=== PATIENT | male | born 1965 | race African-American/Black ===

== ENCOUNTER 2016-08-23 02:22 | Inpatient (IN) | payer OTHER ==
[~2016-08-23] VITALS: Ht 175.3 cm; Wt 89.0 kg
[~2016-08-23 02:22] MED LIST: ALBU18HF INHALATION; NAPR-688 PO; TRUV PO; tivicay
[2016-08-23] MEDS ORDERED: QUETIAPINE 100 MG TAB PO ONE (07:30)
--- NOTE | 2016-08-23 07:42 | ERD ---
ER Documentation Chief Complaint Date/Time DATE: 08/23/16 TIME: 07:38 Chief Complaint lower back pain/sob for a few months, also c/o left foot pain HPI HPI: Patient is a 51-year-old male with history of bipolar disorder, diabetes, HIV, hep C status post treatment who presents with complaint of shortness of breath for 2 days that he states he believes is due to smoking lots of cigarettes. Although this is the patient's initial complaints, on further history the patient states his real reason for coming to the emergency department is that he ran out of his psychiatric meds several days ago, has been feeling more agitated, paranoid that his neighbors are trying to hurt him, and is having some homicidal ideation towards his neighbors. He does not have specific plan or intent of homicide towards his neighbors, but does state that he has acted on violent impulses before. Patient acknowledges injecting methamphetamine prior to coming to the ER, smokes cocaine, "drinks like a fish. " Patient has history of bipolar disorder with psychotic features and usually takes Seroquel 200 mg, Latuda 20 mg, unknown dose of Lamictal. Denies chest pain, denies fever, denies productive cough, denies nausea or vomiting. Denies ingestion of medication. ROS All systems reviewed and are negative except as per history of present illness. Medications Home Meds Active Scripts Naproxen* (Naproxen*) 500 Mg Tablet, 500 MG PO BID, #20 TAB Prov:JACLYNKRISTI DO 03/24/16 Albuterol Sulfate* (Ventolin HFA*) 18 Gm Hfa.aer.ad, 2 PUFF INHALATION Q4H, #1 INHALER Prov:KRISTI ANAYA DO 03/24/16 Reported Medications [tivicay] No Conflict Check, DAILY 05/24/16 Emtricitabine-Tenofovir* (Truvada*) 200-300 Mg Tab, 1 TAB PO DAILY, TAB 05/24/16 Allergies Allergies: Coded Allergies: Penicillins (Verified Allergy, Unknown, 08/23/16) PMhx/Soc Past medical history: Diabetes, HIV, hep C status post treatment with Harvoni, bipolar disorder with psychotic features Surgical history: Laceration repair to scalp after trauma Social history: Smokes cigarettes, drinks daily, injects methamphetamine, smokes cocaine History of Surgery: Yes (gallbladder removal) Anesthesia Reaction: No Hx Neurological Disorder: Yes (nueropathy) Hx Respiratory Disorders: Yes (asthma) Hx Cardiac Disorders: Yes (HTN) Hx Psychiatric Problems: No Hx Miscellaneous Medical Probl: Yes (DM, HIV) Hx Alcohol Use: Yes Hx Substance Use: Yes (crystal meth) Hx Tobacco Use: Yes FmHx Family History: No coronary disease, No diabetes Physical Exam Vitals Vital Signs Date Time Temp Pulse Resp B/P Pulse Ox O2 Delivery O2 Flow Rate FiO2 08/23/16 13:38 98.3 104 16 130/77 99 Room Air 08/23/16 10:00 98.4 88 16 152/82 97 Room Air 08/23/16 02:33 97.2 105 20 154/86 98 Physical Exam Const: No acute distress, psychomotor agitation Head: Atraumatic Eyes: Normal Conjunctiva, no pallor or icterus ENT: Normal External Ears, Nose and Mouth. Mucous membranes moist Neck: Full range of motion. No meningismus. No JVD Resp: Clear to auscultation bilaterally, no wheezes, no rales, no rhonchi Cardio: Regular rate and rhythm, no murmurs Abd: Soft, non tender, non distended. Normal bowel sounds Skin: No petechiae or rashes Back: No midline or flank tenderness Ext: No cyanosis, or edema Neur: Awake and alert, cranial nerves II through XII intact bilaterally, moves and feels 4 extremities appropriately Psych: Normal Mood and Affect Result Diagram: 08/23/16 0825 08/23/16 0825 Results 24 hrs Laboratory Tests Test 08/23/16 08:25 08/23/16 11:30 08/23/16 13:34 White Blood Count 9.410^3/ul Red Blood Count 4.8810^6/ul Hemoglobin 14.5g/dl Hematocrit 44.4% Mean Corpuscular Volume 91.0fl Mean Corpuscular Hemoglobin 29.7pg Mean Corpuscular Hemoglobin Concent 32.7g/dl Red Cell Distribution Width 14.6% Platelet Count 08644^3/UL Mean Platelet Volume 10.8fl Neutrophils % 59.2% Lymphocytes % 32.2% Monocytes % 7.6% Eosinophils % 0.4% Basophils % 0.3% Nucleated Red Blood Cells % 0.0/100WBC Neutrophils # 5.610^3/ul Lymphocytes # 3.010^3/ul Monocytes # 0.710^3/ul Eosinophils # 0.010^3/ul Basophils # 0.010^3/ul Nucleated Red Blood Cells # 0.010^3/ul Sodium Level 130mmol/L Potassium Level 4.4mmol/L Chloride Level 94mmol/L Carbon Dioxide Level 29mmol/L Anion Gap 11 Blood Urea Nitrogen 14mg/dl Creatinine 0.72mg/dl Glucose Level 457mg/dl Calcium Level 8.5mg/dl Total Bilirubin 1.0mg/dl Direct Bilirubin 0.00mg/dl Indirect Bilirubin 1.0mg/dl Aspartate Amino Transf (AST/SGOT) 97IU/L Alanine Aminotransferase (ALT/SGPT) 108IU/L Alkaline Phosphatase 180IU/L Creatine Kinase 683IU/L Total Protein 6.2g/dl Albumin 2.9g/dl Globulin 3.30g/dl Albumin/Globulin Ratio 0.87 Salicylates Level < 1.0mg/dl Acetaminophen Level < 10.0ug/ml Ethyl Alcohol Level < 10.0mg/dl Urine Color LT. YELLOW Urine Clarity CLEAR Urine pH 6.0 Urine Specific [place] <=1.005 Urine Ketones NEGATIVE Urine Nitrite NEGATIVE Urine Bilirubin NEGATIVE Urine Urobilinogen 0.2 E.U./dL Urine Leukocyte Esterase NEGATIVE Urine Microscopic RBC NONE SEEN/HPF Urine Microscopic WBC NONE SEEN/HPF Urine Hemoglobin NEGATIVE Urine Glucose >=1000% Urine Total Protein TRACE Urine Opiates Screen Negative Urine Barbiturates Negative Urine Amphetamines Screen Positive Urine Benzodiazepines Screen Negative Urine Cocaine Screen Negative Urine Cannabinoids Negative Bedside Glucose 269mg/dL Current Medications Medications (Trade) Dose Ordered Sig/Luis Alberto Route PRN Reason Start Time Stop Time Status Last Admin Dose Admin Quetiapine Fumarate 200 mg 200 mg ONCE ONCE PO 08/23/16 07:30 08/23/16 07:36 DC 08/23/16 08:02 Sodium Chloride (NS) 1,000 ml @ 1,000 mls/hr Q1H ONCE IV 08/23/16 10:00 08/23/16 10:59 DC 08/23/16 10:22 Insulin Human Regular (Humulin R) 10 unit ONCE ONCE SC 08/23/16 10:00 08/23/16 10:05 DC 08/23/16 10:10 Lorazepam (Ativan) 2 mg STK-MED ONCE .ROUTE 08/23/16 09:55 08/23/16 09:56 DC Lorazepam (Ativan) 2 mg ONCE ONCE IM 08/23/16 10:30 08/23/16 10:31 DC 08/23/16 10:22 Procedures/MDM EKG read by me: Time 835, rate 102 Rhythm: Sinus tachycardia Winifred: Right superior axis Intervals: Borderline QTC ST-T waves: no ischemic changes Ectopy: No Q-waves: No Impression: Sinus tachycardia, poor R-wave progression, no ischemia Chest x-ray: Impression: 1. Market cardiomegaly/pericardial effusion 2. No pleural effusion or focal consolidation. MDM: Patient is a 51-year-old male who presents with homicidal ideations and decompensation of bipolar disorder with psychosis. Patient also acknowledges recent use of methamphetamine and has a positive tox screen. No signs of other ingestion. Patient complains of some shortness of breath but has no signs of respiratory distress, and has a benign EKG and chest x-ray. He also attributes his shortness of breath to smoking too much. He has a slightly elevated CK, for which she was given IV fluids. He has hyperglycemia due to diabetes mellitus, for which she was given subcutaneous insulin. He required sedation with Ativan and Seroquel due to agitation and psychosis. At this time he is medically cleared for psychiatric evaluation. Endorsed to Dr. Robledo at shift change. Disposition is pending psychiatric evaluation. Departure Diagnosis: Primary Impression: Homicidal ideation Additional Impressions: Bipolar disorder with psychotic features Methamphetamine abuse Hyperglycemia Dyspnea Dyspnea type: unspecified Qualified Code: R06.00 - Dyspnea, unspecified type Condition: MARK ANTHONY Connolly MD Aug 23, 2016 07:42
--- NOTE | 2016-08-23 08:29 | RADRPT ---
PROCEDURE: XR Chest. CLINICAL INDICATION: Shortness of breath. TECHNIQUE: Single AP portable chest. COMPARISON: 05/23/2016 Chest x-ray. FINDINGS: Marked cardiomegaly/ for pericardial effusion. The lungs are clear without pleural effusion or foca l consolidation. No pneumothorax. The osseous structures and soft tissues are unremarkable. IMPRESSION: 1. Marked cardiomegaly / pericardial effusion. 2. No pleural effusion or focal consolidation. RPTAT:AAJJ Physician Gayle Date Time Electronically viewed and signed by Physician Gayle on 08/23/2016 08:29 ARIK/
[2016-08-23 08:38] LABS: ADD SCAN DIFF NO
[2016-08-23 08:42] LABS: BASOPHILS % 0.3 % (0.0-2.0); EOSINOPHILS % 0.4 % (0.0-7.0); HEMATOCRIT 44.4 % (42.0-52.0); HEMOGLOBIN 14.5 g/dl (14.0-18.0); LYMPHOCYTES % 32.2 % (15.0-51.0); MEAN CORPUSCULAR HEMOGLOBIN 29.7 pg (29.0-33.0); MEAN CORPUSCULAR HGB CONC 32.7 g/dl (32.0-37.0); MEAN PLATELET VOLUME 10.8 fl (7.4-10.4); MONOCYTE # 0.7 10^3/ul (0.3-0.9); MONOCYTES % 7.6 % (0.0-11.0); NEUTROPHIL # 5.6 10^3/ul (1.6-7.5); NEUTROPHILS % 59.2 % (39.0-77.0); PLATELET COUNT 179 10^3/UL (140-415); RED BLOOD COUNT 4.88 10^6/ul (4.70-6.10); RED CELL DISTRIBUTION WIDTH 14.6 % (11.5-14.5); WHITE BLOOD COUNT 9.4 10^3/ul (4.8-10.8)
[2016-08-23 09:12] LABS: ALBUMIN 2.9 g/dl (3.3-4.9); CHLORIDE 94 mmol/L (97-110)
[2016-08-23 09:13] LABS: POTASSIUM 4.4 mmol/L (3.5-5.1); SODIUM 130 mmol/L (135-144)
[2016-08-23 09:15] LABS: ALBUMIN/GLOBULIN RATIO 0.87; ALKALINE PHOSPHATASE 180 IU/L (42-121); ANION GAP 11 (8-16); ASPARTATE AMINO TRANSFERASE 97 IU/L (15-46); BLOOD UREA NITROGEN 14 mg/dl (7-20); CARBON DIOXIDE 29 mmol/L (21-31); CREATININE 0.72 mg/dl (0.61-1.24); TOTAL PROTEIN 6.2 g/dl (6.1-8.1)
[2016-08-23 09:16] LABS: ALANINE AMINOTRANSFERASE 108 IU/L (13-69); CALCIUM 8.5 mg/dl (8.4-10.2); CREATINE KINASE 683 IU/L (23-200)
[2016-08-23 09:22] LABS: GLUCOSE 457 mg/dl (70-220)
[2016-08-23 09:46] LABS: ACETAMINOPHEN < 10.0 ug/ml (10.0-30.0); ETHANOL < 10.0 mg/dl; SALICYLATE < 1.0 mg/dl (5.0-30.0)
[2016-08-23] MEDS ORDERED: LORAZEPAM 2 MG INJ ONE (09:55)
[2016-08-23] MEDS ORDERED: INSULIN REGULAR, HUMAN 100 UNIT/1 ML 3ML VIAL SC ONE (10:00)
[2016-08-23] MEDS ORDERED: SOD CHLORIDE 0.9% 1,000 ML IV ONE (10:00)
[2016-08-23] MEDS ORDERED: LORAZEPAM 2 MG INJ IM ONE (10:30)
[2016-08-23 11:57] LABS: ADD UMIC YES; URINE BILIRUBIN (Dip) NEGATIVE (NEGATIVE); URINE BLOOD (Dip) NEGATIVE (NEGATIVE); URINE COLOR LT. YELLOW (YELLOW); URINE GLUCOSE (Dip) >=1000 % (NEGATIVE); URINE KETONES (Dip) NEGATIVE (NEGATIVE); URINE LEUKOCYTE ESTERASE (Dip) NEGATIVE (NEGATIVE); URINE NITRITE (Dip) NEGATIVE (NEGATIVE); URINE TOTAL PROTEIN (Dip) TRACE (NEGATIVE); URINE UROBILINOGEN (Dip) 0.2 E.U./dL (0.1-1.0)
[2016-08-23 12:09] LABS: URINE RBCS NONE SEEN /HPF (0)
[2016-08-23 12:14] LABS: BARBITURATES Negative (NEGATIVE); BENZODIAZEPINES Negative (NEGATIVE); CANNABINOIDS Negative (NEGATIVE)
[2016-08-23 12:15] LABS: COCAINE Negative (NEGATIVE); OPIATES Negative (NEGATIVE)
--- NOTE | 2016-08-23 18:07 | PSY ---
Date/Time of Note Date/Time of Note DATE: 08/23/16 TIME: 17:36 Psychiatric Subjective Eval Consent Pt consented to telemedicine: Yes Subjective Evaluation Patient location: emergency Chief Complaint: lower back pain/sob for a few months, also c/o left foot pain Reason for consult: homicidal ideation History of present illness Per ER note, "HPI: Patient is a 51-year-old male with history of bipolar disorder, diabetes, HIV, hep C status post treatment who presents with complaint of shortness of breath for 2 days that he states he believes is due to smoking lots of cigarettes. Although this is the patient's initial complaints, on further history the patient states his real reason for coming to the emergency department is that he ran out of his psychiatric meds several days ago, has been feeling more agitated, paranoid that his neighbors are trying to hurt him, and is having some homicidal ideation towards his neighbors. He does not have specific plan or intent of homicide towards his neighbors, but does state that he has acted on violent impulses before. Patient acknowledges injecting methamphetamine prior to coming to the ER, smokes cocaine, "drinks like a fish." Patient has history of bipolar disorder with psychotic features and usually takes Seroquel 200 mg, Latuda 20 mg, unknown dose of Lamictal. Denies chest pain, denies fever, denies productive cough, denies nausea or vomiting. Denies ingestion of medication." Per RN, initially came in around c/o lower back pain and left foot pain but then became agitated, restless and wanted to see Psych. Stated he had smoked crystal meth. BS 457 but patient refused to cooperate. He required Ativan 2mg and Seroquel. He also reported wanting to kick the asses of several of his neighbors. On telepsych assessment, patient is somewhat sedated and slurring his speech. He reports coming to the hospital because he felt like he would get to the point where he would hurt someone else. He does endorse vague h/o violence and does states his neighbors are asses. Patient unable to fully participate in rest of assessment most likely due to recent medications. Past psychiatric history OP - reportedly in [place]? Hospitalization: other (unable to assess) Family History mally Medical history Problems Medical Problems: (1) Asthma exacerbation Status: Acute (2) Bipolar disorder with psychotic features Status: Acute (3) Bronchitis Status: Acute (4) Dyspnea Status: Acute (5) Homicidal ideation Status: Acute (6) Hyperglycemia Status: Acute (7) Methamphetamine abuse Status: Acute (8) Septic joint of right knee joint Status: Acute Allergies: Coded Allergies: Penicillins (Verified Allergy, Unknown, 08/23/16) Substance Abuse Substance abuse history: Yes (meth) Social History Marital status: other (mally) Level of education: mally Occupation/Snf: reportedly stated he has no place to go Psychiatric Objective Eval Review of Systems: Review of Systems: Not Applicable Physical Examination: Sleep: Other (mally) Energy: Other (mally) Interest: Other (mally) Mental Status Examination: Appearance: Poor Hygiene Eye Contact: Poor Psychomotor Activity: Normal Behavior: Other Speech: Slurred AFFECT: Flat Mood: Irritable Though Process: Other (impoverished) Suicidal: No Homicidal: Yes On 72 hour hold: No Orientation: x2 Cognition: Drowsy Insight: Impared Judgement: Impared Laboratory Results Laboratory Tests Test 08/23/16 08:25 08/23/16 11:30 08/23/16 13:34 White Blood Count 9.410^3/ul Red Blood Count 4.8810^6/ul Hemoglobin 14.5g/dl Hematocrit 44.4% Mean Corpuscular Volume 91.0fl Mean Corpuscular Hemoglobin 29.7pg Mean Corpuscular Hemoglobin Concent 32.7g/dl Red Cell Distribution Width 14.6% Platelet Count 85697^3/UL Mean Platelet Volume 10.8fl Neutrophils % 59.2% Lymphocytes % 32.2% Monocytes % 7.6% Eosinophils % 0.4% Basophils % 0.3% Nucleated Red Blood Cells % 0.0/100WBC Neutrophils # 5.610^3/ul Lymphocytes # 3.010^3/ul Monocytes # 0.710^3/ul Eosinophils # 0.010^3/ul Basophils # 0.010^3/ul Nucleated Red Blood Cells # 0.010^3/ul Sodium Level 130mmol/L Potassium Level 4.4mmol/L Chloride Level 94mmol/L Carbon Dioxide Level 29mmol/L Anion Gap 11 Blood Urea Nitrogen 14mg/dl Creatinine 0.72mg/dl Glucose Level 457mg/dl Calcium Level 8.5mg/dl Total Bilirubin 1.0mg/dl Direct Bilirubin 0.00mg/dl Indirect Bilirubin 1.0mg/dl Aspartate Amino Transf (AST/SGOT) 97IU/L Alanine Aminotransferase (ALT/SGPT) 108IU/L Alkaline Phosphatase 180IU/L Creatine Kinase 683IU/L Total Protein 6.2g/dl Albumin 2.9g/dl Globulin 3.30g/dl Albumin/Globulin Ratio 0.87 Salicylates Level < 1.0mg/dl Acetaminophen Level < 10.0ug/ml Ethyl Alcohol Level < 10.0mg/dl Urine Color LT. YELLOW Urine Clarity CLEAR Urine pH 6.0 Urine Specific [place] <=1.005 Urine Ketones NEGATIVE Urine Nitrite NEGATIVE Urine Bilirubin NEGATIVE Urine Urobilinogen 0.2 E.U./dL Urine Leukocyte Esterase NEGATIVE Urine Microscopic RBC NONE SEEN/HPF Urine Microscopic WBC NONE SEEN/HPF Urine Hemoglobin NEGATIVE Urine Glucose >=1000% Urine Total Protein TRACE Urine Opiates Screen Negative Urine Barbiturates Negative Urine Amphetamines Screen Positive Urine Benzodiazepines Screen Negative Urine Cocaine Screen Negative Urine Cannabinoids Negative Bedside Glucose 269mg/dL Assessment and Plan Assessment/Diagnosis [place] I: unspecified mood disorder methamphetamine abuse [place] II: deferred [place] III: see medical chart [place] IV: lack of primary suppport [place] V: 30 Recommendation/Plan Medication Management none at this time as patient is unable to participate in meaningful discussion of r/b/se/a of medications Follow-up/Disposition At this time, recommend 5150 as patient continues to endorse HI toward his neighbors and is vague. He is also unable to come up with a viable plan of self care and seems highly impulsive at this time. 1) Recommend 5150 for DTO/GD and admission to inpatient psychiatry once medically cleared 2) Please reconsult with any further questions. 5150 Recommendation: RICHIE Sherwood MD Aug 23, 2016 18:00
[2016-08-24] MEDS ORDERED: IBUPROFEN 800 MG TAB PO ONE (03:00)
[2016-08-24] MEDS ORDERED: LORAZEPAM 2 MG INJ IV ONE ×2 (05:00→07:00)
[2016-08-24] MEDS ORDERED: EMTRICITABINE/TENOFOVIR TAB PO ONE (06:30)
[2016-08-24] MEDS ORDERED: ALBUTEROL 0.083% (NEB) 2.5 MG/3 ML AMP NEB STA (06:57)
[2016-08-24] MEDS ORDERED: IPRATROPIUM (NEB) 0.5 MG/2.5 ML AMP NEB STA (06:57)
[2016-08-24] MEDS ORDERED: HALOPERIDOL 5 MG INJ IM STA (07:24)
[2016-08-24] MEDS ORDERED: LORAZEPAM 2 MG INJ IV STA (07:24)
[2016-08-24] MEDS ORDERED: SOD CHLORIDE 0.9% 1,000 ML IV STA ×2 (07:54→14:06)
[2016-08-24] MEDS ORDERED: DIPHENHYDRAMINE 50 MG INJ IV ONE (08:00)
[2016-08-24] MEDS ORDERED: ONDANSETRON (ODT) 4 MG TAB ODT STA (08:13)
[2016-08-24 10:32] LABS: ADD SCAN DIFF NO; BASOPHILS % 0.2 % (0.0-2.0); EOSINOPHILS # 0.1 10^3/ul (0.0-0.5); EOSINOPHILS % 0.6 % (0.0-7.0); HEMATOCRIT 45.1 % (42.0-52.0); HEMOGLOBIN 14.5 g/dl (14.0-18.0); LYMPHOCYTES # 3.5 10^3/ul (0.8-2.9); LYMPHOCYTES % 33.6 % (15.0-51.0); MEAN CORPUSCULAR HGB CONC 32.2 g/dl (32.0-37.0); MEAN CORPUSCULAR VOLUME 93.4 fl (82.0-101.0); MONOCYTE # 0.6 10^3/ul (0.3-0.9); NEUTROPHIL # 6.2 10^3/ul (1.6-7.5); NEUTROPHILS % 59.3 % (39.0-77.0); PLATELET COUNT 179 10^3/UL (140-415); RED BLOOD COUNT 4.83 10^6/ul (4.70-6.10); RED CELL DISTRIBUTION WIDTH 14.9 % (11.5-14.5); WHITE BLOOD COUNT 10.5 10^3/ul (4.8-10.8)
[2016-08-24 10:47] LABS: ALBUMIN 2.7 g/dl (3.3-4.9); POTASSIUM 4.5 mmol/L (3.5-5.1)
[2016-08-24 10:49] LABS: CREATININE 0.76 mg/dl (0.61-1.24)
[2016-08-24 10:50] LABS: ALBUMIN/GLOBULIN RATIO 0.81; BILIRUBIN,INDIRECT 0.8 mg/dl (0-1.1); BILIRUBIN,TOTAL 0.8 mg/dl (0.2-1.3); CALCIUM 7.6 mg/dl (8.4-10.2)
[2016-08-24 11:43] LABS: AADO2 Arterial 43.8 mmHg (7.0-24.0); Allen Test ACCEPTAB; Arterial Base Excess -3.5 mmol/L (-3.0-3); Arterial COHb 0.9 % (0.0-3.0); Arterial Fraction of Oxyhgb 88.5 % (93.0-99.0); Arterial HCO3 20.8 mmol/L (22.0-26.0); Arterial MetHb 0.3 % (0.0-1.5); Arterial Total Hemglobin 15.8 g/dl (12.0-18.0); MODE ROOM AIR
[2016-08-24] MEDS ORDERED: ZIPRASIDONE 20 MG CAP PO ONE ×2 (12:30)
[2016-08-24] MEDS ORDERED: DOLU50TA PO (13:46)
[2016-08-24] MEDS ORDERED: QUET200T PO (13:47)
--- NOTE | 2016-08-24 14:16 | EN ---
Date/Time of Note Date/Time of Note DATE: 08/24/16 TIME: 14:10 ER Progress Note This patient is a 51-year-old male that had been waiting in the emergency department for over 30 hours to be placed in a psychiatric facility for acute psychosis. When I arrived for my shift I went to evaluate the patient as he was very agitated and verbal de-escalation was unable to calm the patient down. The patient had received intravenous Ativan and Benadryl and Geodon given by myself. The patient was tachypneic and had no wheezing on end auscultation and no rhonchi. I reviewed the chest radiograph that had been obtained 24 hours prior to arrival which indicated the patient had cardiomegaly and a possible pericardial effusion. I also reviewed the patient's labs which indicated the patient had an elevated BNP of over 2000. The patient's creatinine kinase was elevated, very mildly, however the patient was given gentle IV fluid hydration with no improvement of the patient's creatinine kinase. Given that there is concern for fluid overload the patient will require admission for further evaluation to prevent respiratory failure. The patient will require one-to-one observation as he is currently on hold. The patient will be admitted to the internal medicine physician Dr. Page in serious condition the telemetry service. The patient also has a history of insulin-dependent diabetes. He was hypoglycemic without ketosis. His blood glucose improved with IV fluids. The patient also has a history of HIV and is on Truvada which I ordered for the patient. CASSANDRA MCGUIRE Aug 24, 2016 14:16
[2016-08-24] MEDS ORDERED: ONDANSETRON 4 MG INJ IV PRN ×2 (14:30)
[2016-08-24] MEDS ORDERED: ACETAMINOPHEN 325 MG TAB PO PRN ×2 (14:30)
[2016-08-24] MEDS ORDERED: INSULIN LISPRO 100 UNIT/ML VIAL SC STA (14:51)
[2016-08-24] MEDS ORDERED: GLUCOSE GEL 15 GRAM TUBE BUCCAL PRN (15:00)
[2016-08-24] MEDS ORDERED: GLUCAGON 1 MG INJ IM PRN (15:00)
[2016-08-24] MEDS ORDERED: GLUCOSE GEL 15 GRAM TUBE PO PRN ×2 (15:00)
[2016-08-24] MEDS ORDERED: DEXTROSE 50% 50 ML SYRINGE IV PRN ×2 (15:00)
--- NOTE | 2016-08-24 15:09 | RADRPT ---
PROCEDURE: XR Chest. CLINICAL INDICATION: pain TECHNIQUE: Single portable view of the chest was obtained COMPARISON: Yesterday FINDINGS: There is moderate cardiomegaly with worsening pulmonary vascular congestion.. The heart, lungs and m ediastinum are otherwise unchanged. There is no pleural effusion or pneumothorax.. RPTAT: AA IMPRESSION: Moderate cardiomegaly with worsening pulmonary vascular congestion. No other significant change. .Satish Buchanan MD, MD Date Time Electronically viewed and signed by .Satish Buchanan MD, MD on 08/24/2016 15:09 .S/
[2016-08-24] MEDS ORDERED: LEVALBUTEROL (NEB) 0.63 MG/3 ML AMP HHN PRN (17:00)
[2016-08-24] MEDS ORDERED: DOCUSATE SODIUM 100 MG CAP PO PRN (17:00)
[2016-08-24] MEDS ORDERED: Discontinue Glyburide, Glipizide, and/or Glimepiride prior to starting Insulin XX ONE (17:00)
[2016-08-24] MEDS ORDERED: MAGNESIUM HYDROXIDE 30ML CUP PO PRN (17:00)
[2016-08-24] MEDS ORDERED: HYPOGLYCEMIA PROTOCOL when Glucose is <70 mg/dL or symptomatic <90 mg/dL. XX ONE (17:00)
[2016-08-24] MEDS ORDERED: NACL 0.9% 3 ML SYG IV SCH (17:00)
[2016-08-24] MEDS ORDERED: HYDROCODONE/APAP (5/325) TAB PO PRN ×2 (17:00)
[2016-08-24] MEDS ORDERED: BISACODYL 10 MG SUPP PR PRN (17:00)
[2016-08-24] MEDS ORDERED: hydrALAzine 20 MG INJ IV PRN (17:30)
[2016-08-24] MEDS ORDERED: INSULIN ASPART [NOVOLOG] 3 ML PEN SC SCH (18:00)
[2016-08-24] MEDS: FUROSEMIDE 40 MG INJ IV SCH (18:44)
[2016-08-24] MEDS ORDERED: INSULIN GLARGINE [LANtus] 3 ML PEN SC SCH ×2 (20:00)
--- NOTE | 2016-08-24 20:41 | HP ---
DATE OF ADMISSION: 08/23/2016 CHIEF COMPLAINT: Psychiatric disorder. HISTORY OF PRESENT ILLNESS: This is a 51-year-old male with past medical history of HIV, diabetes, hepatitis C status post treatment as well as bipolar disorder who came to [facility] initially due to reports of shortness of breath. It was also reported that the patient had come to the hospital due to running out of his psychiatric medications and initially did report that he f elt more agitated and paranoid that his neighbors were trying to hurt him and as such started to hav e homicidal ideation toward his neighbors. He did also admit to smoking cocaine and that he "drinks like a fish." He also admitted to injecting methamphetamines prior to coming to the ER. It was re ported that initially the patient had been in the ER for over 30 hours due to being placed on a 5150 hold after being evaluated by telepsychiatrist. The patient was noted to be agitated prior to my e valuation, and it was reported that he did receive medications of Ativan as well as Benadryl and Philip don. As such, it was difficult to get a full history from the patient himself. The patient was not ed with diminished lung sounds on evaluation. He did have chest x-ray that did show pulmonary conge stion. He also had a BNP of over 2000. He was noted with elevated blood glucose with sugar as high as 364. It is questionable whether the patient is compliant with his medications. He also had a c reatinine kinase of 282 and a BNP of 2280. He was also seen with some transaminitis, likely seconda ry to his previous hepatitis C infection. He did also test positive for amphetamines as well. Of n ote, his most recent A1c was 12.7 from it being checked in 04/2016. Currently the patient seen in [facility] ER. Seen on room air. No appreciated respiratory distress seen. As previously mentioned, he wa s recently given doses of Ativan as well as Benadryl and Geodon prior to my evaluation. We will mon itor him for the aforementioned issues. MEDICAL AND SURGICAL HISTORY: 1. History of HIV. 2. History of hepatitis C with reported receiving treatment. 3. Diabetes. 4. Previous history of sepsis secondary to septic knee joint. 5. Essential hypertension. 6. History of asthma. SOCIAL HISTORY: It is reported patient does smoke cigarettes regularly as well as drinks alcohol, d oes amphetamine as well as cocaine. FAMILY HISTORY: Noncontributory. ALLERGIES: PENICILLIN. HOME MEDICATIONS: 1. Tivicay, dose unknown. 2. Truvada 1 tablet p.o. daily. 3. Ventolin HFA 2 puffs q.4 hours as needed for shortness of breath. 4. Naprosyn 500 mg p.o. b.i.d. 5. Seroquel 200 mg p.o. at bedtime. REVIEW OF SYSTEMS: Unable to obtain. PHYSICAL EXAMINATION: VITAL SIGNS: Temperature is 98.3, pulse is 105, respiratory rate is 20, blood pressure 155/111, and pulse oximetry is 95% on room air. GENERAL: This is a 51-year-old male, lethargic during evaluation. No respiratory distress noted. EYES: Pupils equal, round, reactive to light. Anicteric sclerae. NECK: Supple, nontender. Slight JVD noticed. PULMONARY: Diminished at lung bases. CARDIAC: Tachycardic. S1, S2 auscultated. ABDOMEN: Soft, nontender, nondistended. EXTREMITIES: Minimal edema in bilateral lower extremities +1. SKIN: Noted with scabs on bilateral lower extremities. NEUROLOGIC: The patient is alert to verbal response but is lethargic secondary to his recent admini stration of benzodiazepine medication for agitation. LABORATORY DATA: WBC is 10.5, hemoglobin is 14.5, hematocrit is 45.1 and platelets are 179. Sodium 132, potassium 4.5, BUN is 15, creatinine 0.76. Blood glucose noted at 377, AST 99, ALT 87, alkali ne phosphatase 147. IMAGING: Chest x-ray done on 08/24/2016 did show moderate cardiomegaly with worsening pulmonary vas cular congestion. IMPRESSION AND PLAN: 1. Dyspnea. Likely multifactorial. The patient likely with underlying chronic obstructive pulmona ry disease secondary to his extensive history of cigarette smoking. Will place on bronchodilators. O2 as needed and titrate down as tolerated. Follow up on echocardiogram for suspicion of congestiv e heart failure. Also noted patient with elevated BNP. Will get collection advisor to follow. 2. Suspect congestive heart failure. Echocardiogram to follow. Will start on diuresis. Will get collection advisor to follow. 3. Acute exacerbation of psychiatric disorder. The patient noted with history of bipolar. He did run out of his psych medications per report and did report paranoia as well as homicidal ideation to wards his neighbors. The patient seen by telepsychiatrist and placed on 5150 hold. Plan to transfe r to psych facility once medically stable. 4. Suspect underlying chronic obstructive pulmonary disease. No active bronchospasms. Will start patient on DuoNeb as needed. 5. Uncontrolled blood glucose with underlying diabetes. The patient, of note, did have last A1c at 12.7. Will follow up on level. Start the patient on insulin regimen for now. environmental educator t o follow. 6. Suspect rhabdomyolysis. The patient with elevated CK level. Will start with gentle hydration. Will monitor for fluid overload. Will follow up on level. 7. Transaminitis. The patient with previous history of hepatitis C. Will monitor level. 8. History of human immunodeficiency virus. Will continue the patient on his antiretrovirals. ID consult to follow. 9. Type 2 diabetes. The patient with previous A1c of 12.7. Follow up on level. As previously men tioned, start on insulin regimen. Assembly Machine Offbearer to follow. ADMISSION PROCESS TIME: 40 minutes. Discussed plan of care with Dr. Stoner. Dictated By: AMARIS DURHAM SHOULDER SAWYER for JOSE ARMANDO DA SILVA/ABHISHEK Conf#: [id number] DID#: [id number]
[2016-08-24 20:49] LABS: HAAIG REFLEX REFLEX FILED
[2016-08-24] MEDS: QUETIAPINE 25 MG TAB PO SCH (20:56)
[2016-08-24] MEDS: QUETIAPINE 100 MG TAB PO SCH (20:56)
[2016-08-24] MEDS: INSULIN ASPART [NOVOLOG] 3 ML PEN SC SCH ×3 (20:57→21:32)
[2016-08-24] MEDS: metFORMIN 500 MG TAB PO SCH (21:00)
[2016-08-24] MEDS: ACCU-CHEK XX SCH (21:00)
[2016-08-24 21:06] LABS: HEPATITIS B CORE ANTIBODY NEGATIVE (NEGATIVE)
[2016-08-24] MEDS: HEPARIN 5,000 UNIT/0.5 ML SYG SC SCH (23:07)
[2016-08-25] VITALS (12 sets, daily range): BP systolic 141–190; BP diastolic 86–101; PULSE 82–123; RESP 18–21; TEMP 98.7; Ht 175.3 cm; Wt 89.0 kg
[2016-08-25] MEDS: morphine 2 MG INJ IV PRN ×2 (00:38→20:50)
[2016-08-25] MEDS: LORAZEPAM 2 MG INJ IV PRN ×2 (04:56→20:24)
[2016-08-25] MEDS: PANTOPRAZOLE 40 MG INJ IV SCH (05:55)
[2016-08-25 07:37] LABS: T3 UPTAKE 42.8 % (23.5-40.5)
[2016-08-25 07:43] LABS: ALBUMIN 2.6 g/dl (3.3-4.9)
[2016-08-25 07:44] LABS: POTASSIUM 3.8 mmol/L (3.5-5.1)
[2016-08-25 07:46] LABS: ALBUMIN/GLOBULIN RATIO 0.86; BILIRUBIN,INDIRECT 0.7 mg/dl (0-1.1); BILIRUBIN,TOTAL 0.7 mg/dl (0.2-1.3); CREATININE 0.75 mg/dl (0.61-1.24); PHOSPHORUS 3.8 mg/dl (2.5-4.9); TOTAL PROTEIN 5.6 g/dl (6.1-8.1)
[2016-08-25 07:47] LABS: CALCIUM 8.5 mg/dl (8.4-10.2); CHOL/HDL RATIO 3.4 RATIO; MAGNESIUM 1.7 mg/dl (1.7-2.5)
[2016-08-25 07:51] LABS: THYROID STIMULATING HORMONE 1.66 MIU/L (0.465-4.680)
[2016-08-25] MEDS: metFORMIN 500 MG TAB PO SCH ×2 (07:55→18:05)
[2016-08-25] MEDS: INSULIN ASPART [NOVOLOG] 3 ML PEN SC SCH ×9 (07:55→20:53)
[2016-08-25] MEDS ORDERED: INSULIN ASPART [NOVOLOG] 3 ML PEN SC SCH (07:55)
[2016-08-25 08:22] LABS: ADD SCAN DIFF NO
[2016-08-25 08:27] LABS: BASOPHILS % 0.2 % (0.0-2.0); EOSINOPHILS % 0.4 % (0.0-7.0); HEMOGLOBIN 14.6 g/dl (14.0-18.0); LYMPHOCYTES # 3.6 10^3/ul (0.8-2.9); MEAN CORPUSCULAR HEMOGLOBIN 29.8 pg (29.0-33.0); MEAN CORPUSCULAR HGB CONC 32.4 g/dl (32.0-37.0); MEAN CORPUSCULAR VOLUME 91.8 fl (82.0-101.0); MEAN PLATELET VOLUME 10.9 fl (7.4-10.4); MONOCYTE # 0.9 10^3/ul (0.3-0.9); MONOCYTES % 8.5 % (0.0-11.0); NEUTROPHIL # 5.5 10^3/ul (1.6-7.5); NEUTROPHILS % 54.6 % (39.0-77.0); PLATELET COUNT 165 10^3/UL (140-415); RED CELL DISTRIBUTION WIDTH 15.3 % (11.5-14.5)
[2016-08-25 08:42] LABS: TROPONIN-I 0.056 ng/ml (0.00-0.12)
[2016-08-25 08:43] LABS: CK-MB 5.2 ng/ml (0.0-2.4)
[2016-08-25 09:25] LABS: INR 0.97; PROTIME 12.9 Sec (12.2-14.2)
--- NOTE | 2016-08-25 10:12 | RADRPT ---
Echocardiogram Report Patient Name: BETHANY SANCHEZ Gender: Male Date: 1965 Study Date: 25-Aug-2016 Steel Sampler: Syed Sweeney RDCS Location: [facility] Ref. Physician: KARL MOON Quality: Good Procedures: Transthoracic echocardiogram with complete 2D, M-Mode, and doppler examination. Indications: Congestive Heart Failure. 2D/M Mode Doppler Measurement Value Normal Ranges Measurement Value Normal Ranges LVIDd 2D 5.5 3.5 - 5.6 cm AV Peak Quinten 1.1 m/sec LVIDs 2D 4.6 2.1 - 4.1 cm AV Peak PG 4.6 mmHg LVPWd 2D 1.6 0.6 - 1.1 cm LVOT Peak Quinten 0.7 m/sec IVSd 2D 1.4 0.6 - 1.1 cm LVOT Peak PG 1.8 mmHg AoR Diam 2D 3.1 2.0 - 3.7 cm TR Peak Quinten 3.1 m/sec EDV 2D 145.1 cm3 TR Peak PG 39.7 mmHg ESV 2D 96.2 cm3 RVSP 55.0 mmHg LA Dimen 2D 4.2 2.3 - 4.0 cm Findings Left Ventricle: Moderate concentric left ventricular hypertrophy. Mild enlargement of left ventricle cavity. Severe global left ventricular systolic dysfunction. Ejection fraction is visually estimated at 20 %. Right Ventricle: Normal right ventricular size. Left Atrium: There is mild enlargement of left atrium. Right Atrium: There is mild enlargement of right atrium. Mitral Valve: Mitral valve leaflets appear mildly thickened. Mild mitral annular calcification. Mild to moderate mitral valve regurgitation. The regurgitation jet is eccentrically directed which may underestimate the severity of mitral regurgitation. Aortic Valve: Normal appearance of the aortic valve. No significant aortic stenosis or insufficiency. Trace aortic valve regurgitation. Tricuspid Valve: Estimated peak PA systolic pressure 55 mmHg. There is mild to moderate tricuspid regurgitation. Pulmonic Valve: Normal pulmonic valve appearance. Pericardium: Normal pericardium with no significant pericardial effusion. Aorta: Normal aortic root. IVC: Dilated IVC without respiratory collapse consistent with elevated right atrial pressure. Conclusions 1.Moderate concentric left ventricular hypertrophy. Mild enlargement of left ventricle cavity. Severe global left ventricular systolic dysfunction. Ejection fraction is visually estimated at 20 %. 2.There is mild enlargement of left atrium. 3.There is mild enlargement of right atrium. 4.Mitral valve leaflets appear mildly thickened. Mild mitral annular calcification. Mild to moderate mitral valve regurgitation. The regurgitation jet is eccentrically directed which may underestimate the severity of mitral regurgitation. 5.Normal appearance of the aortic valve. No significant aortic stenosis or insufficiency. Trace aortic valve regurgitation. 6.Dilated IVC without respiratory collapse consistent with elevated right atrial pressure. Electronically Signed By: Karl Moon 25-Aug-2016 10:12:30 -0700 Patient Name: BETHANY SANCHEZ Study Date: 25-Aug-2016 [id number]
[2016-08-25] MEDS: ACCU-CHEK XX SCH ×3 (10:16→18:18)
[2016-08-25] MEDS ORDERED: LISINOPRIL 20 MG TAB PO SCH (11:00)
--- NOTE | 2016-08-25 11:19 | CONS ---
DATE OF ADMISSION: 08/24/2016 DATE OF CONSULTATION: 08/25/2016 TYPE OF CONSULTATION: Cardiology. REFERRING PHYSICIAN: Amaris Durham NP REASON FOR CONSULTATION: Cardiomyopathy, CHF. CHIEF COMPLAINT: Agitation, suicidal ideation. HISTORY OF PRESENT ILLNESS: Thank you for this referral. History obtained from , discussion w ith the staff and physicians and review of the chart. The patient unable to provide history: This is an unfortunate 51-year-old gentleman with history of HIV/AIDS, hepatitis, diabetes, apparently dr ug abuse as well, who came to emergency room initially for above complaint. The patient was initial ly waiting to go to psych and he was noted to be in congestive heart failure. The patient has repor zenaida to the ER that he is smoking cocaine and he drinks "like a fish". He has also has been injectin g methamphetamines prior to the evaluation. Has been evaluated at bedside and was waiting for psych but was noted to be CHF and has been admitted for further workup. The patient is stable at this po int, has been sedated, unable to provide any history to me. PAST MEDICAL HISTORY: HIV/AIDS, hepatitis, diabetes, history of previous sepsis and knee joint pain and hypertension. History of possibly asthma as well. SOCIAL HISTORY: The patient smokes and drinks alcohol heavily and does drugs including amphetamines and cocaine. FAMILY HISTORY: No reported early coronary artery disease. ALLERGIES: PENICILLIN. MEDICATIONS: As per medical reconciliation sheet. However, it is unclear whether he is compliant. REVIEW OF SYSTEMS: Unable to obtain. PHYSICAL EXAMINATION: VITAL SIGNS: Temperature 98.3, heart rate of 114, blood pressure 154/101, respiration rate of 19, s aturating 98%. HEENT: Normocephalic, atraumatic. Pupils are equal. CARDIOVASCULAR: Tachycardic. PULMONARY: No wheezes heard, mild rhonchi. GASTROINTESTINAL: Soft, nontender. EXTREMITIES: Trivial edema. NEUROLOGIC: Sedated. PSYCHIATRIC: Agitated. LABORATORY: WBC of 10, hemoglobin of 14.6, platelet 165. Sodium 137, potassium 3.8, BUN of 12, cre atinine 0.75, glucose 188. ProBNP of 3470. Total CK of 557, MB fraction of 5.2. Troponin 0.056. TSH 1.66. Free T4 of 1.97. IMAGING: Chest x-ray just showed cardiomegaly, pulmonary vascular congestion. DIAGNOSTIC DATA: Echocardiogram was personally reviewed, which showed dilated LV with severely decr eased LV systolic function, ejection fraction of 20%. ASSESSMENT AND PLAN: 1. Congestive heart failure, acute on chronic, secondary to severe LV dysfunction and probably nonc ompliant with any medication. 2. Severe cardiomyopathy, most likely drug induced versus others. 3. Hypertension. 4. Diabetes, poorly controlled. 5. Psychiatric disorder. 6. Transaminitis from HIV/AIDS. 7. Encephalopathy. RECOMMENDATIONS: I will place the patient on appropriate CHF medication including CHRISTINA inhibitor. B eta ema to be introduced tomorrow as well. We will also add digoxin to his regimen and Aldacton e to his regimen. Medical therapy only unless the patient has been compliant with the medications a nd avoid any drugs. Dictated By: KARL MAE MD AV/ABHISHEK Conf#: [id number] DID#: [id number] CC: AMARIS DURHAM VISUAL MANAGER;*EndCC*
--- NOTE | 2016-08-25 14:04 | PN ---
DATE: 08/25/2016 SUBJECTIVE: The patient is lethargic, lying down comfortably in bed. He was given a lot of medicat ions to keep him sedated secondary to psychologic episode. VITAL SIGNS: Temperature 98.4, pulse 112, respirations 21, blood pressure 190/98, saturation 95% on room air. LABORATORY DATA: WBC 10, H and H 14.6 and 45, platelets 165, no shift. BUN 12, creatinine 0.75. MICROBIOLOGY: No cultures done. DIAGNOSTICS: Chest x-ray revealed moderate cardiomegaly with worsening pulmonary vascular congestio n. A 2D echocardiogram revealed ejection fraction of 20%. PHYSICAL EXAMINATION: GENERAL: This is an obese, well-developed, middle-aged -Citizen Of [place] man who is in no distress. HEENT: Head atraumatic, normocephalic. Sclerae anicteric. Buccal mucosa dry. NECK: Supple. CHEST: Rise symmetrical. Breath sounds diminished to bases. HEART: S1, S2. ABDOMEN: Soft, bowel sounds present. EXTREMITIES: No cyanosis. ASSESSMENT: 1. Acute respiratory failure, likely secondary to decompensated heart failure. 2. Human immunodeficiency virus, details unknown. So far there is only Truvada that patient has be en taking. 3. Status post acute psychosis. 4. Transaminitis. 5. Poorly controlled diabetes. 6. Obesity. PLAN: We are going to order CD4 count and try to obtain records in regards to the patient's HIV his tory and his medications. Continue present care. Follow cardiology recommendations. Anti-aspirati on measures. Consider psych evaluation. Dictated By: MURIEL [place] BAILIFF for CY HUNT/ABHISHEK Conf#: [id number] DID#: [id number]
--- NOTE | 2016-08-25 14:27 | PN ---
Date/Time of Note Date/Time of Note DATE: 08/25/16 TIME: 14:22 Assessment/Plan VTE Prophylaxis VTE Prophylaxis Intervention: heparin Lines/Catheters IV Catheter Type (from [facility]): Peripheral IV Assessment/Plan Chief Complaint/Hosp Course Assessment and plan 1. Dyspnea. Likely multifactorial. The patient likely with underlying chronic obstructive pulmonary disease secondary to his extensive history of cigarette smoking. Continue on O2 as needed. Bronchodilators also as needed 2. congestive heart failure. Echocardiogram with EF of 20%. Patient with history of methamphetamine abuse.. Cardiologists following. Continue with recommendations. Continue diuresis 3. Acute exacerbation of psychiatric disorder. The patient noted with history of bipolar. He did run out of his psych medications per report and did report paranoia as well as homicidal ideation towards his neighbors. The patient seen by telepsychiatrist and placed on 5150 hold. Plan to transfer to psych facility once medically stable. Continue on Seroquel. Sitter at bedside 4. Suspect underlying chronic obstructive pulmonary disease. No active bronchospasms. Continue on DuoNeb as needed 5. Uncontrolled blood glucose with underlying diabetes. The patient, of note, did have last A1c at 12.7. A1c is now 13.9. Likely patient is noncompliant with his medications. Continue insulin regimen. Rn Admission following 6. rhabdomyolysis. The patient with elevated CK level. Continue IV hydration for now. Monitor for fluid overload 7. Transaminitis. Secondary to history of hepatitis C. Patient monitored as outpatient for this 8. History of human immunodeficiency virus. Will continue the patient on his antiretrovirals. Continue with ID recommendations. Follow up on CD4 DVT prophylaxis: Heparin Disposition and plan: Continue with diuretics. Await for medical improvement. Transfer to psych facility once medically stable Discussed plan of care with Dr. Stoner Problems: Subjective 24 Hr Interval Summary Free Text/Dictation Resting at this time. Still lethargic. Refusing to be compliant with staff. Sitter at bedside Exam/Review of Systems Vital Signs Vitals Vital Signs Date Time Temp Pulse Resp B/P Pulse Ox O2 Delivery O2 Flow Rate FiO2 08/25/16 12:12 112 08/25/16 11:31 98.4 21 190/98 95 08/25/16 04:00 Room Air Intake and Output 08/24/16 08/24/16 08/25/16 15:00 23:00 07:00 Output Total 4000 ml Balance -4000 ml Exam General: Slightly somnolent. No apparent distress. Sitter at bedside Eyes: Equal round Neck: No obvious JVD seen today Cardiac: S1-S2 auscultated. Regular rate Pulmonary: Diminished at lung bases GI: Protuberant. Nontender Extremities: Minimal edema bilateral lower extremities Skin: Some scab seen bilateral lower extremities Neurologic: awakens to verbal response. Slightly lethargic Results Result Diagram: 08/25/16 0800 08/25/16 0603 Results 24 hrs Laboratory Tests Test 08/24/16 16:25 08/24/16 20:30 08/24/16 21:00 08/24/16 22:39 Bedside Glucose 278 H 310 H 279 H Hepatitis B Surface Antigen NEGATIVE Hepatitis B Core Total Antibody NEGATIVE Hepatitis C Antibody REACTIVE H Test 08/25/16 06:03 08/25/16 08:00 08/25/16 08:48 Sodium Level 137 Potassium Level 3.8 Chloride Level 103 Carbon Dioxide Level 28 Anion Gap 10 Blood Urea Nitrogen 12 Creatinine 0.75 Glucose Level 188 # Calcium Level 8.5 Phosphorus Level 3.8 Magnesium Level 1.7 Total Bilirubin 0.7 Direct Bilirubin 0.00 Indirect Bilirubin 0.7 Aspartate Amino Transf (AST/SGOT) 63 H Alanine Aminotransferase (ALT/SGPT) 84 H Alkaline Phosphatase 128 H Creatine Kinase 557 H Creatine Kinase Index 0.9 Creatinine Kinase MB (Mass) 5.20 H Troponin I 0.056 B-Type Natriuretic Peptide 3470 H Total Protein 5.6 L Albumin 2.6 L Globulin 3.00 Albumin/Globulin Ratio 0.86 Triglycerides Level 76 Cholesterol Level 122 LDL Cholesterol, Calculated 72 HDL Cholesterol 35 Cholesterol/HDL Ratio 3.4 Thyroid Stimulating Hormone (TSH) 1.660 Free Thyroxine 1.97 H Free Thyroxine Index 5.05 H Thyroxine (T4) 11.8 H Triiodothyronine (T3) Uptake 42.8 H Digoxin Level < 0.4 L White Blood Count 10.0 Red Blood Count 4.90 Hemoglobin 14.6 Hematocrit 45.0 Mean Corpuscular Volume 91.8 Mean Corpuscular Hemoglobin 29.8 Mean Corpuscular Hemoglobin Concent 32.4 Red Cell Distribution Width 15.3 H Platelet Count 165 Mean Platelet Volume 10.9 H Neutrophils % 54.6 Lymphocytes % 36.0 Monocytes % 8.5 Eosinophils % 0.4 Basophils % 0.2 Nucleated Red Blood Cells % 0.0 Neutrophils # 5.5 Lymphocytes # 3.6 H Monocytes # 0.9 Eosinophils # 0.0 Basophils # 0.0 Nucleated Red Blood Cells # 0.0 Prothrombin Time 12.9 Prothrombin Time Ratio 1.0 INR International Normalized Ratio 0.97 Medications Medications Current Medications Miscellaneous Information 1 ea NOTE XX ; Start 08/24/16 at 15:00 Glucose (Glutose) 15 gm Q15M PRN PO DECREASED GLUCOSE; Start 08/24/16 at 15:00 Glucose (Glutose) 22.5 gm Q15M PRN PO DECREASED GLUCOSE; Start 08/24/16 at 15: 00 Dextrose (D50w Syringe) 25 ml Q15M PRN IV DECREASED GLUCOSE; Start 08/24/16 at 15:00 Dextrose (D50w Syringe) 50 ml Q15M PRN IV DECREASED GLUCOSE; Start 08/24/16 at 15:00 Glucagon (Glucagen) 1 mg Q15M PRN IM DECREASED GLUCOSE; Start 08/24/16 at 15:00 Glucose (Glutose) 15 gm Q15M PRN BUCCAL DECREASED GLUCOSE; Start 08/24/16 at 15 :00 Acetaminophen (Tylenol Tab) 650 mg Q6H PRN PO PAIN LEVEL 1-3 OR FEVER; Start at 17:00 Acetaminophen/ Hydrocodone Bitart ([place] (5/325)) 1 tab Q6H PRN PO MODERATE PAIN LEVEL 4-6; Start 08/24/16 at 17:00 Acetaminophen/ Hydrocodone Bitart ([place] (5/325)) 2 tab Q6H PRN PO SEVERE PAIN LEVEL 7-10; Start 08/24/16 at 17:00 Morphine Sulfate (morphine) 2 mg Q4H PRN IV SEVERE PAIN LEVEL 7-10 Last administered on 08/25/16 00:38; Admin Dose 2 MG; Start 08/24/16 at 17:00 Docusate Sodium (Colace) 100 mg Q12H PRN PO CONSTIPATION; Start 08/24/16 at 17: 00 Magnesium Hydroxide (Milk Of Mag) 30 ml DAILY PRN PO CONSTIPATION; Start at 17:00 Bisacodyl (Dulcolax Supp) 10 mg DAILY PRN [place] CONSTIPATION; Start 08/24/16 at 17 :00 Pantoprazole (Protonix Iv) 40 mg DAILY@06 IV Last administered on 08/25/16 05: 55; Admin Dose 40 MG; Start 08/25/16 at 06:00 Heparin Sodium (Porcine) (Heparin (5000 Units/0.5 ml)) 5,000 unit Q12 SC Last administered on 08/24/16 23:07; Admin Dose 5,000 UNIT; Start 08/24/16 at 21:00 Emtricitabine/ Tenofovir (Truvada) 1 tab DAILY PO ; Start 08/25/16 at 09:00 Quetiapine Fumarate (Seroquel) 200 mg HS PO Last administered on 08/24/16 20: 56; Admin Dose 200 MG; Start 08/24/16 at 21:00 Furosemide (Lasix) 40 mg DAILY IV Last administered on 08/24/16 18:44; Admin Dose 40 MG; Start 08/24/16 at 17:00 Quetiapine Fumarate (Seroquel) 50 mg PO ; Start 08/24/16 at 18:00 Lorazepam (Ativan) 0.5 mg Q6 PRN IV anxiety Last administered on 08/25/16 04: 56; Admin Dose 0.5 MG; Start 08/24/16 at 17:00 Hydralazine HCl (Apresoline) 10 mg Q4H PRN IV sbp>160 Last administered on 08/24 18:12; Admin Dose 10 MG; Start 08/24/16 at 17:30 Insulin Glargine (Lantus) 24 unit DAILY@20 SC Last administered on 08/24/16 21 :05; Admin Dose 24 UNIT; Start 08/24/16 at 20:00 Influenza Virus Vaccine (Fluzone) 0.5 ml ONCE ONCE IM* ; Start 08/26/16 at 09:00 ; Stop 08/26/16 at 09:01 Lisinopril (Zestril) 20 mg BID PO ; Start 08/25/16 at 11:00 Digoxin (Digoxin) 125 mcg DAILY@13 IV ; Start 08/25/16 at 13:00 Spironolactone (Aldactone) 25 mg DAILY PO ; Start 08/25/16 at 11:00 AMARIS DURHAM Aug 25, 2016 14:27
--- NOTE | 2016-08-25 15:18 | CONS ---
DATE OF ADMISSION: 08/24/2016 DATE OF CONSULTATION: 08/24/2016 TYPE OF CONSULTATION: Infectious Disease. REASON FOR CONSULTATION: Antibiotic management. HISTORY OF PRESENT ILLNESS: Ba Shay is a 51-year-old male with history of HIV who comes in now with psychiatric disorders and is being seen for antibiotic management. His past problems include: 1. HIV. 2. Hepatitis C with reported recent treatment. 3. Adult-onset diabetes mellitus. 4. History of sepsis secondary to septic knee joint. 5. Essential hypertension. 6. Asthma. ALLERGY TO PENICILLIN. Acutely, the patient comes in for psychiatric medications. He felt more agitated and paranoid that his neighbors were trying to hurt him and started to have homicidal ideation toward his neighbors. He also admitted to shooting cocaine and drinking like a fish. He injected amphetamines prior to c oming to the emergency room. He was on a 5150 hold. He had decreased lung sounds in the emergency room and chest x-ray showed pulmonary vascular congestion. Blood sugar was 364 and creatinine kinas e of 282. BNP of 2280. His A1c was 12.7 in 04/2016. PAST MEDICAL HISTORY: Operations as outlined. FAMILY HISTORY: Noncontributory. SOCIAL HISTORY: He smokes cigarettes. Drinks alcohol when she is off drugs. ALLERGIES: PENICILLIN. MEDICATIONS: Include [place] and Truvada. REVIEW OF SYSTEMS: As per HPI. PHYSICAL EXAMINATION: GENERAL: The patient is a well-developed, well-nourished male who is lethargic but arousable in no acute distress. VITAL SIGNS: Stable. He is afebrile. SKIN: Without generalized rash. HEENT: Within normal limits. NECK: Supple. LYMPH NODES: None palpable. CHEST: Decreased breath sounds at the bases. HEART: Without murmur or gallop. ABDOMEN: Soft, nontender without organosplenomegaly or masses. EXTREMITIES: Without cyanosis, clubbing or edema but he has scabs and track herrera in both of his lo wer extremities. RECTAL AND GENITAL: Deferred. NEUROLOGIC: No focal neurological abnormality. ANCILLARY LABORATORY DATA: White count on admission was 10.5, H and H of 14.5 and 45.1, platelet co unt 179,000. BUN and creatinine 15/0.76. His blood sugar was 377 in the emergency room. Alkaline phosphatase 147, AST 99, ALT 87. Chest x-ray showed moderate cardiomegaly with worsening pulmonary vascular congestion. IMPRESSION AND PLAN: 1. The patient is dyspneic. He has chronic obstructive pulmonary disease, probable congestive hear t failure. 2. History of bipolar disorder and currently is on adequate human immunodeficiency virus medicatio ns. We will continue him on these medications. I will check to see if he is actually on the [place] y. Dictated By: CY EVANS MD, JD/ABHISHEK Conf#: [id number] DID#: [id number]
[2016-08-25] MEDS: EMTRICITABINE/TENOFOVIR TAB PO SCH (18:05)
[2016-08-25] MEDS: FUROSEMIDE 40 MG INJ IV SCH (18:05)
[2016-08-25] MEDS: SALMETEROL/FLUTICASONE 250/50 INHA INH SCH ×2 (18:06→19:31)
[2016-08-25] MEDS: QUETIAPINE 25 MG TAB PO SCH ×2 (18:07→19:30)
[2016-08-25] MEDS: DIGOXIN 500 MCG INJ IV SCH (18:07)
[2016-08-25] MEDS: HEPARIN 5,000 UNIT/0.5 ML SYG SC SCH ×2 (18:15→20:37)
[2016-08-25] MEDS: SPIRONOLACTONE 25 MG TAB PO SCH (18:27)
--- NOTE | 2016-08-25 18:42 | CONS ---
Date/Time of Note Date/Time of Note DATE: 08/25/16 TIME: 18:37 Assessment/Plan Assessment/Plan Problems: (1) HIV disease Status: Chronic Comment: Infectious disease is assisting in the management of this the patient is on HAART therapy (2) Diabetes mellitus type 2 in obese Status: Chronic Comment: I am adjusting her diabetic medication to get his blood sugar under control removing in the correct direction. (3) Hepatitis C antibody positive in blood Status: Acute Comment: The patient reports that he is been treated for this in the past on his viral load is negative. I would still strongly advise for blood and body fluid precaution (4) Bipolar disorder with psychotic features Status: Acute Comment: He is on treatment. He should be reevaluated to see whether or not the hold can be taken off Consultation Date/Type/Reason Admit Date/Time Aug 24, 2016 at 14:08 Initial Consult Date 08/24/2016 Type of Consultation: Endocrinology Reason for Consultation Diabetes mellitus type 2; other medical issues 24 HR Interval Summary Constitutional: improved Detailed Summary Respiratory: no complaints (Reports his breathing is better) Cardiovascular: no complaints Gastrointestinal: no complaints Exam/Review of Systems Vital Signs Vitals Vital Signs Date Time Temp Pulse Resp B/P Pulse Ox O2 Delivery O2 Flow Rate FiO2 08/25/16 16:00 113 08/25/16 11:31 98.4 21 190/98 95 08/25/16 04:00 Room Air Intake and Output 08/24/16 08/24/16 08/25/16 15:00 23:00 07:00 Output Total 4000 ml Balance -4000 ml Exam Constitutional: alert, oriented Neck: non-tender, supple Respiratory: clear to auscultation, normal air movement Cardiovascular: nl pulses, regular rate and rhythm Results Result Diagram: 08/25/16 0800 08/25/16 0603 Results 24 hrs Laboratory Tests Test 08/24/16 20:30 08/24/16 21:00 08/24/16 22:39 08/25/16 06:03 Hepatitis B Surface Antigen NEGATIVE Hepatitis B Core Total Antibody NEGATIVE Hepatitis C Antibody REACTIVE H Bedside Glucose 310 H 279 H Sodium Level 137 Potassium Level 3.8 Chloride Level 103 Carbon Dioxide Level 28 Anion Gap 10 Blood Urea Nitrogen 12 Creatinine 0.75 Glucose Level 188 # Calcium Level 8.5 Phosphorus Level 3.8 Magnesium Level 1.7 Total Bilirubin 0.7 Direct Bilirubin 0.00 Indirect Bilirubin 0.7 Aspartate Amino Transf (AST/SGOT) 63 H Alanine Aminotransferase (ALT/SGPT) 84 H Alkaline Phosphatase 128 H Creatine Kinase 557 H Creatine Kinase Index 0.9 Creatinine Kinase MB (Mass) 5.20 H Troponin I 0.056 B-Type Natriuretic Peptide 3470 H Total Protein 5.6 L Albumin 2.6 L Globulin 3.00 Albumin/Globulin Ratio 0.86 Triglycerides Level 76 Cholesterol Level 122 LDL Cholesterol, Calculated 72 HDL Cholesterol 35 Cholesterol/HDL Ratio 3.4 Thyroid Stimulating Hormone (TSH) 1.660 Free Thyroxine 1.97 H Free Thyroxine Index 5.05 H Thyroxine (T4) 11.8 H Triiodothyronine (T3) Uptake 42.8 H Digoxin Level < 0.4 L Test 08/25/16 08:00 08/25/16 08:48 White Blood Count 10.0 Red Blood Count 4.90 Hemoglobin 14.6 Hematocrit 45.0 Mean Corpuscular Volume 91.8 Mean Corpuscular Hemoglobin 29.8 Mean Corpuscular Hemoglobin Concent 32.4 Red Cell Distribution Width 15.3 H Platelet Count 165 Mean Platelet Volume 10.9 H Neutrophils % 54.6 Lymphocytes % 36.0 Monocytes % 8.5 Eosinophils % 0.4 Basophils % 0.2 Nucleated Red Blood Cells % 0.0 Neutrophils # 5.5 Lymphocytes # 3.6 H Monocytes # 0.9 Eosinophils # 0.0 Basophils # 0.0 Nucleated Red Blood Cells # 0.0 Prothrombin Time 12.9 Prothrombin Time Ratio 1.0 INR International Normalized Ratio 0.97 Medications Medications Current Medications Miscellaneous Information 1 ea NOTE XX ; Start 08/24/16 at 15:00 Glucose (Glutose) 15 gm Q15M PRN PO DECREASED GLUCOSE; Start 08/24/16 at 15:00 Glucose (Glutose) 22.5 gm Q15M PRN PO DECREASED GLUCOSE; Start 08/24/16 at 15: 00 Dextrose (D50w Syringe) 25 ml Q15M PRN IV DECREASED GLUCOSE; Start 08/24/16 at 15:00 Dextrose (D50w Syringe) 50 ml Q15M PRN IV DECREASED GLUCOSE; Start 08/24/16 at 15:00 Glucagon (Glucagen) 1 mg Q15M PRN IM DECREASED GLUCOSE; Start 08/24/16 at 15:00 Glucose (Glutose) 15 gm Q15M PRN BUCCAL DECREASED GLUCOSE; Start 08/24/16 at 15 :00 Acetaminophen (Tylenol Tab) 650 mg Q6H PRN PO PAIN LEVEL 1-3 OR FEVER; Start at 17:00 Acetaminophen/ Hydrocodone Bitart ([place] (5/325)) 1 tab Q6H PRN PO MODERATE PAIN LEVEL 4-6; Start 08/24/16 at 17:00 Acetaminophen/ Hydrocodone Bitart ([place] (5/325)) 2 tab Q6H PRN PO SEVERE PAIN LEVEL 7-10; Start 08/24/16 at 17:00 Morphine Sulfate (morphine) 2 mg Q4H PRN IV SEVERE PAIN LEVEL 7-10 Last administered on 08/25/16 00:38; Admin Dose 2 MG; Start 08/24/16 at 17:00 Docusate Sodium (Colace) 100 mg Q12H PRN PO CONSTIPATION; Start 08/24/16 at 17: 00 Magnesium Hydroxide (Milk Of Mag) 30 ml DAILY PRN PO CONSTIPATION; Start at 17:00 Bisacodyl (Dulcolax Supp) 10 mg DAILY PRN [place] CONSTIPATION; Start 08/24/16 at 17 :00 Pantoprazole (Protonix Iv) 40 mg DAILY@06 IV Last administered on 08/25/16 05: 55; Admin Dose 40 MG; Start 08/25/16 at 06:00 Heparin Sodium (Porcine) (Heparin (5000 Units/0.5 ml)) 5,000 unit Q12 SC Last administered on 08/25/16 18:15; Admin Dose 5,000 UNIT; Start 08/24/16 at 21:00 Emtricitabine/ Tenofovir (Truvada) 1 tab DAILY PO Last administered on 18:05; Admin Dose 1 TAB; Start 08/25/16 at 09:00 Quetiapine Fumarate (Seroquel) 200 mg HS PO Last administered on 08/24/16 20: 56; Admin Dose 200 MG; Start 08/24/16 at 21:00 Furosemide (Lasix) 40 mg DAILY IV Last administered on 08/25/16 18:05; Admin Dose 40 MG; Start 08/24/16 at 17:00 Quetiapine Fumarate (Seroquel) 50 mg PO Last administered on 08/25/16 18 :07; Admin Dose 50 MG; Start 08/24/16 at 18:00 Lorazepam (Ativan) 0.5 mg Q6 PRN IV anxiety Last administered on 08/25/16 04: 56; Admin Dose 0.5 MG; Start 08/24/16 at 17:00 Hydralazine HCl (Apresoline) 10 mg Q4H PRN IV sbp>160 Last administered on 08/24 18:12; Admin Dose 10 MG; Start 08/24/16 at 17:30 Influenza Virus Vaccine (Fluzone) 0.5 ml ONCE ONCE IM* ; Start 08/26/16 at 09:00 ; Stop 08/26/16 at 09:01 Digoxin (Digoxin) 125 mcg DAILY@13 IV Last administered on 08/25/16 18:07; Admin Dose 125 MCG; Start 08/25/16 at 13:00 Spironolactone (Aldactone) 25 mg DAILY PO Last administered on 08/25/16 18:27 ; Admin Dose 25 MG; Start 08/25/16 at 11:00 Insulin Glargine (Lantus) 28 unit DAILY@20 SC ; Start 08/25/16 at 20:00 Lisinopril (Zestril) 40 mg BID PO ; Start 08/25/16 at 21:00 Metoprolol Succinate (Toprol Xl) 25 mg BID PO ; Start 08/25/16 at 21:00 Salmeterol Xinafoate/ Fluticasone (Advair 250/50 Diskus) 1 inh BID INH Last administered on 08/25/16 18:06; Admin Dose 1 INH; Start 08/25/16 at 15:30 KRISTI FLORES MD Aug 25, 2016 18:42
[2016-08-25] MEDS ORDERED: INSULIN GLARGINE [LANtus] 3 ML PEN SC SCH (20:00)
[2016-08-25] MEDS: QUETIAPINE 100 MG TAB PO SCH (20:23)
[2016-08-25] MEDS: LISINOPRIL 20 MG TAB PO SCH (20:23)
[2016-08-25] MEDS: METOPROLOL (XL) 25 MG TAB PO SCH (20:24)
[2016-08-26] VITALS (11 sets, daily range): BP systolic 123–144; BP diastolic 85–100; PULSE 108–121; RESP 18–22
[2016-08-26] MEDS: PANTOPRAZOLE 40 MG INJ IV SCH (05:04)
[2016-08-26] MEDS: INSULIN ASPART [NOVOLOG] 3 ML PEN SC SCH ×6 (07:55→20:17)
[2016-08-26] MEDS: metFORMIN 500 MG TAB PO SCH ×2 (08:44→17:10)
[2016-08-26] MEDS: LISINOPRIL 20 MG TAB PO SCH ×2 (08:44→20:09)
[2016-08-26] MEDS: SPIRONOLACTONE 25 MG TAB PO SCH (08:44)
[2016-08-26] MEDS: SALMETEROL/FLUTICASONE 250/50 INHA INH SCH ×2 (08:45→20:09)
[2016-08-26] MEDS: METOPROLOL (XL) 25 MG TAB PO SCH ×2 (08:45→20:09)
[2016-08-26] MEDS: FUROSEMIDE 40 MG INJ IV SCH (08:45)
[2016-08-26] MEDS: QUETIAPINE 25 MG TAB PO SCH ×2 (08:45→17:00)
[2016-08-26] MEDS: EMTRICITABINE/TENOFOVIR TAB PO SCH (08:46)
[2016-08-26] MEDS: HEPARIN 5,000 UNIT/0.5 ML SYG SC SCH ×2 (08:59→20:17)
[2016-08-26] MEDS ORDERED: INFLUENZA VIRUS VACCINE 0.5 ML (DISPENSING) IM* ONE (09:00)
[2016-08-26] MEDS ORDERED: FUROSEMIDE 20 MG INJ IV ONE (09:30)
[2016-08-26] MEDS: ACCU-CHEK XX SCH ×3 (10:10→20:17)
--- NOTE | 2016-08-26 10:26 | PN ---
Date/Time of Note Date/Time of Note DATE: 08/26/16 TIME: 10:22 Assessment/Plan VTE Prophylaxis VTE Prophylaxis Intervention: heparin Lines/Catheters IV [facility]from [facility] [place] Assessment/Plan Chief Complaint/Hosp Course Assessment and plan 1. Dyspnea. Likely multifactorial. The patient likely with underlying chronic obstructive pulmonary disease secondary to his extensive history of cigarette smoking. Off O2 at this time. Breathing better. Bronchodilators as needed 2. congestive heart failure. Echocardiogram with EF of 20%. Patient with history of methamphetamine abuse.. 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 Continue with recommendations. Continue diuresis and optimization with cardiovascular medications 3. Acute exacerbation of psychiatric disorder. The patient noted with history of bipolar. He did run out of his psych medications per report and did report paranoia as well as homicidal ideation towards his neighbors. The patient seen by telepsychiatrist and placed on [id number] hold. Plan to transfer to psych facility once medically stable. Continue on Seroquel. Sitter at bedside. Acute episode improved at this time. 4. Suspect underlying chronic obstructive pulmonary disease. No active bronchospasms. Continue on DuoNeb as needed 5. Uncontrolled blood glucose with underlying diabetes. The patient, of note, did have last A1c at 12.7. A1c is now 13.9. Likely patient is noncompliant with his medications. Still with elevated blood glucose. Follow-up with label drier recommendations. 6. rhabdomyolysis. The patient with elevated CK level. Continue IV hydration for now. Monitor for fluid overload 7. Transaminitis. Secondary to history of hepatitis C. Patient monitored as outpatient for this 8. History of human immunodeficiency virus. Will continue the patient on his antiretrovirals. ID following. DVT prophylaxis: Heparin Disposition and plan: Continue with current treatment. Tentative plan for transfer back to psych facility. Discharge when cleared by configuration consultant Discussed plan of care with Dr. Stoner Problems: Subjective 24 Hr Interval Summary Free Text/Dictation More awake and alert at this time. Denies any chest pain or shortness of breath. Sitter at bedside Exam/Review of Systems Vital Signs Vitals Vital Signs Date Time Temp Pulse Resp B/P Pulse Ox O2 Delivery O2 Flow Rate FiO2 08/26/16 10:02 97.7 110 18 123/85 98 08/25/16 04:00 Room Air Intake and Output 08/25/16 08/25/16 08/26/16 15:00 23:00 07:00 Intake Total 500 ml Balance 500 ml Exam General: More awake and alert at this time. No apparent distress Eyes: Equal round, anicteric sclera Neck: No JVD today Cardiac: Tachycardic Pulmonary: Minimally coarse bilaterally GI: Protuberant. Nontender Extremities: No edema bilateral lower extreme Skin: Some scab seen bilateral lower extremities Neurologic: More alert. Alert to person place and time Results Result Diagram: 08/25/16 0800 08/25/16 0603 Results 24 hrs Laboratory Tests Test 08/25/16 20:26 08/26/16 07:31 Bedside Glucose 115 257 H Medications Medications Current Medications Miscellaneous Information 1 ea NOTE XX ; Start 08/24/16 at 15:00 Glucose (Glutose) 15 gm Q15M PRN PO DECREASED GLUCOSE; Start 08/24/16 at 15:00 Glucose (Glutose) 22.5 gm Q15M PRN PO DECREASED GLUCOSE; Start 08/24/16 at 15: 00 Dextrose (D50w Syringe) 25 ml Q15M PRN IV DECREASED GLUCOSE; Start 08/24/16 at 15:00 Dextrose (D50w Syringe) 50 ml Q15M PRN IV DECREASED GLUCOSE; Start 08/24/16 at 15:00 Glucagon (Glucagen) 1 mg Q15M PRN IM DECREASED GLUCOSE; Start 08/24/16 at 15:00 Glucose (Glutose) 15 gm Q15M PRN BUCCAL DECREASED GLUCOSE; Start 08/24/16 at 15 :00 Acetaminophen (Tylenol Tab) 650 mg Q6H PRN PO PAIN LEVEL 1-3 OR FEVER; Start at 17:00 Acetaminophen/ Hydrocodone Bitart ([place] (5/325)) 1 tab Q6H PRN PO MODERATE PAIN LEVEL 4-6 Last administered on 08/25/16 20:51; Admin Dose 1 TAB; Start at 17:00 Acetaminophen/ Hydrocodone Bitart ([place] (5/325)) 2 tab Q6H PRN PO SEVERE PAIN LEVEL 7-10; Start 08/24/16 at 17:00 Morphine Sulfate (morphine) 2 mg Q4H PRN IV SEVERE PAIN LEVEL 7-10 Last administered on 08/25/16 20:50; Admin Dose 2 MG; Start 08/24/16 at 17:00 Docusate Sodium (Colace) 100 mg Q12H PRN PO CONSTIPATION; Start 08/24/16 at 17: 00 Magnesium Hydroxide (Milk Of Mag) 30 ml DAILY PRN PO CONSTIPATION; Start at 17:00 Bisacodyl (Dulcolax Supp) 10 mg DAILY PRN [place] CONSTIPATION; Start 08/24/16 at 17 :00 Pantoprazole (Protonix Iv) 40 mg DAILY@06 IV Last administered on 08/25/16 05: 55; Admin Dose 40 MG; Start 08/25/16 at 06:00 Heparin Sodium (Porcine) (Heparin (5000 Units/0.5 ml)) 5,000 unit Q12 SC Last administered on 08/25/16 18:15; Admin Dose 5,000 UNIT; Start 08/24/16 at 21:00 Emtricitabine/ Tenofovir (Truvada) 1 tab DAILY PO Last administered on 08:46; Admin Dose 1 TAB; Start 08/25/16 at 09:00 Quetiapine Fumarate (Seroquel) 200 mg HS PO Last administered on 08/25/16 20: 23; Admin Dose 200 MG; Start 08/24/16 at 21:00 Furosemide (Lasix) 40 mg DAILY IV Last administered on 08/26/16 08:45; Admin Dose 40 MG; Start 08/24/16 at 17:00 Quetiapine Fumarate (Seroquel) 50 mg PO Last administered on 08/26/16 08 :45; Admin Dose 50 MG; Start 08/24/16 at 18:00 Lorazepam (Ativan) 0.5 mg Q6 PRN IV anxiety Last administered on 08/25/16 20: 24; Admin Dose 0.5 MG; Start 08/24/16 at 17:00 Hydralazine HCl (Apresoline) 10 mg Q4H PRN IV sbp>160 Last administered on 08/24 18:12; Admin Dose 10 MG; Start 08/24/16 at 17:30 Digoxin (Digoxin) 125 mcg DAILY@13 IV Last administered on 08/25/16 18:07; Admin Dose 125 MCG; Start 08/25/16 at 13:00 Spironolactone (Aldactone) 25 mg DAILY PO Last administered on 08/26/16 08:44 ; Admin Dose 25 MG; Start 08/25/16 at 11:00 Insulin Glargine (Lantus) 28 unit DAILY@20 SC Last administered on 08/25/16 20 :36; Admin Dose 28 UNIT; Start 08/25/16 at 20:00 Lisinopril (Zestril) 40 mg BID PO Last administered on 08/26/16 08:44; Admin Dose 40 MG; Start 08/25/16 at 21:00 Metoprolol Succinate (Toprol Xl) 25 mg BID PO Last administered on 08/26/16 08 :45; Admin Dose 25 MG; Start 08/25/16 at 21:00 Salmeterol Xinafoate/ Fluticasone (Advair 250/50 Diskus) 1 inh BID INH Last administered on 08/26/16 08:45; Admin Dose 1 INH; Start 08/25/16 at 15:30 AMARIS DURHAM Aug 26, 2016 10:26
--- NOTE | 2016-08-26 10:39 | PN ---
DATE: 08/26/2016 CARDIOLOGY FOLLOWUP SUBJECTIVE: Discussed with the staff, discussed with Dr. Amaris Durham. The patient appeared to b e improving neurologically. Responds appropriately. Denies any chest pain or pressure, denies shor tness of breath to me. MEDICATIONS: Reviewed as per medication reconciliation, was personally reviewed. PHYSICAL EXAMINATION: VITAL SIGNS: Temperature 98, heart rate of 112, blood pressure 144/100, respiration rate of 18, sat urating 96%. HEENT: Normocephalic, atraumatic. Pupils are equal. CARDIOVASCULAR: Tachycardic. PULMONARY: No wheezes heard. Minimal rhonchi at the base. GASTROINTESTINAL: Soft, nontender. EXTREMITIES: Trivial edema. NEUROLOGIC: Awake and alert, responds appropriately. PSYCHIATRIC: Appears to be calm. LABORATORY: Glucose 257 this morning. ASSESSMENT AND PLAN: 1. Congestive heart failure with severe cardiomyopathy. 2. Diabetes. 3. History of drug abuse. RECOMMENDATIONS: The patient was started on beta ema and CHRISTINA inhibitor. Importance of complian ce with the medication and avoidance of drugs were discussed with the patient. Will give a dose of Lasix now. Electrolytes to be checked and electrolytes will be corrected as needed. Diabetic manag ement as per Dr. Mo. Dictated By: KARL MAE MD AV/ABHISHEK Conf#: [id number] DID#: [id number] CC: AMARIS DURHAM DIRECTOR IMMUNOLOGY;*EndCC*
[2016-08-26] MEDS: DIGOXIN 500 MCG INJ IV SCH (12:35)
[2016-08-26] MEDS: morphine 2 MG INJ IV PRN (12:42)
--- NOTE | 2016-08-26 12:49 | PN ---
DATE: 08/26/2016 SUBJECTIVE: The patient is alert, feels good, looks comfortable. Denies pain, no fevers. WBC 10, platelets 165, no shift, no bands. BUN 12, creatinine 0.75. PHYSICAL EXAMINATION: GENERAL: Well-developed, obese, middle-aged man who is alert, in no distress. HEENT: Head atraumatic, normocephalic. Sclerae anicteric. Buccal mucosa pink. NECK: Supple. CHEST: Rise symmetrical. Breath sounds clear, diminished to bases. HEART: S1, S2. ABDOMEN: Soft, bowel tones present. EXTREMITIES: Without cyanosis. ASSESSMENT: 1. Status post acute encephalopathy. 2. Status post acute hypoxemic respiratory failure. 3. Congestive heart failure exacerbation with severe cardiomyopathy and ejection fraction of 20%. 4. Human immunodeficiency virus, on and Truvada. Per patient, viral load was undetectable an d CD4 count well above 200. The patient is following with HIV clinic at [facility]. 5. Poorly controlled diabetes. PLAN: The patient remains stable. We will continue him on current regimen. Follow recommendations of consultants await for CD4 count. Dictated By: MURIEL TRINIDAD FASHION ILLUSTRATOR for CY HUNT/ABHISHEK Conf#: [id number] DID#: [id number]
[2016-08-26] MEDS ORDERED: METOPROLOL (XL) 25 MG TAB PO ONE (13:00)
--- NOTE | 2016-08-26 13:04 | CONS ---
Date/Time of Note Date/Time of Note DATE: 08/26/16 TIME: 13:01 Assessment/Plan Assessment/Plan Problems: (1) COPD (chronic obstructive pulmonary disease) Status: Chronic Comment: He has maintained on appropriate metered-dose inhaler therapy. At this time he is relatively stable. Please note the patient states that he is unaware of any issues with his heart but is aware issues with his lungs. Qualifiers: COPD type: emphysema Emphysema type: other Qualified Code: J43.8 - Other emphysema (2) Systolic CHF with reduced left ventricular function, NYHA class 3 Status: Chronic Comment: He is on cardioselective beta blockade in the setting of his lung disease as well as full dose CHRISTINA inhibitor therapy. He is being diuresed nicely and improving appropriately. Ultimate outpatient decisions about whether or not he would be a candidate for an AICD device will be deferred off to the edger automatic. Please note at this time he still has a significant sinus tach (3) Diabetes mellitus type 2 in obese Status: Chronic Comment: Sugar control is coming in line nicely (4) Bipolar disorder with psychotic features Status: Acute Comment: Appears to be more stable at this time. He may be at a point where he no longer needs to be on hold. I will defer this off to the primary care team (5) Hepatitis C antibody positive in blood Status: Acute Comment: Noted infectious disease following (6) HIV disease Status: Chronic Comment: Noted infectious disease following Consultation Date/Type/Reason Admit Date/Time Aug 24, 2016 at 14:08 Initial Consult Date 08/24/2016 Type of Consultation: Endocrinology Reason for Consultation Diabetes mellitus type 2 on a multiple daily injection regimen with outpatient in adequate control 24 HR Interval Summary Constitutional: no complaints Detailed Summary Respiratory: no complaints (Reports breathing is better) Cardiovascular: no complaints Gastrointestinal: no complaints Exam/Review of Systems Vital Signs Vitals Vital Signs Date Time Temp Pulse Resp B/P Pulse Ox O2 Delivery O2 Flow Rate FiO2 08/26/16 12:01 110 08/26/16 11:56 97.8 18 128/85 98 08/25/16 04:00 Room Air Intake and Output 08/25/16 08/25/16 08/26/16 15:00 23:00 07:00 Intake Total 500 ml Balance 500 ml Exam Constitutional: alert, oriented Neck: non-tender, supple Respiratory: crackles/rales (Basilar), normal air movement Cardiovascular: S4, nl pulses, regular rate and rhythm Gastrointestinal: nl liver, spleen, non-tender, soft Results Result Diagram: 08/25/16 0800 08/25/16 0603 Results 24 hrs Laboratory Tests Test 08/25/16 20:26 08/26/16 07:31 08/26/16 10:15 08/26/16 10:32 Bedside Glucose 115 257 H 241 H Creatine Kinase 261 #H Test 08/26/16 11:41 Bedside Glucose 168 Medications Medications Current Medications Miscellaneous Information 1 ea NOTE XX ; Start 08/24/16 at 15:00 Glucose (Glutose) 15 gm Q15M PRN PO DECREASED GLUCOSE; Start 08/24/16 at 15:00 Glucose (Glutose) 22.5 gm Q15M PRN PO DECREASED GLUCOSE; Start 08/24/16 at 15: 00 Dextrose (D50w Syringe) 25 ml Q15M PRN IV DECREASED GLUCOSE; Start 08/24/16 at 15:00 Dextrose (D50w Syringe) 50 ml Q15M PRN IV DECREASED GLUCOSE; Start 08/24/16 at 15:00 Glucagon (Glucagen) 1 mg Q15M PRN IM DECREASED GLUCOSE; Start 08/24/16 at 15:00 Glucose (Glutose) 15 gm Q15M PRN BUCCAL DECREASED GLUCOSE; Start 08/24/16 at 15 :00 Acetaminophen (Tylenol Tab) 650 mg Q6H PRN PO PAIN LEVEL 1-3 OR FEVER; Start at 17:00 Acetaminophen/ Hydrocodone Bitart ([place] (5/325)) 1 tab Q6H PRN PO MODERATE PAIN LEVEL 4-6 Last administered on 08/25/16 20:51; Admin Dose 1 TAB; Start at 17:00 Acetaminophen/ Hydrocodone Bitart ([place] (5/325)) 2 tab Q6H PRN PO SEVERE PAIN LEVEL 7-10; Start 08/24/16 at 17:00 Morphine Sulfate (morphine) 2 mg Q4H PRN IV SEVERE PAIN LEVEL 7-10 Last administered on 08/26/16 12:42; Admin Dose 2 MG; Start 08/24/16 at 17:00 Docusate Sodium (Colace) 100 mg Q12H PRN PO CONSTIPATION; Start 08/24/16 at 17: 00 Magnesium Hydroxide (Milk Of Mag) 30 ml DAILY PRN PO CONSTIPATION Last administered on 08/26/16 12:41; Admin Dose 30 ML; Start 08/24/16 at 17:00 Bisacodyl (Dulcolax Supp) 10 mg DAILY PRN [place] CONSTIPATION; Start 08/24/16 at 17 :00 Pantoprazole (Protonix Iv) 40 mg DAILY@06 IV Last administered on 08/25/16 05: 55; Admin Dose 40 MG; Start 08/25/16 at 06:00 Heparin Sodium (Porcine) (Heparin (5000 Units/0.5 ml)) 5,000 unit Q12 SC Last administered on 08/25/16 18:15; Admin Dose 5,000 UNIT; Start 08/24/16 at 21:00 Emtricitabine/ Tenofovir (Truvada) 1 tab DAILY PO Last administered on 08:46; Admin Dose 1 TAB; Start 08/25/16 at 09:00 Quetiapine Fumarate (Seroquel) 200 mg HS PO Last administered on 08/25/16 20: 23; Admin Dose 200 MG; Start 08/24/16 at 21:00 Furosemide (Lasix) 40 mg DAILY IV Last administered on 08/26/16 08:45; Admin Dose 40 MG; Start 08/24/16 at 17:00 Quetiapine Fumarate (Seroquel) 50 mg PO Last administered on 08/26/16 08 :45; Admin Dose 50 MG; Start 08/24/16 at 18:00 Lorazepam (Ativan) 0.5 mg Q6 PRN IV anxiety Last administered on 08/25/16 20: 24; Admin Dose 0.5 MG; Start 08/24/16 at 17:00 Hydralazine HCl (Apresoline) 10 mg Q4H PRN IV sbp>160 Last administered on 08/24 18:12; Admin Dose 10 MG; Start 08/24/16 at 17:30 Digoxin (Digoxin) 125 mcg DAILY@13 IV Last administered on 08/26/16 12:35; Admin Dose 125 MCG; Start 08/25/16 at 13:00 Spironolactone (Aldactone) 25 mg DAILY PO Last administered on 08/26/16 08:44 ; Admin Dose 25 MG; Start 08/25/16 at 11:00 Insulin Glargine (Lantus) 28 unit DAILY@20 SC Last administered on 08/25/16 20 :36; Admin Dose 28 UNIT; Start 08/25/16 at 20:00 Lisinopril (Zestril) 40 mg BID PO Last administered on 08/26/16 08:44; Admin Dose 40 MG; Start 08/25/16 at 21:00 Metoprolol Succinate (Toprol Xl) 25 mg BID PO Last administered on 08/26/16 08 :45; Admin Dose 25 MG; Start 08/25/16 at 21:00 Salmeterol Xinafoate/ Fluticasone (Advair 250/50 Diskus) 1 inh BID INH Last administered on 08/26/16 08:45; Admin Dose 1 INH; Start 08/25/16 at 15:30 KRISTI FLORES MD Aug 26, 2016 13:04
--- NOTE | 2016-08-26 15:48 | CONS ---
DATE OF ADMISSION: 08/24/2016 DATE OF CONSULTATION: 08/26/2016 REFERRING PHYSICIAN: AMARIS DURHAM NP. CONSULTATION: Pain palliative consultation. HISTORY OF PRESENT ILLNESS: This is a 51-year-old gentleman who was admitted to [facility] through the emergency room when he was found altered and has been put on a 5150. Leading up to that time, presumably the patient has been shooting up crystal methamphetamine which he states he has been doing this since 1995. He became combative, hallucinogenic. States that he was going to look in his notes. He was treated very aggressively in the emergency room and calmed down. He h as past history of HIV, diabetes and hepatitis C also. He has had two prior inpatient treatment pro grams, one alcohol and one drug related. There is no history of suicidal tries in the past. He req uired Ativan, Benadryl and Geodon in the emergency room. He does have a primary care physician in [facility] and last time he saw that physician was July of this year. He also gives a history of congestive heart failure and cardiomyopathy. He had a chest x-ray consistent with pulmonary vas cular congestion and a BNP of 2280 on presentation and a hemoglobin A1c level of 12.7. Patient stat es he smokes actively. He smokes marijuana, tobacco and states he does not use heroin. He has Norc o at home given to him by his primary care physician for chronic low back discomfort. He states he had been drug free for a period of time and has been actively using at this time since 1995. He fir st started using recreational drugs when he was 18 years old. States he is only one in the family w pj is the "black sheep outlier." The gentleman is HIV positive secondary to sexual transmission. Renetta anderson is a transgender also. The patient states that his last T cell count was in the 900s. MEDICATIONS: Please refer to reconciliation sheet. ALLERGIES: PENICILLIN. MAJOR MEDICAL PROBLEMS IN THE PAST: Entirely which is as per history of present illness and history of hypertension, asthma and type 2 diabetes. SOCIAL HISTORY: Actively smokes and drinks on occasion, unemployed. 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 FAMILY HISTORY: Father secondary to gunshot wound. Mother secondary to malignanc y, unknown malignancy. He has multiple brothers and sisters without history of drug use, abuse or a ny other serious major medical problems. SOCIAL HISTORY: A 12-point review of systems unremarkable except which is as per history of present illness. PHYSICAL EXAMINATION: GENERAL: Shows a well-nourished, well-developed gentleman in no major acute distress. VITAL SIGNS: Blood pressure 128/85, pulse 110 and regular, respirations of 18 with 98% saturation o n room air, temperature 97.8. HEENT: He is normocephalic and atraumatic. Anicteric, acyanotic. CHEST: Shows bilateral basilar and expiratory wet crackles. COR: S1, S2, without S3, S4, murmur, gallop, rub. Normal rate, normal rhythm. ABDOMEN: Grossly benign. NEUROLOGIC: He is oriented x3. Cranial nerves II through XII are grossly intact. Motor and sensor y findings grossly within normal limits. EXTREMITIES: Without clubbing, cyanosis or edema. LABORATORY TESTS: White blood cell count of 10.0, hemoglobin of 14.6, hematocrit of 45.0, MCV of 91 .8, platelet count 165,000. Chemistries: No new chemistry laboratories today. Serology: Hepatiti s B surface antigen negative, hepatitis B core antibody negative, hepatitis C antibody reactive. ASSESSMENT AND PLAN: This is a pleasant gentleman who has a significant current and past medical hi story of IV drug use and alcohol addiction. The patient and I had a long conversation concerning [facility] drug use. I have highly recommended for him to go into drug treatment program right after leaving this hospital and not stopping at home essentially. He does not have a sponsor. He is not activel y involved in a program at this time. He has not been so in a long period of time, although he has graduated from two. He states that he has headed up a treatment group at one time, but has not done so for a very long period of time. I think there is a very high chance that this gentleman will h ave recurrent bouts and complications related to IV drug use including overdose and/or . Other frank, in addition to any septic complications may be associated through IV drug use. My impressions are that he is not actively suicidal at this time, but that remains to be further evaluated by psyc hiatric consultation. His other issues including congestive heart failure, type 2 diabetes, poorly controlled diabetes, COPD, actively smokes, transaminitis, rhabdomyolysis and HIV. I have emphasiz ed to him that he needs to go back to his primary care physician and address his medical issues on a scheduled basis. I also believe that this gentleman would benefit from going into an AIDS support group. I strongly recommend not prescribing any medications when this patient is discharged includi ng benzodiazepines, opioids or sedatives. Dictated By: NIYAH SILVEIRA MD LP/ABHISHEK Conf#: [id number] DID#: [id number]
[2016-08-26] MEDS ORDERED: INSULIN ASPART [NOVOLOG] 3 ML PEN SC SCH (17:55)
[2016-08-26] MEDS ORDERED: INSULIN GLARGINE [LANtus] 3 ML PEN SC SCH (20:00)
[2016-08-26] MEDS: QUETIAPINE 100 MG TAB PO SCH (20:08)
[2016-08-26] MEDS: ACETAMINOPHEN 325 MG TAB PO PRN (20:42)
[2016-08-27] VITALS (12 sets, daily range): BP systolic 108–145; BP diastolic 75–92; PULSE 100–120; RESP 18–21
[2016-08-27] MEDS: PANTOPRAZOLE 40 MG INJ IV SCH (06:00)
[2016-08-27 06:52] LABS: ALBUMIN 3.1 g/dl (3.3-4.9); POTASSIUM 4.4 mmol/L (3.5-5.1)
[2016-08-27 06:54] LABS: BILIRUBIN,INDIRECT 0.2 mg/dl (0-1.1); BILIRUBIN,TOTAL 0.2 mg/dl (0.2-1.3); CREATININE 0.81 mg/dl (0.61-1.24)
[2016-08-27 06:55] LABS: ALBUMIN/GLOBULIN RATIO 0.86; CALCIUM 8.5 mg/dl (8.4-10.2); MAGNESIUM 1.7 mg/dl (1.7-2.5); TOTAL PROTEIN 6.7 g/dl (6.1-8.1)
[2016-08-27] MEDS: metFORMIN 500 MG TAB PO SCH ×2 (07:55→17:48)
[2016-08-27] MEDS: ACETAMINOPHEN 325 MG TAB PO PRN (08:04)
[2016-08-27] MEDS: INSULIN ASPART [NOVOLOG] 3 ML PEN SC SCH ×7 (08:30→20:26)
[2016-08-27] MEDS: METOPROLOL (XL) 25 MG TAB PO SCH (08:35)
[2016-08-27] MEDS: SPIRONOLACTONE 25 MG TAB PO SCH (08:35)
[2016-08-27] MEDS: LISINOPRIL 20 MG TAB PO SCH ×2 (08:35→20:26)
[2016-08-27] MEDS: SALMETEROL/FLUTICASONE 250/50 INHA INH SCH ×2 (08:36→20:27)
[2016-08-27] MEDS: FUROSEMIDE 40 MG INJ IV SCH (08:36)
[2016-08-27] MEDS: EMTRICITABINE/TENOFOVIR TAB PO SCH (08:36)
[2016-08-27] MEDS: HEPARIN 5,000 UNIT/0.5 ML SYG SC SCH ×2 (08:50→20:36)
--- NOTE | 2016-08-27 08:53 | PN ---
DATE: 08/27/2016 CARDIOLOGY FOLLOWUP SUBJECTIVE: The patient remains in sinus rhythm, sinus tachycardia. Says that his breathing is bet ter, but does complain of orthopnea at nighttime. has improved. No agitation anymore. Compl ains of fatigue. MEDICATIONS: Reviewed as per medication reconciliation, was personally reviewed. PHYSICAL EXAMINATION: VITAL SIGNS: Temperature 98.2, heart rate of 102, blood pressure 122/88, respiration rate of 20, sa turating 98%. HEENT: Normocephalic, atraumatic. No acute distress. Pupils are equal. CARDIOVASCULAR: Regular rate and rhythm with systolic murmur, grade I. PULMONARY: With no wheezes, no rhonchi. GASTROINTESTINAL: Soft, nontender. EXTREMITIES: Trivial edema. NEUROLOGIC: Awake and alert. LABORATORY: Sodium 134, potassium 4.4, BUN of 15, creatinine 0.81, glucose of 305. BNP of 2710. A lbumin is 3.1. ASSESSMENT AND PLAN: 1. Congestive heart failure. 2. Severe cardiomyopathy. 3. Diabetes. 4. History of drug use including amphetamines. 5. Hypertension. RECOMMENDATIONS: I will add Lasix to his regimen. We will continue with the rest of his cardiac ca re. The patient has been strongly, multiple times, advised to stay away from alcohol, drugs and smo darryn. Discharge planning when okay from internal medicine and endocrine standpoint. Dictated By: KARL LAST/ABHISHEK Conf#: [id number] DID#: [id number]
[2016-08-27] MEDS: ACCU-CHEK XX SCH ×3 (09:55→20:27)
[2016-08-27] MEDS: QUETIAPINE 25 MG TAB PO SCH ×2 (10:02→16:33)
--- NOTE | 2016-08-27 11:53 | PN ---
Date/Time of Note Date/Time of Note DATE: 08/27/16 TIME: 11:50 Assessment/Plan VTE Prophylaxis VTE Prophylaxis Intervention: heparin Lines/Catheters IV [facility]from [facility] Saline Lock Assessment/Plan Chief Complaint/Hosp Course Assessment and plan 1. Dyspnea. Likely multifactorial. The patient likely with underlying chronic obstructive pulmonary disease secondary to his extensive history of cigarette smoking. off o2 at this time. bronchodilators as needed. improved 2. congestive heart failure. Echocardiogram with EF of 20%. Patient with history of methamphetamine abuse.. 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 Continue with recommendations. Continue diuresis 3. Acute exacerbation of psychiatric disorder. The patient noted with history of bipolar. He did run out of his psych medications per report and did report paranoia as well as homicidal ideation towards his neighbors. The patient seen by telepsychiatrist and placed on 5150 hold. improved on seroquel. will try for repeat telepsych consultation 4. Suspect underlying chronic obstructive pulmonary disease. No active bronchospasms. Continue on DuoNeb as needed. stable 5. Uncontrolled blood glucose with underlying diabetes. The patient, of note, did have last A1c at 12.7. A1c is now 13.9. Likely patient is noncompliant with his medications. blood glucose stabilizing. cont with endocrine recs 6. rhabdomyolysis. improving 7. Transaminitis. Secondary to history of hepatitis C. Patient monitored as outpatient for this 8. History of human immunodeficiency virus. Will continue the patient on his antiretrovirals. Continue with ID recommendations. DVT prophylaxis: Heparin Disposition and plan: plan for repeat telepsych consultation. cont on diuresis. Will follow up Discussed plan of care with Dr. Stoner Problems: Subjective 24 Hr Interval Summary Free Text/Dictation comfortable at present. no s/s of distress Exam/Review of Systems Vital Signs Vitals Vital Signs Date Time Temp Pulse Resp B/P Pulse Ox O2 Delivery O2 Flow Rate FiO2 08/27/16 08:04 102 08/27/16 07:41 98.2 20 122/88 98 08/27/16 00:00 Room Air Intake and Output 08/26/16 08/26/16 08/27/16 14:59 22:59 06:59 Intake Total 700 ml Balance 700 ml Exam General: alert, somewhat confused. Eyes: Equal round, anicteric sclera Cardiac: regular rate to tachycardic Pulmonary: no wheezing/rhonchi GI: Protuberant. Nontender Extremities: no edema ble Skin: Some scab seen bilateral lower extremities Neurologic: More alert. Alert to person place and time Results Result Diagram: 08/25/16 0800 08/27/16 0600 Results 24 hrs Laboratory Tests Test 08/26/16 14:14 08/26/16 14:43 08/26/16 15:34 08/26/16 16:03 Bedside Glucose 54 L 105 65 L 81 Test 08/26/16 16:58 08/26/16 20:12 08/27/16 06:00 08/27/16 07:59 Bedside Glucose 102 138 299 H Sodium Level 134 L Potassium Level 4.4 Chloride Level 99 Carbon Dioxide Level 30 Anion Gap 9 Blood Urea Nitrogen 15 Creatinine 0.81 Glucose Level 305 H Calcium Level 8.5 Magnesium Level 1.7 Total Bilirubin 0.2 Direct Bilirubin 0.00 Indirect Bilirubin 0.2 Aspartate Amino Transf (AST/SGOT) 63 H Alanine Aminotransferase (ALT/SGPT) 58 Alkaline Phosphatase 186 H Creatine Kinase 188 B-Type Natriuretic Peptide 2710 H Total Protein 6.7 # Albumin 3.1 L Globulin 3.60 H Albumin/Globulin Ratio 0.86 Test 08/27/16 10:21 Bedside Glucose 123 Medications Medications Current Medications Miscellaneous Information 1 ea NOTE XX Last administered on 08/26/16 15:46; Admin Dose 1 EA; Start 08/24/16 at 15:00 Glucose (Glutose) 15 gm Q15M PRN PO DECREASED GLUCOSE; Start 08/24/16 at 15:00 Glucose (Glutose) 22.5 gm Q15M PRN PO DECREASED GLUCOSE; Start 08/24/16 at 15: 00 Dextrose (D50w Syringe) 25 ml Q15M PRN IV DECREASED GLUCOSE; Start 08/24/16 at 15:00 Dextrose (D50w Syringe) 50 ml Q15M PRN IV DECREASED GLUCOSE; Start 08/24/16 at 15:00 Glucagon (Glucagen) 1 mg Q15M PRN IM DECREASED GLUCOSE; Start 08/24/16 at 15:00 Glucose (Glutose) 15 gm Q15M PRN BUCCAL DECREASED GLUCOSE; Start 08/24/16 at 15 :00 Acetaminophen (Tylenol Tab) 650 mg Q6H PRN PO PAIN LEVEL 1-3 OR FEVER Last administered on 08/27/16 08:04; Admin Dose 650 MG; Start 08/24/16 at 17:00 Docusate Sodium (Colace) 100 mg Q12H PRN PO CONSTIPATION; Start 08/24/16 at 17: 00 Magnesium Hydroxide (Milk Of Mag) 30 ml DAILY PRN PO CONSTIPATION Last administered on 08/26/16 12:41; Admin Dose 30 ML; Start 08/24/16 at 17:00 Bisacodyl (Dulcolax Supp) 10 mg DAILY PRN [place] CONSTIPATION; Start 08/24/16 at 17 :00 Pantoprazole (Protonix Iv) 40 mg DAILY@06 IV Last administered on 08/25/16 05: 55; Admin Dose 40 MG; Start 08/25/16 at 06:00 Heparin Sodium (Porcine) (Heparin (5000 Units/0.5 ml)) 5,000 unit Q12 SC Last administered on 08/27/16 08:50; Admin Dose 5,000 UNIT; Start 08/24/16 at 21:00 Emtricitabine/ Tenofovir (Truvada) 1 tab DAILY PO Last administered on 08:46; Admin Dose 1 TAB; Start 08/25/16 at 09:00 Quetiapine Fumarate (Seroquel) 200 mg HS PO Last administered on 08/26/16 20: 08; Admin Dose 200 MG; Start 08/24/16 at 21:00 Quetiapine Fumarate (Seroquel) 50 mg PO Last administered on 08/27/16 10 :02; Admin Dose 50 MG; Start 08/24/16 at 18:00 Hydralazine HCl (Apresoline) 10 mg Q4H PRN IV sbp>160 Last administered on 08/24 18:12; Admin Dose 10 MG; Start 08/24/16 at 17:30 Digoxin (Digoxin) 125 mcg DAILY@13 IV Last administered on 08/26/16 12:35; Admin Dose 125 MCG; Start 08/25/16 at 13:00 Spironolactone (Aldactone) 25 mg DAILY PO Last administered on 08/27/16 08:35 ; Admin Dose 25 MG; Start 08/25/16 at 11:00 Lisinopril (Zestril) 40 mg BID PO Last administered on 08/27/16 08:35; Admin Dose 40 MG; Start 08/25/16 at 21:00 Salmeterol Xinafoate/ Fluticasone (Advair 250/50 Diskus) 1 inh BID INH Last administered on 08/27/16 08:36; Admin Dose 1 INH; Start 08/25/16 at 15:30 Insulin Glargine (Lantus) 30 unit DAILY@20 SC Last administered on 08/26/16 20 :15; Admin Dose 30 UNIT; Start 08/26/16 at 20:00 Metoprolol Succinate (Toprol Xl) 50 mg BID PO Last administered on 08/27/16 08 :35; Admin Dose 50 MG; Start 08/26/16 at 21:00 Furosemide (Lasix) 40 mg DAILY PO ; Start 08/28/16 at 09:00 AMARIS DURHAM Aug 27, 2016 11:53
--- NOTE | 2016-08-27 12:04 | PN ---
DATE: 08/27/2016 PAIN MANAGEMENT/PALLIATIVE CARE PROGRESS NOTE SUBJECTIVE: He is somewhat reticent to go home today, but we are waiting for a psych evaluation to decide whether or not he continues to need a 5150 at this time. He denies chest pain, shortness of breath. He seems to be a bit agitated today, stating he would like to go home with his mother, but his mother is hospitalized. Otherwise, no nausea, vomiting, fevers, chills, cough, rigors. Pain sy ndrome has passed and this gentleman is not actively withdrawing from methamphetamine abuse. PHYSICAL EXAMINATION: VITAL SIGNS: Blood pressure 122/88, pulse 108 and regular, respirations are 20, temperature of 98.2 degrees, 98% saturation on room air. HEENT: He is otherwise normocephalic and atraumatic. Anicteric, acyanotic on examination. CHEST: Shows left lung is clear, right lung basilar crackles. COR: S1, S2, without S3. Positive S4. ABDOMEN: Grossly benign. NEUROLOGICAL: He is oriented x3. Cranial nerves II through XII are grossly intact. Motor and sens ory findings grossly within normal limits. ASSESSMENT AND PLAN: Continue observation for potential withdrawal from methamphetamine, although I think he is pretty much past that. We have discussed with him a recommendation to pursue some kind of an outpatient drug abuse program and to discuss this with his primary care physicians upon disch arge. Once again, recommend giving this gentleman no medications including pain control medications or sedatives at discharge. Dictated By: NIYAH SILVEIRA MD, LP/ABHISHEK Conf#: [id number] DID#: [id number]
--- NOTE | 2016-08-27 12:49 | CONS ---
Date/Time of Note Date/Time of Note DATE: 08/27/16 TIME: 12:46 Assessment/Plan Assessment/Plan Problems: (1) Bipolar disorder with psychotic features Status: Acute Comment: He appears to be more stable now he is regularly getting his medications. Cuong psych consult is pending at this moment I will be deferring off to their decisions regarding continuation of hold versus whether he can be discharged with outpatient follow-up (2) Diabetes mellitus type 2 in obese Status: Chronic Comment: His control is actually little too tight him to loosen up his insulin dosing a bit. (3) COPD (chronic obstructive pulmonary disease) Status: Chronic Comment: Stable and well-controlled on current medications gives us room to work with the other heart medicine Qualifiers: COPD type: emphysema Emphysema type: other Qualified Code: J43.8 - Other emphysema (4) Systolic CHF with reduced left ventricular function, NYHA class 3 Status: Chronic Comment: He still has a sinus tachycardia despite using beta-ema and dig. We however have room to work with the beta-ema and going to increase the metoprolol from 50-100 twice a day which will be better for his heart failure as well as his tachycardia. Consultation Date/Type/Reason Admit Date/Time Aug 24, 2016 at 14:08 Initial Consult Date 08/24/2016 Type of Consultation: Endocrinology Reason for Consultation Diabetes mellitus type 2; dilated cardiomyopathy with systolic CHF [employer] Heart Association class III; COPD 24 HR Interval Summary Free Text/Dictation Patient states he wants to go home Constitutional: no complaints Detailed Summary Respiratory: no complaints Cardiovascular: no complaints Gastrointestinal: no complaints Psychological: no complaints (Denies suicidal or homicidal ideation to this question) Exam/Review of Systems Vital Signs Vitals Vital Signs Date Time Temp Pulse Resp B/P Pulse Ox O2 Delivery O2 Flow Rate FiO2 08/27/16 12:00 105 08/27/16 11:50 98.2 20 145/92 99 08/27/16 00:00 Room Air Intake and Output 08/26/16 08/26/16 08/27/16 15:00 23:00 07:00 Intake Total 700 ml Balance 700 ml Exam Constitutional: alert, oriented Neck: non-tender, supple Respiratory: clear to auscultation, normal air movement Cardiovascular: nl pulses, regular rate and rhythm Results Result Diagram: 08/25/16 0800 08/27/16 0600 Results 24 hrs Laboratory Tests Test 08/26/16 14:14 08/26/16 14:43 08/26/16 15:34 08/26/16 16:03 Bedside Glucose 54 L 105 65 L 81 Test 08/26/16 16:58 08/26/16 20:12 08/27/16 06:00 08/27/16 07:59 Bedside Glucose 102 138 299 H Sodium Level 134 L Potassium Level 4.4 Chloride Level 99 Carbon Dioxide Level 30 Anion Gap 9 Blood Urea Nitrogen 15 Creatinine 0.81 Glucose Level 305 H Calcium Level 8.5 Magnesium Level 1.7 Total Bilirubin 0.2 Direct Bilirubin 0.00 Indirect Bilirubin 0.2 Aspartate Amino Transf (AST/SGOT) 63 H Alanine Aminotransferase (ALT/SGPT) 58 Alkaline Phosphatase 186 H Creatine Kinase 188 B-Type Natriuretic Peptide 2710 H Total Protein 6.7 # Albumin 3.1 L Globulin 3.60 H Albumin/Globulin Ratio 0.86 Test 08/27/16 10:21 08/27/16 11:54 08/27/16 12:23 Bedside Glucose 123 55 L 102 Medications Medications Current Medications Miscellaneous Information 1 ea NOTE XX Last administered on 08/26/16 15:46; Admin Dose 1 EA; Start 08/24/16 at 15:00 Glucose (Glutose) 15 gm Q15M PRN PO DECREASED GLUCOSE; Start 08/24/16 at 15:00 Glucose (Glutose) 22.5 gm Q15M PRN PO DECREASED GLUCOSE; Start 08/24/16 at 15: 00 Dextrose (D50w Syringe) 25 ml Q15M PRN IV DECREASED GLUCOSE; Start 08/24/16 at 15:00 Dextrose (D50w Syringe) 50 ml Q15M PRN IV DECREASED GLUCOSE; Start 08/24/16 at 15:00 Glucagon (Glucagen) 1 mg Q15M PRN IM DECREASED GLUCOSE; Start 08/24/16 at 15:00 Glucose (Glutose) 15 gm Q15M PRN BUCCAL DECREASED GLUCOSE; Start 08/24/16 at 15 :00 Acetaminophen (Tylenol Tab) 650 mg Q6H PRN PO PAIN LEVEL 1-3 OR FEVER Last administered on 08/27/16 08:04; Admin Dose 650 MG; Start 08/24/16 at 17:00 Docusate Sodium (Colace) 100 mg Q12H PRN PO CONSTIPATION; Start 08/24/16 at 17: 00 Magnesium Hydroxide (Milk Of Mag) 30 ml DAILY PRN PO CONSTIPATION Last administered on 08/26/16 12:41; Admin Dose 30 ML; Start 08/24/16 at 17:00 Bisacodyl (Dulcolax Supp) 10 mg DAILY PRN [place] CONSTIPATION; Start 08/24/16 at 17 :00 Pantoprazole (Protonix Iv) 40 mg DAILY@06 IV Last administered on 08/25/16 05: 55; Admin Dose 40 MG; Start 08/25/16 at 06:00 Heparin Sodium (Porcine) (Heparin (5000 Units/0.5 ml)) 5,000 unit Q12 SC Last administered on 08/27/16 08:50; Admin Dose 5,000 UNIT; Start 08/24/16 at 21:00 Emtricitabine/ Tenofovir (Truvada) 1 tab DAILY PO Last administered on 08:46; Admin Dose 1 TAB; Start 08/25/16 at 09:00 Quetiapine Fumarate (Seroquel) 200 mg HS PO Last administered on 08/26/16 20: 08; Admin Dose 200 MG; Start 08/24/16 at 21:00 Quetiapine Fumarate (Seroquel) 50 mg PO Last administered on 08/27/16 10 :02; Admin Dose 50 MG; Start 08/24/16 at 18:00 Hydralazine HCl (Apresoline) 10 mg Q4H PRN IV sbp>160 Last administered on 08/24 18:12; Admin Dose 10 MG; Start 08/24/16 at 17:30 Digoxin (Digoxin) 125 mcg DAILY@13 IV Last administered on 08/26/16 12:35; Admin Dose 125 MCG; Start 08/25/16 at 13:00 Spironolactone (Aldactone) 25 mg DAILY PO Last administered on 08/27/16 08:35 ; Admin Dose 25 MG; Start 08/25/16 at 11:00 Lisinopril (Zestril) 40 mg BID PO Last administered on 08/27/16 08:35; Admin Dose 40 MG; Start 08/25/16 at 21:00 Salmeterol Xinafoate/ Fluticasone (Advair 250/50 Diskus) 1 inh BID INH Last administered on 08/27/16t 08:36; Admin Dose 1 INH; Start 08/25/16 at 15:30 Furosemide (Lasix) 40 mg DAILY PO ; Start 08/28/16 at 09:00 Insulin Glargine (Lantus) 26 unit DAILY@20 SC ; Start 08/27/16 at 20:00; Status UNV Metoprolol Succinate (Toprol Xl) 100 mg BID PO ; Start 08/27/16 at 21:00; Status UNV KRISTI FLORES MD Aug 27, 2016 12:48
[2016-08-27 13:22] LABS: LYMPHOCYTE - CD4/CD8 RATIO 0.8 (0.86-5.00)
--- NOTE | 2016-08-27 15:51 | CONS ---
Date/Time of Note Date/Time of Note DATE: 08/27/16 TIME: 15:48 Assessment/Plan Assessment/Plan Chief Complaint/Hosp Course SUBJECTIVE: The patient is alert, feels good, looks comfortable. Denies pain, no fevers. PHYSICAL EXAMINATION: GENERAL: Well-developed, obese, middle-aged man who is alert, in no distress. HEENT: Head atraumatic, normocephalic. Sclerae anicteric. Buccal mucosa pink. NECK: Supple. CHEST: Rise symmetrical. Breath sounds clear, diminished to bases. HEART: S1, S2. ABDOMEN: Soft, bowel tones present. EXTREMITIES: Without cyanosis. ASSESSMENT: 1. Status post acute encephalopathy. 2. Status post acute hypoxemic respiratory failure. 3. Congestive heart failure exacerbation with severe cardiomyopathy and ejection fraction of 20%. 4. Human immunodeficiency virus===> well controlled on VILLANUEVA. 5. Poorly controlled diabetes. PLAN: The patient remains stable. We will continue him on current regimen. DW staff Problems: Consultation Date/Type/Reason Admit Date/Time Aug 24, 2016 at 14:08 Initial Consult Date Type of Consultation: id Exam/Review of Systems Vital Signs Vitals Vital Signs Date Time Temp Pulse Resp B/P Pulse Ox O2 Delivery O2 Flow Rate FiO2 08/27/16 15:13 98.6 99 18 117/75 98 08/27/16 00:00 Room Air Intake and Output 08/26/16 08/26/16 08/27/16 15:00 23:00 07:00 Intake Total 700 ml Balance 700 ml Results Result Diagram: 08/25/16 0800 08/27/16 0600 Results 24 hrs Laboratory Tests Test 08/26/16 16:03 08/26/16 16:58 08/26/16 20:12 08/27/16 06:00 Bedside Glucose 81 102 138 Sodium Level 134 L Potassium Level 4.4 Chloride Level 99 Carbon Dioxide Level 30 Anion Gap 9 Blood Urea Nitrogen 15 Creatinine 0.81 Glucose Level 305 H Calcium Level 8.5 Magnesium Level 1.7 Total Bilirubin 0.2 Direct Bilirubin 0.00 Indirect Bilirubin 0.2 Aspartate Amino Transf (AST/SGOT) 63 H Alanine Aminotransferase (ALT/SGPT) 58 Alkaline Phosphatase 186 H Creatine Kinase 188 B-Type Natriuretic Peptide 2710 H Total Protein 6.7 # Albumin 3.1 L Globulin 3.60 H Albumin/Globulin Ratio 0.86 Test 08/27/16 07:59 08/27/16 10:21 08/27/16 11:54 08/27/16 12:23 Bedside Glucose 299 H 123 55 L 102 Medications Medications Current Medications Miscellaneous Information 1 ea NOTE XX Last administered on 08/26/16 15:46; Admin Dose 1 EA; Start 08/24/16 at 15:00 Glucose (Glutose) 15 gm Q15M PRN PO DECREASED GLUCOSE; Start 08/24/16 at 15:00 Glucose (Glutose) 22.5 gm Q15M PRN PO DECREASED GLUCOSE; Start 08/24/16 at 15: 00 Dextrose (D50w Syringe) 25 ml Q15M PRN IV DECREASED GLUCOSE; Start 08/24/16 at 15:00 Dextrose (D50w Syringe) 50 ml Q15M PRN IV DECREASED GLUCOSE; Start 08/24/16 at 15:00 Glucagon (Glucagen) 1 mg Q15M PRN IM DECREASED GLUCOSE; Start 08/24/16 at 15:00 Glucose (Glutose) 15 gm Q15M PRN BUCCAL DECREASED GLUCOSE; Start 08/24/16 at 15 :00 Acetaminophen (Tylenol Tab) 650 mg Q6H PRN PO PAIN LEVEL 1-3 OR FEVER Last administered on 08/27/16 08:04; Admin Dose 650 MG; Start 08/24/16 at 17:00 Docusate Sodium (Colace) 100 mg Q12H PRN PO CONSTIPATION; Start 08/24/16 at 17: 00 Magnesium Hydroxide (Milk Of Mag) 30 ml DAILY PRN PO CONSTIPATION Last administered on 08/26/16 12:41; Admin Dose 30 ML; Start 08/24/16 at 17:00 Bisacodyl (Dulcolax Supp) 10 mg DAILY PRN [place] CONSTIPATION; Start 08/24/16 at 17 :00 Heparin Sodium (Porcine) (Heparin (5000 Units/0.5 ml)) 5,000 unit Q12 SC Last administered on 08/27/16 08:50; Admin Dose 5,000 UNIT; Start 08/24/16 at 21:00 Emtricitabine/ Tenofovir (Truvada) 1 tab DAILY PO Last administered on 08:46; Admin Dose 1 TAB; Start 08/25/16 at 09:00 Quetiapine Fumarate (Seroquel) 200 mg HS PO Last administered on 08/26/16 20: 08; Admin Dose 200 MG; Start 08/24/16 at 21:00 Quetiapine Fumarate (Seroquel) 50 mg PO Last administered on 08/27/16 10 :02; Admin Dose 50 MG; Start 08/24/16 at 18:00 Hydralazine HCl (Apresoline) 10 mg Q4H PRN IV sbp>160 Last administered on 08/24 18:12; Admin Dose 10 MG; Start 08/24/16 at 17:30 Digoxin (Digoxin) 125 mcg DAILY@13 IV Last administered on 08/26/16 12:35; Admin Dose 125 MCG; Start 08/25/16 at 13:00 Spironolactone (Aldactone) 25 mg DAILY PO Last administered on 08/27/16 08:35 ; Admin Dose 25 MG; Start 08/25/16 at 11:00 Lisinopril (Zestril) 40 mg BID PO Last administered on 08/27/16 08:35; Admin Dose 40 MG; Start 08/25/16 at 21:00 Salmeterol Xinafoate/ Fluticasone (Advair 250/50 Diskus) 1 inh BID INH Last administered on 08/27/16 08:36; Admin Dose 1 INH; Start 08/25/16 at 15:30 Furosemide (Lasix) 40 mg DAILY PO ; Start 08/28/16 at 09:00 Insulin Glargine (Lantus) 26 unit DAILY@20 SC ; Start 08/27/16 at 20:00 Metoprolol Succinate (Toprol Xl) 100 mg BID PO ; Start 08/27/16 at 21:00 Pantoprazole (Protonix Tab) 40 mg DAILY@06 PO ; Start 08/28/16 at 06:00 MURIEL TRINIDAD NP Aug 27, 2016 15:50
--- NOTE | 2016-08-27 16:08 | PSY ---
Date/Time of Note Date/Time of Note DATE: 08/27/16 TIME: 15:51 Psychiatric Subjective Eval Subjective Evaluation Patient location: emergency Chief Complaint: lower back pain/sob for a few months, also c/o left foot pain Reason for consult: Pt psychotic. History of present illness HISTORY OF PRESENT ILLNESS: This is a 51-year-old male with past medical history of HIV, diabetes, hepatitis C status post treatment as well as bipolar disorder who came to [facility] initially due to reports of shortness of breath. It was also reported that the patient had come to the hospital due to running out of his psychiatric medications and initially did report that he felt more agitated and paranoid that his neighbors were trying to hurt him and as such started to have homicidal ideation toward his neighbors. He did also admit to smoking cocaine and that he "drinks like a fish." He also admitted to injecting methamphetamines prior to coming to the ER. It was reported that initially the patient had been in the ER for over 30 hours due to being placed on a 5150 hold after being evaluated by telepsychiatrist. The patient was noted to be agitated prior to my evaluation, and it was reported that he did receive medications of Ativan as well as Benadryl and Geodon. As such, it was difficult to get a full history from the patient himself. Another psychiatric consult was requested as the patient was "medically cleared ". During the interview, the patient was hostile, guarded, saying that he already had a psychiatrist and did not need to speak with one. When I asked him if he was at risk of harming himself or others, he said, "Let us say I have unfinished business." I asked if he could be more specific. He then shared that he felt that his neighbors were out to hurt him and continued to harbor homicidal thoughts expressed several days ago. When I shared that I felt reluctant to discharge him due to his homicidal ideation, he said, "To heall with you the interview is over." Legal History: He has been convicted for felony violations. He has a history of violent crimes. He denies being on probation or parole at this time. Psychosocial History: The electronic record suggests that he is homeless. He denies this. MEDICAL AND SURGICAL HISTORY: 1. History of HIV. 2. History of hepatitis C with reported receiving treatment. 3. Diabetes. 4. Previous history of sepsis secondary to septic knee joint. 5. Essential hypertension. 6. History of asthma. SOCIAL HISTORY: It is reported patient does smoke cigarettes regularly as well as drinks alcohol, does amphetamine as well as cocaine. FAMILY HISTORY: Noncontributory. ALLERGIES: PENICILLIN. HOME MEDICATIONS: 1. Tivicay, dose unknown. 2. Truvada 1 tablet p.o. daily. 3. Ventolin HFA 2 puffs q.4 hours as needed for shortness of breath. 4. Naprosyn 500 mg p.o. b.i.d. 5. Seroquel 200 mg p.o. at bedtime. Past psychiatric history Psychiatric History: He has been treated for bipolar disorder. He has had several psychiatric admissions. Hospitalization: no Medical history Problems Medical Problems: (1) Asthma exacerbation Status: Acute (2) Bipolar disorder with psychotic features Status: Acute (3) Bronchitis Status: Acute (4) COPD (chronic obstructive pulmonary disease) Status: Chronic (5) Diabetes mellitus type 2 in obese Status: Chronic (6) Dyspnea Status: Acute (7) Hepatitis C antibody positive in blood Status: Acute (8) HIV disease Status: Chronic (9) Homicidal ideation Status: Acute (10) Hyperglycemia Status: Acute (11) Methamphetamine abuse Status: Acute (12) Septic joint of right knee joint Status: Acute (13) Systolic CHF with reduced left ventricular function, NYHA class 3 Status: Chronic Allergies: Coded Allergies: Penicillins (Verified Allergy, Unknown, 08/23/16) Substance Abuse Substance abuse history: Yes (Cocaine, Methamphetamine and alcohol) Social History Marital status: single Level of education: high School DPA/Conservatorship: No Occupation/Assisted: reportedly stated he has no place to go Psychiatric Objective Eval Review of Systems: Review of Systems: Not Applicable Constitutional: Normal Eyes: Normal ENT: Normal Neck: Normal Respiratory: Normal Chest/Breast: Normal Cardiovascular: Normal GI: Normal Genitourinary: Normal Skin: Normal Lymphatic: Normal Musculoskeletal: Normal Neurological: Normal Mental Status Examination: Appearance: Groomed Eye Contact: Poor Psychomotor Activity: Agitated Behavior: Hostile, Guarded Speech: Pressured AFFECT: Libile Mood: Irritable, Elevated Though Process: Linear Thought Content: Delusions Suicidal: No Homicidal: Yes On 72 hour hold: Yes Orientation: x4 Cognition: Alert Insight: Impared Judgement: Impared Attention Span: Distractible Laboratory Results Laboratory Tests Test 08/25/16 20:26 08/26/16 07:31 08/26/16 10:15 08/26/16 10:32 Bedside Glucose 115mg/dL 257mg/dL 241mg/dL Creatine Kinase 261IU/L Test 08/26/16 11:41 08/26/16 14:14 08/26/16 14:43 08/26/16 15:34 Bedside Glucose 168mg/dL 54mg/dL 105mg/dL 65mg/dL Test 08/26/16 16:03 08/26/16 16:58 08/26/16 20:12 08/27/16 06:00 Bedside Glucose 81mg/dL 102mg/dL 138mg/dL Sodium Level 134mmol/L Potassium Level 4.4mmol/L Chloride Level 99mmol/L Carbon Dioxide Level 30mmol/L Anion Gap 9 Blood Urea Nitrogen 15mg/dl Creatinine 0.81mg/dl Glucose Level 305mg/dl Calcium Level 8.5mg/dl Magnesium Level 1.7mg/dl Total Bilirubin 0.2mg/dl Direct Bilirubin 0.00mg/dl Indirect Bilirubin 0.2mg/dl Aspartate Amino Transf (AST/SGOT) 63IU/L Alanine Aminotransferase (ALT/SGPT) 58IU/L Alkaline Phosphatase 186IU/L Creatine Kinase 188IU/L B-Type Natriuretic Peptide 2710PG/ML Total Protein 6.7g/dl Albumin 3.1g/dl Globulin 3.60g/dl Albumin/Globulin Ratio 0.86 Test 08/27/16 07:59 08/27/16 10:21 08/27/16 11:54 08/27/16 12:23 Bedside Glucose 299mg/dL 123mg/dL 55mg/dL 102mg/dL Assessment and Plan Assessment/Diagnosis [place] I: F31.64 Bipolar disorder, mixed severe with psychotic features. F15.20 Stumulant use disorder, severe [place] II: Antisocial personality disorder [place] III: HIV, Hepatitis C, Diabetes [place] IV: Problems with finances, employment and housing. [place] V: 30 Recommendation/Plan Medication Management Suggest increase Seroquel to 400mg po hs. 5150 Recommendation: Place Hold (Once medically cleared, he should be assessed for dangerousness to others. He remains homicidal) CASSIDY WILKINS MD Aug 27, 2016 16:03
[2016-08-27] MEDS: DIGOXIN 500 MCG INJ IV SCH (16:34)
[2016-08-27] MEDS ORDERED: INSULIN GLARGINE [LANtus] 3 ML PEN SC SCH (20:00)
[2016-08-27] MEDS: METOPROLOL (XL) 100 MG TAB PO SCH (20:25)
[2016-08-27] MEDS: QUETIAPINE 100 MG TAB PO SCH (20:25)
[2016-08-28] VITALS (7 sets, daily range): BP systolic 113–125; BP diastolic 72–93; PULSE 106–110; RESP 17–20
[2016-08-28] MEDS ORDERED: PANTOPRAZOLE (EC) 40 MG TAB PO SCH (06:00)
[2016-08-28] MEDS: EMTRICITABINE/TENOFOVIR TAB PO SCH (08:40)
[2016-08-28] MEDS: LISINOPRIL 20 MG TAB PO SCH (08:42)
[2016-08-28] MEDS: METOPROLOL (XL) 100 MG TAB PO SCH (08:42)
[2016-08-28] MEDS: SPIRONOLACTONE 25 MG TAB PO SCH (08:42)
[2016-08-28] MEDS: SALMETEROL/FLUTICASONE 250/50 INHA INH SCH (08:43)
[2016-08-28] MEDS: HEPARIN 5,000 UNIT/0.5 ML SYG SC SCH (08:51)
[2016-08-28] MEDS: INSULIN ASPART [NOVOLOG] 3 ML PEN SC SCH ×4 (08:51→12:42)
[2016-08-28] MEDS ORDERED: FUROSEMIDE 40 MG TAB PO SCH (09:00)
[2016-08-28] MEDS: QUETIAPINE 25 MG TAB PO SCH (09:00)
[2016-08-28] MEDS: metFORMIN 500 MG TAB PO SCH (09:12)
[2016-08-28] MEDS: ACCU-CHEK XX SCH ×2 (10:28→13:50)
--- NOTE | 2016-08-28 13:22 | PN ---
Date/Time of Note Date/Time of Note DATE: 08/28/16 TIME: 13:17 Assessment/Plan VTE Prophylaxis VTE Prophylaxis Intervention: heparin Lines/Catheters IV C[facility]ter Type [facility]from [facility] Saline Lock Urinary Cath still in place: No Assessment/Plan Chief Complaint/Hosp Course Assessment and plan 1. Dyspnea. Likely multifactorial. The patient likely with underlying chronic obstructive pulmonary disease secondary to his extensive history of cigarette smoking. off o2 at this time. bronchodilators as needed. improved. Continue management 2. congestive heart failure. Echocardiogram with EF of 20%. Patient with history of methamphetamine abuse.. 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 Continue with recommendations. Continue diuresis. 3. Acute exacerbation of psychiatric disorder. The patient noted with history of bipolar. He did run out of his psych medications per report and did report paranoia as well as homicidal ideation towards his neighbors. The patient seen by telepsychiatrist initially and placed on 5150 hold. Repeat evaluation by telepsychiatrist done and patient still at risk for harm to others. Continue hold for psychiatrist recommendations. Seroquel medication adjusted 4. Suspect underlying chronic obstructive pulmonary disease. No active bronchospasms. Continue on DuoNeb as needed. stable 5. Uncontrolled blood glucose with underlying diabetes. The patient, of note, did have last A1c at 12.7. A1c is now 13.9. Likely patient is noncompliant with his medications. blood glucose stabilizing. cont with endocrine recs 6. rhabdomyolysis. improving 7. Transaminitis. Secondary to history of hepatitis C. Patient monitored as outpatient for this 8. History of human immunodeficiency virus. Will continue the patient on his antiretrovirals. Continue with ID recommendations. DVT prophylaxis: Heparin Disposition and plan: Patient remains on psych hold. Seroquel medication adjusted. plan to discharge to psych facility Discussed plan of care with Dr. Stoner Problems: Subjective 24 Hr Interval Summary Free Text/Dictation Comment this time. No apparent distress seen Exam/Review of Systems Vital Signs Vitals Vital Signs Date Time Temp Pulse Resp B/P Pulse Ox O2 Delivery O2 Flow Rate FiO2 08/28/16 12:06 98.9 105 17 122/91 99 08/27/16 00:00 Room Air Intake and Output 08/27/16 08/27/16 08/28/16 14:59 22:59 06:59 Intake Total 1800 ml 1600 ml Balance 1800 ml 1600 ml Exam General: alert, no apparent distress Eyes: Equal round, anicteric sclera Cardiac: Tachycardic Pulmonary: no wheezing/rhonchi GI: Protuberant. Nontender Extremities: no edema ble today Skin: Some scab seen bilateral lower extremities Neurologic: Alert to person place and time Results Result Diagram: 08/25/16 0800 08/27/16 0600 Results 24 hrs Laboratory Tests Test 08/27/16 17:45 08/27/16 20:23 08/28/16 07:48 08/28/16 10:14 Bedside Glucose 205 84 256 H Creatine Kinase 126 Test 08/28/16 10:22 08/28/16 11:45 Bedside Glucose 240 H 130 Medications Medications Current Medications Miscellaneous Information 1 ea NOTE XX Last administered on 08/26/16 15:46; Admin Dose 1 EA; Start 08/24/16 at 15:00 Glucose (Glutose) 15 gm Q15M PRN PO DECREASED GLUCOSE; Start 08/24/16 at 15:00 Glucose (Glutose) 22.5 gm Q15M PRN PO DECREASED GLUCOSE; Start 08/24/16 at 15: 00 Dextrose (D50w Syringe) 25 ml Q15M PRN IV DECREASED GLUCOSE; Start 08/24/16 at 15:00 Dextrose (D50w Syringe) 50 ml Q15M PRN IV DECREASED GLUCOSE; Start 08/24/16 at 15:00 Glucagon (Glucagen) 1 mg Q15M PRN IM DECREASED GLUCOSE; Start 08/24/16 at 15:00 Glucose (Glutose) 15 gm Q15M PRN BUCCAL DECREASED GLUCOSE; Start 08/24/16 at 15 :00 Acetaminophen (Tylenol Tab) 650 mg Q6H PRN PO PAIN LEVEL 1-3 OR FEVER Last administered on 08/27/16 08:04; Admin Dose 650 MG; Start 08/24/16 at 17:00 Docusate Sodium (Colace) 100 mg Q12H PRN PO CONSTIPATION; Start 08/24/16 at 17: 00 Magnesium Hydroxide (Milk Of Mag) 30 ml DAILY PRN PO CONSTIPATION Last administered on 08/26/16 12:41; Admin Dose 30 ML; Start 08/24/16 at 17:00 Bisacodyl (Dulcolax Supp) 10 mg DAILY PRN [place] CONSTIPATION; Start 08/24/16 at 17 :00 Heparin Sodium (Porcine) (Heparin (5000 Units/0.5 ml)) 5,000 unit Q12 SC Last administered on 08/28/16 08:51; Admin Dose 5,000 UNIT; Start 08/24/16 at 21:00 Emtricitabine/ Tenofovir (Truvada) 1 tab DAILY PO Last administered on 08:40; Admin Dose 1 TAB; Start 08/25/16 at 09:00 Hydralazine HCl (Apresoline) 10 mg Q4H PRN IV sbp>160 Last administered on 08/24 18:12; Admin Dose 10 MG; Start 08/24/16 at 17:30 Digoxin (Digoxin) 125 mcg DAILY@13 IV Last administered on 08/27/16 16:34; Admin Dose 125 MCG; Start 08/25/16 at 13:00 Spironolactone (Aldactone) 25 mg DAILY PO Last administered on 08/28/16 08:42 ; Admin Dose 25 MG; Start 08/25/16 at 11:00 Lisinopril (Zestril) 40 mg BID PO Last administered on 08/28/16 08:42; Admin Dose 40 MG; Start 08/25/16 at 21:00 Salmeterol Xinafoate/ Fluticasone (Advair 250/50 Diskus) 1 inh BID INH Last administered on 08/28/16 08:43; Admin Dose 1 INH; Start 08/25/16 at 15:30 Furosemide (Lasix) 40 mg DAILY PO Last administered on 08/28/16 08:41; Admin Dose 40 MG; Start 08/28/16 at 09:00 Insulin Glargine (Lantus) 26 unit DAILY@20 SC Last administered on 08/27/16 20 :37; Admin Dose 26 UNIT; Start 08/27/16 at 20:00 Metoprolol Succinate (Toprol Xl) 100 mg BID PO Last administered on 08/28/16 08:42; Admin Dose 100 MG; Start 08/27/16 at 21:00 Pantoprazole (Protonix Tab) 40 mg DAILY@06 PO Last administered on 08/28/16 05 :44; Admin Dose 40 MG; Start 08/28/16 at 06:00 Quetiapine Fumarate (Seroquel) 400 mg QHS PO ; Start 08/28/16 at 21:00 AMARIS DURHAM Aug 28, 2016 13:21
--- NOTE | 2016-08-28 13:55 | CONS ---
Date/Time of Note Date/Time of Note DATE: 08/28/16 TIME: 13:53 Assessment/Plan Assessment/Plan Problems: (1) Systolic CHF with reduced left ventricular function, NYHA class 3 Status: Chronic Comment: He has improved nicely. He is still tachycardic but this could be controlled by adjustment of the dosage of the digoxin. As his digoxin presently is listed in the MAR as IV I will switch this over to oral as a courtesy (2) COPD (chronic obstructive pulmonary disease) Status: Chronic Comment: Well-controlled Qualifiers: COPD type: emphysema Emphysema type: other Qualified Code: J43.8 - Other emphysema (3) Diabetes mellitus type 2 in obese Status: Chronic Comment: He occasionally has excursions in her sugars but in general is doing much better. From my standpoint in this avenue he is stable for discharge (4) Bipolar disorder with psychotic features Status: Acute Comment: I will defer off to psychiatry and the primary care team Consultation Date/Type/Reason Admit Date/Time Aug 24, 2016 at 14:08 Initial Consult Date 08/24/2016 Type of Consultation: Endocrinology Reason for Consultation Diabetes mellitus type 2; COPD-mildmoderate; systolic heart failure [place] Heart Association class III 24 HR Interval Summary Constitutional: no complaints Detailed Summary Respiratory: no complaints Cardiovascular: no complaints Gastrointestinal: no complaints Exam/Review of Systems Vital Signs Vitals Vital Signs Date Time Temp Pulse Resp B/P Pulse Ox O2 Delivery O2 Flow Rate FiO2 08/28/16 12:06 98.9 105 17 122/91 99 08/27/16 00:00 Room Air Intake and Output 08/27/16 08/27/16 08/28/16 15:00 23:00 07:00 Intake Total 1800 ml 1600 ml Balance 1800 ml 1600 ml Exam Constitutional: alert, oriented Respiratory: clear to auscultation, normal air movement Cardiovascular: nl pulses Gastrointestinal: nl liver, spleen, non-tender, soft Results Result Diagram: 08/25/16 0800 08/27/16 0600 Results 24 hrs Laboratory Tests Test 08/27/16 17:45 08/27/16 20:23 08/28/16 07:48 08/28/16 10:14 Bedside Glucose 205 84 256 H Creatine Kinase 126 Test 08/28/16 10:22 08/28/16 11:45 Bedside Glucose 240 H 130 Medications Medications Current Medications Miscellaneous Information 1 ea NOTE XX Last administered on 08/26/16 15:46; Admin Dose 1 EA; Start 08/24/16 at 15:00 Glucose (Glutose) 15 gm Q15M PRN PO DECREASED GLUCOSE; Start 08/24/16 at 15:00 Glucose (Glutose) 22.5 gm Q15M PRN PO DECREASED GLUCOSE; Start 08/24/16 at 15: 00 Dextrose (D50w Syringe) 25 ml Q15M PRN IV DECREASED GLUCOSE; Start 08/24/16 at 15:00 Dextrose (D50w Syringe) 50 ml Q15M PRN IV DECREASED GLUCOSE; Start 08/24/16 at 15:00 Glucagon (Glucagen) 1 mg Q15M PRN IM DECREASED GLUCOSE; Start 08/24/16 at 15:00 Glucose (Glutose) 15 gm Q15M PRN BUCCAL DECREASED GLUCOSE; Start 08/24/16 at 15 :00 Acetaminophen (Tylenol Tab) 650 mg Q6H PRN PO PAIN LEVEL 1-3 OR FEVER Last administered on 08/27/16 08:04; Admin Dose 650 MG; Start 08/24/16 at 17:00 Docusate Sodium (Colace) 100 mg Q12H PRN PO CONSTIPATION; Start 08/24/16 at 17: 00 Magnesium Hydroxide (Milk Of Mag) 30 ml DAILY PRN PO CONSTIPATION Last administered on 08/26/16 12:41; Admin Dose 30 ML; Start 08/24/16 at 17:00 Bisacodyl (Dulcolax Supp) 10 mg DAILY PRN [place] CONSTIPATION; Start 08/24/16 at 17 :00 Heparin Sodium (Porcine) (Heparin (5000 Units/0.5 ml)) 5,000 unit Q12 SC Last administered on 08/28/16 08:51; Admin Dose 5,000 UNIT; Start 08/24/16 at 21:00 Emtricitabine/ Tenofovir (Truvada) 1 tab DAILY PO Last administered on 08:40; Admin Dose 1 TAB; Start 08/25/16 at 09:00 Hydralazine HCl (Apresoline) 10 mg Q4H PRN IV sbp>160 Last administered on 08/24 18:12; Admin Dose 10 MG; Start 08/24/16 at 17:30 Spironolactone (Aldactone) 25 mg DAILY PO Last administered on 08/28/16 08:42 ; Admin Dose 25 MG; Start 08/25/16 at 11:00 Lisinopril (Zestril) 40 mg BID PO Last administered on 08/28/16 08:42; Admin Dose 40 MG; Start 08/25/16 at 21:00 Salmeterol Xinafoate/ Fluticasone (Advair 250/50 Diskus) 1 inh BID INH Last administered on 08/28/16 08:43; Admin Dose 1 INH; Start 08/25/16 at 15:30 Furosemide (Lasix) 40 mg DAILY PO Last administered on 08/28/16 08:41; Admin Dose 40 MG; Start 08/28/16 at 09:00 Insulin Glargine (Lantus) 26 unit DAILY@20 SC Last administered on 08/27/16 20 :37; Admin Dose 26 UNIT; Start 08/27/16 at 20:00 Metoprolol Succinate (Toprol Xl) 100 mg BID PO Last administered on 08/28/16 08:42; Admin Dose 100 MG; Start 08/27/16 at 21:00 Pantoprazole (Protonix Tab) 40 mg DAILY@06 PO Last administered on 08/28/16 05 :44; Admin Dose 40 MG; Start 08/28/16 at 06:00 Quetiapine Fumarate (Seroquel) 400 mg QHS PO ; Start 08/28/16 at 21:00 Digoxin (Digoxin) 0.25 mg DAILY@13 PO ; Start 08/29/16 at 13:00 KRISTI FLORES MD Aug 28, 2016 13:55
--- NOTE | 2016-08-28 15:31 | CONS ---
Date/Time of Note Date/Time of Note DATE: 08/28/16 TIME: 15:30 Assessment/Plan Assessment/Plan Chief Complaint/Hosp Course SUBJECTIVE: The patient is alert, feels good, no fevers. PHYSICAL EXAMINATION: GENERAL: Well-developed, obese, middle-aged man who is alert, in no distress. HEENT: Head atraumatic, normocephalic. Sclerae anicteric. Buccal mucosa pink. NECK: Supple. CHEST: Rise symmetrical. Breath sounds clear, diminished to bases. HEART: S1, S2. ABDOMEN: Soft, bowel tones present. EXTREMITIES: Without cyanosis. ASSESSMENT: 1. Status post acute encephalopathy. 2. Status post acute hypoxemic respiratory failure. 3. Congestive heart failure exacerbation with severe cardiomyopathy and ejection fraction of 20%. 4. Human immunodeficiency virus===> well controlled on V[place]. 5. Poorly controlled diabetes. PLAN: The patient remains stable. pending dc to [facility] DW staff Problems: Consultation Date/Type/Reason Admit Date/Time Aug 24, 2016 at 14:08 Type of Consultation: id Exam/Review of Systems Vital Signs Vitals Vital Signs Date Time Temp Pulse Resp B/P Pulse Ox O2 Delivery O2 Flow Rate FiO2 08/28/16 12:06 98.9 105 17 122/91 99 08/27/16 00:00 Room Air Intake and Output 08/27/16 08/27/16 08/28/16 15:00 23:00 07:00 Intake Total 1800 ml 1600 ml Balance 1800 ml 1600 ml Results Result Diagram: 08/25/16 0800 08/27/16 0600 Results 24 hrs Laboratory Tests Test 08/27/16 17:45 08/27/16 20:23 08/28/16 07:48 08/28/16 10:14 Bedside Glucose 205 84 256 H Creatine Kinase 126 Test 08/28/16 10:22 08/28/16 11:45 Bedside Glucose 240 H 130 Medications Medications Current Medications Miscellaneous Information 1 ea NOTE XX Last administered on 08/26/16t 15:46; Admin Dose 1 EA; Start 08/24/16 at 15:00 Glucose (Glutose) 15 gm Q15M PRN PO DECREASED GLUCOSE; Start 08/24/16 at 15:00 Glucose (Glutose) 22.5 gm Q15M PRN PO DECREASED GLUCOSE; Start 08/24/16 at 15: 00 Dextrose (D50w Syringe) 25 ml Q15M PRN IV DECREASED GLUCOSE; Start 08/24/16 at 15:00 Dextrose (D50w Syringe) 50 ml Q15M PRN IV DECREASED GLUCOSE; Start 08/24/16 at 15:00 Glucagon (Glucagen) 1 mg Q15M PRN IM DECREASED GLUCOSE; Start 08/24/16 at 15:00 Glucose (Glutose) 15 gm Q15M PRN BUCCAL DECREASED GLUCOSE; Start 08/24/16 at 15 :00 Acetaminophen (Tylenol Tab) 650 mg Q6H PRN PO PAIN LEVEL 1-3 OR FEVER Last administered on 08/27/16 08:04; Admin Dose 650 MG; Start 08/24/16 at 17:00 Docusate Sodium (Colace) 100 mg Q12H PRN PO CONSTIPATION; Start 08/24/16 at 17: 00 Magnesium Hydroxide (Milk Of Mag) 30 ml DAILY PRN PO CONSTIPATION Last administered on 08/26/16 12:41; Admin Dose 30 ML; Start 08/24/16 at 17:00 Bisacodyl (Dulcolax Supp) 10 mg DAILY PRN MA CONSTIPATION; Start 08/24/16 at 17 :00 Heparin Sodium (Porcine) (Heparin (5000 Units/0.5 ml)) 5,000 unit Q12 SC Last administered on 08/28/16 08:51; Admin Dose 5,000 UNIT; Start 08/24/16 at 21:00 Emtricitabine/ Tenofovir (Truvada) 1 tab DAILY PO Last administered on 08:40; Admin Dose 1 TAB; Start 08/25/16 at 09:00 Hydralazine HCl (Apresoline) 10 mg Q4H PRN IV sbp>160 Last administered on 08/24 18:12; Admin Dose 10 MG; Start 08/24/16 at 17:30 Spironolactone (Aldactone) 25 mg DAILY PO Last administered on 08/28/16 08:42 ; Admin Dose 25 MG; Start 08/25/16 at 11:00 Lisinopril (Zestril) 40 mg BID PO Last administered on 08/28/16 08:42; Admin Dose 40 MG; Start 08/25/16 at 21:00 Salmeterol Xinafoate/ Fluticasone (Advair 250/50 Diskus) 1 inh BID INH Last administered on 08/28/16 08:43; Admin Dose 1 INH; Start 08/25/16 at 15:30 Furosemide (Lasix) 40 mg DAILY PO Last administered on 08/28/16 08:41; Admin Dose 40 MG; Start 08/28/16 at 09:00 Insulin Glargine (Lantus) 26 unit DAILY@20 SC Last administered on 08/27/16 20 :37; Admin Dose 26 UNIT; Start 08/27/16 at 20:00 Metoprolol Succinate (Toprol Xl) 100 mg BID PO Last administered on 08/28/16 08:42; Admin Dose 100 MG; Start 08/27/16 at 21:00 Pantoprazole (Protonix Tab) 40 mg DAILY@06 PO Last administered on 08/28/16 05 :44; Admin Dose 40 MG; Start 08/28/16 at 06:00 Quetiapine Fumarate (Seroquel) 400 mg QHS PO ; Start 08/28/16 at 21:00 Digoxin (Digoxin) 0.25 mg DAILY@13 PO ; Start 08/29/16 at 13:00 MURIEL TRINIDAD NP Aug 28, 2016 15:31
[2016-08-28] MEDS ORDERED: QUETIAPINE 100 MG TAB PO SCH (21:00)
[2016-08-29] MEDS ORDERED: DIGOXIN 0.25 MG TAB PO SCH (13:00)
== END 2016-08-28 14:54 | disposition left against medical advice (07) | DRG 974 ==
LOC: E/R 02:22 → TEL 08-24 14:08
PROVIDERS: ADMIT Family Medicine; ATTEND Family Medicine
DX: B20 Human immunodeficiency virus [HIV] disease (principal); G93.40 Encephalopathy, unspecified; J96.00 Acute respiratory failure, unspecified whether with hypoxia or hypercapnia; M62.82 Rhabdomyolysis; F15.20 Other stimulant dependence, uncomplicated; I11.0 Hypertensive heart disease with heart failure; I50.22 Chronic systolic (congestive) heart failure; F31.64 Bipolar disorder, current episode mixed, severe, with psychotic features; R45.851 Suicidal ideations; E11.65 Type 2 diabetes mellitus with hyperglycemia; Z59.9 Problem related to housing and economic circumstances, unspecified; Z59.6 Low income; B19.20 Unspecified viral hepatitis C without hepatic coma; F17.210 Nicotine dependence, cigarettes, uncomplicated; Z72.89 Other problems related to lifestyle; F15.90 Other stimulant use, unspecified, uncomplicated; F14.90 Cocaine use, unspecified, uncomplicated; J44.9 Chronic obstructive pulmonary disease, unspecified; Z91.14 Patient's other noncompliance with medication regimen; R45.850 Homicidal ideations; E66.9 Obesity, unspecified; Z68.29 Body mass index [BMI] 29.0-29.9, adult
CPT/HCPCS: 36415; 36600; 71010; 80053; 80061; 80162; 80306; 80307; 81001; 81003; 82550; 82553; 82803; 82962; 83036; 83735; 83880; 84100; 84436; 84439; 84443; 84479; 84484; 85025; 85610; 86360; 86704; 86709; 86803; 87340; 90686; 93005; 93306; 94664; 96361; 96372; 96374; 96375; 96376; C9113; J0360; J1200; J1630; J1644; J1815; J1940; J2060; J2270; J7030

== ENCOUNTER 2016-09-27 20:26 | Emergency (ER) | payer MEDICAID, OTHER ==
[~2016-09-27] VITALS: Ht 172.7 cm; Wt 85.0 kg
[~2016-09-27 20:26] MED LIST changes: +DOLU50TA PO; +QUET200T PO; -tivicay
[2016-09-27] MEDS ORDERED: LORAZEPAM 2 MG INJ IV STA (20:35)
[2016-09-27 20:47] VITALS: Ht 172.7 cm; Wt 85.0 kg
[2016-09-27 21:13] LABS: ADD SCAN DIFF NO
[2016-09-27 21:15] LABS: BASOPHILS % 0.2 % (0.0-2.0); EOSINOPHILS % 0.4 % (0.0-7.0); HEMATOCRIT 40.6 % (42.0-52.0); HEMOGLOBIN 13.2 g/dl (14.0-18.0); LYMPHOCYTES # 2.8 10^3/ul (0.8-2.9); LYMPHOCYTES % 27.2 % (15.0-51.0); MEAN CORPUSCULAR HEMOGLOBIN 29.9 pg (29.0-33.0); MEAN CORPUSCULAR HGB CONC 32.5 g/dl (32.0-37.0); MEAN CORPUSCULAR VOLUME 92.1 fl (82.0-101.0); MEAN PLATELET VOLUME 10.3 fl (7.4-10.4); MONOCYTE # 1.3 10^3/ul (0.3-0.9); MONOCYTES % 12.4 % (0.0-11.0); NEUTROPHILS % 59.3 % (39.0-77.0); NUCLEATED RED BLOOD CELLS% 0.4 /100WBC (0.0-0.0); PLATELET COUNT 203 10^3/UL (140-415); RED BLOOD COUNT 4.41 10^6/ul (4.70-6.10); RED CELL DISTRIBUTION WIDTH 15.9 % (11.5-14.5); WHITE BLOOD COUNT 10.2 10^3/ul (4.8-10.8)
--- NOTE | 2016-09-27 21:18 | RADRPT ---
PROCEDURE: XR Chest. CLINICAL INDICATION: Dyspnea TECHNIQUE: Anterior chest x-ray. COMPARISON: 08/24/2016 FINDINGS: There is pulmonary vascular congestion. The interstitial lung markings are prominent. There is no focal consolidation. No pleural effusion identified. There is no evidence of pneumothorax. Heart size is large. The cardiomediastinal silhouette is unremarkable. The soft tissues are normal. Osseous structures are unremarkable. IMPRESSION: 1. Findings consistent with mild congestive heart failure with cardiomegaly, pulmonary vascular con gestion and interstitial edema, improved compared to previous exam. 2. No definite evidence of pneumonia. RPTAT: HLDM .Kevon Kendall MD, MD Date Time Electronically viewed and signed by .Kevon Kendall MD, on 09/27/2016 21:17 ./
[2016-09-27 21:24] LABS: INR 1.37; PROTIME 16.9 Sec (12.2-14.2); PT RATIO 1.3
[2016-09-27 21:25] LABS: ALBUMIN 3.4 g/dl (3.3-4.9); PARTIAL THROMBOPLASTIN TIME 29.2 Sec (25.0-35.0)
[2016-09-27 21:26] LABS: CHLORIDE 96 mmol/L (97-110); POTASSIUM 5.1 mmol/L (3.5-5.1); SODIUM 132 mmol/L (135-144)
[2016-09-27 21:28] LABS: ALANINE AMINOTRANSFERASE 359 IU/L (13-69); ALBUMIN/GLOBULIN RATIO 0.94; ALKALINE PHOSPHATASE 182 IU/L (42-121); ANION GAP 17 (8-16); ASPARTATE AMINO TRANSFERASE 344 IU/L (15-46); BILIRUBIN,INDIRECT 0.7 mg/dl (0-1.1); BILIRUBIN,TOTAL 0.7 mg/dl (0.2-1.3); BLOOD UREA NITROGEN 27 mg/dl (7-20); CARBON DIOXIDE 24 mmol/L (21-31); CREATININE 1.13 mg/dl (0.61-1.24)
[2016-09-27 21:29] LABS: GLUCOSE 307 mg/dl (70-220)
[2016-09-27 21:30] LABS: ACETAMINOPHEN < 10.0 ug/ml (10.0-30.0); ETHANOL < 10.0 mg/dl; SALICYLATE < 1.0 mg/dl (5.0-30.0)
[2016-09-27 21:39] LABS: ADD UMIC YES; URINE BILIRUBIN (Dip) 1+ (NEGATIVE); URINE BLOOD (Dip) NEGATIVE (NEGATIVE); URINE COLOR YELLOW (YELLOW); URINE KETONES (Dip) NEGATIVE (NEGATIVE); URINE LEUKOCYTE ESTERASE (Dip) NEGATIVE (NEGATIVE); URINE NITRITE (Dip) NEGATIVE (NEGATIVE); URINE TOTAL PROTEIN (Dip) 2+ (NEGATIVE); URINE UROBILINOGEN (Dip) 4.0 E.U./dL (0.1-1.0)
[2016-09-27 21:41] LABS: TROPONIN-I 0.078 ng/ml (0.00-0.12)
--- NOTE | 2016-09-27 21:53 | ERD ---
ER Documentation Chief Complaint Date/Time DATE: 09/27/16 TIME: 21:47 Chief Complaint biba for abd pain, sob and meth use HPI This is a 51-year-old transgender male who presents to the emergency room for evaluation of multiple complaints including abdominal pain, shortness of breath , mucosal methamphetamine use. The patient states that she did use amphetamines today. Denying any homicidal ideation or suicidal ideation. Patient was complaining of mild shortness of breath. ROS All systems reviewed and are negative except as per history of present illness. Medications Home Meds Active Scripts Naproxen* (Naproxen*) 500 Mg Tablet, 500 MG PO BID, #20 TAB Prov:KRISTI ANAYA DO 03/24/16 Albuterol Sulfate* (Ventolin HFA*) 18 Gm Hfa.aer.ad, 2 PUFF INHALATION Q4H, #1 INHALER Prov:KRISTI ANAYA DO 03/24/16 Reported Medications Quetiapine Fumarate* (Seroquel*) 200 Mg Tablet, 200 MG PO HS, #30 TAB 08/24/16 Dolutegravir Sodium (Tivicay) Unknown Strength Tablet, PO DAILY, TAB 08/24/16 Emtricitabine-Tenofovir* (Truvada*) 200-300 Mg Tab, 1 TAB PO DAILY, TAB 05/24/16 Allergies Allergies: Coded Allergies: Penicillins (Verified Allergy, Unknown, 08/28/16) PMhx/Soc History of Surgery: No Anesthesia Reaction: No Hx Neurological Disorder: No Hx Respiratory Disorders: Yes (Asthma) Hx Cardiac Disorders: Yes (chf) Hx Psychiatric Problems: No Hx Miscellaneous Medical Probl: Yes (dm) Hx Alcohol Use: Yes Hx Substance Use: Yes (meth) Hx Tobacco Use: Yes Smoking Status: Current every day smoker Physical Exam Vitals Vital Signs Date Time Temp Pulse Resp B/P Pulse Ox O2 Delivery O2 Flow Rate FiO2 09/27/16 20:47 100.2 113 20 132/96 98 Physical Exam Const: Disheveled appearance Head: Atraumatic Eyes: Normal Conjunctiva ENT: Dry mucous membranes, normal External Ears, Nose and Mouth. Neck: Full range of motion..~ No meningismus. Resp: Clear to auscultation bilaterally Cardio: Tachycardic, no murmurs Abd: Soft, non tender, non distended. Normal bowel sounds Skin: No petechiae or rashes Back: No midline or flank tenderness Ext: No cyanosis, or edema Neur: Awake and alert Psych: Mild agitation Result Diagram: 09/27/16 2100 09/27/16 2100 Results 24 hrs Laboratory Tests Test 09/27/16 21:00 White Blood Count 10.210^3/ul Red Blood Count 4.4110^6/ul Hemoglobin 13.2g/dl Hematocrit 40.6% Mean Corpuscular Volume 92.1fl Mean Corpuscular Hemoglobin 29.9pg Mean Corpuscular Hemoglobin Concent 32.5g/dl Red Cell Distribution Width 15.9% Platelet Count 59693^3/UL Mean Platelet Volume 10.3fl Neutrophils % 59.3% Lymphocytes % 27.2% Monocytes % 12.4% Eosinophils % 0.4% Basophils % 0.2% Nucleated Red Blood Cells % 0.4/100WBC Neutrophils # 6.010^3/ul Lymphocytes # 2.810^3/ul Monocytes # 1.310^3/ul Eosinophils # 0.010^3/ul Basophils # 0.010^3/ul Nucleated Red Blood Cells # 0.010^3/ul Prothrombin Time 16.9Sec Prothrombin Time Ratio 1.3 INR International Normalized Ratio 1.37 Activated Partial Thromboplast Time 29.2Sec Urine Color YELLOW Urine Clarity CLEAR Urine pH 5.5 Urine Specific [place] 1.025 Urine Ketones NEGATIVE Urine Nitrite NEGATIVE Urine Bilirubin 1+ Urine Ictotest Pending Urine Urobilinogen 4.0 E.U./dL Urine Leukocyte Esterase NEGATIVE Urine Microscopic RBC Pending Urine Microscopic WBC Pending Urine Hemoglobin NEGATIVE Urine Glucose 0.25%% Urine Total Protein 2+ Sodium Level 132mmol/L Potassium Level 5.1mmol/L Chloride Level 96mmol/L Carbon Dioxide Level 24mmol/L Anion Gap 17 Blood Urea Nitrogen 27mg/dl Creatinine 1.13mg/dl Glucose Level 307mg/dl Calcium Level 9.0mg/dl Total Bilirubin 0.7mg/dl Direct Bilirubin 0.00mg/dl Indirect Bilirubin 0.7mg/dl Aspartate Amino Transf (AST/SGOT) 344IU/L Alanine Aminotransferase (ALT/SGPT) 359IU/L Alkaline Phosphatase 182IU/L Troponin I 0.078ng/ml B-Type Natriuretic Peptide 2460PG/ML Total Protein 7.0g/dl Albumin 3.4g/dl Globulin 3.60g/dl Albumin/Globulin Ratio 0.94 Salicylates Level < 1.0mg/dl Acetaminophen Level < 10.0ug/ml Ethyl Alcohol Level < 10.0mg/dl Current Medications Medications (Trade) Dose Ordered Sig/Luis Alberto Route PRN Reason Start Time Stop Time Status Last Admin Dose Admin Lorazepam (Ativan) 2 mg ONCE STAT IV 09/27/16 20:35 09/27/16 20:37 DC 09/27/16 20:56 Procedures/MDM EKG: Rate/Rhythm: Sinus tachycardia QRS, ST, T-waves: [No changes consistent w/ acute ischemia] Impression: [No evidence of ischemia or arrhythmia] Chest X-ray 1V Interpreted by me: Soft Tissue: No acute abnormalities Bones: No acute abnormalities Mediastinum/Cardiac Silhouette/Lungs: Mild congestive heart failure This 51-year-old male presents to the emergency room for evaluation of multiple complaints including abdominal pain, mild shortness of breath, and crystal methamphetamine use. When I evaluate this patient this patient was tachycardic , was agitated and appeared to be in the influence of methamphetamine. I did obtain an IV. The patient was given 2 mg of Ativan intravenously. This patient also had lab work drawn including a troponin which was negative. Chest x-ray reveals mild congestive heart failure, however significant pleural effusions. This patient was not hypoxic, and had no respiratory distress. The patient was agitated and that has resolved with administration of Ativan. Lab work also reveals transaminitis which is likely secondary to alcohol use. This patient appears to be doing better clinically at this time and will be discharged home. Departure Diagnosis: Primary Impression: Methamphetamine abuse Additional Impressions: Systolic CHF with reduced left ventricular function, NYHA class 3 Normocytic anemia Transaminitis Condition: Stable SHAYE MAXWELL DO Sep 27, 2016 21:53
[2016-09-27 22:01] LABS: BARBITURATES NEGATIVE (NEGATIVE); BENZODIAZEPINES NEGATIVE (NEGATIVE); CANNABINOIDS POSITIVE (NEGATIVE); COCAINE POSITIVE (NEGATIVE); OPIATES NEGATIVE (NEGATIVE)
[2016-09-27 22:11] LABS: ICTOTEST NEGATIVE (NEGATIVE); SQUAMOUS EPITHELIAL CELL,UR FEW; URINE RBCS 0-2 /HPF (0)
[2016-09-27 22:12] LABS: BACTERIA,URINE MODERATE
[2016-09-28 02:28] VITALS: TEMP 98.2
[2016-09-28 05:00] VITALS: BP 119/79; PULSE 90; RESP 17
== END 2016-09-28 05:15 | disposition home or self-care (01) ==
LOC: E/R 20:26
DX: F15.10 Other stimulant abuse, uncomplicated (principal); D64.9 Anemia, unspecified; R74.0 Nonspecific elevation of levels of transaminase and lactic acid dehydrogenase [LDH]; I50.9 Heart failure, unspecified; E11.9 Type 2 diabetes mellitus without complications; F17.210 Nicotine dependence, cigarettes, uncomplicated
CPT/HCPCS: 36415; 71010; 80053; 80306; 80307; 81001; 83880; 84484; 85025; 85610; 85730; 93005; 96374; J2060; Z7502; 81003

== ENCOUNTER 2016-10-09 23:57 | Inpatient (IN) | payer MEDICAID ==
[~2016-10-09] VITALS: Ht 175.3 cm; Wt 91.7 kg
[2016-10-10] VITALS (15 sets, daily range): BP systolic 145–161; BP diastolic 85–105; PULSE 96–110; RESP 16–22; TEMP 98.7; Ht 175.3 cm; Wt 91.7 kg
--- NOTE | 2016-10-10 00:34 | ERA ---
ER Documentation Chief Complaint Date/Time DATE: 10/10/16 TIME: 00:33 Chief Complaint shortbess of breath, hx- chf HPI The patient is a 51-year-old male, presenting to the ER because of worsening dyspnea for the last 4-5 days, associated with bilateral leg edema. He has similar symptoms previously. He denies fever, chills, neck pain, chest pain, abdominal pain, vomiting, dysuria, diarrhea, constipation. He smokes socially, denies drinking, does amphetamine Past medical history: History of CHF, diabetes mellitus, HIV ROS All systems reviewed and are negative except as per history of present illness. Medications Home Meds Active Scripts Albuterol Sulfate* (Ventolin HFA*) 18 Gm Hfa.aer.ad, 2 PUFF INHALATION Q4H, #1 INHALER Prov:KRISTI ANAYA 03/24/16 Reported Medications Raltegravir Potassium* (Isentress*) 400 Mg Tablet, 400 MG PO BID, TAB 10/10/16 Gabapentin* (Gabapentin*) 300 Mg Capsule, 300 MG PO TID, #90 CAP 10/10/16 Furosemide* (Furosemide*) 20 Mg Tablet, 20 MG PO DAILY, #60 TAB 10/10/16 Carvedilol* (Carvedilol*) 6.25 Mg Tablet, 6.25 MG PO BID, #60 TAB 10/10/16 Lisinopril* (Lisinopril*) 5 Mg Tablet, 5 MG PO DAILY, #30 TAB 10/10/16 Insulin Isophan/Regular (Humulin 70/30) 100 Units/Ml Susp, 25 UNIT SC TID, EA SLIDING SCALE 10/10/16 Insulin Glargine* (Lantus*) 100 Unit/Ml Soln, 42 UNIT SC DAILY, #1 VIAL 10/10/16 Glyburide* (Glyburide*) 5 Mg Tablet, 5 MG PO DAILY, #30 TAB 10/10/16 Tramadol Hcl* (Ultram*) 50 Mg Tablet, 50 MG PO Q6H Y for PAIN, TAB 10/10/16 Quetiapine Fumarate* (Seroquel*) 200 Mg Tablet, 200 MG PO HS, #30 TAB 08/24/16 Emtricitabine-Tenofovir* (Truvada*) 200-300 Mg Tab, 1 TAB PO DAILY, TAB 05/24/16 Discontinued Reported Medications Dolutegravir Sodium (Tivicay) Unknown Strength Tablet, PO DAILY, TAB 08/24/16 Discontinued Scripts Naproxen* (Naproxen*) 500 Mg Tablet, 500 MG PO BID, #20 TAB Prov:KRISTI ANAYA DO 03/24/16 Allergies Allergies: Coded Allergies: Penicillins (Verified Allergy, Unknown, 08/28/16) PMhx/Soc History of Surgery: No Anesthesia Reaction: No Hx Neurological Disorder: No Hx Respiratory Disorders: Yes (Asthma) Hx Cardiac Disorders: Yes (chf) Hx Psychiatric Problems: No Hx Miscellaneous Medical Probl: Yes (dm) Hx Alcohol Use: Yes Hx Substance Use: Yes (meth) Hx Tobacco Use: Yes Physical Exam Vitals Vital Signs Date Time Temp Pulse Resp B/P Pulse Ox O2 Delivery O2 Flow Rate FiO2 10/10/16 01:07 109 24 100 2.0 10/10/16 00:35 98.7 109 24 159/109 98 Room Air 10/10/16 00:00 98.8 122 20 207/122 93 Physical Exam Const: No acute distress. Head: Atraumatic. Eyes: Normal Conjunctiva. ENT: Normal External Ears, Nose and Mouth. Neck: Full range of motion. No meningismus. Resp: Bibasilar crackle, bilateral expiratory wheezes, tachypnea Cardio: Regular but tachycardic Abd: Soft, non distended, normal bowel sounds, non tender. Skin: No petechiae or rashes. Back: No midline or flank tenderness. Ext: Bilateral leg edema, no calf tenderness Neur: Awake and alert. No focal deficit Psych: Normal Mood and Affect. Result Diagram: 10/10/16 0045 10/10/16 0045 Results 24 hrs Laboratory Tests Test 10/10/16 00:45 10/10/16 01:20 White Blood Count 7.110^3/ul Red Blood Count 4.3910^6/ul Hemoglobin 12.9g/dl Hematocrit 41.0% Mean Corpuscular Volume 93.4fl Mean Corpuscular Hemoglobin 29.4pg Mean Corpuscular Hemoglobin Concent 31.5g/dl Red Cell Distribution Width 17.4% Platelet Count 12820^3/UL Mean Platelet Volume 10.2fl Neutrophils % 61.3% Lymphocytes % 29.2% Monocytes % 8.6% Eosinophils % 0.4% Basophils % 0.1% Nucleated Red Blood Cells % 0.0/100WBC Neutrophils # 4.310^3/ul Lymphocytes # 2.110^3/ul Monocytes # 0.610^3/ul Eosinophils # 0.010^3/ul Basophils # 0.010^3/ul Nucleated Red Blood Cells # 0.010^3/ul Prothrombin Time 14.2Sec Prothrombin Time Ratio 1.1 INR International Normalized Ratio 1.10 Activated Partial Thromboplast Time 27.4Sec Sodium Level 134mmol/L Potassium Level 3.9mmol/L Chloride Level 102mmol/L Carbon Dioxide Level 26mmol/L Anion Gap 10 Blood Urea Nitrogen 13mg/dl Creatinine 0.69mg/dl Glucose Level 386mg/dl Calcium Level 8.9mg/dl Total Bilirubin 0.3mg/dl Direct Bilirubin 0.00mg/dl Indirect Bilirubin 0.3mg/dl Aspartate Amino Transf (AST/SGOT) 57IU/L Alanine Aminotransferase (ALT/SGPT) 90IU/L Alkaline Phosphatase 233IU/L Troponin I 0.041ng/ml B-Type Natriuretic Peptide 5850PG/ML Total Protein 6.9g/dl Albumin 3.1g/dl Globulin 3.80g/dl Albumin/Globulin Ratio 0.81 Ethyl Alcohol Level < 10.0mg/dl Urine Opiates Screen NEGATIVE Urine Barbiturates NEGATIVE Urine Amphetamines Screen POSITIVE Urine Benzodiazepines Screen NEGATIVE Urine Cocaine Screen NEGATIVE Urine Cannabinoids POSITIVE Current Medications Medications (Trade) Dose Ordered Sig/Luis Alberto Route PRN Reason Start Time Stop Time Status Last Admin Dose Admin Furosemide (Lasix) 40 mg ONCE ONCE IV 10/10/16 01:00 10/10/16 01:01 DC 10/10/16 01:00 Levalbuterol (Xopenex Neb) 1.25 mg ONCE ONCE HHN 10/10/16 01:00 10/10/16 01:01 DC 10/10/16 01:06 Ipratropium [place] (Atrovent 0.02% (Neb)) 0.5 mg ONCE ONCE HHN 10/10/16 01:00 10/10/16 01:01 DC 10/10/16 01:06 Procedures/[place] [id number] Radiology Main Line: [phone] DIAGNOSTIC IMAGING REPORT Patient: BETHANY SANCHEZ DOB: 1965 Age: 51 Sex: M MR #: [id number] DOS: 10/10/16 0044 Ordering MD: JEREMY DAMON MD Location: E/R Room/Bed: PROCEDURE: XR Chest. CLINICAL INDICATION: Dyspnea. TECHNIQUE: Single frontal view of the chest. COMPARISON: 08/24/2016. FINDINGS: The cardiomediastinal silhouette is within normal limits. Mild pulmonary vascular congestion. Improved aeration bilateral lungs. The lungs are otherwise clear. No signs of pleural fluid or pneumothorax are seen. The osseous structures and soft tissues are unremarkable. IMPRESSION: Mild pulmonary vascular congestion, and otherwise, improved aeration in the bilateral lungs since 08/24/2016. RPTAT: [facility] Physician Matthew Date Time Electronically viewed and signed by Physician Matthew on 10/10/2016 02:18 RS/ CC: JEREMY DAMON MD EKG: Read by emergency physician Rate/Rhythm: Sinus tachycardia 112 beats/min QRS, ST, T-waves: No ST elevation, no T inversion, left atrial enlargement, LAD, LVH Impression: Abnormal EKG MEDICAL MAKING DECISION: The patient is a 51-year-old male, presenting with acute CHF exacerbation, acute accelerated hypertension, acute diabetic hyperglycemia and acute bronchospasm. He was treated with Lasix 40 mg IV for acute CHF exacerbation, Xopenex 1.25 mg and Atrovent 0.5 mg for acute bronchospasm with good response. The differential diagnoses considered include but are not limited to asthma, COPD, pneumonia, pulmonary embolus, pleural effusion, congestive heart failure. Critical Care: Time: 35 minutes excluding all billable procedures. Treatments/Evaluations: Close monitoring and treatment of unstable vital signs, cardiorespiratory, and neurologic status, while maintaining tight balance of fluid, respiratory, and cardiac interventions. Departure Diagnosis: Primary Impression: Congestive heart failure Additional Impressions: Accelerated hypertension Diabetes mellitus with hyperglycemia Anemia Substance abuse Condition: Stable Comments I discussed the findings with the patient. I discussed the patient with the on- call hospitalist Dr. Rondon who was made aware of the lab, the treatment, the patient condition. The patient is admitted to 2:09 AM JEREMY DAMON MD October 10, 2016 00:34
[2016-10-10 00:56] LABS: ADD SCAN DIFF NO
[2016-10-10 00:59] LABS: BASOPHILS % 0.1 % (0.0-2.0); EOSINOPHILS % 0.4 % (0.0-7.0); HEMOGLOBIN 12.9 g/dl (14.0-18.0); LYMPHOCYTES # 2.1 10^3/ul (0.8-2.9); LYMPHOCYTES % 29.2 % (15.0-51.0); MEAN CORPUSCULAR HEMOGLOBIN 29.4 pg (29.0-33.0); MEAN CORPUSCULAR HGB CONC 31.5 g/dl (32.0-37.0); MEAN CORPUSCULAR VOLUME 93.4 fl (82.0-101.0); MEAN PLATELET VOLUME 10.2 fl (7.4-10.4); MONOCYTE # 0.6 10^3/ul (0.3-0.9); MONOCYTES % 8.6 % (0.0-11.0); NEUTROPHIL # 4.3 10^3/ul (1.6-7.5); NEUTROPHILS % 61.3 % (39.0-77.0); PLATELET COUNT 156 10^3/UL (140-415); RED BLOOD COUNT 4.39 10^6/ul (4.70-6.10); RED CELL DISTRIBUTION WIDTH 17.4 % (11.5-14.5); WHITE BLOOD COUNT 7.1 10^3/ul (4.8-10.8)
[2016-10-10] MEDS ORDERED: IPRATROPIUM (NEB) 0.5 MG/2.5 ML AMP HHN ONE (01:00)
[2016-10-10] MEDS ORDERED: LEVALBUTEROL (NEB) 1.25 MG/0.5 ML AMP HHN ONE (01:00)
[2016-10-10] MEDS ORDERED: FUROSEMIDE 40 MG INJ IV ONE (01:00)
[2016-10-10 01:17] LABS: INR 1.1; PROTIME 14.2 Sec (12.2-14.2); PT RATIO 1.1
[2016-10-10 01:18] LABS: ALANINE AMINOTRANSFERASE 90 IU/L (13-69); ALBUMIN 3.1 g/dl (3.3-4.9); ALBUMIN/GLOBULIN RATIO 0.81; ALKALINE PHOSPHATASE 233 IU/L (42-121); ANION GAP 10 (8-16); ASPARTATE AMINO TRANSFERASE 57 IU/L (15-46); BILIRUBIN,INDIRECT 0.3 mg/dl (0-1.1); BILIRUBIN,TOTAL 0.3 mg/dl (0.2-1.3); BLOOD UREA NITROGEN 13 mg/dl (7-20); CALCIUM 8.9 mg/dl (8.4-10.2); CARBON DIOXIDE 26 mmol/L (21-31); CHLORIDE 102 mmol/L (97-110); CREATININE 0.69 mg/dl (0.61-1.24); GLUCOSE 386 mg/dl (70-220); PARTIAL THROMBOPLASTIN TIME 27.4 Sec (25.0-35.0); POTASSIUM 3.9 mmol/L (3.5-5.1); SODIUM 134 mmol/L (135-144); TOTAL PROTEIN 6.9 g/dl (6.1-8.1)
[2016-10-10 01:26] LABS: B-TYPE NATRIURETIC PEPTIDE 5850 PG/ML (0-125); TROPONIN-I 0.041 ng/ml (0.00-0.12)
[2016-10-10 01:42] LABS: ETHANOL < 10.0 mg/dl
--- NOTE | 2016-10-10 02:18 | RADRPT ---
PROCEDURE: XR Chest. CLINICAL INDICATION: Dyspnea. TECHNIQUE: Single frontal view of the chest. COMPARISON: 08/24/2016. FINDINGS: The cardiomediastinal silhouette is within normal limits. Mild pulmonary vascular congestion. Impro beatriz aeration bilateral lungs. The lungs are otherwise clear. No signs of pleural fluid or pneumotho rax are seen. The osseous structures and soft tissues are unremarkable. IMPRESSION: Mild pulmonary vascular congestion, and otherwise, improved aeration in the bilateral lungs since . RPTAT: [facility] Physician Matthew Date Time Electronically viewed and signed by Physician Matthew on 10/10/2016 02:18 RS/
[2016-10-10 02:22] LABS: BARBITURATES NEGATIVE (NEGATIVE); BENZODIAZEPINES NEGATIVE (NEGATIVE); CANNABINOIDS POSITIVE (NEGATIVE); COCAINE NEGATIVE (NEGATIVE); OPIATES NEGATIVE (NEGATIVE)
[2016-10-10] MEDS ORDERED: LANT3I SC (02:47)
[2016-10-10] MEDS ORDERED: TRAM-40 PO (02:47)
[2016-10-10] MEDS ORDERED: NOVO7030 SC (02:47)
[2016-10-10] MEDS ORDERED: GLYB5TAB3 PO (02:47)
[2016-10-10] MEDS ORDERED: LISI-313 PO (02:50)
[2016-10-10] MEDS ORDERED: FURO20TA3 PO (02:59)
[2016-10-10] MEDS ORDERED: CARV6.2579 PO (02:59)
[2016-10-10] MEDS ORDERED: GABA300C16 PO (02:59)
[2016-10-10] MEDS ORDERED: RALT400T4 PO (03:01)
[2016-10-10] MEDS ORDERED: traMADol 50 MG TAB PO PRN (04:00)
[2016-10-10] MEDS ORDERED: ONDANSETRON 4 MG INJ IV PRN (04:00)
[2016-10-10] MEDS ORDERED: HYDROCODONE/APAP (5/325) TAB PO PRN (04:00)
[2016-10-10] MEDS ORDERED: ACETAMINOPHEN 325 MG TAB PO PRN (04:00)
[2016-10-10] MEDS ORDERED: GLUCAGON 1 MG INJ IM PRN (04:15)
[2016-10-10] MEDS ORDERED: DEXTROSE 50% 50 ML SYRINGE IV PRN ×2 (04:15)
[2016-10-10] MEDS ORDERED: GLUCOSE GEL 15 GRAM TUBE PO PRN ×2 (04:15)
[2016-10-10] MEDS ORDERED: INSULIN ASPART [NOVOLOG] 3 ML PEN SC ONE (04:15)
[2016-10-10] MEDS ORDERED: GLUCOSE GEL 15 GRAM TUBE BUCCAL PRN (04:15)
[2016-10-10] MEDS: morphine 2 MG INJ IV PRN (04:35)
[2016-10-10] MEDS ORDERED: MAGNESIUM HYDROXIDE 30ML CUP PO ONE (04:45)
[2016-10-10] MEDS ORDERED: LORAZEPAM 2 MG INJ IV ONE (04:45)
[2016-10-10] MEDS: INSULIN GLARGINE [LANtus] 3 ML PEN SC SCH (05:03)
[2016-10-10] MEDS: FUROSEMIDE 20 MG INJ IV SCH ×2 (05:04→17:16)
--- NOTE | 2016-10-10 05:28 | HP ---
Date/Time of Note Date/Time of Note DATE: 10/10/16 TIME: 05:11 Assessment/Plan VTE Prophylaxis VTE Prophylaxis Intervention: heparin Lines/Catheters IV [facility] Saline Lock Urinary Cath still in place: No Assessment/Plan Assessment/Plan 1. CHF Exacerbation: recent echo with EF of 20% - cont cardiac meds - IV lasix - strict I/O and monitor UOP. - pt has been advised about importance of stopping meth/cocaine use and medication compliance, but he seemed uninterested. 2. Diabetes with hyperglycemia: recent A1c 14 - insulin while in-house 3. HIV - cont med 4. Psychiatric disorder, including bipolar disorder - cont med 5. Abnormal LFTs: improved since last admission - pt has hx of Hep C - Recent and u/s showed that liver had normal echogenicity w/o sign of cirrhosis - Monitor for now 6. Likely COPD exacerbation - steroid and PRN breathing txt - cont oxygen HPI/ROS Admit Date/Time Admit Date/Time October 10, 2016 at 02:05 Hx of Present Illness This is a 51-year-old male with hx of HIV, diabetes, hepatitis C, bipolar disorder, CHF with systolic dysfunction with EF of 20% who presented to ED c/o shortness of breath. He was admitted here last month after presented to hospital due to running out of his psychiatric medications and initially did report that he felt more agitated and paranoid that his neighbors were trying to hurt him and as such started to have homicidal ideation toward his neighbors. He was placed on 5150 hold after evaluated by telepsych. after hold was lifted, pt left AMA. 2D-echo at that time, showed EF of 20%. patient continued with illicit drug use, last meth use was 2 days ago. In ED today, CXR showed mild pulmonary vascular congestion, and otherwise, improved aeration in the bilateral lungs since 08/24/2016. He was given 40mg IV lasix and breathing treatment. . PMH/Family/Social Past Medical History HIV, diabetes, hepatitis C, bipolar disorder, CHF with systolic dysfunction with EF of 20% Social History Alcohol Use: heavy Smoking Status: Current every day smoker Drug Use: cocaine, other (meth) Exam/Review of Systems Vital Signs Vitals Vital Signs Date Time Temp Pulse Resp B/P Pulse Ox O2 Delivery O2 Flow Rate FiO2 10/10/16 04:20 Nasal Cannula 2.0 5/13/17 03:40 98.3 112 18 159/101 96 Intake and Output 10/09/16 10/09/16 10/10/16 15:00 23:00 07:00 Intake Total 240 ml Balance 240 ml Exam Constitutional: other Head: atraumatic, normocephalic Eyes: PERRL Respiratory: wheezing Cardiovascular: other (tachyacrdic with regular rhythm) Gastrointestinal: other (obese. +BS), soft Extremities: edema Labs Result Diagram: 10/10/164410/10/1644 Medications Medications Current Medications Carvedilol (Coreg) 6.25 mg BID PO ; Start 10/10/16 at 09:00 Emtricitabine/ Tenofovir (Truvada) 1 tab DAILY PO ; Start 10/10/16 at 09:00 Gabapentin (Neurontin) 300 mg TID PO ; Start 10/10/16 at 09:00 Insulin Glargine (Lantus) 42 unit DAILY SC Last administered on 10/10/16 05:03 ; Admin Dose 42 UNIT; Start 10/10/16 at 04:15 Lisinopril (Zestril) 5 mg DAILY PO ; Start 10/10/16 at 09:00 Quetiapine Fumarate (Seroquel) 200 mg HS PO ; Start 10/10/16 at 21:00 Miscellaneous Medication (Isentress) 400 mg BID PO ; Start 10/10/16 at 09:00 Tramadol HCl (Ultram) 50 mg Q6H PRN PO PAIN; Start 10/10/16 at 04:00 Ondansetron HCl (Zofran Inj) 4 mg Q6H PRN IV NAUSEA AND/OR VOMITING; Start at 04:00 Acetaminophen (Tylenol Tab) 650 mg Q6H PRN PO PAIN AND OR ELEVATED TEMP; Start 10/10/16 at 04:00 Morphine Sulfate (morphine) 2 mg Q4H PRN IV PAIN Last administered on 04:35; Admin Dose 2 MG; Start 10/10/16 at 04:00 Heparin Sodium (Porcine) (Heparin (5000 Units/0.5 ml)) 5,000 unit BID SC ; Start 10/10/16 at 09:00 Acetaminophen/ Hydrocodone Bitart ([place] (5/325)) 1 tab Q6H PRN PO PAIN Last administered on 10/10/16t 04:35; Admin Dose 1 TAB; Start 10/10/16 at 04:00 Diagnostic Test (Pha) (Accu-Chek) 1 ea 02 XX ; Start 10/11/16 at 02:00 Miscellaneous Information 1 ea NOTE XX ; Start 10/10/16 at 04:15 Glucose (Glutose) 15 gm Q15M PRN PO DECREASED GLUCOSE; Start 10/10/16 at 04:15 Glucose (Glutose) 22.5 gm Q15M PRN PO DECREASED GLUCOSE; Start 10/10/16 at 04: 15 Dextrose (D50w Syringe) 25 ml Q15M PRN IV DECREASED GLUCOSE; Start 10/10/16 at 04:15 Dextrose (D50w Syringe) 50 ml Q15M PRN IV DECREASED GLUCOSE; Start 10/10/16 at 04:15 Glucagon (Glucagen) 1 mg Q15M PRN IM DECREASED GLUCOSE; Start 10/10/16 at 04:15 Glucose (Glutose) 15 gm Q15M PRN BUCCAL DECREASED GLUCOSE; Start 10/10/16 at 04 :15 Lorazepam (Ativan) 1 mg Q4H PRN IV anxiety; Start 10/10/16 at 05:00 Senna (Senokot) 2 tab BID PO ; Start 10/10/16 at 09:00 LEODAN SHERWOOD MD October 10, 2016 05:21
[2016-10-10] MEDS ORDERED: METHYLPREDNISOLONE 125 MG INJ IV ONE (06:00)
[2016-10-10] MEDS: INSULIN ASPART [NOVOLOG] 3 ML PEN SC SCH ×4 (08:04→21:11)
[2016-10-10 08:27] LABS: ADD SCAN DIFF NO
[2016-10-10 08:37] LABS: BASOPHILS % 0.2 % (0.0-2.0); EOSINOPHILS # 0.1 10^3/ul (0.0-0.5); EOSINOPHILS % 1.2 % (0.0-7.0); HEMATOCRIT 40.9 % (42.0-52.0); HEMOGLOBIN 13.3 g/dl (14.0-18.0); LYMPHOCYTES # 1.7 10^3/ul (0.8-2.9); LYMPHOCYTES % 25.6 % (15.0-51.0); MEAN CORPUSCULAR HEMOGLOBIN 30.2 pg (29.0-33.0); MEAN CORPUSCULAR HGB CONC 32.5 g/dl (32.0-37.0); MEAN CORPUSCULAR VOLUME 92.7 fl (82.0-101.0); MEAN PLATELET VOLUME 10.6 fl (7.4-10.4); MONOCYTE # 0.4 10^3/ul (0.3-0.9); MONOCYTES % 5.6 % (0.0-11.0); NEUTROPHIL # 4.4 10^3/ul (1.6-7.5); NEUTROPHILS % 66.8 % (39.0-77.0); PLATELET COUNT 146 10^3/UL (140-415); RED BLOOD COUNT 4.41 10^6/ul (4.70-6.10); RED CELL DISTRIBUTION WIDTH 17.4 % (11.5-14.5); WHITE BLOOD COUNT 6.6 10^3/ul (4.8-10.8)
[2016-10-10] MEDS: HEPARIN 5,000 UNIT/0.5 ML VIAL SC SCH ×2 (08:56→20:55)
[2016-10-10 09:06] LABS: ALBUMIN 3.2 g/dl (3.3-4.9); ALBUMIN/GLOBULIN RATIO 0.84; BILIRUBIN,INDIRECT 0.7 mg/dl (0-1.1); BILIRUBIN,TOTAL 0.7 mg/dl (0.2-1.3); CALCIUM 9.2 mg/dl (8.4-10.2); CHOL/HDL RATIO 4.2 RATIO; CREATININE 0.78 mg/dl (0.61-1.24); MAGNESIUM 1.4 mg/dl (1.7-2.5); PHOSPHORUS 3.9 mg/dl (2.5-4.9); POTASSIUM 4.2 mmol/L (3.5-5.1)
[2016-10-10] MEDS: SENNA TAB PO SCH ×2 (11:39→20:54)
[2016-10-10] MEDS: EMTRICITABINE/TENOFOVIR TAB PO SCH (11:39)
[2016-10-10] MEDS: LISINOPRIL 5 MG TAB PO SCH (11:40)
[2016-10-10] MEDS: GABAPENTIN 300 MG CAP PO SCH ×3 (11:40→20:54)
[2016-10-10] MEDS: RALTEGRAVIR 400 MG TAB PO SCH ×2 (11:40→20:53)
[2016-10-10] MEDS: METHYLPREDNISOLONE 125 MG INJ IV SCH ×2 (13:32→21:52)
[2016-10-10] MEDS ORDERED: hydrALAzine 20 MG INJ IV PRN (14:30)
[2016-10-10] MEDS: LORAZEPAM 2 MG INJ IV PRN (15:14)
[2016-10-10] MEDS: QUETIAPINE 100 MG TAB PO SCH (20:54)
[2016-10-10] MEDS ORDERED: MAGNESIUM SULFATE 3 GM in SOD CHLORIDE 0.9% 100 ML IVPB ONE (23:30)
[2016-10-11] VITALS (12 sets, daily range): BP systolic 129–151; BP diastolic 72–101; PULSE 102–112; RESP 19–22
[2016-10-11] MEDS ORDERED: ACCU-CHEK XX SCH (02:00)
[2016-10-11] MEDS: ACCU-CHEK XX SCH (02:38)
[2016-10-11] MEDS: LORAZEPAM 2 MG INJ IV PRN ×4 (04:34→23:46)
[2016-10-11 06:04] LABS: ADD SCAN DIFF NO
[2016-10-11 06:06] LABS: BASOPHILS % 0.1 % (0.0-2.0); HEMATOCRIT 43.9 % (42.0-52.0); HEMOGLOBIN 14.3 g/dl (14.0-18.0); LYMPHOCYTES % 19.4 % (15.0-51.0); MEAN CORPUSCULAR HEMOGLOBIN 29.7 pg (29.0-33.0); MEAN CORPUSCULAR HGB CONC 32.6 g/dl (32.0-37.0); MEAN CORPUSCULAR VOLUME 91.3 fl (82.0-101.0); MONOCYTE # 0.7 10^3/ul (0.3-0.9); MONOCYTES % 6.5 % (0.0-11.0); NEUTROPHIL # 7.7 10^3/ul (1.6-7.5); NEUTROPHILS % 73.3 % (39.0-77.0); PLATELET COUNT 195 10^3/UL (140-415); RED BLOOD COUNT 4.81 10^6/ul (4.70-6.10); RED CELL DISTRIBUTION WIDTH 16.9 % (11.5-14.5); WHITE BLOOD COUNT 10.4 10^3/ul (4.8-10.8)
[2016-10-11] MEDS: METHYLPREDNISOLONE 125 MG INJ IV SCH ×3 (06:30→22:37)
[2016-10-11] MEDS: FUROSEMIDE 20 MG INJ IV SCH ×2 (06:30→18:10)
[2016-10-11] MEDS: morphine 2 MG INJ IV PRN ×2 (06:38→18:13)
[2016-10-11 06:43] LABS: CALCIUM 9.3 mg/dl (8.4-10.2); CREATININE 0.74 mg/dl (0.61-1.24); MAGNESIUM 1.9 mg/dl (1.7-2.5); POTASSIUM 4.2 mmol/L (3.5-5.1)
[2016-10-11] MEDS: GABAPENTIN 300 MG CAP PO SCH ×3 (08:58→20:01)
[2016-10-11] MEDS: SENNA TAB PO SCH ×2 (08:58→20:00)
[2016-10-11] MEDS: EMTRICITABINE/TENOFOVIR TAB PO SCH (08:58)
[2016-10-11] MEDS: RALTEGRAVIR 400 MG TAB PO SCH ×2 (08:58→19:59)
[2016-10-11] MEDS: LISINOPRIL 5 MG TAB PO SCH (08:58)
[2016-10-11] MEDS: INSULIN ASPART [NOVOLOG] 3 ML PEN SC SCH ×3 (09:04→18:12)
[2016-10-11] MEDS: HEPARIN 5,000 UNIT/0.5 ML VIAL SC SCH ×2 (09:05→20:06)
[2016-10-11] MEDS: INSULIN GLARGINE [LANtus] 3 ML PEN SC SCH (09:27)
[2016-10-11] MEDS: FAMOTIDINE 20 MG TAB PO SCH (12:30)
[2016-10-11] MEDS ORDERED: NICOTINE (21 MG/24 HR) PATCH TRANSDERM SCH (13:30)
[2016-10-11] MEDS ORDERED: NICOTINE (7 MG/24 HR) PATCH TRANSDERM SCH (15:00)
[2016-10-11] MEDS ORDERED: NICOTINE (14 MG/24 HR) PATCH TRANSDERM SCH (15:00)
[2016-10-11] MEDS: LEVOFLOXACIN 750MG/D5W (PMX) 150 ML IVPB SCH (16:26)
--- NOTE | 2016-10-11 16:48 | PN ---
DATE: 10/11/2016 SUBJECTIVE: The patient asking if he can smoke. Told he could not. Otherwise no acute events over night. Less agitation this morning. OBJECTIVE: VITAL SIGNS: Afebrile, pulse is 101 to 112, respirations 19 to 22, blood pressure 129/75, saturatin g at 97% on 2 liters nasal cannula. GENERAL: The patient lying in bed sleeping. No acute distress. HEENT: Pupils equal, round, react to light. Extraocular muscles intact. NECK: Supple, no thyromegaly. LUNGS: Less wheezing heard. CARDIOVASCULAR: S1, S2 heard, tachycardic heart rate. ABDOMEN: Soft, nontender, nondistended. Normal bowel sounds. No rebound or guarding. MUSCULOSKELETAL: No lower extremity bilaterally. NEUROLOGIC: No focal deficits. LABORATORY DATA: CBC is normal. The basic metabolic panel is normal except his sugar is 232. U-to x is positive for amphetamines and cannabis. ASSESSMENT AND PLAN: A 51-year-old male with past medical history of HIV, type 2 diabetes, hepatiti s C, bipolar disorder, CHF with systolic dysfunction with EF known of 20%, who presented with shortn ess of breath with signs of congestive heart failure and chronic obstructive pulmonary disease exace rbation combinations. 1. Shortness of breath. Again, continue to treat both the chronic heart failure and chronic obstru ctive pulmonary disease exacerbation. Continue low-dose Coreg and patient also on CHRISTINA inhibitor. E chocardiogram results are pending. For chronic obstructive pulmonary disease, continue DuoNeb treat ments and steroids, monitor breathing status, monitor heart rate. Continue Lasix for chronic heart failure. 2. History of human immunodeficiency virus. Continue current antiretroviral medication. 3. Psychiatric disorder, bipolar disorder. Continue current medications. Continue to monitor for now. 4. Abnormal LFTs, again the patient has a history of hep C. Recent ultrasound showed the liver had normal echogenicity without signs of cirrhosis. Continue to monitor for now. 5. Type 2 diabetes, recent A1c of 14. Continue current insulin doses, monitor sugars very carefull y. Continue Lasix as well come back. 6. For gastrointestinal prophylaxis, add PPI. 7. Deep venous thrombosis prophylaxis, heparin subQ. Dictated By: JOSE ARMANDO MURCIA Conf#: [id number] DID#: [id number]
--- NOTE | 2016-10-11 17:36 | RADRPT ---
Echocardiogram Report Patient Name: BETHANY SANCHEZ Gender: Male Date: 1965 Study Date: 11-Oct-2016 Certified Indoor Environmentalist: HELEN Location: [facility] Height(Cm): 175 Weight(Kg): 92 BSA: 2.11 Ref. Physician: JOSE ARMANDO VALDEZ Quality: Adequate Procedures: Transthoracic echocardiogram examination. Indications: History of Congestive Heart Failure. 2D/M Mode Doppler Measurement Value Normal Range Measurement Value Normal Range AoR Diam MM 3.3 cm AV Peak Quinten 1.0 m/sec LVIDd 2D 6.2 3.5 - 5.6 cm AV Peak PG 4.1 mmHg LVIDs 2D 5.1 2.1 - 4.1 cm LVOT Peak Quinten 0.7 m/sec LVPWd 2D 1.2 0.6 - 1.1 cm LVOT Peak PG 1.8 mmHg IVSd 2D 1.2 0.6 - 1.1 cm MV E Peak Quinten 1.4 m/sec EDV 2D 190.5 cm3 MV A Peak Quinten 0.8 m/sec ESV 2D 134.3 cm3 MV E/A 1.8 LA Dimen 2D 3.6 2.3 - 4.0 cm MV Decel Time 83 msec MV Decel Churchill 17 MV E/A 1.8 TR Peak Quinten 3.7 m/sec TR Peak PG 53.4 mmHg RVSP 61.4 mmHg Findings Left Ventricle: Mild enlargement of left ventricle cavity. Severe left ventricular systolic dysfunction. Tissue Doppler/Mitral Doppler indices are consistent with pseudonormalization with mildly elevated left atrial pressure (Stage II diastolic dysfunction). Normal left ventricular wall thickness. The left ventricular ejection fraction is visually estimated at 20 %. Right Ventricle: Normal right ventricular size. Normal right ventricular systolic function. Left Atrium: There is severe enlargement of left atrium, appreciated best by LA volumes, 46 indexed. Right Atrium: Moderate RA enlargement with measurements between [id number]. Atrial Septum: Aneurysmal atrial septum without shunt. Mitral Valve: Moderate eccentric, posteriorly directed mitral regurgitation. Aortic Valve: Mild aortic regurgitation. Normal trileaflet aortic valve structure. Tricuspid Valve: Normal appearance of the tricuspid valve. The estimated Peak RVSP is 58 mmHg. There is severe tricuspid regurgitation. Pulmonic Valve: The pulmonic valve is not well visualized. Pericardium: Small pericardial effusion. Aorta: Normal aortic root. IVC: The inferior vena cava is not well visualized. Pulmonary Artery: Pulmonary artery is not well visualized. Resting Segmental Wall Motion Analysis: Overall severe global hypokinesis, worse in the inferior wall. Conclusions 1.Mild enlargement of left ventricle cavity. Severe left ventricular systolic dysfunction. Tissue Doppler/Mitral Doppler indices are consistent with pseudonormalization with mildly elevated left atrial pressure (Stage II diastolic dysfunction). Normal left ventricular wall thickness. The left ventricular ejection fraction is visually estimated at 20 %. 2.Moderate eccentric, posteriorly directed mitral regurgitation. 3.Mild aortic regurgitation. 4.Severe tricuspid regurgitation. 5.The estimated Peak RVSP is 58 mmHg plus RA pressure. Electronically Signed By: Jose G Morel 11-Oct-2016 17:35:11 -0700 Patient Name: BETHANY SANCHEZ Study Date: 11-Oct-2016 [id number]
[2016-10-11] MEDS: QUETIAPINE 100 MG TAB PO SCH (19:59)
[2016-10-12] MEDS: INSULIN ASPART [NOVOLOG] 3 ML PEN SC SCH ×3 (00:47→11:50)
[2016-10-12 00:51] VITALS: PULSE 109
[2016-10-12] MEDS: morphine 2 MG INJ IV PRN (01:22)
[2016-10-12] MEDS: ACCU-CHEK XX SCH (02:20)
[2016-10-12 04:08] VITALS: PULSE 104
[2016-10-12] MEDS: METHYLPREDNISOLONE 125 MG INJ IV SCH (05:53)
[2016-10-12] MEDS: FUROSEMIDE 20 MG INJ IV SCH (05:55)
[2016-10-12] MEDS: LORAZEPAM 2 MG INJ IV PRN (05:56)
[2016-10-12 05:59] VITALS: BP 147/111; RESP 20
[2016-10-12 07:14] LABS: ADD SCAN DIFF NO
[2016-10-12 07:19] LABS: BASOPHILS % 0.3 % (0.0-2.0); EOSINOPHILS % 0.2 % (0.0-7.0); HEMATOCRIT 43.5 % (42.0-52.0); LYMPHOCYTES # 4.6 10^3/ul (0.8-2.9); LYMPHOCYTES % 43.5 % (15.0-51.0); MEAN CORPUSCULAR HEMOGLOBIN 29.7 pg (29.0-33.0); MEAN CORPUSCULAR HGB CONC 32.2 g/dl (32.0-37.0); MEAN CORPUSCULAR VOLUME 92.4 fl (82.0-101.0); MEAN PLATELET VOLUME 10.2 fl (7.4-10.4); MONOCYTE # 0.7 10^3/ul (0.3-0.9); MONOCYTES % 6.4 % (0.0-11.0); NEUTROPHIL # 5.2 10^3/ul (1.6-7.5); NEUTROPHILS % 49.2 % (39.0-77.0); PLATELET COUNT 167 10^3/UL (140-415); RED BLOOD COUNT 4.71 10^6/ul (4.70-6.10); RED CELL DISTRIBUTION WIDTH 17.2 % (11.5-14.5); WHITE BLOOD COUNT 10.6 10^3/ul (4.8-10.8)
[2016-10-12 07:38] LABS: POTASSIUM 3.9 mmol/L (3.5-5.1)
[2016-10-12 07:40] LABS: CREATININE 0.88 mg/dl (0.61-1.24)
[2016-10-12 07:41] LABS: CALCIUM 9.2 mg/dl (8.4-10.2)
[2016-10-12 07:43] VITALS: BP 149/109; RESP 20
[2016-10-12] MEDS: FAMOTIDINE 20 MG TAB PO SCH (08:22)
[2016-10-12] MEDS: EMTRICITABINE/TENOFOVIR TAB PO SCH (08:22)
[2016-10-12] MEDS: INSULIN GLARGINE [LANtus] 3 ML PEN SC SCH (08:22)
[2016-10-12] MEDS: HEPARIN 5,000 UNIT/0.5 ML VIAL SC SCH (08:22)
[2016-10-12] MEDS: SENNA TAB PO SCH (08:22)
[2016-10-12] MEDS: LISINOPRIL 5 MG TAB PO SCH (08:22)
[2016-10-12] MEDS: RALTEGRAVIR 400 MG TAB PO SCH (08:22)
[2016-10-12] MEDS: GABAPENTIN 300 MG CAP PO SCH (08:22)
[2016-10-12] MEDS ORDERED: NICOTINE (21 MG/24 HR) PATCH TRANSDERM SCH (09:00)
[2016-10-12] MEDS: LEVOFLOXACIN 750MG/D5W (PMX) 150 ML IVPB SCH (11:55)
[2016-10-12] MEDS ORDERED: OLANZAPINE (ODT) 5 MG TAB ODT SCH (14:00)
--- NOTE | 2016-10-12 16:22 | DS ---
Date/Time of Note Date/Time of Note DATE: 10/12/16 TIME: 16:10 Discharge Summary Admission/Discharge Info Admit Date/Time October 10, 2016 at 02:05 Discharge Date/Time October 12, 2016 at 12:24 Final Diagnosis 1. Shortness of breath. 2/2 #2 : improved ?? 2. Heart failure exacerbation 3. Chronic obstructive pulmonary disease exacerbation. 4. History of human immunodeficiency virus 5. Psychiatric disorder, bipolar disorder. 6. Chronic Hep C with Abnormal LFTs 7. Type 2 diabetes, recent A1c of 14. 8. Non compliance with multiple acute events due to agitation and combativeness requiring security at bedside (Code Greys) during hospitalization 9. Debility. 10. Substance abuse to include methamphetamine, cocaine, tobacco. 11. 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 . Patient Condition: Stable Hx of Present Illness This is a 51-year-old male with hx of HIV, diabetes, hepatitis C, bipolar disorder, CHF with systolic dysfunction with EF of 20% who presented to ED c/o shortness of breath. He was admitted here last month after presented to hospital due to running out of his psychiatric medications and initially did report that he felt more agitated and paranoid that his neighbors were trying to hurt him and as such started to have homicidal ideation toward his neighbors. He was placed on 5150 hold after evaluated by telepsych. after hold was lifted, pt left AMA. 2D-echo at that time, showed EF of 20%. patient continued with illicit drug use, last meth use was 2 days ago. In ED today, CXR showed mild pulmonary vascular congestion, and otherwise, improved aeration in the bilateral lungs since 08/24/2016. He was given 40mg IV lasix and breathing treatment. . Hospital Course This 51-year-old transgender male had presented to the emergency room with shortness of breath. He has been here before and at that time had come in because of running out of his psychiatric medications, I was unable to 5150 hold however he left the hospital as well as the hold was lifted AGAINST MEDICAL ADVICE. He has a history of methamphetamine abuse and a known ejection fraction of 20% only. He also admitted to cocaine use to the admitting physician, as well as daily tobacco use. He was admitted and started on gentle diuresis as well as bronchodilator therapy. However throughout his hospitalization patient was combative, and at some point confused per report. As at the time I went to evaluate the patient today, nursing staff had reported that he was refusing all medications, blood draws, imaging studies and demanding to be discharged. When I spoke to the patient, he did say he wanted to be discharged. However the patient on ambulation was very unsteady and is a very high fall risk. I try to explain to him as gently as I could, that discharging him to his own care could to be highly detrimental to his health. On physical assessment, the patient was oriented to self place and person, and seemed to understand the consequences of leaving the hospital AGAINST MEDICAL ADVICE; however he stubbornly refused to verbalize these consequences and when asked repeatedly to do this he became highly combative and agitated. I then told him unfortunately I could not let him sign the AMA papers, because he did not seem to fully understand the risk of the decision he was making. However, due to his being highly combative, agitated, and use of foul language, we were unable to forcibly keep patient in the hospital. The patient eventually absconded, and the [employer] was notified by nursing staff. . Home Meds Active Scripts Albuterol Sulfate* (Ventolin HFA*) 18 Gm Hfa.aer.ad, 2 PUFF INHALATION Q4H, #1 INHALER Prov:KRISTI ANAYA DO 03/24/16 Reported Medications Raltegravir Potassium* (Isentress*) 400 Mg Tablet, 400 MG PO BID, TAB 10/10/16 Gabapentin* (Gabapentin*) 300 Mg Capsule, 300 MG PO TID, #90 CAP 10/10/16 Furosemide* (Furosemide*) 20 Mg Tablet, 20 MG PO DAILY, #60 TAB 10/10/16 Carvedilol* (Carvedilol*) 6.25 Mg Tablet, 6.25 MG PO BID, #60 TAB 10/10/16 Lisinopril* (Lisinopril*) 5 Mg Tablet, 5 MG PO DAILY, #30 TAB 10/10/16 Insulin Isophan/Regular (Humulin 70/30) 100 Units/Ml Susp, 25 UNIT SC TID, EA SLIDING SCALE 10/10/16 Insulin Glargine* (Lantus*) 100 Unit/Ml Soln, 42 UNIT SC DAILY, #1 VIAL 10/10/16 Glyburide* (Glyburide*) 5 Mg Tablet, 5 MG PO DAILY, #30 TAB 10/10/16 Tramadol Hcl* (Ultram*) 50 Mg Tablet, 50 MG PO Q6H Y for PAIN, TAB 10/10/16 Quetiapine Fumarate* (Seroquel*) 200 Mg Tablet, 200 MG PO HS, #30 TAB 08/24/16 Emtricitabine-Tenofovir* (Truvada*) 200-300 Mg Tab, 1 TAB PO DAILY, TAB 05/24/16 Discontinued Reported Medications Dolutegravir Sodium (Tivicay) Unknown Strength Tablet, PO DAILY, TAB 08/24/16 Discontinued Scripts Naproxen* (Naproxen*) 500 Mg Tablet, 500 MG PO BID, #20 TAB Prov:KRISTI ANAYA 03/24/16 Follow-up Plan No follow-up plan, instructions, prescriptions were given as patient absconded from hospital. Primary Care Provider Care Physician No Primary Time spent on discharge: > 30 minutes Pending Labs Laboratory Tests Test 10/11/16 18:07 10/12/16 00:45 10/12/16 06:45 Bedside Glucose 207mg/dL (70-220) 206mg/dL (70-220) White Blood Count 10.610^3/ul (4.8-10.8) Red Blood Count 4.7110^6/ul (4.70-6.10) Hemoglobin 14.0g/dl (14.0-18.0) Hematocrit 43.5% (42.0-52.0) Mean Corpuscular Volume 92.4fl (82.0-101.0) Mean Corpuscular Hemoglobin 29.7pg (29.0-33.0) Mean Corpuscular Hemoglobin Concent 32.2g/dl (32.0-37.0) Red Cell Distribution Width 17.2% (11.5-14.5) Platelet Count 66925^3/UL (140-415) Mean Platelet Volume 10.2fl (7.4-10.4) Neutrophils % 49.2% (39.0-77.0) Lymphocytes % 43.5% (15.0-51.0) Monocytes % 6.4% (0.0-11.0) Eosinophils % 0.2% (0.0-7.0) Basophils % 0.3% (0.0-2.0) Nucleated Red Blood Cells % 0.0/100WBC (0.0-0.0) Neutrophils # 5.210^3/ul (1.6-7.5) Lymphocytes # 4.610^3/ul (0.8-2.9) Monocytes # 0.710^3/ul (0.3-0.9) Eosinophils # 0.010^3/ul (0.0-0.5) Basophils # 0.010^3/ul (0.0-0.1) Nucleated Red Blood Cells # 0.010^3/ul (0.0-0.0) Sodium Level 141mmol/L (135-144) Potassium Level 3.9mmol/L (3.5-5.1) Chloride Level 100mmol/L (97-110) Carbon Dioxide Level 32mmol/L (21-31) Anion Gap 13 (8-16) Blood Urea Nitrogen 27mg/dl (7-20) Creatinine 0.88mg/dl (0.61-1.24) Glucose Level 138mg/dl (70-220) Calcium Level 9.2mg/dl (8.4-10.2) HIMANSHU SCHAEFER October 12, 2016 16:20
== END 2016-10-12 12:24 | disposition left against medical advice (07) | DRG 190 ==
LOC: E/R 23:57 → TEL 10-10 02:05
PROVIDERS: ADMIT Internal Medicine; ATTEND Internal Medicine
DX: J44.1 Chronic obstructive pulmonary disease with (acute) exacerbation (principal); I50.23 Acute on chronic systolic (congestive) heart failure; E11.65 Type 2 diabetes mellitus with hyperglycemia; I42.7 Cardiomyopathy due to drug and external agent; F31.9 Bipolar disorder, unspecified; F15.10 Other stimulant abuse, uncomplicated; F14.10 Cocaine abuse, uncomplicated; F17.210 Nicotine dependence, cigarettes, uncomplicated; B19.20 Unspecified viral hepatitis C without hepatic coma; R53.81 Other malaise; Z91.19 Patient's noncompliance with other medical treatment and regimen
CPT/HCPCS: 36415; 71010; 80048; 80053; 80061; 80306; 80307; 82962; 83036; 83735; 83880; 84100; 84484; 85025; 85610; 85730; 87081; 93005; 93306; 94664; 96374; J1940; J1644; J1815; J1956; J2060; J2270; J2930; J3475

== ENCOUNTER 2016-10-16 09:40 | Inpatient (IN) | payer MEDICAID ==
[~2016-10-16] VITALS: Ht 175.3 cm; Wt 89.9 kg
[~2016-10-16 09:40] MED LIST changes: +CARV6.2579 PO; -DOLU50TA PO; +FURO20TA3 PO; +GABA300C16 PO; +GLYB5TAB3 PO; +LANT3I SC; +LISI-313 PO; -NAPR-688 PO; +NOVO7030 SC; +RALT400T4 PO; +TRAM-40 PO
[2016-10-16] MEDS ORDERED: SOD CHLORIDE 0.9% 500 ML IV STA (10:09)
[2016-10-16] MEDS ORDERED: ALBUTEROL 0.083% (NEB) 2.5 MG/3 ML AMP NEB STA (10:12)
[2016-10-16] MEDS ORDERED: IPRATROPIUM (NEB) 0.5 MG/2.5 ML AMP NEB STA (10:12)
[2016-10-16] MEDS ORDERED: FAMOTIDINE 20 MG INJ IV ONE (10:30)
--- NOTE | 2016-10-16 10:31 | RADRPT ---
PROCEDURE: Chest 1 views. CLINICAL INDICATION: Chest pain TECHNIQUE: AP views of the chest was obtained. COMPARISON: August 24, 2016 FINDINGS: The heart is large. Central pulmonary vascular congestion and interstitial prominence is seen in bot h lungs. Subsegmental emphasis is seen in the right lower lobe and left mid lung. No consolidations are identified. No pneumothorax is seen. The lungs are hyperexpanded Osseous structures are intac t. IMPRESSION: Cardiomegaly . Mild central pulmonary vascular congestion and interstitial prominence in both lungs. Hyperexpanded lungs. Subsegmental atelectasis in the right lower lobe and left mid lung. RPTAT: AA .Ronal Urias MD, Date Time Electronically viewed and signed by .Ronal Urias MD, MD on 10/16/2016 10:31 .P/
[2016-10-16] MEDS ORDERED: morphine 4 MG/ML VIAL IV STA (11:01)
[2016-10-16 11:53] LABS: ADD SCAN DIFF NO
[2016-10-16 12:03] LABS: INR 0.97; PROTIME 12.9 Sec (12.2-14.2)
[2016-10-16 12:04] LABS: PARTIAL THROMBOPLASTIN TIME 28.5 Sec (25.0-35.0)
[2016-10-16 12:11] LABS: BASOPHILS % 0.1 % (0.0-2.0); EOSINOPHILS # 0.1 10^3/ul (0.0-0.5); EOSINOPHILS % 1.3 % (0.0-7.0); HEMATOCRIT 42.4 % (42.0-52.0); HEMOGLOBIN 13.4 g/dl (14.0-18.0); LYMPHOCYTES # 2.3 10^3/ul (0.8-2.9); MEAN CORPUSCULAR HEMOGLOBIN 29.5 pg (29.0-33.0); MEAN CORPUSCULAR HGB CONC 31.6 g/dl (32.0-37.0); MEAN CORPUSCULAR VOLUME 93.2 fl (82.0-101.0); MEAN PLATELET VOLUME 11.2 fl (7.4-10.4); MONOCYTE # 0.9 10^3/ul (0.3-0.9); NEUTROPHIL # 4.4 10^3/ul (1.6-7.5); PLATELET COUNT 155 10^3/UL (140-415); RED BLOOD COUNT 4.55 10^6/ul (4.70-6.10); RED CELL DISTRIBUTION WIDTH 17.3 % (11.5-14.5); WHITE BLOOD COUNT 7.7 10^3/ul (4.8-10.8)
[2016-10-16 12:23] LABS: POTASSIUM 3.8 mmol/L (3.5-5.1)
[2016-10-16 12:25] LABS: ALBUMIN/GLOBULIN RATIO 0.85; BILIRUBIN,INDIRECT 0.1 mg/dl (0-1.1); BILIRUBIN,TOTAL 0.1 mg/dl (0.2-1.3); CREATININE 0.7 mg/dl (0.61-1.24); TOTAL PROTEIN 6.5 g/dl (6.1-8.1)
[2016-10-16 12:26] LABS: CALCIUM 8.1 mg/dl (8.4-10.2)
[2016-10-16 12:35] LABS: TROPONIN-I 0.026 ng/ml (0.00-0.12)
[2016-10-16] MEDS ORDERED: FUROSEMIDE 40 MG INJ IV ONE (13:30)
--- NOTE | 2016-10-16 14:57 | HP ---
Date/Time of Note Date/Time of Note DATE: 10/16/16 TIME: 14:46 Assessment/Plan VTE Prophylaxis VTE Prophylaxis Intervention: SCD's Lines/Catheters [facility] Saline Lock Assessment/Plan Assessment/Plan 1. Shortness of breath. 2/2 #2 2. Heart failure exacerbation 3. Chronic obstructive pulmonary disease without exacerbation 4. History of human immunodeficiency virus 5. Psychiatric disorder, bipolar disorder. 6. Chronic Hep C with Abnormal LFTs 7. Type 2 diabetes, recent A1c of 14. 8. Non compliance with episodes of aggression and combativeness 9. Debility. 10. Substance abuse to include methamphetamine, cocaine, tobacco. 11. 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 Plan: #1 admit to telemetry floor/diuretic therapy/ACS rule out #2 resume all previous home meds/ infectious disease consultation for HIV management./#3 patient is highly noncompliant to therapy, and starting patient on HAART medications, may predispose drugs to tolerance, as patient is not likely to be compliant. #3 obtain viral load #4 carb controlled diet/sliding scale insulin/home meds/titrate as indicated #5 Substance abuse and smoking Cessation Therapy: Pt. was lectured for greater than 3 minutes on the health risks of continued substance abuse and smoking and the benefits of cessation. and this will continue to be reinforced throughout hospitalization. Further interventions per clinical course Prophylaxis with SCDs and H2 ema HPI/ROS Admit Date/Time Admit Date/Time October 16, 2016 Hx of Present Illness 51-year-old male who is known to me from his last visit where he was extremely noncompliant, agitative and combative,. And left the hospital by absconding even while he was told he was not safe to leave. He is back today with shortness of breath has been going on for the last 2 days, associated with substernal chest pain. No diaphoresis. He has shows me is willing to comply with medical treatment at this time, tells me he does not remember being in the hospital from his last visit. Denies abdominal pain, nausea vomiting, black stools or blood in his stools. He does endorse some cough, but denies wheezing. ROS ROS: CONSTITUTIONAL: denies fever, chills, weight loss, weight gain HEENT: denies headaches, any vertigo, any sore throat or rhinorrhea. Eyes: No double or blurred vision or eye pain. GASTROINTESTINAL: The patient denies any nausea, vomiting, diarrhea or abdominal pain. GENITOURINARY: denies dysuria, frequency, urgency or hematuria. MUSCULOSKELETAL: also denies myalgias, arthralgias or edema. SKIN: denies rash or jaundice NEUROLOGIC: denies weakness, dizziness, focal neurological change or headache. PSYCHIATRIC: denies history of depression in the past, any suicidal ideation. substance abuse. ENDOCRINE: denies polyuria, polydipsia or hot or cold intolerance. HEMATOLOGIC: denies history of easy bruising, anemia or eczema. PMH/Family/Social Past Medical History * Congestive heart failure * COPD * HIV * noncompliance * bipolar disorder * Chronic hep C with abnormal LFTs * Diabetes type 2 last A1c 14 * Multi-substance abuse including meth, cocaine, tobacco * Severe cardiomyopathy last EF of 20%, likely drug-induced Past Surgical History Social History Patient is transgender status post hormonal therapy with female like breasts Alcohol Use: occasionally Smoking Status: Current every day smoker Drug Use: cocaine, marijuana, other (Methamphetamine) Exam/Review of Systems Vital Signs Vitals VS - Last 72 Hours, by Label Date Time Temp Pulse Resp B/P Pulse Ox O2 Delivery O2 Flow Rate FiO2 10/16/16 12:49 105 19 146/96 99 Room Air 10/16/16 10:22 103 22 97 21 10/16/16 09:59 98.3 103 24 125/88 95 Room Air 10/16/16 09:43 98.1 110 24 140/98 97 Vital Signs Date Time Temp Pulse Resp B/P Pulse Ox O2 Delivery O2 Flow Rate FiO2 10/16/16 12:49 105 19 146/96 99 Room Air 10/16/16 10:22 21 10/16/16 09:59 98.3 Exam Constitutional: alert, oriented, No distress Psych: anxiety Head: normocephalic Eyes: PERRL ENMT: No mucosa pink and moist Respiratory: crackles/rales, diminished breath sounds Cardiovascular: No murmurs/extra sounds, No regular rate and rhythm Gastrointestinal: bowel sounds, non-tender, soft (Tachycardic) Genitourinary - Female: other (Female-like breasts) Extremities: pitting pedal edema (Mild) Neurological: nl mental status, No confused Skin: No rash or lesions Labs Result Diagram: 5/19/17 0950 10/16/16 0950 Procedures Procedures Laboratory Tests Test 10/16/16 09:50 White Blood Count 7.710^3/ul Red Blood Count 4.5510^6/ul Hemoglobin 13.4g/dl Hematocrit 42.4% Mean Corpuscular Volume 93.2fl Mean Corpuscular Hemoglobin 29.5pg Mean Corpuscular Hemoglobin Concent 31.6g/dl Red Cell Distribution Width 17.3% Platelet Count 18395^3/UL Mean Platelet Volume 11.2fl Neutrophils % 57.0% Lymphocytes % 30.0% Monocytes % 11.0% Eosinophils % 1.3% Basophils % 0.1% Nucleated Red Blood Cells % 0.0/100WBC Neutrophils # 4.410^3/ul Lymphocytes # 2.310^3/ul Monocytes # 0.910^3/ul Eosinophils # 0.110^3/ul Basophils # 0.010^3/ul Nucleated Red Blood Cells # 0.010^3/ul Prothrombin Time 12.9Sec Prothrombin Time Ratio 1.0 INR International Normalized Ratio 0.97 Activated Partial Thromboplast Time 28.5Sec Sodium Level 138mmol/L Potassium Level 3.8mmol/L Chloride Level 97mmol/L Carbon Dioxide Level 30mmol/L Anion Gap 15 Blood Urea Nitrogen 11mg/dl Creatinine 0.70mg/dl Glucose Level 462mg/dl Calcium Level 8.1mg/dl Total Bilirubin 0.1mg/dl Direct Bilirubin 0.00mg/dl Indirect Bilirubin 0.1mg/dl Aspartate Amino Transf (AST/SGOT) 63IU/L Alanine Aminotransferase (ALT/SGPT) 66IU/L Alkaline Phosphatase 230IU/L Troponin I 0.026ng/ml B-Type Natriuretic Peptide 3980PG/ML Total Protein 6.5g/dl Albumin 3.0g/dl Globulin 3.50g/dl Albumin/Globulin Ratio 0.85 Current Medications Medications (Trade) Dose Ordered Sig/Luis Alberto Route PRN Reason Start Time Stop Time Status Last Admin Dose Admin Sodium Chloride (NS) 500 ml @ 500 mls/hr Q1H STAT IV 10/16/16 10:09 10/16/16 11:08 DC 10/16/16 10:18 500 MLS/HR Famotidine (Pepcid Iv) 20 mg ONCE ONCE IV 10/16/16 10:30 10/16/16 10:31 DC 10/16/16 10:18 20 MG Albuterol (Proventil 0.083% (Neb)) 5 mg ONCE STAT NEB 10/16/16 10:12 10/16/16 10:13 DC 10/16/16 10:20 5 MG Ipratropium [place] (Atrovent 0.02% (Neb)) 0.5 mg ONCE STAT NEB 10/16/16 10:12 10/16/16 10:13 DC 10/16/16 10:20 0.5 MG Morphine Sulfate (morphine) 4 mg ONCE STAT IV 10/16/16 11:01 10/16/16 11:02 DC 10/16/16 11:09 4 MG Furosemide (Lasix) 40 mg ONCE ONCE IV 10/16/16 13:30 10/16/16 13:31 DC 10/16/16 13:42 40 MG PROCEDURE: Chest 1 views. CLINICAL INDICATION: Chest pain TECHNIQUE: AP views of the chest was obtained. COMPARISON: August 24, 2016 FINDINGS: The heart is large. Central pulmonary vascular congestion and interstitial prominence is seen in both lungs. Subsegmental emphasis is seen in the right lower lobe and left mid lung. No consolidations are identified. No pneumothorax is seen. The lungs are hyperexpanded Osseous structures are intact. IMPRESSION: Cardiomegaly . Mild central pulmonary vascular congestion and interstitial prominence in both lungs. Hyperexpanded lungs. Subsegmental atelectasis in the right lower lobe and left mid lung. RPTAT: AA .Ronal Urias MD, MD Date Time Electronically viewed and signed by .Ronal Urias MD, MD on 10/16/2016 10:31 .P/ CC: LEODAN GARCIA I reviewed EKG Rate: Tachycardia/sinus Note: No ST elevation or depressions noted concerning for acute ischemic event. HIMANSHU SCHAEFER October 16, 2016 14:57
[2016-10-16 14:58] VITALS: TEMP 97.6
[2016-10-16] MEDS ORDERED: INSULIN GLARGINE [LANtus] 3 ML PEN SC SCH (15:00)
[2016-10-16] MEDS ORDERED: traMADol 50 MG TAB PO PRN (15:00)
[2016-10-16] MEDS ORDERED: DEXTROSE 50% 50 ML SYRINGE IV PRN ×2 (16:00)
[2016-10-16] MEDS ORDERED: GLUCOSE GEL 15 GRAM TUBE PO PRN ×2 (16:00)
[2016-10-16] MEDS ORDERED: GLUCAGON 1 MG INJ IM PRN (16:00)
[2016-10-16] MEDS ORDERED: GLUCOSE GEL 15 GRAM TUBE BUCCAL PRN (16:00)
[2016-10-16] MEDS: traMADol 50 MG TAB PO PRN (16:13)
[2016-10-16 16:26] VITALS: Ht 175.3 cm; Wt 89.9 kg
[2016-10-16 16:44] VITALS: PULSE 99
[2016-10-16] MEDS: EMTRICITABINE/TENOFOVIR TAB PO SCH (17:00)
[2016-10-16] MEDS: LISINOPRIL 5 MG TAB PO SCH (17:27)
[2016-10-16] MEDS: RALTEGRAVIR 400 MG TAB PO SCH (17:28)
[2016-10-16] MEDS: INSULIN ASPART [NOVOLOG] 3 ML PEN SC SCH ×3 (17:30→20:14)
[2016-10-16] MEDS: INSULIN GLARGINE [LANtus] 3 ML PEN SC SCH (17:32)
[2016-10-16] MEDS ORDERED: INSULIN ASPART [NOVOLOG] 3 ML PEN SC SCH ×2 (18:00)
[2016-10-16] MEDS ORDERED: FUROSEMIDE 40 MG INJ IV SCH (18:00)
[2016-10-16] MEDS: GABAPENTIN 300 MG CAP PO SCH (20:05)
[2016-10-16] MEDS: QUETIAPINE 100 MG TAB PO SCH (20:06)
[2016-10-16 20:24] VITALS: PULSE 96
[2016-10-16 20:46] VITALS: BP 116/88; RESP 16
[2016-10-16] MEDS ORDERED: GABAPENTIN 300 MG CAP PO SCH (21:00)
[2016-10-16] MEDS ORDERED: QUETIAPINE 100 MG TAB PO SCH (21:00)
[2016-10-16] MEDS ORDERED: RALTEGRAVIR 400 MG TAB PO SCH (21:00)
[2016-10-16 23:41] VITALS: BP 112/82; RESP 20
[2016-10-17] VITALS (12 sets, daily range): BP systolic 102–119; BP diastolic 71–78; PULSE 86–99; RESP 18–19
[2016-10-17] MEDS: RALTEGRAVIR 400 MG TAB PO SCH ×3 (01:16→23:00)
[2016-10-17] MEDS: FUROSEMIDE 40 MG INJ IV SCH ×2 (06:39→17:33)
[2016-10-17] MEDS: INSULIN ASPART [NOVOLOG] 3 ML PEN SC SCH ×7 (08:00→21:00)
[2016-10-17] MEDS: LISINOPRIL 5 MG TAB PO SCH (08:10)
[2016-10-17] MEDS: EMTRICITABINE/TENOFOVIR TAB PO SCH (08:11)
[2016-10-17] MEDS: traMADol 50 MG TAB PO PRN ×3 (08:11→22:53)
[2016-10-17] MEDS: GABAPENTIN 300 MG CAP PO SCH ×3 (08:11→22:51)
[2016-10-17] MEDS: INSULIN GLARGINE [LANtus] 3 ML PEN SC SCH (08:21)
[2016-10-17] MEDS ORDERED: EMTRICITABINE/TENOFOVIR TAB PO SCH (09:00)
[2016-10-17] MEDS ORDERED: LISINOPRIL 5 MG TAB PO SCH (09:00)
--- NOTE | 2016-10-17 12:45 | CONS ---
Date/Time of Note Date/Time of Note DATE: 10/17/16 TIME: 12:44 Assessment/Plan Assessment/Plan Additional Assessment/Plan Assessment and plan : 1. Patient admitted with CHF exacerbation with clinical improvement. 2. History of hypertension diabetes and depression. Continue current treatment. Patient responding well to current treatment. Consultation Date/Type/Reason Admit Date/Time October 16, 2016 at 12:47 Initial Consult Date Type of Consultation: General medicine 24 HR Interval Summary Free Text/Dictation Patient is feeling better with decreased shortness of breath. Denies any chest pain, angina, coughing or wheezing. General exam; middle-aged male, awake alert currently in no distress. Laying almost flat in bed. Exam/Review of Systems Vital Signs Vitals Vital Signs Date Time Temp Pulse Resp B/P Pulse Ox O2 Delivery O2 Flow Rate FiO2 10/17/16 12:24 89 10/17/16 11:20 97.9 19 106/78 97 10/16/16 14:58 Room Air 10/16/16 10:22 21 Intake and Output 10/16/16 10/16/16 10/17/16 15:00 23:00 07:00 Intake Total 500 ml 200 ml 850 ml Balance 500 ml 200 ml 850 ml Exam HEENT exam is; supple neck, positive JVD. No lymphadenopathy. Midline trachea. No thyromegaly. Pharynx is clear. Pupils are midsize and reactive to light. Chest examination; clear to auscultation. S1-S2 audible, no murmurs. Regular rhythm. Abdomen examination; soft, protuberant. No organomegaly. Bowel is audible. Extremity examination; no peripheral edema. Pulses 1+ bilaterally. 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 Results Result Diagram: 10/16/16 0950 10/16/16 0950 Results 24 hrs Laboratory Tests Test 10/16/16 17:24 10/16/16 19:55 10/17/16 01:21 10/17/16 08:14 Bedside Glucose 282 H 195 77 103 Medications Medications Current Medications Insulin Glargine (Lantus) 42 unit DAILY SC Last administered on 10/17/16 08:21 ; Admin Dose 42 UNIT; Start 10/16/16 at 16:00 Carvedilol (Coreg) 6.25 mg BID PO Last administered on 10/17/16 08:12; Admin Dose 6.25 MG; Start 10/16/16 at 16:00 Gabapentin (Neurontin) 300 mg TID PO Last administered on 10/17/16 08:11; Admin Dose 300 MG; Start 10/16/16 at 21:00 Lisinopril (Zestril) 5 mg DAILY PO Last administered on 10/17/16 08:10; Admin Dose 5 MG; Start 10/16/16 at 16:00 Quetiapine Fumarate (Seroquel) 200 mg HS PO Last administered on 10/16/16 20: 06; Admin Dose 200 MG; Start 10/16/16 at 21:00 Tramadol HCl (Ultram) 50 mg Q6H PRN PO PAIN Last administered on 10/17/16 08: 11; Admin Dose 50 MG; Start 10/16/16 at 15:15 Emtricitabine/ Tenofovir (Truvada) 1 tab DAILY PO Last administered on 08:11; Admin Dose 1 TAB; Start 10/16/16 at 17:00 Miscellaneous Medication (Isentress) 400 mg BID PO Last administered on 08:12; Admin Dose 400 MG; Start 10/16/16 at 17:00 Miscellaneous Information 1 ea NOTE XX ; Start 10/16/16 at 16:00 Glucose (Glutose) 15 gm Q15M PRN PO DECREASED GLUCOSE; Start 10/16/16 at 16:00 Glucose (Glutose) 22.5 gm Q15M PRN PO DECREASED GLUCOSE; Start 10/16/16 at 16: 00 Dextrose (D50w Syringe) 25 ml Q15M PRN IV DECREASED GLUCOSE; Start 10/16/16 at 16:00 Dextrose (D50w Syringe) 50 ml Q15M PRN IV DECREASED GLUCOSE; Start 10/16/16 at 16:00 Glucagon (Glucagen) 1 mg Q15M PRN IM DECREASED GLUCOSE; Start 10/16/16 at 16:00 Glucose (Glutose) 15 gm Q15M PRN BUCCAL DECREASED GLUCOSE; Start 10/16/16 at 16 :00 JUANCHO GROSS October 17, 2016 12:45
[2016-10-17] MEDS ORDERED: ONDANSETRON 4 MG INJ IV PRN (13:30)
[2016-10-17] MEDS: QUETIAPINE 100 MG TAB PO SCH (22:52)
[2016-10-18] VITALS (14 sets, daily range): BP systolic 105–134; BP diastolic 64–90; PULSE 88–101; RESP 16–21
[2016-10-18] MEDS: FUROSEMIDE 40 MG INJ IV SCH (05:44)
[2016-10-18] MEDS: INSULIN ASPART [NOVOLOG] 3 ML PEN SC SCH ×7 (08:00→21:00)
[2016-10-18] MEDS: INSULIN GLARGINE [LANtus] 3 ML PEN SC SCH (08:38)
[2016-10-18] MEDS: GABAPENTIN 300 MG CAP PO SCH ×3 (08:39→21:19)
[2016-10-18] MEDS: LISINOPRIL 5 MG TAB PO SCH (08:39)
[2016-10-18] MEDS: EMTRICITABINE/TENOFOVIR TAB PO SCH (08:39)
[2016-10-18] MEDS: RALTEGRAVIR 400 MG TAB PO SCH ×2 (08:39→21:19)
[2016-10-18] MEDS: traMADol 50 MG TAB PO PRN ×2 (09:42→21:32)
--- NOTE | 2016-10-18 10:34 | CONS ---
Date/Time of Note Date/Time of Note DATE: 10/18/16 TIME: 10:32 Assessment/Plan Assessment/Plan Additional Assessment/Plan Assessment recommendations; 1. Patient admitted for CHF exacerbation with significant clinical improvement. 2. Underlying obesity. 3. History of depression, hypertension and diabetes. Discontinue IV Lasix. Switch the patient to oral Lasix 40 mg daily. Continue other medications. Anticipate discharge in 24 hours. Consultation Date/Type/Reason Admit Date/Time October 16, 2016 at 12:47 Type of Consultation: General medicine 24 HR Interval Summary Free Text/Dictation Patient condition is stable. Shortness of breath is markedly improved. Denies any chest pain, wheezing cough or sputum production. General exam; middle-aged male, awake alert currently in no distress. Exam/Review of Systems Vital Signs Vitals Vital Signs Date Time Temp Pulse Resp B/P Pulse Ox O2 Delivery O2 Flow Rate FiO2 10/18/16 08:08 100 10/18/16 07:52 97.6 16 107/73 98 10/16/16 14:58 Room Air 10/16/16 10:22 21 Intake and Output 10/17/16 10/17/16 10/18/16 15:00 23:00 07:00 Intake Total 900 ml 600 ml Balance 900 ml 600 ml Exam HEENT exam is; supple neck, no JVD. No lymphadenopathy. Midline trachea. No thyromegaly. Chest examination; clear to auscultation. S1-S2 audible, no murmurs. Regular rhythm. Abdomen examination; soft, protuberant. No organomegaly. Bowel sounds audible. Extremity examination; no peripheral edema. Pulses 2+ bilaterally. GEOCHEMICAL LABORATORY TECHNICIAN examination; no focal deficit. Results Result Diagram: 10/16/16 0950 10/16/16 0950 Results 24 hrs Laboratory Tests Test 10/17/16 12:47 10/17/16 17:29 10/17/16 21:09 10/18/16 08:33 Bedside Glucose 99 76 143 116 Medications Medications Current Medications Insulin Glargine (Lantus) 42 unit DAILY SC Last administered on 10/18/16 08:38 ; Admin Dose 42 UNIT; Start 10/16/16 at 16:00 Carvedilol (Coreg) 6.25 mg BID PO Last administered on 10/18/16 08:39; Admin Dose 6.25 MG; Start 10/16/16 at 16:00 Gabapentin (Neurontin) 300 mg TID PO Last administered on 10/18/16 08:39; Admin Dose 300 MG; Start 10/16/16 at 21:00 Lisinopril (Zestril) 5 mg DAILY PO Last administered on 10/18/16 08:39; Admin Dose 5 MG; Start 10/16/16 at 16:00 Quetiapine Fumarate (Seroquel) 200 mg HS PO Last administered on 10/17/16 22: 52; Admin Dose 200 MG; Start 10/16/16 at 21:00 Tramadol HCl (Ultram) 50 mg Q6H PRN PO PAIN Last administered on 10/18/16 09: 42; Admin Dose 50 MG; Start 10/16/16 at 15:15 Emtricitabine/ Tenofovir (Truvada) 1 tab DAILY PO Last administered on 08:39; Admin Dose 1 TAB; Start 10/16/16 at 17:00 Miscellaneous Medication (Isentress) 400 mg BID PO Last administered on 08:39; Admin Dose 400 MG; Start 10/16/16 at 17:00 Miscellaneous Information 1 ea NOTE XX ; Start 10/16/16 at 16:00 Glucose (Glutose) 15 gm Q15M PRN PO DECREASED GLUCOSE; Start 10/16/16 at 16:00 Glucose (Glutose) 22.5 gm Q15M PRN PO DECREASED GLUCOSE; Start 10/16/16 at 16: 00 Dextrose (D50w Syringe) 25 ml Q15M PRN IV DECREASED GLUCOSE; Start 10/16/16 at 16:00 Dextrose (D50w Syringe) 50 ml Q15M PRN IV DECREASED GLUCOSE; Start 10/16/16 at 16:00 Glucagon (Glucagen) 1 mg Q15M PRN IM DECREASED GLUCOSE; Start 10/16/16 at 16:00 Glucose (Glutose) 15 gm Q15M PRN BUCCAL DECREASED GLUCOSE; Start 10/16/16 at 16 :00 Ondansetron HCl (Zofran Inj) 4 mg Q6H PRN IV NAUSEA AND/OR VOMITING Last administered on 10/17/16 13:46; Admin Dose 4 MG; Start 10/17/16 at 13:30 JUANCHO GROSS October 18, 2016 10:34
[2016-10-18 13:04] LABS: LYMPHOCYTE - CD4/CD8 RATIO 0.78 (0.86-5.00)
--- NOTE | 2016-10-18 17:16 | RADRPT ---
PROCEDURE: CT brain without IV contrast. CLINICAL INDICATION: Headache. TECHNIQUE: CT examination of the brain was performed on a 64-slice multidetector scanner. The pat ient was examined without IV contrast. Sagittal and coronal reformatted images were made. The imag es were reviewed on a PACS workstation. Total radiation dose: Total CTDIvol: 44 mGy. Total DLP: 900 mGy-cm. One or more of the following dose reduction techniques were used: automated exposure control, adjustment of the mA and/or kV acco rding to patient size, or use of iterative reconstruction technique COMPARISON: None available. FINDINGS: The ventricles and cerebral sulci are normal in size and morphology. The bhakta/white matter differen tiation is well preserved. There is no other abnormal intra-axial high, low density lesion, suggest ing tumor, infarct , bleeding, av malformation or inflammatory mass. No subdural or epidural hematoma. The visualized paranasal sinuses and mastoid air cells are clear. The orbits are unremarkable. The calvarium is intact. No scalp abnormalities are seen. IMPRESSION: 1. Unremarkable CT brain without IV contrast. RPTAT: GG .Tremaine Juan MD, MD Date Time Electronically viewed and signed by .Tremaine Juan MD, on 10/18/2016 17:16 .Y/
[2016-10-18] MEDS: QUETIAPINE 100 MG TAB PO SCH (21:20)
[2016-10-19] VITALS (11 sets, daily range): BP systolic 102–126; BP diastolic 71–98; PULSE 87–101; RESP 16–18
[2016-10-19] MEDS: INSULIN ASPART [NOVOLOG] 3 ML PEN SC SCH ×7 (08:00→20:00)
[2016-10-19] MEDS: INSULIN GLARGINE [LANtus] 3 ML PEN SC SCH (09:54)
[2016-10-19] MEDS: GABAPENTIN 300 MG CAP PO SCH ×3 (09:56→20:38)
[2016-10-19] MEDS: FUROSEMIDE 40 MG TAB PO SCH (09:57)
[2016-10-19] MEDS: LISINOPRIL 5 MG TAB PO SCH (09:57)
[2016-10-19] MEDS: EMTRICITABINE/TENOFOVIR TAB PO SCH (09:57)
[2016-10-19] MEDS: RALTEGRAVIR 400 MG TAB PO SCH ×2 (10:01→20:38)
--- NOTE | 2016-10-19 13:53 | PN ---
Date/Time of Note Date/Time of Note DATE: 10/19/16 TIME: 13:39 Assessment/Plan VTE Prophylaxis VTE Prophylaxis Intervention: heparin Lines/Catheters IV [facility]from [facility] Urinary Cath still in place: No Assessment/Plan Assessment/Plan 1. Congestive heart failure, systolic, acute on chronic, improving, on lasix/ coreg/lisinopril 2. Dilated cardiomyopathy likely secondary to drug use with last known EF of 20%. on treatment 3. Chronic obstructive pulmonary disease, stable 4. 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 Psychiatric disorder, bipolar disorder. on seroqual 6. Chronic Hep C with Abnormal LFTs 7. DM, controlled with insulins 8. Non compliance with episodes of aggression and combativeness 9. Debility, PT eval 10. Substance abuse to include methamphetamine, cocaine, tobacco. 11. DVT prophylaxis: heparin Subjective 24 Hr Interval Summary Free Text/Dictation no SOB Exam/Review of Systems Vital Signs Vitals Vital Signs Date Time Temp Pulse Resp B/P Pulse Ox O2 Delivery O2 Flow Rate FiO2 10/19/16 11:14 98.6 90 18 126/80 97 10/16/16 14:58 Room Air 10/16/16 10:22 21 Intake and Output 10/18/16 10/18/16 10/19/16 15:00 23:00 07:00 Intake Total 3100 ml 1000 ml Balance 3100 ml 1000 ml Exam Constitutional: alert, oriented, well developed Psych: nl mood/affect, no complaints Head: atraumatic, normocephalic Eyes: EOMI, PERRL, nl conjunctiva, nl lids ENMT: nl external ears & nose, nl lips & teeth, nl nasal mucosa & septum Neck: non-tender, supple Respiratory: clear to auscultation, normal air movement, No congested cough, No crackles/rales, No diminished breath sounds, No intercostal retraction, No labored breathing, No other, No respirations, No tactile fremitus, No wheezing Cardiovascular: nl pulses, regular rate and rhythm, No S3, No S4, No bruits, No diastolic murmur, No edema, No gallop, No irregular rhythm, No jugular venous distention (JVD), No murmurs/extra sounds, No other, No rub, No systolic murmur Gastrointestinal: nl liver, spleen, non-tender, soft, No ascites, No bowel sounds, No distended, No firm, No hepatomegaly, No mass , No other, No rebound or guarding, No splenomegaly, No surgical scars, No tender Musculoskeletal: nl extremities to inspection Extremities: normal pulses, No calf tenderness, No clubbing, No cyanosis, No edema, No other, No palpable cord, No pitting pedal edema, No tenderness Neurological: AD WRITER II-XII intact, nl mental status, nl speech, nl strength Skin: nl turgor Lymph: nl lymph nodes Results Result Diagram: 10/16/1650 10/16/1650 Results 24 hrs Laboratory Tests Test 10/18/16 17:42 10/18/16 20:44 10/19/16 02:30 10/19/16 08:21 Bedside Glucose 88 100 133 88 Test 10/19/16 12:22 Bedside Glucose 71 Medications Medications Current Medications Insulin Glargine (Lantus) 42 unit DAILY SC Last administered on 10/19/16 09:54 ; Admin Dose 42 UNIT; Start 10/16/16 at 16:00 Carvedilol (Coreg) 6.25 mg BID PO Last administered on 10/19/16 09:58; Admin Dose 6.25 MG; Start 10/16/16 at 16:00 Gabapentin (Neurontin) 300 mg TID PO Last administered on 10/19/16 12:51; Admin Dose 300 MG; Start 10/16/16 at 21:00 Lisinopril (Zestril) 5 mg DAILY PO Last administered on 10/19/16 09:57; Admin Dose 5 MG; Start 10/16/16 at 16:00 Tramadol HCl (Ultram) 50 mg Q6H PRN PO PAIN Last administered on 10/18/16 21: 32; Admin Dose 50 MG; Start 10/16/16 at 15:15 Emtricitabine/ Tenofovir (Truvada) 1 tab DAILY PO Last administered on 09:57; Admin Dose 1 TAB; Start 10/16/16 at 17:00 Miscellaneous Medication (Isentress) 400 mg BID PO Last administered on 10:01; Admin Dose 400 MG; Start 10/16/16 at 17:00 Miscellaneous Information 1 ea NOTE XX ; Start 10/16/16 at 16:00 Glucose (Glutose) 15 gm Q15M PRN PO DECREASED GLUCOSE; Start 10/16/16 at 16:00 Glucose (Glutose) 22.5 gm Q15M PRN PO DECREASED GLUCOSE; Start 10/16/16 at 16: 00 Dextrose (D50w Syringe) 25 ml Q15M PRN IV DECREASED GLUCOSE; Start 10/16/16 at 16:00 Dextrose (D50w Syringe) 50 ml Q15M PRN IV DECREASED GLUCOSE; Start 10/16/16 at 16:00 Glucagon (Glucagen) 1 mg Q15M PRN IM DECREASED GLUCOSE; Start 10/16/16 at 16:00 Glucose (Glutose) 15 gm Q15M PRN BUCCAL DECREASED GLUCOSE; Start 10/16/16 at 16 :00 Ondansetron HCl (Zofran Inj) 4 mg Q6H PRN IV NAUSEA AND/OR VOMITING Last administered on 10/17/16 13:46; Admin Dose 4 MG; Start 10/17/16 at 13:30 Furosemide (Lasix) 40 mg DAILY PO Last administered on 10/19/16 09:57; Admin Dose 40 MG; Start 10/19/16 at 09:00 Quetiapine Fumarate (Seroquel) 100 mg HS PO Last administered on 10/18/16 21: 20; Admin Dose 100 MG; Start 10/18/16 at 21:00 BEVERLY LIGHT MD October 19, 2016 13:50
[2016-10-19] MEDS: HEPARIN 5,000 UNIT/0.5 ML VIAL SC SCH ×2 (15:11→20:00)
[2016-10-19] MEDS: QUETIAPINE 100 MG TAB PO SCH (20:38)
[2016-10-20 05:49] LABS: ADD SCAN DIFF NO
[2016-10-20 05:52] LABS: BASOPHILS % 0.3 % (0.0-2.0); EOSINOPHILS % 0.3 % (0.0-7.0); HEMATOCRIT 41.5 % (42.0-52.0); HEMOGLOBIN 13.9 g/dl (14.0-18.0); LYMPHOCYTES # 3.8 10^3/ul (0.8-2.9); LYMPHOCYTES % 34.7 % (15.0-51.0); MEAN CORPUSCULAR HEMOGLOBIN 29.8 pg (29.0-33.0); MEAN CORPUSCULAR HGB CONC 33.5 g/dl (32.0-37.0); MEAN CORPUSCULAR VOLUME 88.9 fl (82.0-101.0); MEAN PLATELET VOLUME 10.1 fl (7.4-10.4); MONOCYTE # 1.2 10^3/ul (0.3-0.9); MONOCYTES % 10.4 % (0.0-11.0); NEUTROPHILS % 53.9 % (39.0-77.0); PLATELET COUNT 207 10^3/UL (140-415); RED BLOOD COUNT 4.67 10^6/ul (4.70-6.10); RED CELL DISTRIBUTION WIDTH 16.9 % (11.5-14.5)
[2016-10-20 06:00] LABS: CREATININE 0.79 mg/dl (0.61-1.24)
[2016-10-20 06:01] LABS: CALCIUM 8.1 mg/dl (8.4-10.2)
[2016-10-20 08:46] VITALS: BP 110/79; RESP 20
[2016-10-20] MEDS: LISINOPRIL 5 MG TAB PO SCH (08:58)
[2016-10-20] MEDS: FUROSEMIDE 40 MG TAB PO SCH (08:59)
[2016-10-20] MEDS: GABAPENTIN 300 MG CAP PO SCH ×2 (09:00→13:14)
[2016-10-20] MEDS: RALTEGRAVIR 400 MG TAB PO SCH (09:00)
[2016-10-20] MEDS: EMTRICITABINE/TENOFOVIR TAB PO SCH (09:00)
[2016-10-20] MEDS: HEPARIN 5,000 UNIT/0.5 ML VIAL SC SCH (09:02)
[2016-10-20] MEDS: INSULIN GLARGINE [LANtus] 3 ML PEN SC SCH (09:03)
[2016-10-20] MEDS: INSULIN ASPART [NOVOLOG] 3 ML PEN SC SCH ×4 (09:04→12:05)
--- NOTE | 2016-10-20 13:15 | DS ---
Date/Time of Note Date/Time of Note DATE: 10/20/16 TIME: 13:08 Discharge Summary Admission/Discharge Info Admit Date/Time October 16, 2016 at 12:47 Discharge Date/Time Final Diagnosis 1. Congestive heart failure, systolic, acute on chronic, improved, follow up with cardiology 2. Dilated cardiomyopathy likely secondary to drug use with last known EF of 20%. stable, 3. Chronic obstructive pulmonary disease, stable 4. 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 Psychiatric disorder, bipolar disorder. on seroqual 6. Chronic Hep C with Abnormal LFTs 7. DM, controlled with insulins 8. Non compliance with episodes of aggression and combativeness Patient Condition: Stable Hx of Present Illness 51-year-old male who is known to me from his last visit where he was extremely noncompliant, agitative and combative,. And left the hospital by absconding even while he was told he was not safe to leave. He is back today with shortness of breath has been going on for the last 2 days, associated with substernal chest pain. No diaphoresis. He has shows me is willing to comply with medical treatment at this time, tells me he does not remember being in the hospital from his last visit. Denies abdominal pain, nausea vomiting, black stools or blood in his stools. He does endorse some cough, but denies wheezing. Hospital Course Patient is treated with diuretics, symptoms improved. Patient is instructed to be compliant with medications. Follow up with cardiology and PCP> Home Meds Active Scripts Albuterol Sulfate* (Ventolin HFA*) 18 Gm Hfa.aer.ad, 2 PUFF INHALATION Q4H, #1 INHALER Prov:KRISTI ANAYA DO 03/24/16 Reported Medications Raltegravir Potassium* (Isentress*) 400 Mg Tablet, 400 MG PO BID, TAB 10/10/16 Gabapentin* (Gabapentin*) 300 Mg Capsule, 300 MG PO TID, #90 CAP 10/10/16 Furosemide* (Furosemide*) 20 Mg Tablet, 20 MG PO DAILY, #60 TAB 10/10/16 Carvedilol* (Carvedilol*) 6.25 Mg Tablet, 6.25 MG PO BID, #60 TAB 10/10/16 Lisinopril* (Lisinopril*) 5 Mg Tablet, 5 MG PO DAILY, #30 TAB 10/10/16 Insulin Isophan/Regular (Humulin 70/30) 100 Units/Ml Susp, 25 UNIT SC TID, EA SLIDING SCALE 10/10/16 Insulin Glargine* (Lantus*) 100 Unit/Ml Soln, 42 UNIT SC DAILY, #1 VIAL 10/10/16 Glyburide* (Glyburide*) 5 Mg Tablet, 5 MG PO DAILY, #30 TAB 10/10/16 Tramadol Hcl* (Ultram*) 50 Mg Tablet, 50 MG PO Q6H Y for PAIN, TAB 10/10/16 Quetiapine Fumarate* (Seroquel*) 200 Mg Tablet, 200 MG PO HS, #30 TAB 08/24/16 Emtricitabine-Tenofovir* (Truvada*) 200-300 Mg Tab, 1 TAB PO DAILY, TAB 05/24/16 Follow-up Plan follow up with PCP and cardiology Primary Care Provider Care Physician No Primary Pending Labs Laboratory Tests Test 10/19/16 17:28 10/19/16 19:40 10/20/16 04:51 10/20/16 04:54 Bedside Glucose 70mg/dL (70-220) 77mg/dL (70-220) Sodium Level 133mmol/L (135-144) Potassium Level 4.0mmol/L (3.5-5.1) Chloride Level 95mmol/L (97-110) Carbon Dioxide Level 29mmol/L (21-31) Anion Gap 13 (8-16) Blood Urea Nitrogen 21mg/dl (7-20) Creatinine 0.79mg/dl (0.61-1.24) Glucose Level 154mg/dl (70-220) Calcium Level 8.1mg/dl (8.4-10.2) White Blood Count 11.010^3/ul (4.8-10.8) Red Blood Count 4.6710^6/ul (4.70-6.10) Hemoglobin 13.9g/dl (14.0-18.0) Hematocrit 41.5% (42.0-52.0) Mean Corpuscular Volume 88.9fl (82.0-101.0) Mean Corpuscular Hemoglobin 29.8pg (29.0-33.0) Mean Corpuscular Hemoglobin Concent 33.5g/dl (32.0-37.0) Red Cell Distribution Width 16.9% (11.5-14.5) Platelet Count 70454^3/UL (140-415) Mean Platelet Volume 10.1fl (7.4-10.4) Neutrophils % 53.9% (39.0-77.0) Lymphocytes % 34.7% (15.0-51.0) Monocytes % 10.4% (0.0-11.0) Eosinophils % 0.3% (0.0-7.0) Basophils % 0.3% (0.0-2.0) Nucleated Red Blood Cells % 0.0/100WBC (0.0-0.0) Neutrophils # 6.010^3/ul (1.6-7.5) Lymphocytes # 3.810^3/ul (0.8-2.9) Monocytes # 1.210^3/ul (0.3-0.9) Eosinophils # 0.010^3/ul (0.0-0.5) Basophils # 0.010^3/ul (0.0-0.1) Nucleated Red Blood Cells # 0.010^3/ul (0.0-0.0) Test 10/20/16 07:53 10/20/16 08:54 10/20/16 11:57 Bedside Glucose 262mg/dL (70-220) 259mg/dL (70-220) 204mg/dL (70-220) BEVERLY LIGHT MD October 20, 2016 13:15
== END 2016-10-20 14:37 | disposition home or self-care (01) | DRG 977 ==
LOC: E/R 09:40 → MS4 12:47 → E/R 15:10 → PP2 10-19 18:30
PROVIDERS: ADMIT Family Medicine; ATTEND Family Medicine
DX: B20 Human immunodeficiency virus [HIV] disease (principal); I50.23 Acute on chronic systolic (congestive) heart failure; I42.0 Dilated cardiomyopathy; I11.0 Hypertensive heart disease with heart failure; F31.9 Bipolar disorder, unspecified; B19.20 Unspecified viral hepatitis C without hepatic coma; E11.9 Type 2 diabetes mellitus without complications; Z79.4 Long term (current) use of insulin; F15.10 Other stimulant abuse, uncomplicated; F14.90 Cocaine use, unspecified, uncomplicated; Z72.0 Tobacco use; R53.81 Other malaise; F64.0 Transsexualism
CPT/HCPCS: 70450; 71010; 80048; 80053; 82962; 83880; 84484; 85025; 85610; 85730; 86360; 87081; 93005; 94664; J1644; J1815; J1940; J2270; J2405; J7040

== ENCOUNTER 2016-10-22 21:59 | Inpatient (IN) | payer MEDICAID ==
[~2016-10-22] VITALS: Ht 165.1 cm; Wt 30.5 kg
[2016-10-22 22:15] VITALS: TEMP 97.8
[2016-10-22] MEDS ORDERED: IPRATROPIUM (NEB) 0.5 MG/2.5 ML AMP INH STA (22:17)
[2016-10-22] MEDS ORDERED: ALBUTEROL 0.5% (NEB) 2.5 MG/0.5 ML AMP INH STA (22:17)
[2016-10-22] MEDS ORDERED: METHYLPREDNISOLONE 125 MG INJ IV STA (22:17)
--- NOTE | 2016-10-22 23:23 | ERA ---
ER Documentation Chief Complaint Date/Time DATE: 10/22/16 TIME: 23:19 Chief Complaint BIBA c/o SOB & pelvic pain HPI 51-year-old transvestite woman presents with shortness of breath and wheezing similar to previous episodes of asthma. She ran out of her albuterol pump, also complains of dysuria. Denies penile discharge, no hematuria, no fevers or chills, no calf or leg swelling, no vomiting or diarrhea. Patient was transported here on high flow oxygen and albuterol therapy. ROS All systems reviewed and are negative except as per history of present illness. Medications Home Meds Active Scripts Albuterol Sulfate* (Ventolin HFA*) 18 Gm Hfa.aer.ad, 2 PUFF INHALATION Q4H, #1 INHALER Prov:KRISTI ANAYA 03/24/16 Reported Medications Raltegravir Potassium* (Isentress*) 400 Mg Tablet, 400 MG PO BID, TAB 10/10/16 Gabapentin* (Gabapentin*) 300 Mg Capsule, 300 MG PO TID, #90 CAP 10/10/16 Furosemide* (Furosemide*) 20 Mg Tablet, 20 MG PO DAILY, #60 TAB 10/10/16 Carvedilol* (Carvedilol*) 6.25 Mg Tablet, 6.25 MG PO BID, #60 TAB 10/10/16 Lisinopril* (Lisinopril*) 5 Mg Tablet, 5 MG PO DAILY, #30 TAB 10/10/16 Insulin Isophan/Regular (Humulin 70/30) 100 Units/Ml Susp, 25 UNIT SC TID, EA SLIDING SCALE 10/10/16 Insulin Glargine* (Lantus*) 100 Unit/Ml Soln, 42 UNIT SC DAILY, #1 VIAL 10/10/16 Glyburide* (Glyburide*) 5 Mg Tablet, 5 MG PO DAILY, #30 TAB 10/10/16 Tramadol Hcl* (Ultram*) 50 Mg Tablet, 50 MG PO Q6H Y for PAIN, TAB 10/10/16 Quetiapine Fumarate* (Seroquel*) 200 Mg Tablet, 200 MG PO HS, #30 TAB 08/24/16 Emtricitabine-Tenofovir* (Truvada*) 200-300 Mg Tab, 1 TAB PO DAILY, TAB 05/24/16 Allergies Allergies: Coded Allergies: Penicillins (Unverified Allergy, Unknown, 10/22/16) PMhx/Soc COPD/asthma, congestive heart failure, dilated cardiomyopathy with left ventricular ejection fraction of 20%, psychiatric illness, hepatitis C, diabetes mellitus, methamphetamine and cocaine abuse, estrogen/progesterone use History of Surgery: Yes (eye surgery with stitches) Anesthesia Reaction: No Hx Neurological Disorder: Yes (neuropathy) Hx Respiratory Disorders: Yes (asthma) Hx Cardiac Disorders: Yes (CHF, HTN) Hx Psychiatric Problems: Yes (depression, anxety, bipolar I with delusional psychosis) Hx Miscellaneous Medical Probl: No Hx Alcohol Use: Yes (occasionally) Hx Substance Use: Yes Hx Tobacco Use: No Smoking Status: Never smoker FmHx Family History: diabetes Physical Exam Vitals Vital Signs Date Time Temp Pulse Resp B/P Pulse Ox O2 Delivery O2 Flow Rate FiO2 10/22/16 23:02 113 21 139/111 99 Room Air 10/22/16 22:26 120 28 99 21 10/22/16 22:15 97.8 128 20 148/85 100 Room Air 10/22/16 22:05 100.0 70 18 135/83 95 Physical Exam GENERAL: Well-developed, well-nourished, well-hydrated, dyspneic, anxious afebrile HEENT: Moist mucous membranes, pink conjunctiva, no cervical spine tenderness or step-off deformities, no goiter, no jaundice or icterus, extraocular movements intact without pain. No submandibular induration, and no pharyngeal erythema NEURO: Alert and oriented 3, cranial nerves II through XII intact bilaterally, pupils equal round reactive to light, no focal deficits or facial asymmetry, sensation intact distally Strength 5/5 in upper and lower extremities bilaterally CARDIAC: Tachycardic and regular, no murmurs rubs or gallops LUNGS: Bibasilar crackles and wheezing, no stridor ABDOMEN: Soft nontender, no guarding, no rigidity, no rebound, no psoas sign no obturator sign. Normoactive bowel sounds SKIN: Warm and dry to touch, no abrasions, contusions, or hematomas, no lacerations, no ecchymosis, no target lesions, and without ulcers EXTREMITIES: No clubbing cyanosis or edema, calves are bilaterally symmetrical, no Homans sign, no popliteal cord sign. Distal pulses equal and bilateral PSYCH: Anxious Result Diagram: 10/22/16222910/22/162229 Results 24 hrs Laboratory Tests Test 10/22/16 22:30 White Blood Count 8.610^3/ul Red Blood Count 4.4610^6/ul Hemoglobin 13.6g/dl Hematocrit 41.6% Mean Corpuscular Volume 93.3fl Mean Corpuscular Hemoglobin 30.5pg Mean Corpuscular Hemoglobin Concent 32.7g/dl Red Cell Distribution Width 17.6% Platelet Count 31277^3/UL Mean Platelet Volume 10.4fl Neutrophils % 60.9% Lymphocytes % 27.9% Monocytes % 9.8% Eosinophils % 0.7% Basophils % 0.2% Nucleated Red Blood Cells % 0.0/100WBC Neutrophils # 5.210^3/ul Lymphocytes # 2.410^3/ul Monocytes # 0.810^3/ul Eosinophils # 0.110^3/ul Basophils # 0.010^3/ul Nucleated Red Blood Cells # 0.010^3/ul Urine Color LT. YELLOW Urine Clarity CLEAR Urine pH 7.0 Urine Specific [place] 1.010 Urine Ketones NEGATIVE Urine Nitrite NEGATIVE Urine Bilirubin NEGATIVE Urine Urobilinogen 1.0 E.U./dL Urine Leukocyte Esterase NEGATIVE Urine Microscopic RBC 10-25/HPF Urine Microscopic WBC 0-2/HPF Urine Squamous Epithelial Cells FEW Urine Bacteria FEW Urine Hemoglobin 1+ Urine Glucose >=1000% Urine Total Protein 2+ Sodium Level 135mmol/L Potassium Level 4.6mmol/L Chloride Level 101mmol/L Carbon Dioxide Level 29mmol/L Anion Gap 10 Blood Urea Nitrogen 7mg/dl Creatinine 0.80mg/dl Glucose Level 385mg/dl Calcium Level 8.4mg/dl Total Bilirubin 0.1mg/dl Direct Bilirubin 0.00mg/dl Indirect Bilirubin 0.1mg/dl Aspartate Amino Transf (AST/SGOT) 54IU/L Alanine Aminotransferase (ALT/SGPT) 57IU/L Alkaline Phosphatase 311IU/L Troponin I 0.033ng/ml B-Type Natriuretic Peptide 2490PG/ML Total Protein 7.5g/dl Albumin 3.4g/dl Globulin 4.10g/dl Albumin/Globulin Ratio 0.82 Lipase 96U/L Current Medications Medications (Trade) Dose Ordered Sig/Luis Alberto Route PRN Reason Start Time Stop Time Status Last Admin Dose Admin Albuterol (Proventil 0.5% (Neb)) 10 mg ONCE STAT INH 10/22/16 22:17 10/22/16 22:19 DC 10/22/16 22:26 Ipratropium Santa (Atrovent 0.02% (Neb)) 1 mg ONCE STAT INH 10/22/16 22:17 10/22/16 22:19 DC 10/22/16 22:26 Methylprednisolone Sodium Succinate (Solu-Medrol) 125 mg ONCE STAT IV 10/22/16 22:17 10/22/16 22:19 DC 10/22/16 23:13 Procedures/MDM IV line was established patient was placed on director of cardiac rehabilitation rhythm strip revealed a sinus tachycardia at 120 bpm with upright P and T waves. Patient was afebrile. I administered albuterol 10 mg via nebulizer, ipratropium 1 mg via nebulizer, methylprednisolone 125 mg IV. One view chest x-ray performed, read by me revealed severe cardiomegaly, no acute infiltrates, no pneumothorax. EKG performed, read by me reveals a sinus tachycardia at 123 bpm, left axis deviation, narrow QRS complex, no concerning ST elevations or depressions noted. For continued anxiety I did administer lorazepam 1 mg p.o. CBC was unremarkable, electrolytes revealed hyperglycemia 385, liver function tests were normal, troponin was negative, BNP elevated at over 2000. Patient is afebrile with an elevated BNP and a history of severely depressed left ventricular ejection fraction. I will admit for continued medical management cardiology consultation, may also required diuresis. Antibiotics if later indicated deferred to tax audit manager. Departure Diagnosis: Primary Impression: COPD (chronic obstructive pulmonary disease) Qualified Code: J44.1 - Chronic obstructive pulmonary disease with acute exacerbation Additional Impression: Systolic CHF with reduced left ventricular function, NYHA class 3 Condition: ALF Cade MD October 22, 2016 23:23
[2016-10-22 23:24] LABS: ADD SCAN DIFF NO
[2016-10-22 23:32] LABS: BASOPHILS % 0.2 % (0.0-2.0); EOSINOPHILS # 0.1 10^3/ul (0.0-0.5); EOSINOPHILS % 0.7 % (0.0-7.0); HEMATOCRIT 41.6 % (42.0-52.0); HEMOGLOBIN 13.6 g/dl (14.0-18.0); LYMPHOCYTES # 2.4 10^3/ul (0.8-2.9); LYMPHOCYTES % 27.9 % (15.0-51.0); MEAN CORPUSCULAR HEMOGLOBIN 30.5 pg (29.0-33.0); MEAN CORPUSCULAR HGB CONC 32.7 g/dl (32.0-37.0); MEAN CORPUSCULAR VOLUME 93.3 fl (82.0-101.0); MEAN PLATELET VOLUME 10.4 fl (7.4-10.4); MONOCYTE # 0.8 10^3/ul (0.3-0.9); MONOCYTES % 9.8 % (0.0-11.0); NEUTROPHIL # 5.2 10^3/ul (1.6-7.5); NEUTROPHILS % 60.9 % (39.0-77.0); PLATELET COUNT 208 10^3/UL (140-415); RED BLOOD COUNT 4.46 10^6/ul (4.70-6.10); RED CELL DISTRIBUTION WIDTH 17.6 % (11.5-14.5); WHITE BLOOD COUNT 8.6 10^3/ul (4.8-10.8)
[2016-10-22 23:33] LABS: ADD UMIC YES; URINE BILIRUBIN (Dip) NEGATIVE (NEGATIVE); URINE BLOOD (Dip) 1+ (NEGATIVE); URINE COLOR LT. YELLOW (YELLOW); URINE GLUCOSE (Dip) >=1000 % (NEGATIVE); URINE KETONES (Dip) NEGATIVE (NEGATIVE); URINE LEUKOCYTE ESTERASE (Dip) NEGATIVE (NEGATIVE); URINE NITRITE (Dip) NEGATIVE (NEGATIVE); URINE TOTAL PROTEIN (Dip) 2+ (NEGATIVE); URINE UROBILINOGEN (Dip) 1.0 E.U./dL (0.1-1.0)
--- NOTE | 2016-10-22 23:33 | RADRPT ---
PROCEDURE: XR Chest. CLINICAL INDICATION: Abdominal pain. Chest pain. TECHNIQUE: Single frontal view of the chest. COMPARISON: 08/24/2016. FINDINGS: Cardiomegaly. Right lung base patchy air space disease. No signs of pleural fluid or pneumothorax a re seen. The osseous structures and soft tissues are unremarkable. IMPRESSION: Right lung base patchy air space disease is new, and may represent a degree of pneumonia. RPTAT: [facility] Physician Matthew Date Time Electronically viewed and signed by Jane Mei Physician on 10/22/2016 23:33 RS/
[2016-10-22 23:49] LABS: SQUAMOUS EPITHELIAL CELL,UR FEW
[2016-10-22 23:50] LABS: BACTERIA,URINE FEW
[2016-10-23] VITALS (7 sets, daily range): BP systolic 128–133; BP diastolic 83–90; PULSE 98–130; RESP 18–20; Ht 165.1 cm; Wt 30.5 kg
[2016-10-23] LABS: ALBUMIN 3.4 g/dl (3.3-4.9); ALBUMIN/GLOBULIN RATIO 0.82; BILIRUBIN,INDIRECT 0.1 mg/dl (0-1.1); BILIRUBIN,TOTAL 0.1 mg/dl (0.2-1.3); CALCIUM 8.4 mg/dl (8.4-10.2); CREATININE 0.8 mg/dl (0.61-1.24); POTASSIUM 4.6 mmol/L (3.5-5.1); TOTAL PROTEIN 7.5 g/dl (6.1-8.1)
[2016-10-23] MEDS ORDERED: LORAZEPAM 2 MG INJ IM ONE
[2016-10-23] MEDS ORDERED: LORAZEPAM 1 MG TAB PO ONE (00:30)
[2016-10-23 00:48] LABS: TROPONIN-I 0.033 ng/ml (0.00-0.12)
[2016-10-23] MEDS ORDERED: ALBUTEROL/IPRATROPIUM (NEB) 3 ML AMP HHN PRN (01:30)
[2016-10-23] MEDS ORDERED: traMADol 50 MG TAB PO PRN (01:30)
[2016-10-23] MEDS ORDERED: ONDANSETRON 4 MG INJ IV PRN (01:30)
[2016-10-23] MEDS ORDERED: ACETAMINOPHEN 325 MG TAB PO PRN (01:30)
[2016-10-23] MEDS ORDERED: INSULIN ASPART [NOVOLOG] 3 ML PEN SC ONE (03:00)
[2016-10-23] MEDS ORDERED: FUROSEMIDE 20 MG TAB PO SCH (06:00)
[2016-10-23 06:36] LABS: ADD SCAN DIFF NO
[2016-10-23 06:41] LABS: HEMATOCRIT 40.6 % (42.0-52.0); LYMPHOCYTES # 1.1 10^3/ul (0.8-2.9); LYMPHOCYTES % 13.6 % (15.0-51.0); MEAN CORPUSCULAR HEMOGLOBIN 29.4 pg (29.0-33.0); MEAN CORPUSCULAR VOLUME 91.9 fl (82.0-101.0); MEAN PLATELET VOLUME 10.3 fl (7.4-10.4); MONOCYTE # 0.1 10^3/ul (0.3-0.9); MONOCYTES % 1.8 % (0.0-11.0); NEUTROPHIL # 6.5 10^3/ul (1.6-7.5); NEUTROPHILS % 84.2 % (39.0-77.0); PLATELET COUNT 196 10^3/UL (140-415); RED BLOOD COUNT 4.42 10^6/ul (4.70-6.10); RED CELL DISTRIBUTION WIDTH 17.2 % (11.5-14.5); WHITE BLOOD COUNT 7.7 10^3/ul (4.8-10.8)
[2016-10-23 07:10] LABS: ALBUMIN 3.1 g/dl (3.3-4.9); ALBUMIN/GLOBULIN RATIO 0.79; BILIRUBIN,INDIRECT 0.2 mg/dl (0-1.1); BILIRUBIN,TOTAL 0.2 mg/dl (0.2-1.3); CALCIUM 8.4 mg/dl (8.4-10.2); CREATININE 0.71 mg/dl (0.61-1.24); MAGNESIUM 1.8 mg/dl (1.7-2.5); PHOSPHORUS 2.1 mg/dl (2.5-4.9); POTASSIUM 4.6 mmol/L (3.5-5.1)
[2016-10-23] MEDS: INSULIN ASPART [NOVOLOG] 3 ML PEN SC SCH ×4 (08:42→12:28)
[2016-10-23] MEDS ORDERED: LISINOPRIL 5 MG TAB PO SCH (09:00)
[2016-10-23] MEDS ORDERED: RALTEGRAVIR 400 MG TAB PO SCH (09:00)
[2016-10-23] MEDS ORDERED: INSULIN GLARGINE [LANtus] 3 ML PEN SC SCH (09:00)
[2016-10-23] MEDS ORDERED: EMTRICITABINE/TENOFOVIR TAB PO SCH (09:00)
[2016-10-23] MEDS ORDERED: GABAPENTIN 300 MG CAP PO SCH (09:00)
[2016-10-23] MEDS ORDERED: METHYLPREDNISOLONE 125 MG INJ IV SCH (09:00)
[2016-10-23] MEDS ORDERED: LEVOFLOXACIN 500MG/D5W (PMX) 100 ML IVPB SCH (10:00)
--- NOTE | 2016-10-23 10:59 | HP ---
DATE OF ADMISSION: 10/22/2016 The patient was admitted on 10/22/2016 around 2330 hours, but patient was seen on 10/23/2016 at 9 a. m. CHIEF COMPLAINT: Shortness of breath and painful urination. HISTORY OF PRESENT ILLNESS: The patient is a 51-year-old male with a history of dilated cardiomyopat hy with an EF of 20%, COPD, HIV, hepatitis C, diabetes, psychiatric disorder, bipolar, medication n oncompliance, as well as aggressive/combative behavior. The patient presented with the chief compla int of shortness of breath with dysuria. The patient was just discharged 3 days ago from here after 4 days of hospitalization. At that time, he presented with shortness of breath and chest pain. Th e patient is now returning back complaining of shortness of breath and dysuria. The patient reports that he ran out of albuterol. He denied any chest pain, fever, chills, nausea, or vomiting. When he presented to the ER, glucose was 385, AST 54, alkaline phosphatase 311, otherwise CBC and CM P were within acceptable range. BNP is almost 2500. Chest x-ray shows right lung base patchy airsp ranjith disease, which is minimal and may represent a degree of pneumonia compared to a chest x-ray that was done 2 months ago on 08/24/2016. The patient was treated with albuterol and Atrovent, and was given Solu-Medrol 125 mg IV x1, and treated with Ativan. REVIEW OF SYSTEMS: A 12-point review of systems was performed and negative except as mentioned in t he HPI. PAST MEDICAL HISTORY: As per HPI. SOCIAL HISTORY: History of substance abuse. ALLERGIES: PENICILLIN. HOME MEDICATIONS: Include: 1. Truvada. 2. Isentress. 3. Albuterol. 4. Coreg. 5. Lisinopril. 6. Quetiapine. 7. Gabapentin. 8. Tramadol. 9. Lasix. 10. Glyburide. 11. Insulin. PHYSICAL EXAMINATION: VITAL SIGNS: Blood pressure 133/90, heart rate 95, respirations 18, temperature 98.6, oxygen satura tion 98% on room air. GENERAL: The patient looks with slight distress, but able to speak in full sentences. HEENT: No obvious head deformity. Pupils are reactive to light. Extraocular muscles intact. CARDIOVASCULAR: Tachycardic, regular rhythm. LUNGS: Decreased breath sounds at the bases with minimal scattered wheezing. ABDOMEN: Soft, nontender, nondistended. Positive bowel sounds. EXTREMITIES: No edema. LABORATORY DATA: Pertinent positive as mentioned in the HPI. IMPRESSION: 1. Chronic obstructive pulmonary disease/asthma exacerbation. 2. Pneumonia. 3. History of cardiomyopathy with ejection fraction of 20%, most likely from illicit drug use. 4. History of human immunodeficiency virus, on HAART. 5. History of bipolar, on Seroquel. 6. Diabetes with A1c of almost 11. 7. Medication noncompliance. PLAN: The patient will be treated for COPD/asthma exacerbation with underlying pneumonia. We will continue DuoNeb, steroids and Levaquin. We will continue his home medications including Coreg medic ation and HIV medications with adjustments as needed. Further workup and management per clinical course. Dictated By: LEODAN COVARRUBIAS/ABHISHEK Conf#: [id number] DID#: [id number]
[2016-10-23] MEDS ORDERED: LEVO750T8 PO (12:20)
--- NOTE | 2016-10-23 12:21 | PDOCDIS ---
Discharge Instructions CONDITION Patient Condition: Good HOME CARE INSTRUCTIONS: Diet Instructions: Reduced Sodium ACTIVITY: Activity Restrictions: No Restrictions FOLLOW UP/APPOINTMENTS Appointments F/U WITH YOUR PCP IN 1-2 WEEKS MCKENZIE HERNANDEZ October 23, 2016 12:21
--- NOTE | 2016-10-23 17:45 | DS ---
DATE OF ADMISSION: 10/22/2016 DATE OF DISCHARGE: 10/23/2016 DISCHARGE DIAGNOSES: 1. Acute respiratory distress secondary to chronic obstructive pulmonary disease/asthma exacerbatio ns/pneumonia. Discharged with p.o. Levaquin. 2. History of cardiomyopathy with ejection fraction of 20%, likely from illicit drug use, stable. Continue diuretics. 3. History of human immunodeficiency virus. Continue home HAART medications. 4. History of bipolar disorder. Continue Seroquel. 5. Diabetes. Continue home medications. HOSPITAL COURSE: The patient is a 51-year-old male with a history of dilated cardiomyopathy with EF 20%, COPD, HIV, hepatitis C, diabetes, psychiatric disorder, bipolar, medication noncompliance, sex change operation in the past. The patient has also history of aggressive and combative behavior. The patient has had multiple hospitalizations as of late. The patient presents with a complaint of shortness of breath. The patient was just discharged 3 days prior to this admission. The patient h ad no signs of severe sepsis. He had no elevated white count, but he did have a low-grade fever 100 .0. Chest x-ray showed right lung base patchy airspace disease that was new and may represent degre e of pneumonia. The patient was not requiring any supplemental oxygen. He was refusing to get an I V. The patient appeared to be stable for discharge with p.o. antibiotics. On the day of discharge, the patient's vitals, labs, and physical exam were stable. He had no acute complaints. Questions answered. CONDITION ON DISCHARGE: Stable. DISPOSITION: To home. MEDICATIONS: The patient is to continue his usual home medications. He was also given a prescripti on for Levaquin 750 mg daily for 5 days. Once again, the patient is to continue his other home medi cations. FOLLOWUP: The patient is to follow up with his PCP in 1 to 2 weeks. Greater than 30 minutes was spent coordinating the discharge of patient. Dictated By: MCKENZIE HA/NTS Conf#: [id number] DID#: [id number]
[2016-10-23] MEDS ORDERED: QUETIAPINE 100 MG TAB PO SCH (21:00)
[2016-10-24] MEDS ORDERED: ACCU-CHEK XX SCH (02:00)
== END 2016-10-23 14:37 | disposition home or self-care (01) | DRG 190 ==
LOC: E/R 21:59 → TEL 23:33
PROVIDERS: ADMIT Internal Medicine; ATTEND Internal Medicine
DX: J44.1 Chronic obstructive pulmonary disease with (acute) exacerbation (principal); J18.9 Pneumonia, unspecified organism; I50.22 Chronic systolic (congestive) heart failure; R06.00 Dyspnea, unspecified; E11.9 Type 2 diabetes mellitus without complications; F31.9 Bipolar disorder, unspecified; Z91.19 Patient's noncompliance with other medical treatment and regimen
CPT/HCPCS: 36415; 71010; 80053; 81001; 82962; 83036; 83690; 83735; 83880; 84100; 84484; 85025; 93005; 94644; 96374; J1815; J2060; J2930

== ENCOUNTER 2017-01-04 22:02 | Emergency (ER) | payer MEDICAID ==
[~2017-01-04] VITALS: Ht 175.3 cm; Wt 91.0 kg
[~2017-01-04 22:02] MED LIST changes: +LEVO750T8 PO
[2017-01-04 22:12] VITALS: Ht 175.3 cm; Wt 91.0 kg
[2017-01-04] MEDS ORDERED: SODIUM CHLORIDE 0.9% 1L BAG IV* STA (22:33)
--- NOTE | 2017-01-04 23:22 | RADRPT ---
PROCEDURE: XR Chest. CLINICAL INDICATION: Chest pain. TECHNIQUE: Single frontal view. COMPARISON: 10/22/2016. FINDINGS: The lungs are clear. The heart is enlarged. There is no pleural effusion. There is no pneumothorax. IMPRESSION: 1. Cardiomegaly. 2. Clear lungs. RPTAT: QQ .Srini Shay MD, MD Date Time Electronically viewed and signed by .Srini Shay MD, MD on 01/04/2017 23:22 .R/
[2017-01-05 01:40] LABS: BASOPHILS % 0.3 % (0.0-2.0); EOSINOPHILS % 0.2 % (0.0-7.0); HEMOGLOBIN 13.9 g/dl (14.0-18.0); LYMPHOCYTES # 2.8 10^3/ul (0.8-2.9); LYMPHOCYTES % 28.5 % (15.0-51.0); MEAN CORPUSCULAR HGB CONC 33.1 g/dl (32.0-37.0); MEAN CORPUSCULAR VOLUME 90.5 fl (82.0-101.0); MEAN PLATELET VOLUME 10.6 fl (7.4-10.4); MONOCYTE # 1.1 10^3/ul (0.3-0.9); MONOCYTES % 10.8 % (0.0-11.0); NEUTROPHIL # 5.8 10^3/ul (1.6-7.5); NEUTROPHILS % 59.8 % (39.0-77.0); NUCLEATED RED BLOOD CELLS% 0.3 /100WBC (0.0-0.0); PLATELET COUNT 134 10^3/UL (140-415); RED BLOOD COUNT 4.64 10^6/ul (4.70-6.10); RED CELL DISTRIBUTION WIDTH 15.9 % (11.5-14.5); WHITE BLOOD COUNT 9.7 10^3/ul (4.8-10.8)
[2017-01-05 01:59] LABS: ALBUMIN/GLOBULIN RATIO 0.78; BILIRUBIN,INDIRECT 0.9 mg/dl (0-1.1); BILIRUBIN,TOTAL 0.9 mg/dl (0.2-1.3); CALCIUM 8.4 mg/dl (8.4-10.2); CREATININE 0.97 mg/dl (0.61-1.24); POTASSIUM 3.8 mmol/L (3.5-5.1); TOTAL PROTEIN 6.8 g/dl (6.1-8.1)
[2017-01-05 02:01] LABS: INR 1.42; PROTIME 17.4 Sec (12.2-14.2); PT RATIO 1.4
[2017-01-05 02:02] LABS: PARTIAL THROMBOPLASTIN TIME 31.3 Sec (25.0-35.0)
[2017-01-05 02:10] LABS: TROPONIN-I 0.08 ng/ml (0.00-0.12)
--- NOTE | 2017-01-05 02:49 | PSY ---
Date/Time of Note Date/Time of Note DATE: 01/05/17 TIME: 02:48 Psychiatric Subjective Eval Consent Pt consented to telemedicine: Yes Subjective Evaluation Patient location: emergency Chief Complaint: excessive fqt movements, admits to ETOH, tramadol, vicodin, denies drugs Medical history Problems Medical Problems: (1) Accelerated hypertension Status: Acute (2) Anemia Status: Acute (3) Asthma exacerbation Status: Acute (4) Bipolar disorder with psychotic features Status: Acute (5) Bronchitis Status: Acute (6) Congestive heart failure Status: Acute (7) COPD (chronic obstructive pulmonary disease) Status: Chronic (8) Diabetes mellitus type 2 in obese Status: Chronic (9) Diabetes mellitus with hyperglycemia Status: Acute (10) Dyspnea Status: Acute (11) Hepatitis C antibody positive in blood Status: Acute (12) HIV disease Status: Chronic (13) Homicidal ideation Status: Acute (14) Hyperglycemia Status: Acute (15) Methamphetamine abuse Status: Acute (16) Methamphetamine abuse Status: Acute (17) Normocytic anemia Status: Acute (18) Septic joint of right knee joint Status: Acute (19) Substance abuse Status: Acute (20) Systolic CHF with reduced left ventricular function, NYHA class 3 Status: Chronic (21) Transaminitis Status: Acute Allergies: Coded Allergies: Penicillins (Unverified Allergy, Unknown, 10/22/16) Psychiatric Objective Eval Mental Status Examination: Laboratory Results Laboratory Tests Test 01/05/17 01:25 White Blood Count 9.710^3/ul Red Blood Count 4.6410^6/ul Hemoglobin 13.9g/dl Hematocrit 42.0% Mean Corpuscular Volume 90.5fl Mean Corpuscular Hemoglobin 30.0pg Mean Corpuscular Hemoglobin Concent 33.1g/dl Red Cell Distribution Width 15.9% Platelet Count 61042^3/UL Mean Platelet Volume 10.6fl Neutrophils % 59.8% Lymphocytes % 28.5% Monocytes % 10.8% Eosinophils % 0.2% Basophils % 0.3% Nucleated Red Blood Cells % 0.3/100WBC Neutrophils # 5.810^3/ul Lymphocytes # 2.810^3/ul Monocytes # 1.110^3/ul Eosinophils # 0.010^3/ul Basophils # 0.010^3/ul Nucleated Red Blood Cells # 0.010^3/ul Prothrombin Time 17.4Sec Prothrombin Time Ratio 1.4 INR International Normalized Ratio 1.42 Activated Partial Thromboplast Time 31.3Sec Sodium Level 138mmol/L Potassium Level 3.8mmol/L Chloride Level 100mmol/L Carbon Dioxide Level 26mmol/L Anion Gap 16 Blood Urea Nitrogen 26mg/dl Creatinine 0.97mg/dl Glucose Level 174mg/dl Lactic Acid Level 1.6mmol/L Calcium Level 8.4mg/dl Total Bilirubin 0.9mg/dl Direct Bilirubin 0.00mg/dl Indirect Bilirubin 0.9mg/dl Aspartate Amino Transf (AST/SGOT) 61IU/L Alanine Aminotransferase (ALT/SGPT) 48IU/L Alkaline Phosphatase 139IU/L Troponin I 0.080ng/ml Total Protein 6.8g/dl Albumin 3.0g/dl Globulin 3.80g/dl Albumin/Globulin Ratio 0.78 Assessment Additional comments: IDENTIFYING INFORMATION: 51 year old -[place]ian Male patient who is currently located at the hospital and for whom psychiatric consultation was requested. SOURCES OF INFORMATION: The patient who appears to be unreliable and the medical records; the nursing staff. CHIEF COMPLAINT: the patient was not able to cooperate with interview because of psychosis/agitation. HISTORY OF PRESENT ILLNESS: The patient was interviewed via telemedicine in the presence of and under the supervision of nursing staff of the hospital. The consent to conducting this interview via telemedicine was obtained by the nursing staff at the hospital. LETY Valencia reports that the patient was brought by ambulance after he was found laying on the street, was uncooperative with staff, was moaning in the position, but was responsive to pain. A&O x2 at times. Pt had presented with HI in July 2016, meth use in August 2016. According to the triage note, the patient was more willing to provide information, and exhibited frequent erratic movements, and he was unable to remain still for long. He admitted to taking alcohol, tramadol, Vicodin as well as other prescription pain medications but denied any drug use today. The patient was not able to cooperate with interview because of psychosis/ agitation. The patient was evaluated by Dr. Orantes on August 27, 2016. The patient presented with shortness of breath, but also admitted to having paranoid delusions of his neighbors trying to hurt him and as well as having homicidal ideation in the context of using methamphetamine. Inpatient involuntary admission was recommended. The patient was diagnosed with bipolar disorder, mixed severe with psychotic features, stimulant use disorder, antisocial personality disorder. It was recommended that he be placed on Seroquel 400 mg by mouth at bedtime. PAST MEDICAL HISTORY: CHF, COPD, h/o right knee septic arthritis, asthma, bipolar disorder with psychotic features, bronchitis, diabetes mellitus type 2, hepatitis C, HIV, CURRENT MEDICATIONS: Unable to assess, because the patient was not able to participate in the interview. ALLERGIES TO MEDICATIONS: penicillin. SOCIAL HISTORY: Unable to assess, because the patient was not able to participate in the interview. According to the chart the patient has a history of several felonies, as well as violent crimes. LABORATORY TESTS: alcohol level, UDS pending. CMP with blood urea nitrogen of 26, AST 61, alkaline phosphatase 139, albumin 3.0, CBC with hemoglobin of 13.9, platelets 134. REVIEW OF SYSTEMS: Unable to assess, because the patient was not able to participate in the interview. MENTAL STATUS EXAMINATION: General Appearance and Behavior: Agitated, appears to be responding to internal stimuli, uncooperative with most of the interview, distant with the current interviewer, makes poor eye contact, poorly groomed, increased psychomotor activity, no abnormal movements noted. Speech: the patient was only moaning, no speech was produced. Flow of thought: tangential, illogical, not goal-directed. Content of thought: the patient is likely responding to internal stimuli, unable to assess further at this time. Mood: Unable to assess, because the patient was not able to participate in the interview.. Affect: agitated, angry, flat, decreased range of reactivity. Attention: decreased. Insight: poor. Judgment: poor. Memory: normal based on the interview. Sensorium:alert, Unable to assess further, because the patient was not able to participate in the interview. ASSESSMENT: The patient's presentation and history are consistent with the diagnosis of unspecified psychotic disorder, stimulant use disorder, alcohol use disorder, rule out opioid use disorder. The patient presents with psychotic symptoms in the context of reported use of substances. The patient is very agitated and psychotic at this time and is unable to provide history. [place] I: unspecified psychotic disorder, stimulant use disorder, alcohol abuse disorder, rule out opioid use disorder. [place] II: Deferred. [place] III: see PMH. [place] IV: social stressors. [place] V: GAF: 10. PLAN: - Medication management: Would start haloperidol 5 mg IM PRN severe agitation q4 hours. Would start diphenhydramine 50 mg IM PRN severe agitation q4 hours. Would start lorazepam 2 mg IM PRN severe agitation q4 hours Will defer to the inpatient psychiatry team for other medication changes. - Labs: please check alcohol level, UDS. - Psychotherapy: Provided supportive psychotherapy and psychoeducation. - Disposition: Would recommend involuntary admission to the inpatient psychiatric unit given the severity of the patient's psychiatric condition and the fact that the patient is an imminent danger to self and/or others so long as the patient has been cleared medically for admission to psychiatry. Inpatient psychiatric admission is at this time the least restrictive environment where the patient can receive the psychiatric care that is needed. Would place on suicide precautions. The patient fulfills criteria for being placed on involuntary hold due to being gravely disabled. Would be happy to reevaluate the patient later on too as needed. Discussed about the above plan with Dr. Grant. ADELINE LOPEZ MD Jan 05, 2017 02:49
--- NOTE | 2017-01-05 03:21 | ERA ---
ER Documentation Chief Complaint Date/Time DATE: 01/05/17 TIME: 03:20 Chief Complaint excessive fqt movements, admits to ETOH, tramadol, vicodin, denies drugs HPI Is a 51-year-old male junk today took tramadol and Vicodin comes in he was agitated. Patient has history of previous psychiatric admissions. No other current complaints. ROS All systems reviewed and are negative except as per history of present illness. Medications Home Meds Active Scripts Albuterol Sulfate* (Ventolin HFA*) 18 Gm Hfa.aer.ad, 2 PUFF INHALATION Q4H, #1 INHALER Prov:KRISTI ANAYA DO 03/24/16 Reported Medications Raltegravir Potassium* (Isentress*) 400 Mg Tablet, 400 MG PO BID, TAB 10/10/16 Gabapentin* (Gabapentin*) 300 Mg Capsule, 300 MG PO TID, #90 CAP 10/10/16 Furosemide* (Furosemide*) 20 Mg Tablet, 20 MG PO DAILY, #60 TAB 10/10/16 Carvedilol* (Carvedilol*) 6.25 Mg Tablet, 6.25 MG PO BID, #60 TAB 10/10/16 Lisinopril* (Lisinopril*) 5 Mg Tablet, 5 MG PO DAILY, #30 TAB 10/10/16 Insulin Isophan/Regular (Humulin 70/30) 100 Units/Ml Susp, 24 UNIT SC TID, EA SLIDING SCALE 10/10/16 Insulin Glargine* (Lantus*) 100 Unit/Ml Soln, 42 UNIT SC DAILY, #1 VIAL 10/10/16 Glyburide* (Glyburide*) 5 Mg Tablet, 5 MG PO DAILY, #30 TAB 10/10/16 Tramadol Hcl* (Ultram*) 50 Mg Tablet, 50 MG PO Q6H Y for PAIN, TAB 10/10/16 Quetiapine Fumarate* (Seroquel*) 200 Mg Tablet, 200 MG PO HS, #30 TAB 08/24/16 Discontinued Reported Medications Emtricitabine-Tenofovir* (Truvada*) 200-300 Mg Tab, 1 TAB PO DAILY, TAB 05/24/16 Discontinued Scripts Levofloxacin* (Levofloxacin*) 750 Mg Tablet, 750 MG PO DAILY for 5 Days, TAB Prov:MCKENZIE HERNANDEZ 10/23/16 Allergies Allergies: Coded Allergies: Penicillins (Unverified Allergy, Unknown, 10/22/16) PMhx/Soc Hx Respiratory Disorders: Yes (COPD, Asthma) Hx Cardiac Disorders: Yes (CHF) Hx Psychiatric Problems: Yes Physical Exam Vitals Vital Signs Date Time Temp Pulse Resp B/P Pulse Ox O2 Delivery O2 Flow Rate FiO2 01/05/17 02:12 62 16 114/77 98 Room Air 01/04/17 22:12 100.0 119 22 131/89 98 Physical Exam Const: [] Head: Atraumatic Eyes: Normal Conjunctiva ENT: Normal External Ears, Nose and Mouth. Neck: Full range of motion..~ No meningismus. Resp: Clear to auscultation bilaterally Cardio: Regular rate and rhythm, no murmurs Abd: Soft, non tender, non distended. Normal bowel sounds Skin: No petechiae or rashes Back: No midline or flank tenderness Ext: No cyanosis, or edema Neur: Awake and alert Psych: Normal Mood and Affect Result Diagram: 01/05/175 01/05/17 0125 Results 24 hrs Laboratory Tests Test 01/05/17 01:25 White Blood Count 9.710^3/ul Red Blood Count 4.6410^6/ul Hemoglobin 13.9g/dl Hematocrit 42.0% Mean Corpuscular Volume 90.5fl Mean Corpuscular Hemoglobin 30.0pg Mean Corpuscular Hemoglobin Concent 33.1g/dl Red Cell Distribution Width 15.9% Platelet Count 65019^3/UL Mean Platelet Volume 10.6fl Neutrophils % 59.8% Lymphocytes % 28.5% Monocytes % 10.8% Eosinophils % 0.2% Basophils % 0.3% Nucleated Red Blood Cells % 0.3/100WBC Neutrophils # 5.810^3/ul Lymphocytes # 2.810^3/ul Monocytes # 1.110^3/ul Eosinophils # 0.010^3/ul Basophils # 0.010^3/ul Nucleated Red Blood Cells # 0.010^3/ul Prothrombin Time 17.4Sec Prothrombin Time Ratio 1.4 INR International Normalized Ratio 1.42 Activated Partial Thromboplast Time 31.3Sec Sodium Level 138mmol/L Potassium Level 3.8mmol/L Chloride Level 100mmol/L Carbon Dioxide Level 26mmol/L Anion Gap 16 Blood Urea Nitrogen 26mg/dl Creatinine 0.97mg/dl Glucose Level 174mg/dl Lactic Acid Level 1.6mmol/L Calcium Level 8.4mg/dl Total Bilirubin 0.9mg/dl Direct Bilirubin 0.00mg/dl Indirect Bilirubin 0.9mg/dl Aspartate Amino Transf (AST/SGOT) 61IU/L Alanine Aminotransferase (ALT/SGPT) 48IU/L Alkaline Phosphatase 139IU/L Troponin I 0.080ng/ml Total Protein 6.8g/dl Albumin 3.0g/dl Globulin 3.80g/dl Albumin/Globulin Ratio 0.78 Current Medications Medications (Trade) Dose Ordered Sig/Luis Alberto Route PRN Reason Start Time Stop Time Status Last Admin Dose Admin Sodium Chloride (NS) 2,820 ml BOLUS OVER 2 HOURS STAT IV* 01/04/17 22:33 01/04/17 22:35 DC 01/04/17 23:04 Procedures/MDM EKG: Rate/Rhythm: Normal Sinus Rhythm QRS, ST, T-waves: No changes consistent w/ acute ischemia Impression: No evidence of ischemia or arrhythmia Chest X-ray 1V Interpreted by me: Soft Tissue: No acute abnormalities Bones: No acute abnormalities Mediastinum/Cardiac Silhouette/Lungs: No acute abnormalities Patient's behavioral symptoms have stabilized while in the department. Patient is medically cleared and appropriate for psychiatric evaluation and work up. No e/o neurologic, toxic, infectious, or metabolic cause. Placed on 5150 hold. Pending RUST placed Departure Diagnosis: Primary Impression: Psychosis Qualified Code: F29 - Psychosis, unspecified psychosis type Condition: Stable LEODAN GARCIA Jan 05, 2017 03:21
[2017-01-05 04:14] LABS: ADD UMIC YES; UR ASCORBIC ACID 20 mg/dL (NEGATIVE); UR BILIRUBIN (Dip) NEGATIVE (NEGATIVE); UR BLOOD (Dip) NEGATIVE (NEGATIVE); UR CLARITY CLEAR (CLEAR); UR COLOR YELLOW (YELLOW); UR GLUCOSE (Dip) NEGATIVE (NEGATIVE); UR KETONES (Dip) NEGATIVE (NEGATIVE); UR LEUKOCYTE ESTERASE (Dip) NEGATIVE Leu/ul (NEGATIVE); UR NITRITE (Dip) NEGATIVE (NEGATIVE); UR RBC 1 /HPF (0-5); UR SPECIFIC GRAVITY (Dip) 1.017 (1.003-1.030); UR TOTAL PROTEIN (Dip) 2+ mg/dl (NEGATIVE); UR UROBILINOGEN (Dip) 2+ mg/dL (NEGATIVE)
[2017-01-05 05:05] LABS: BARBITURATES Negative (NEGATIVE); BENZODIAZEPINES Negative (NEGATIVE); CANNABINOIDS Positive (NEGATIVE); COCAINE Negative (NEGATIVE); OPIATES Negative (NEGATIVE)
--- NOTE | 2017-01-05 11:05 | QN ---
Documentation Comment Observation Note: Time: 4 hours Family Hx: Negative for diabetes Evaluation: Multiple exams showed improving symptoms and no evidence of clinical decompensation. The patient is awaiting transfer to a psychiatric bed. ASHLEY STONE MD Jan 05, 2017 11:05
[2017-01-06] MEDS ORDERED: QUETIAPINE 100 MG TAB PO ONE (02:00)
[2017-01-06] MEDS ORDERED: FUROSEMIDE 20 MG TAB PO ONE (02:00)
[2017-01-06] MEDS ORDERED: INSULIN GLARGINE [LANtus] 3 ML PEN SC ONE (02:26)
[2017-01-06] MEDS ORDERED: GABAPENTIN 300 MG CAP PO ONE (02:26)
[2017-01-06] MEDS ORDERED: LISINOPRIL 5 MG TAB PO ONE (09:00)
[2017-01-06] MEDS ORDERED: INSULIN LISPRO 100 UNIT/ML VIAL SC STA (14:48)
[2017-01-06] MEDS ORDERED: LORAZEPAM 2 MG INJ IV ONE (19:30)
[2017-01-07] MEDS ORDERED: QUETIAPINE 100 MG TAB PO ONE (08:30)
[2017-01-07] MEDS ORDERED: INSULIN LISPRO 100 UNIT/ML VIAL SC STA (09:23)
[2017-01-07] MEDS ORDERED: DEXTROSE 50% 50 ML SYRINGE IV PRN ×2 (09:30)
[2017-01-07] MEDS ORDERED: GLUCAGON 1 MG INJ IM PRN (09:30)
[2017-01-07] MEDS ORDERED: GLUCOSE GEL 15 GRAM TUBE BUCCAL PRN (09:30)
[2017-01-07] MEDS ORDERED: GLUCOSE GEL 15 GRAM TUBE PO PRN ×2 (09:30)
--- NOTE | 2017-01-07 14:26 | PSY ---
Date/Time of Note Date/Time of Note DATE: 01/07/17 TIME: 14:21 Psychiatric Subjective Eval Consent Pt consented to telemedicine: Yes Subjective Evaluation Patient location: emergency Chief Complaint: excessive fqt movements, admits to ETOH, tramadol, vicodin, denies drugs History of present illness 51 yo male BIB ambulance and placed on hold for GD at the time. UDS + amphetamine and THC. Pt is alert and oriented x3 now. He is irritable and marginally cooperative with the eval. He says he has a home, he is not suicidal and homicidal, he is tangential tough and irritable, but he denies any si or hi. Past psychiatric history multiple inpt Hospitalization: yes Family History denies Medical history Problems Medical Problems: (1) Accelerated hypertension Status: Acute (2) Anemia Status: Acute (3) Asthma exacerbation Status: Acute (4) Bipolar disorder with psychotic features Status: Acute (5) Bronchitis Status: Acute (6) Congestive heart failure Status: Acute (7) COPD (chronic obstructive pulmonary disease) Status: Chronic (8) Diabetes mellitus type 2 in obese Status: Chronic (9) Diabetes mellitus with hyperglycemia Status: Acute (10) Dyspnea Status: Acute (11) Hepatitis C antibody positive in blood Status: Acute (12) HIV disease Status: Chronic (13) Homicidal ideation Status: Acute (14) Hyperglycemia Status: Acute (15) Methamphetamine abuse Status: Acute (16) Methamphetamine abuse Status: Acute (17) Normocytic anemia Status: Acute (18) Psychosis Status: Acute (19) Septic joint of right knee joint Status: Acute (20) Substance abuse Status: Acute (21) Systolic CHF with reduced left ventricular function, NYHA class 3 Status: Chronic (22) Transaminitis Status: Acute Allergies: Coded Allergies: Penicillins (Unverified Allergy, Unknown, 10/22/16) Substance Abuse Substance abuse history: Yes Prior substance abuse treatmen: Yes Social History Marital status: single DPA/Conservatorship: No Psychiatric Objective Eval Mental Status Examination: Appearance: Disheveled Eye Contact: Poor Psychomotor Activity: Agitated Behavior: Hostile Mood: Irritable Though Process: Circumstantial Thought Content: Delusions Suicidal: No Homicidal: No On 72 hour hold: No Orientation: x3 Cognition: Alert Insight: Impared Judgement: Impared Laboratory Results Laboratory Tests Test 01/06/17 01:36 01/06/17 13:59 01/07/17 08:57 01/07/17 11:49 Bedside Glucose 183mg/dL 402mg/dL 362mg/dL 202mg/dL Assessment and Plan Assessment/Diagnosis [place] I: chronic parnaoid schizophrenia. polysubstance dependence [place] II: defered [place] III: as per record [place] IV: moderate [place] V: gaf 35 Recommendation/Plan Medication Management seroquel 600 mg poqhs Psychotherapy defer to outpt Follow-up/Disposition no dts, dto, gd; consider referring to a CD rehab. Pt can be released home with outpt referral. LUIS A LAMBERT MD Jan 07, 2017 14:26
[2017-01-07] MEDS ORDERED: QUET400T PO (18:23)
[2017-01-07 18:28] VITALS: BP 141/108; PULSE 100; RESP 18; TEMP 98.1
--- NOTE | 2017-01-07 18:48 | EN ---
Date/Time of Note Date/Time of Note DATE: 01/07/17 TIME: 18:46 ER Progress Note HPI: 51-year-old transgender woman was initially placed on a 5150 psychiatric hold for suicidality and psychosis. She has been here for nearly 70 hours and symptoms have stabilized, patient states she has no intention of hurting herself , killing herself, or hurting others. Patient denies having a plan to overdose and denies any other plan of hurting or killing himself. The last tele- psychiatry consultation no recommended outpatient management and there was no indication for continued 5150 psychiatric hold Past medical history: Psychosis, depression Physical exam: GENERAL: Well-developed, well-nourished, well-hydrated, in no apparent distress , looks nontoxic in appearance HEENT: Moist mucous membranes, pink conjunctiva, no cervical spine tenderness or step-off deformities, no goiter, no jaundice or icterus, extraocular movements intact without pain. No submandibular induration, and no pharyngeal erythema NEURO: Alert and oriented 3, cranial nerves II through XII intact bilaterally, pupils equal round reactive to light, no focal deficits or facial asymmetry, sensation intact distally Strength 5/5 in upper and lower extremities bilaterally CARDIAC: Regular rate and rhythm, no murmurs rubs or gallops LUNGS: Clear bilaterally no wheezing crackles or stridor ABDOMEN: Soft nontender, no guarding, no rigidity, no rebound, no psoas sign no obturator sign. Normoactive bowel sounds SKIN: Warm and dry to touch, no abrasions, contusions, or hematomas, no lacerations, no ecchymosis, no target lesions, and without ulcers EXTREMITIES: No clubbing cyanosis or edema, calves are bilaterally symmetrical, no Homans sign, no popliteal cord sign. Distal pulses equal and bilateral PSYCH: Normal affect without agitation or irritability Medical decision making: Patient's blood sugar has fallen to within normal limits, mental status and psychiatric symptoms have stabilized and patient is without complaints. I agreed to refill his prescription for quetiapine Diagnostic impression: Depression ALF BROWNE MD Jan 07, 2017 18:48
== END 2017-01-07 19:13 | disposition home or self-care (01) ==
LOC: E/R 22:02
DX: F29 Unspecified psychosis not due to a substance or known physiological condition (principal); E11.9 Type 2 diabetes mellitus without complications; I10 Essential (primary) hypertension; I50.9 Heart failure, unspecified; Z79.4 Long term (current) use of insulin; Z79.84 Long term (current) use of oral hypoglycemic drugs
CPT/HCPCS: 71010; 80053; 80306; 80307; 81001; 82962; 83605; 84484; 85025; 85610; 85730; 87040; 87086; 93005; J1815; J7030; Z7610; 36415; 96372; 96374

== ENCOUNTER 2017-03-23 20:46 | Inpatient (IN) | payer MEDICAID, OTHER ==
[~2017-03-23] VITALS: Ht 154.9 cm; Wt 95.0 kg
[~2017-03-23 20:46] MED LIST changes: -LEVO750T8 PO; +QUET400T PO; -TRUV PO
[2017-03-23] MEDS ORDERED: FUROSEMIDE 40 MG INJ IV STA (20:49)
[2017-03-23] MEDS ORDERED: NITROGLYCERIN 2% 1 GM OINT PKT TD STA (20:49)
[2017-03-23] MEDS ORDERED: ASPIRIN 81 MG TAB PO STA (20:49)
[2017-03-23 20:52] VITALS: Ht 154.9 cm; Wt 95.0 kg
[2017-03-23] MEDS ORDERED: NITROGLYCERIN (SL) 0.4 MG TAB SL PRN (21:00)
--- NOTE | 2017-03-23 22:16 | RADRPT ---
PROCEDURE: CHEST - 1 VIEW CLINICAL INDICATION: 51-year-old male with chest pain. TECHNIQUE: A single frontal AP semi-erect portable view of the chest was performed. The images we re reviewed on a PACS workstation. COMPARISON: Chest x-ray January 04, 2017. FINDINGS: The cardiomediastinal silhouette is moderately enlarged but without significant interval change. The re is [id number] pulmonary vascular congestion. There is elevation right hemidiaphragm. There is no evidence for focal consolidation. There is no evidence for pneumothorax. The osseous structur es are intact. IMPRESSION: 1. Cardiomegaly. 2. Pulmonary vascular congestion. .Adam Weller MD, Date Time Electronically viewed and signed by .Adam Weller MD, on 03/23/2017 22:16 .Juventino/
--- NOTE | 2017-03-23 22:16 | RADRPT ---
PROCEDURE: CHEST - 1 VIEW CLINICAL INDICATION: 51-year-old male with chest pain. TECHNIQUE: A single frontal AP semi-erect portable view of the chest was performed. The images we re reviewed on a PACS workstation. COMPARISON: Chest x-ray January 04, 2017. FINDINGS: The cardiomediastinal silhouette is moderately enlarged but without significant interval change. The re is [id number] pulmonary vascular congestion. There is elevation right hemidiaphragm. There is no evidence for focal consolidation. There is no evidence for pneumothorax. The osseous structur es are intact. IMPRESSION: 1. Cardiomegaly. 2. Pulmonary vascular congestion. .Adam Weller MD, Date Time Electronically viewed and signed by .Adam Weller MD, on 03/23/2017 22:16 .Juventino/
--- NOTE | 2017-03-23 22:16 | RADRPT ---
PROCEDURE: CHEST - 1 VIEW CLINICAL INDICATION: 51-year-old male with chest pain. TECHNIQUE: A single frontal AP semi-erect portable view of the chest was performed. The images we re reviewed on a PACS workstation. COMPARISON: Chest x-ray January 04, 2017. FINDINGS: The cardiomediastinal silhouette is moderately enlarged but without significant interval change. The re is [id number] pulmonary vascular congestion. There is elevation right hemidiaphragm. There is no evidence for focal consolidation. There is no evidence for pneumothorax. The osseous structur es are intact. IMPRESSION: 1. Cardiomegaly. 2. Pulmonary vascular congestion. .Adam Weller MD, Date Time Electronically viewed and signed by .Adam Weller MD, on 03/23/2017 22:16 .Juventino/
[2017-03-23] MEDS ORDERED: INSULIN LISPRO 100 UNIT/ML VIAL SC STA (22:48)
--- NOTE | 2017-03-23 23:25 | ERD ---
ER Documentation Chief Complaint Chief Complaint BIBA RA90, C/O SOB,BS 431 HPI Patient is a 51-year-old male with CHF, hypertension, and diabetes who presents with shortness of breath. He says "I cannot breathe". He said it started today. He has chest pain as well. He was brought in by ambulance. He had high blood pressure and high sugar. He said that his doctor is at [facility]. ROS All systems reviewed and are negative except as per history of present illness. Medications Home Meds Active Scripts Quetiapine Fumarate* (Seroquel*) 400 Mg Tablet, 400 MG PO HS, #30 TAB Prov:ALF BROWNE MD 01/07/17 Albuterol Sulfate* (Ventolin HFA*) 18 Gm Hfa.aer.ad, 2 PUFF INHALATION Q4H, #1 INHALER Prov:KRISTI ANAYA DO 03/24/16 Reported Medications Raltegravir Potassium* (Isentress*) 400 Mg Tablet, 400 MG PO BID, TAB 10/10/16 Gabapentin* (Gabapentin*) 300 Mg Capsule, 300 MG PO TID, #90 CAP 10/10/16 Furosemide* (Furosemide*) 20 Mg Tablet, 20 MG PO DAILY, #60 TAB 10/10/16 Carvedilol* (Carvedilol*) 6.25 Mg Tablet, 6.25 MG PO BID, #60 TAB 10/10/16 Lisinopril* (Lisinopril*) 5 Mg Tablet, 5 MG PO DAILY, #30 TAB 10/10/16 Insulin Isophan/Regular (Humulin 70/30) 100 Units/Ml Susp, 24 UNIT SC TID, EA SLIDING SCALE 10/10/16 Insulin Glargine* (Lantus*) 100 Unit/Ml Soln, 42 UNIT SC DAILY, #1 VIAL 10/10/16 Glyburide* (Glyburide*) 5 Mg Tablet, 5 MG PO DAILY, #30 TAB 10/10/16 Tramadol Hcl* (Ultram*) 50 Mg Tablet, 50 MG PO Q6H Y for PAIN, TAB 10/10/16 Quetiapine Fumarate* (Seroquel*) 200 Mg Tablet, 200 MG PO HS, #30 TAB 08/24/16 Allergies Allergies: Coded Allergies: Penicillins (Unverified Allergy, Unknown, 10/22/16) PMhx/Soc History of Surgery: No Anesthesia Reaction: No Hx Neurological Disorder: No Hx Respiratory Disorders: Yes (COPD) Hx Cardiac Disorders: Yes (CHF) Hx Psychiatric Problems: Yes (Transgender) Hx Miscellaneous Medical Probl: Yes (Drug Use) Hx Alcohol Use: Yes Hx Substance Use: Yes (meth) Hx Tobacco Use: Yes Smoking Status: Current every day smoker FmHx Family History: No coronary disease Physical Exam Vitals Vital Signs Date Time Temp Pulse Resp B/P Pulse Ox O2 Delivery O2 Flow Rate FiO2 03/23/17 21:15 119 31 153/114 100 Room Air 03/23/17 20:52 99.7 121 18 171/109 96 Physical Exam Const: Moderate distress secondary to shortness of breath Head: Atraumatic Eyes: Normal Conjunctiva ENT: Normal External Ears, Nose and Mouth. Neck: Full range of motion..~ No meningismus. Resp: Decreased breath sounds bilaterally Cardio: Regular rate and rhythm, no murmurs Abd: Soft, non tender, non distended. Normal bowel sounds Skin: No petechiae or rashes Back: No midline or flank tenderness Ext: 1+ pitting edema bilaterally Neur: Awake and alert Psych: Normal Mood and Affect Result Diagram: 03/23/17212803/23/172128 Results 24 hrs Laboratory Tests Test 03/23/17 21:29 White Blood Count 10.010^3/ul Red Blood Count 4.5410^6/ul Hemoglobin 13.6g/dl Hematocrit 40.4% Mean Corpuscular Volume 89.0fl Mean Corpuscular Hemoglobin 30.0pg Mean Corpuscular Hemoglobin Concent 33.7g/dl Red Cell Distribution Width 18.6% Platelet Count 40881^3/UL Mean Platelet Volume 10.9fl Neutrophils % 76.8% Lymphocytes % 15.6% Monocytes % 6.7% Eosinophils % 0.2% Basophils % 0.2% Nucleated Red Blood Cells % 0.3/100WBC Neutrophils # 7.710^3/ul Lymphocytes # 1.610^3/ul Monocytes # 0.710^3/ul Eosinophils # 0.010^3/ul Basophils # 0.010^3/ul Nucleated Red Blood Cells # 0.010^3/ul Urine Color YELLOW Urine Clarity CLEAR Urine pH 6.0 Urine Specific [place] 1.015 Urine Ketones NEGATIVEmg/dL Urine Nitrite NEGATIVEmg/dL Urine Bilirubin NEGATIVEmg/dL Urine Urobilinogen 2+mg/dL Urine Leukocyte Esterase NEGATIVELeu/ul Urine Microscopic RBC 2/HPF Urine Microscopic WBC 1/HPF Urine Hemoglobin 1+mg/dL Urine Glucose 3+mg/dL Urine Total Protein 2+mg/dl Sodium Level 133mmol/L Potassium Level 4.3mmol/L Chloride Level 98mmol/L Carbon Dioxide Level 27mmol/L Anion Gap 12 Blood Urea Nitrogen 19mg/dl Creatinine 0.64mg/dl Glucose Level 486mg/dl Calcium Level 7.5mg/dl Troponin I 0.047ng/ml Urine Opiates Screen Negative Urine Barbiturates Negative Urine Amphetamines Screen Negative Urine Benzodiazepines Screen Negative Urine Cocaine Screen Negative Urine Cannabinoids Positive Current Medications Medications (Trade) Dose Ordered Sig/Luis Alberto Route PRN Reason Start Time Stop Time Status Last Admin Dose Admin Aspirin (Aspirin) 162 mg ONCE STAT PO 03/23/17 20:49 03/23/17 20:50 DC Nitroglycerin (Nitroglycerin 2% Oint) 1 inch ONCE STAT TD 03/23/17 20:49 03/23/17 20:50 DC Nitroglycerin (Nitroglycerin (Sl Tab) 0.4 Mg) 1 tab Q5M UP TO 3 DOSES PRN SL CHEST PAIN 03/23/17 21:00 Furosemide (Lasix) 40 mg ONCE STAT IV 03/23/17 20:49 03/23/17 20:50 DC Insulin Human Lispro (Humalog) 10 unit ONCE STAT SC 03/23/17 22:48 03/23/17 22:50 DC Ondansetron HCl (Zofran Inj) 4 mg ER BRIDGE PRN IV NAUSEA AND/OR VOMITING 03/23/17 23:30 03/24/17 23:29 Acetaminophen (Tylenol Tab) 650 mg ER BRIDGE PRN PO MILD PAIN/FEVER 03/23/17 23:30 03/24/17 23:29 Procedures/MDM EKG read by me: Rate/Rhythm: Sinus tachycardia at a rate of 130 Intervals: Normal Impression: Tachycardia without ischemia Chest x-ray shows pulmonary vascular congestion per radiology and cardiomegaly. Smoking Cessation Therapy: Pt. was lectured for greater than 3 minutes on the health risks of continued smoking and the benefits of cessation. Patient is a 51-year-old male with CHF, hypertension, and diabetes who presents with shortness of breath. I believe the patient has acute congestive heart failure exacerbation. The patient was given aspirin, nitroglycerin, and Lasix. The patient will be admitted to the care of Dr. Rondon from the panel team as he has [facility] insurance and was admitted to Dr. Rondon in the past. The patient will be admitted to a telemetry bed. I doubt pneumonia, pneumothorax, pulmonary embolism, or aortic dissection. Departure Diagnosis: Primary Impression: Chest pain Chest pain type: unspecified Qualified Code: R07.9 - Chest pain, unspecified type Additional Impressions: Shortness of breath CHF (congestive heart failure) Congestive heart failure type: unspecified congestive heart failure type Congestive heart failure chronicity: acute Qualified Code: I50.9 - Acute congestive heart failure, unspecified congestive heart failure type Condition: ASHLEY Claros MD Mar 23, 2017 23:25
[2017-03-23] MEDS ORDERED: ACETAMINOPHEN 325 MG TAB PO PRN (23:30)
[2017-03-23] MEDS ORDERED: ONDANSETRON 4 MG INJ IV PRN (23:30)
[2017-03-24] VITALS (12 sets, daily range): BP systolic 122–168; BP diastolic 78–116; PULSE 92–130; RESP 17–20
[2017-03-24] MEDS ORDERED: LEVALBUTEROL (NEB) 0.63 MG/3 ML AMP HHN PRN (01:30)
[2017-03-24] MEDS ORDERED: IPRATROPIUM (NEB) 0.5 MG/2.5 ML AMP HHN PRN (01:30)
[2017-03-24] MEDS ORDERED: FUROSEMIDE 20 MG INJ IV SCH (06:00)
[2017-03-24] MEDS ORDERED: GLUCAGON 1 MG INJ IM PRN (06:30)
[2017-03-24] MEDS ORDERED: GLUCOSE GEL 15 GRAM TUBE PO PRN ×2 (06:30)
[2017-03-24] MEDS ORDERED: DEXTROSE 50% 50 ML SYRINGE IV PRN ×2 (06:30)
[2017-03-24] MEDS ORDERED: METHYLPREDNISOLONE 125 MG INJ IV SCH (06:30)
[2017-03-24] MEDS ORDERED: GLUCOSE GEL 15 GRAM TUBE BUCCAL PRN (06:30)
--- NOTE | 2017-03-24 07:33 | HP ---
Date/Time of Note Date/Time of Note DATE: 03/24/17 TIME: 07:27 Assessment/Plan VTE Prophylaxis VTE Prophylaxis Intervention: heparin Lines/Catheters IV [facility] Saline Lock Urinary Cath still in place: No Assessment/Plan Assessment/Plan ASSESSMENT 1. CHF exacerbation 2. History of COPD 3. History of cardiomyopathy with ejection fraction of 20%, most likely from illicit drug use. 4. History of human immunodeficiency virus, on HAART. 5. History of bipolar, on Seroquel. 6. Poorly controlled diabetes, with hyperglycemia 7. Medication noncompliance. PLAN: He will be diuresed with IV Lasix Strict ins and outs, monitor urine output Continue his home cardiac medications Supplemental oxygen and bronchodilators as well as steroid Continue HIV medications Cardiology consult HPI/ROS Admit Date/Time Admit Date/Time Mar 23, 2017 at 23:20 Hx of Present Illness The patient is a 51-year-old male with a history of dilated cardiomyopathy with an EF of 20%, COPD, HIV, hepatitis C, diabetes, psychiatric disorder, bipolar, medication noncompliance, as well as aggressive/combative behavior presented to the ER complaining of chest pain shortness of breath. Chest pain is slightly left-sided, nonradiating. He also reported generalized weakness. When he presented to the ER, he was found to have a blood glucose greater than 400. Initial troponin is negative. EKG was no ST elevation or depression. Chest x-ray shows pulmonary vascular congestion. PMH/Family/Social Social History Smoking Status: Current every day smoker Exam/Review of Systems Vital Signs Vitals Vital Signs Date Time Temp Pulse Resp B/P Pulse Ox O2 Delivery O2 Flow Rate FiO2 03/24/17 04:45 103 03/24/17 04:14 98.5 19 122/80 98 03/24/17 01:52 2.0 03/24/17 01:52 Nasal Cannula Intake and Output 03/23/17 03/23/17 03/24/17 15:00 23:00 07:00 Intake Total 200 ml Balance 200 ml Exam Constitutional: other (Patient noted to be in mild distress due to shortness of breath) Head: atraumatic, normocephalic Eyes: EOMI, PERRL Respiratory: diminished breath sounds Cardiovascular: regular rate and rhythm Gastrointestinal: non-tender, soft Extremities: normal pulses Labs Result Diagram: 03/23/17212803/23/172128 Medications Medications Current Medications Carvedilol (Coreg) 6.25 mg BID PO ; Start 03/24/17 at 09:00 Gabapentin (Neurontin) 300 mg TID PO ; Start 03/24/17 at 09:00 Insulin Glargine (Lantus) 42 unit DAILY SC ; Start 03/24/17 at 09:00 Lisinopril (Zestril) 5 mg DAILY PO ; Start 03/24/17 at 09:00 Quetiapine Fumarate (Seroquel) 400 mg HS PO ; Start 03/24/17 at 21:00 Miscellaneous Medication (Isentress) 400 mg BID PO ; Start 03/24/17 at 09:00 Tramadol HCl (Ultram) 50 mg Q6H PRN PO PAIN; Start 03/24/17 at 06:00 Insulin Human NPH (Humulin N) 24 unit TID SC ; Start 03/24/17 at 09:00 Diagnostic Test (Pha) (Accu-Chek) 1 ea 02 XX ; Start 03/25/17 at 02:00 Miscellaneous Information 1 ea NOTE XX ; Start 03/24/17 at 06:30 Glucose (Glutose) 15 gm Q15M PRN PO DECREASED GLUCOSE; Start 03/24/17 at 06:30 Glucose (Glutose) 22.5 gm Q15M PRN PO DECREASED GLUCOSE; Start 03/24/17 at 06: 30 Dextrose (D50w Syringe) 25 ml Q15M PRN IV DECREASED GLUCOSE; Start 03/24/17 at 06:30 Dextrose (D50w Syringe) 50 ml Q15M PRN IV DECREASED GLUCOSE; Start 03/24/17 at 06:30 Glucagon (Glucagen) 1 mg Q15M PRN IM DECREASED GLUCOSE; Start 03/24/17 at 06: 30 Glucose (Glutose) 15 gm Q15M PRN BUCCAL DECREASED GLUCOSE; Start 03/24/17 at 06:30 Methylprednisolone Sodium Succinate (Solu-Medrol) 80 mg DAILY IV Last administered on 03/24/17 06:49; Admin Dose 80 MG; Start 03/24/17 at 06:30 LEODAN SHERWOOD MD Mar 24, 2017 07:33
[2017-03-24] MEDS: LISINOPRIL 5 MG TAB PO SCH (08:12)
[2017-03-24] MEDS: GABAPENTIN 300 MG CAP PO SCH ×3 (08:12→20:19)
[2017-03-24] MEDS: RALTEGRAVIR 400 MG TAB PO SCH ×2 (08:12→20:19)
[2017-03-24] MEDS: ALBUTEROL 18 GM INHALER INH SCH ×4 (08:13→20:18)
[2017-03-24] MEDS: INSULIN ASPART [NOVOLOG] 3 ML PEN SC SCH ×5 (08:16→20:26)
[2017-03-24] MEDS: NPH, HUMAN INSULIN ISOPHANE 3ML VIAL SC SCH ×2 (08:17→12:22)
[2017-03-24] MEDS ORDERED: INSULIN GLARGINE [LANtus] 3 ML PEN SC SCH (09:00)
[2017-03-24] MEDS: HEPARIN 5,000 UNIT/0.5 ML VIAL SC SCH ×2 (12:22→20:19)
[2017-03-24] MEDS ORDERED: FUROSEMIDE 20 MG TAB PO SCH (12:30)
--- NOTE | 2017-03-24 12:35 | PN ---
Date/Time of Note Date/Time of Note DATE: 03/24/17 TIME: 12:18 Assessment/Plan VTE Prophylaxis VTE Prophylaxis Intervention: heparin Lines/Catheters IV Catheter Type (from Nrs): Saline Lock Urinary Cath still in place: No Assessment/Plan Assessment/Plan 1. Right upper chest pain with tenderness, atypical, musculoskeletal 2. Congestive heart failure, systolic, acute on chronic, lasix 2. Dilated cardiomyopathy likely secondary to drug use with last known EF of 20 %. stable, 3. Chronic obstructive pulmonary disease, on neb, stop steroid 4. 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 Psychiatric disorder, bipolar disorder. on seroqual 6. Chronic Hep C with Abnormal LFTs 7. DM, uncontrolled due to steroid, stop soluMedrol 8. DVT prophylaxis: heparin Subjective 24 Hr Interval Summary Free Text/Dictation no respiratory distress. Left upper chest constant pain, with local tenderness Exam/Review of Systems Vital Signs Vitals Vital Signs Date Time Temp Pulse Resp B/P Pulse Ox O2 Delivery O2 Flow Rate FiO2 03/24/17 11:28 98.3 101 18 137/108 100 03/24/17 08:15 Nasal Cannula 2.0 Intake and Output 03/23/17 03/23/17 03/24/17 15:00 23:00 07:00 Intake Total 200 ml Balance 200 ml Exam Constitutional: alert, oriented, well developed Head: atraumatic, normocephalic Eyes: EOMI, PERRL, nl conjunctiva, nl lids, nl sclera ENMT: nl external ears & nose, nl lips & teeth, nl nasal mucosa & septum Neck: non-tender, supple Respiratory: clear to auscultation, normal air movement, No congested cough, No crackles/rales, No diminished breath sounds, No intercostal retraction, No labored breathing, No other, No respirations, No tactile fremitus, No wheezing Cardiovascular: nl pulses, regular rate and rhythm, No S3, No S4, No bruits, No diastolic murmur, No edema, No gallop, No irregular rhythm, No jugular venous distention (JVD), No murmurs/extra sounds, No other, No rub, No systolic murmur Gastrointestinal: nl liver, spleen, non-tender, soft Musculoskeletal: nl extremities to inspection Extremities: edema, normal pulses Neurological: [employer]ICAL EX[employer]INER II-XII intact, nl mental status, nl speech, nl strength Results Result Diagram: 03/23/17212803/23/172128 Results 24 hrs Laboratory Tests Test 03/23/17 21:29 03/23/17 23:41 03/24/17 08:01 03/24/17 12:09 White Blood Count 10.0 Red Blood Count 4.54 L Hemoglobin 13.6 L Hematocrit 40.4 L Mean Corpuscular Volume 89.0 Mean Corpuscular Hemoglobin 30.0 Mean Corpuscular Hemoglobin Concent 33.7 Red Cell Distribution Width 18.6 H Platelet Count 152 Mean Platelet Volume 10.9 H Neutrophils % 76.8 Lymphocytes % 15.6 Monocytes % 6.7 Eosinophils % 0.2 Basophils % 0.2 Nucleated Red Blood Cells % 0.3 H Neutrophils # 7.7 H Lymphocytes # 1.6 Monocytes # 0.7 Eosinophils # 0.0 Basophils # 0.0 Nucleated Red Blood Cells # 0.0 Urine Color YELLOW Urine Clarity CLEAR Urine pH 6.0 Urine Specific [place] 1.015 Urine Ketones NEGATIVE Urine Nitrite NEGATIVE Urine Bilirubin NEGATIVE Urine Urobilinogen 2+ H Urine Leukocyte Esterase NEGATIVE Urine Microscopic RBC 2 Urine Microscopic WBC 1 Urine Hemoglobin 1+ H Urine Glucose 3+ H Urine Total Protein 2+ H Sodium Level 133 L Potassium Level 4.3 Chloride Level 98 Carbon Dioxide Level 27 Anion Gap 12 Blood Urea Nitrogen 19 Creatinine 0.64 Glucose Level 486 *H Calcium Level 7.5 L Troponin I 0.047 Urine Opiates Screen Negative Urine Barbiturates Negative Urine Amphetamines Screen Negative Urine Benzodiazepines Screen Negative Urine Cocaine Screen Negative Urine Cannabinoids Positive Bedside Glucose 402 *H 288 H 327 H Medications Medications Current Medications Carvedilol (Coreg) 6.25 mg BID PO Last administered on 03/24/17 08:12; Admin Dose 6.25 MG; Start 03/24/17 at 09:00 Gabapentin (Neurontin) 300 mg TID PO Last administered on 03/24/17 08:12; Admin Dose 300 MG; Start 03/24/17 at 09:00 Insulin Glargine (Lantus) 42 unit DAILY SC Last administered on 03/24/17 08: 16; Admin Dose 42 UNIT; Start 03/24/17 at 09:00 Lisinopril (Zestril) 5 mg DAILY PO Last administered on 10/25/17at 08:12; Admin Dose 5 MG; Start 03/24/17 at 09:00 Quetiapine Fumarate (Seroquel) 400 mg HS PO ; Start 03/24/17 at 21:00 Miscellaneous Medication (Isentress) 400 mg BID PO Last administered on 08:12; Admin Dose 400 MG; Start 03/24/17 at 09:00 Tramadol HCl (Ultram) 50 mg Q6H PRN PO PAIN; Start 03/24/17 at 06:00 Insulin Human NPH (Humulin N) 24 unit TID SC Last administered on 03/24/17 08 :17; Admin Dose 24 UNIT; Start 03/24/17 at 09:00 Diagnostic Test (Pha) (Accu-Chek) 1 ea 02 XX ; Start 03/25/17 at 02:00 Miscellaneous Information 1 ea NOTE XX ; Start 03/24/17 at 06:30 Glucose (Glutose) 15 gm Q15M PRN PO DECREASED GLUCOSE; Start 03/24/17 at 06:30 Glucose (Glutose) 22.5 gm Q15M PRN PO DECREASED GLUCOSE; Start 03/24/17 at 06: 30 Dextrose (D50w Syringe) 25 ml Q15M PRN IV DECREASED GLUCOSE; Start 03/24/17 at 06:30 Dextrose (D50w Syringe) 50 ml Q15M PRN IV DECREASED GLUCOSE; Start 03/24/17 at 06:30 Glucagon (Glucagen) 1 mg Q15M PRN IM DECREASED GLUCOSE; Start 03/24/17 at 06: 30 Glucose (Glutose) 15 gm Q15M PRN BUCCAL DECREASED GLUCOSE; Start 03/24/17 at 06:30 Methylprednisolone Sodium Succinate (Solu-Medrol) 80 mg DAILY IV Last administered on 03/24/17 06:49; Admin Dose 80 MG; Start 03/24/17 at 06:30 Influenza Virus Vaccine (Fluzone) 0.5 ml ONCE ONCE IM* ; Start 03/25/17 at 12: 00; Stop 03/25/17 at 12:01 Heparin Sodium (Porcine) (Heparin (5000 Units/0.5 ml)) 5,000 unit BID SC ; Start 03/24/17 at 12:00 BEVERLY LIGHT MD Mar 24, 2017 12:30
[2017-03-24] MEDS: POTASSIUM CHLORIDE (SR) 10 MEQ TAB PO SCH (13:06)
[2017-03-24] MEDS: traMADol 50 MG TAB PO PRN (17:45)
[2017-03-24] MEDS ORDERED: NPH, HUMAN INSULIN ISOPHANE 3ML VIAL SC SCH (18:05)
--- NOTE | 2017-03-24 19:39 | CONS ---
Date/Time of Note Date/Time of Note DATE: 03/24/17 TIME: 19:35 Assessment/Plan Assessment/Plan Chief Complaint/Hosp Course Assessment: Acute on chronic systolic heart failure Dilated cardiomyopathy - LVEF 20% on echocardiogram 10/10/2016 HIV/AIDS Diabetes mellitus Chronic obstructive pulmonary disease Bipolar disorder Medication noncompliance Recommendations: -Lasix 40mg IV daily -continue carvedilol 6.25mg BID and lisinopril 5mg daily, up titrate as tolerated when euvolemic Problems: Consultation Date/Type/Reason Admit Date/Time Mar 23, 2017 at 23:20 Hx of Present Illness The patient is a 51 year-old male with dilated cardiomyopathy who presented with shortness of breath and chest pain for the past 1-2 weeks. Chest x-ray showed pulmonary vascular congestion consistent with decompensated heart failure. Troponins have been negative x 2. 14 point review of systems negative other than per HPI. Past Medical History Chronic systolic heart failure Dilated cardiomyopathy HIV/AIDS Diabetes mellitus Chronic obstructive pulmonary disease Bipolar disorder Medication noncompliance Family History Significant Family History: no pertinent family hx Social History Alcohol Use: sober Smoking Status: Current every day smoker Drug Use: none Exam/Review of Systems Vital Signs Vitals Vital Signs Date Time Temp Pulse Resp B/P Pulse Ox O2 Delivery O2 Flow Rate FiO2 03/24/17 18:06 2.0 03/24/17 16:12 92 03/24/17 16:03 98.0 18 132/99 96 03/24/17 08:15 Nasal Cannula Intake and Output 03/23/17 03/23/17 03/24/17 15:00 23:00 07:00 Intake Total 200 ml Balance 200 ml Exam Constitutional: alert, well developed Psych: nl mood/affect, no complaints Head: atraumatic, normocephalic Eyes: nl conjunctiva, nl lids ENMT: nl external ears & nose, nl nasal mucosa & septum Neck: jvd, non-tender, supple Respiratory: crackles/rales, diminished breath sounds Cardiovascular: regular rate and rhythm Gastrointestinal: non-tender, soft Musculoskeletal: nl extremities to inspection Extremities: No clubbing, No cyanosis, No edema Neurological: nl mental status, nl speech Skin: nl turgor Results Result Diagram: 03/24/17 1341 03/24/17 1341 Results 24 hrs Laboratory Tests Test 03/23/17 21:29 03/23/17 23:41 03/24/17 08:01 03/24/17 12:09 White Blood Count 10.0 Red Blood Count 4.54 L Hemoglobin 13.6 L Hematocrit 40.4 L Mean Corpuscular Volume 89.0 Mean Corpuscular Hemoglobin 30.0 Mean Corpuscular Hemoglobin Concent 33.7 Red Cell Distribution Width 18.6 H Platelet Count 152 Mean Platelet Volume 10.9 H Neutrophils % 76.8 Lymphocytes % 15.6 Monocytes % 6.7 Eosinophils % 0.2 Basophils % 0.2 Nucleated Red Blood Cells % 0.3 H Neutrophils # 7.7 H Lymphocytes # 1.6 Monocytes # 0.7 Eosinophils # 0.0 Basophils # 0.0 Nucleated Red Blood Cells # 0.0 Urine Color YELLOW Urine Clarity CLEAR Urine pH 6.0 Urine Specific [place] 1.015 Urine Ketones NEGATIVE Urine Nitrite NEGATIVE Urine Bilirubin NEGATIVE Urine Urobilinogen 2+ H Urine Leukocyte Esterase NEGATIVE Urine Microscopic RBC 2 Urine Microscopic WBC 1 Urine Hemoglobin 1+ H Urine Glucose 3+ H Urine Total Protein 2+ H Sodium Level 133 L Potassium Level 4.3 Chloride Level 98 Carbon Dioxide Level 27 Anion Gap 12 Blood Urea Nitrogen 19 Creatinine 0.64 Glucose Level 486 *H Calcium Level 7.5 L Troponin I 0.047 Urine Opiates Screen Negative Urine Barbiturates Negative Urine Amphetamines Screen Negative Urine Benzodiazepines Screen Negative Urine Cocaine Screen Negative Urine Cannabinoids Positive Bedside Glucose 402 *H 288 H 327 H Test 03/24/17 13:41 03/24/17 17:12 White Blood Count 11.3 H Red Blood Count 4.72 Hemoglobin 14.1 Hematocrit 42.4 Mean Corpuscular Volume 89.8 Mean Corpuscular Hemoglobin 29.9 Mean Corpuscular Hemoglobin Concent 33.3 Red Cell Distribution Width 18.7 H Platelet Count 130 L Mean Platelet Volume 11.2 H Neutrophils % 92.8 H Lymphocytes % 5.7 L Monocytes % 1.0 Eosinophils % 0.0 Basophils % 0.1 Nucleated Red Blood Cells % 0.0 Neutrophils # 10.5 H Lymphocytes # 0.6 L Monocytes # 0.1 L Eosinophils # 0.0 Basophils # 0.0 Nucleated Red Blood Cells # 0.0 Sodium Level 134 L Potassium Level 4.5 Chloride Level 97 Carbon Dioxide Level 34 H Anion Gap 8 Blood Urea Nitrogen 16 Creatinine 0.64 Glucose Level 410 *H Hemoglobin A1c 12.8 H Calcium Level 7.9 L Phosphorus Level 3.3 Magnesium Level 1.3 L Total Bilirubin 0.5 Direct Bilirubin 0.00 Indirect Bilirubin 0.5 Aspartate Amino Transf (AST/SGOT) 50 H Alanine Aminotransferase (ALT/SGPT) 45 Alkaline Phosphatase 288 H Creatine Kinase 172 Creatine Kinase Index 1.8 Creatinine Kinase MB (Mass) 3.05 H Troponin I 0.033 Total Protein 7.4 Albumin 2.6 L Globulin 4.80 H Albumin/Globulin Ratio 0.54 Bedside Glucose 316 H Medications Medications Current Medications Carvedilol (Coreg) 6.25 mg BID PO Last administered on 03/24/17 08:12; Admin Dose 6.25 MG; Start 03/24/17 at 09:00 Gabapentin (Neurontin) 300 mg TID PO Last administered on 03/24/17 12:18; Admin Dose 300 MG; Start 03/24/17 at 09:00 Lisinopril (Zestril) 5 mg DAILY PO Last administered on 03/24/17 08:12; Admin Dose 5 MG; Start 03/24/17 at 09:00 Quetiapine Fumarate (Seroquel) 400 mg HS PO ; Start 03/24/17 at 21:00 Miscellaneous Medication (Isentress) 400 mg BID PO Last administered on 08:12; Admin Dose 400 MG; Start 03/24/17 at 09:00 Tramadol HCl (Ultram) 50 mg Q6H PRN PO PAIN Last administered on 03/24/17 17: 45; Admin Dose 50 MG; Start 03/24/17 at 06:00 Diagnostic Test (Pha) (Accu-Chek) 1 ea 02 XX ; Start 03/25/17 at 02:00 Miscellaneous Information 1 ea NOTE XX ; Start 03/24/17 at 06:30 Glucose (Glutose) 15 gm Q15M PRN PO DECREASED GLUCOSE; Start 03/24/17 at 06:30 Glucose (Glutose) 22.5 gm Q15M PRN PO DECREASED GLUCOSE; Start 03/24/17 at 06: 30 Dextrose (D50w Syringe) 25 ml Q15M PRN IV DECREASED GLUCOSE; Start 03/24/17 at 06:30 Dextrose (D50w Syringe) 50 ml Q15M PRN IV DECREASED GLUCOSE; Start 10/25/17 at 06:30 Glucagon (Glucagen) 1 mg Q15M PRN IM DECREASED GLUCOSE; Start 03/24/17 at 06: 30 Glucose (Glutose) 15 gm Q15M PRN BUCCAL DECREASED GLUCOSE; Start 03/24/17 at 06:30 Influenza Virus Vaccine (Fluzone) 0.5 ml ONCE ONCE IM* ; Start 03/25/17 at 12: 00; Stop 03/25/17 at 12:01 Heparin Sodium (Porcine) (Heparin (5000 Units/0.5 ml)) 5,000 unit BID SC Last administered on 03/24/17 12:22; Admin Dose 5,000 UNIT; Start 03/24/17 at 12: 00 Potassium Chloride (Klor-Con 10) 10 meq DAILY PO Last administered on 13:06; Admin Dose 10 MEQ; Start 03/24/17 at 13:00 Furosemide (Lasix) 40 mg DAILY PO ; Start 03/25/17 at 09:00 Insulin Glargine (Lantus) 50 unit DAILY@08 SC ; Start 03/25/17 at 08:00 JORGE ALBERTO GRANGER MD Mar 24, 2017 19:39
[2017-03-24] MEDS: QUETIAPINE 100 MG TAB PO SCH (20:19)
[2017-03-24] MEDS ORDERED: INSULIN ASPART [NOVOLOG] 3 ML PEN SC ONE (20:30)
[2017-03-25] VITALS (15 sets, daily range): BP systolic 90–120; BP diastolic 52–76; PULSE 98–115; RESP 18–19
[2017-03-25] MEDS: ALBUTEROL 18 GM INHALER INH SCH ×6 (01:41→21:00)
[2017-03-25] MEDS ORDERED: ACCU-CHEK XX SCH (02:00)
[2017-03-25] MEDS: ACCU-CHEK XX SCH (02:00)
[2017-03-25] MEDS ORDERED: INSULIN GLARGINE [LANtus] 3 ML PEN SC SCH ×2 (08:00)
[2017-03-25] MEDS: GABAPENTIN 300 MG CAP PO SCH ×3 (08:18→21:06)
[2017-03-25] MEDS: RALTEGRAVIR 400 MG TAB PO SCH ×2 (08:18→21:11)
[2017-03-25] MEDS: INSULIN ASPART [NOVOLOG] 3 ML PEN SC SCH ×7 (08:20→21:00)
[2017-03-25] MEDS: HEPARIN 5,000 UNIT/0.5 ML VIAL SC SCH ×2 (08:22→21:10)
[2017-03-25] MEDS ORDERED: FUROSEMIDE 40 MG TAB PO SCH (09:00)
[2017-03-25] MEDS ORDERED: FUROSEMIDE 20 MG TAB PO SCH (09:00)
[2017-03-25] MEDS: FUROSEMIDE 40 MG INJ IV SCH (09:17)
[2017-03-25] MEDS: LISINOPRIL 5 MG TAB PO SCH (09:17)
[2017-03-25] MEDS: POTASSIUM CHLORIDE (SR) 10 MEQ TAB PO SCH (09:17)
[2017-03-25] MEDS ORDERED: INFLUENZA VIRUS VACCINE 0.5 ML SYG IM* ONE (12:00)
[2017-03-25] MEDS ORDERED: LIDOCAINE 1% (MPF) 5 ML VIAL ONE (13:45)
--- NOTE | 2017-03-25 14:44 | PN ---
Date/Time of Note Date/Time of Note DATE: 03/25/17 TIME: 14:39 Assessment/Plan VTE Prophylaxis VTE Prophylaxis Intervention: heparin Lines/Catheters IV Catheter Type (from Nrs): Saline Lock Urinary Cath still in place: No Assessment/Plan Assessment/Plan 1. Congestive heart failure, systolic, acute on chronic, improving, lasix 2. Right upper chest pain with tenderness, atypical, musculoskeletal 3. Dilated cardiomyopathy likely secondary to drug use with last known EF of 20 %. stable, 4. Chronic obstructive pulmonary disease, on neb, stop steroid 5. Human immunodeficiency virus, CD4 35, on treatment 6. Psychiatric disorder, bipolar disorder. on seroqual 7. Chronic Hep C with Abnormal LFTs 8. DM, uncontrolled due to steroid, stop soluMedrol, adjusted insulin 9. DVT prophylaxis: heparin Subjective 24 Hr Interval Summary Free Text/Dictation less chest pain and shortness of breath Exam/Review of Systems Vital Signs Vitals Vital Signs Date Time Temp Pulse Resp B/P Pulse Ox O2 Delivery O2 Flow Rate FiO2 03/25/17 12:12 100 03/25/17 12:00 98.0 18 108/52 94 03/25/17 08:30 Nasal Cannula 2.0 Intake and Output 03/24/17 03/24/17 03/25/17 15:00 23:00 07:00 Intake Total 1000 ml 300 ml Balance 1000 ml 300 ml Exam Constitutional: alert, oriented, well developed Psych: nl mood/affect, no complaints Head: atraumatic, normocephalic Eyes: EOMI, PERRL, nl conjunctiva, nl lids, nl sclera ENMT: nl external ears & nose, nl lips & teeth, nl nasal mucosa & septum Neck: non-tender, supple Respiratory: clear to auscultation, normal air movement, No congested cough, No crackles/rales, No diminished breath sounds, No intercostal retraction, No labored breathing, No other, No respirations, No tactile fremitus, No wheezing Cardiovascular: nl pulses, regular rate and rhythm, No S3, No S4, No bruits, No diastolic murmur, No edema, No gallop, No irregular rhythm, No jugular venous distention (JVD), No murmurs/extra sounds, No other, No rub, No systolic murmur Gastrointestinal: nl liver, spleen, non-tender, soft, No ascites, No bowel sounds, No distended, No firm, No hepatomegaly, No mass , No other, No rebound or guarding, No splenomegaly, No surgical scars, No tender Musculoskeletal: nl extremities to inspection Extremities: edema 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, nl mental status, nl speech, nl strength Results Result Diagram: 03/25/17 0935 03/25/17 0935 Results 24 hrs Laboratory Tests Test 03/24/17 17:12 03/24/17 19:58 03/24/17 20:01 03/25/17 08:15 Bedside Glucose 316 H 304 H 178 Troponin I 0.033 Test 03/25/17 09:35 03/25/17 11:51 White Blood Count 14.2 #H Red Blood Count 4.48 L Hemoglobin 13.5 L Hematocrit 39.9 L Mean Corpuscular Volume 89.1 Mean Corpuscular Hemoglobin 30.1 Mean Corpuscular Hemoglobin Concent 33.8 Red Cell Distribution Width 18.6 H Platelet Count 128 L Mean Platelet Volume 10.9 H Neutrophils % 83.8 H Lymphocytes % 10.6 L Monocytes % 5.1 Eosinophils % 0.0 Basophils % 0.1 Nucleated Red Blood Cells % 0.0 Neutrophils # 11.9 H Lymphocytes # 1.5 Monocytes # 0.7 Eosinophils # 0.0 Basophils # 0.0 Nucleated Red Blood Cells # 0.0 Sodium Level 139 Potassium Level 4.2 Chloride Level 99 Carbon Dioxide Level 32 H Anion Gap 12 Blood Urea Nitrogen 17 Creatinine 0.68 Glucose Level 209 # Calcium Level 7.9 L Troponin I 0.040 Bedside Glucose 198 Medications Medications Current Medications Carvedilol (Coreg) 6.25 mg BID PO Last administered on 03/25/17 09:17; Admin Dose 6.25 MG; Start 03/24/17 at 09:00 Gabapentin (Neurontin) 300 mg TID PO Last administered on 03/25/17 12:14; Admin Dose 300 MG; Start 03/24/17 at 09:00 Lisinopril (Zestril) 5 mg DAILY PO Last administered on 03/25/17 09:17; Admin Dose 5 MG; Start 03/24/17 at 09:00 Quetiapine Fumarate (Seroquel) 400 mg HS PO Last administered on 03/24/17 20: 19; Admin Dose 400 MG; Start 03/24/17 at 21:00 Miscellaneous Medication (Isentress) 400 mg BID PO Last administered on 08:18; Admin Dose 400 MG; Start 03/24/17 at 09:00 Tramadol HCl (Ultram) 50 mg Q6H PRN PO PAIN Last administered on 03/24/17 17: 45; Admin Dose 50 MG; Start 03/24/17 at 06:00 Diagnostic Test (Pha) (Accu-Chek) 1 ea 02 XX ; Start 03/25/17 at 02:00 Miscellaneous Information 1 ea NOTE XX ; Start 03/24/17 at 06:30 Glucose (Glutose) 15 gm Q15M PRN PO DECREASED GLUCOSE; Start 03/24/17 at 06:30 Glucose (Glutose) 22.5 gm Q15M PRN PO DECREASED GLUCOSE; Start 03/24/17 at 06: 30 Dextrose (D50w Syringe) 25 ml Q15M PRN IV DECREASED GLUCOSE; Start 03/24/17 at 06:30 Dextrose (D50w Syringe) 50 ml Q15M PRN IV DECREASED GLUCOSE; Start 03/24/17 at 06:30 Glucagon (Glucagen) 1 mg Q15M PRN IM DECREASED GLUCOSE; Start 03/24/17 at 06: 30 Glucose (Glutose) 15 gm Q15M PRN BUCCAL DECREASED GLUCOSE; Start 03/24/17 at 06:30 Heparin Sodium (Porcine) (Heparin (5000 Units/0.5 ml)) 5,000 unit BID SC Last administered on 03/25/17 08:22; Admin Dose 5,000 UNIT; Start 03/24/17 at 12: 00 Potassium Chloride (Klor-Con 10) 10 meq DAILY PO Last administered on 09:17; Admin Dose 10 MEQ; Start 03/24/17 at 13:00 Insulin Glargine (Lantus) 50 unit DAILY@08 SC Last administered on 03/25/17 08:21; Admin Dose 50 UNIT; Start 03/25/17 at 08:00 Furosemide (Lasix) 40 mg DAILY IV Last administered on 03/25/17 09:17; Admin Dose 40 MG; Start 03/25/17 at 09:00 BEVERLY LIGHT MD Mar 25, 2017 14:44
[2017-03-25] MEDS ORDERED: FUROSEMIDE 40 MG INJ IV ONE (16:00)
--- NOTE | 2017-03-25 16:01 | CONS ---
Date/Time of Note Date/Time of Note DATE: 03/25/17 TIME: 15:57 Assessment/Plan Assessment/Plan Chief Complaint/Hosp Course Assessment: Acute on chronic systolic heart failure - improving with diuresis Dilated cardiomyopathy - LVEF 20% on echocardiogram 10/10/2016 HIV/AIDS Diabetes mellitus Chronic obstructive pulmonary disease Bipolar disorder Medication noncompliance Recommendations: -additional Lasix 40mg IV x 1, then continue Lasix 40mg IV daily -continue carvedilol 6.25mg BID and lisinopril 5mg daily, up titrate as tolerated Problems: Consultation Date/Type/Reason Admit Date/Time Mar 23, 2017 at 23:20 Initial Consult Date Type of Consultation: Cardiology 24 HR Interval Summary Free Text/Dictation Shortness of breath improving. Detailed Summary Additional Comments 14 point review of systems without changes. Exam/Review of Systems Vital Signs Vitals Vital Signs Date Time Temp Pulse Resp B/P Pulse Ox O2 Delivery O2 Flow Rate FiO2 03/25/17 15:42 98.0 70 18 110/68 94 03/25/17 08:30 Nasal Cannula 2.0 Intake and Output 03/24/17 03/24/17 03/25/17 15:00 23:00 07:00 Intake Total 1000 ml 300 ml Balance 1000 ml 300 ml Exam Constitutional: alert, well developed Psych: nl mood/affect, no complaints Head: atraumatic, normocephalic Eyes: nl conjunctiva, nl lids ENMT: nl external ears & nose, nl nasal mucosa & septum Neck: jvd, non-tender, supple Respiratory: crackles/rales, diminished breath sounds Cardiovascular: regular rate and rhythm Gastrointestinal: non-tender, soft Musculoskeletal: nl extremities to inspection Extremities: No clubbing, No cyanosis, No edema Neurological: nl mental status, nl speech Skin: nl turgor Results Result Diagram: 03/25/17 0935 03/25/17 0935 Results 24 hrs Laboratory Tests Test 03/24/17 17:12 03/24/17 19:58 03/24/17 20:01 03/25/17 08:15 Bedside Glucose 316 H 304 H 178 Troponin I 0.033 Test 03/25/17 09:35 03/25/17 11:51 White Blood Count 14.2 #H Red Blood Count 4.48 L Hemoglobin 13.5 L Hematocrit 39.9 L Mean Corpuscular Volume 89.1 Mean Corpuscular Hemoglobin 30.1 Mean Corpuscular Hemoglobin Concent 33.8 Red Cell Distribution Width 18.6 H Platelet Count 128 L Mean Platelet Volume 10.9 H Neutrophils % 83.8 H Lymphocytes % 10.6 L Monocytes % 5.1 Eosinophils % 0.0 Basophils % 0.1 Nucleated Red Blood Cells % 0.0 Neutrophils # 11.9 H Lymphocytes # 1.5 Monocytes # 0.7 Eosinophils # 0.0 Basophils # 0.0 Nucleated Red Blood Cells # 0.0 Sodium Level 139 Potassium Level 4.2 Chloride Level 99 Carbon Dioxide Level 32 H Anion Gap 12 Blood Urea Nitrogen 17 Creatinine 0.68 Glucose Level 209 # Calcium Level 7.9 L Troponin I 0.040 Bedside Glucose 198 Medications Medications Current Medications Carvedilol (Coreg) 6.25 mg BID PO Last administered on 03/25/17 09:17; Admin Dose 6.25 MG; Start 03/24/17 at 09:00 Gabapentin (Neurontin) 300 mg TID PO Last administered on 03/25/17 12:14; Admin Dose 300 MG; Start 03/24/17 at 09:00 Lisinopril (Zestril) 5 mg DAILY PO Last administered on 03/25/17 09:17; Admin Dose 5 MG; Start 03/24/17 at 09:00 Quetiapine Fumarate (Seroquel) 400 mg HS PO Last administered on 03/24/17 20: 19; Admin Dose 400 MG; Start 03/24/17 at 21:00 Miscellaneous Medication (Isentress) 400 mg BID PO Last administered on 08:18; Admin Dose 400 MG; Start 03/24/17 at 09:00 Tramadol HCl (Ultram) 50 mg Q6H PRN PO PAIN Last administered on 03/24/17 17: 45; Admin Dose 50 MG; Start 03/24/17 at 06:00 Diagnostic Test (Pha) (Accu-Chek) 1 ea 02 XX ; Start 03/25/17 at 02:00 Miscellaneous Information 1 ea NOTE XX ; Start 03/24/17 at 06:30 Glucose (Glutose) 15 gm Q15M PRN PO DECREASED GLUCOSE; Start 03/24/17 at 06:30 Glucose (Glutose) 22.5 gm Q15M PRN PO DECREASED GLUCOSE; Start 03/24/17 at 06: 30 Dextrose (D50w Syringe) 25 ml Q15M PRN IV DECREASED GLUCOSE; Start 03/24/17 at 06:30 Dextrose (D50w Syringe) 50 ml Q15M PRN IV DECREASED GLUCOSE; Start 03/24/17 at 06:30 Glucagon (Glucagen) 1 mg Q15M PRN IM DECREASED GLUCOSE; Start 03/24/17 at 06: 30 Glucose (Glutose) 15 gm Q15M PRN BUCCAL DECREASED GLUCOSE; Start 03/24/17 at 06:30 Heparin Sodium (Porcine) (Heparin (5000 Units/0.5 ml)) 5,000 unit BID SC Last administered on 03/25/17 08:22; Admin Dose 5,000 UNIT; Start 03/24/17 at 12: 00 Potassium Chloride (Klor-Con 10) 10 meq DAILY PO Last administered on 09:17; Admin Dose 10 MEQ; Start 03/24/17 at 13:00 Insulin Glargine (Lantus) 50 unit DAILY@08 SC Last administered on 03/25/17 08:21; Admin Dose 50 UNIT; Start 03/25/17 at 08:00 Furosemide (Lasix) 40 mg DAILY IV Last administered on 03/25/17 09:17; Admin Dose 40 MG; Start 03/25/17 at 09:00 JORGE ALBERTO GRANGER MD Mar 25, 2017 16:01
[2017-03-25] MEDS: traMADol 50 MG TAB PO PRN (17:16)
[2017-03-25] MEDS: QUETIAPINE 100 MG TAB PO SCH (21:07)
[2017-03-26] VITALS (12 sets, daily range): BP systolic 102–127; BP diastolic 70–88; PULSE 89–114; RESP 16–19
[2017-03-26] MEDS: ALBUTEROL 18 GM INHALER INH SCH ×6 (01:00→21:00)
[2017-03-26] MEDS: ACCU-CHEK XX SCH (02:00)
[2017-03-26] MEDS: INSULIN ASPART [NOVOLOG] 3 ML PEN SC SCH ×7 (08:00→20:19)
[2017-03-26] MEDS ORDERED: INSULIN GLARGINE [LANtus] 3 ML PEN SC SCH (08:00)
[2017-03-26] MEDS: POTASSIUM CHLORIDE (SR) 10 MEQ TAB PO SCH (08:53)
[2017-03-26] MEDS: GABAPENTIN 300 MG CAP PO SCH ×3 (08:53→20:44)
[2017-03-26] MEDS: LISINOPRIL 5 MG TAB PO SCH (08:54)
[2017-03-26] MEDS: FUROSEMIDE 40 MG INJ IV SCH (08:54)
[2017-03-26] MEDS: HEPARIN 5,000 UNIT/0.5 ML VIAL SC SCH ×2 (08:57→20:20)
[2017-03-26] MEDS: RALTEGRAVIR 400 MG TAB PO SCH ×2 (09:03→20:44)
--- NOTE | 2017-03-26 12:13 | PN ---
Date/Time of Note Date/Time of Note DATE: 03/26/17 TIME: 12:02 Assessment/Plan VTE Prophylaxis VTE Prophylaxis Intervention: heparin Lines/Catheters IV Catheter Type (from Nrs): Saline Lock Urinary Cath still in place: No Assessment/Plan Assessment/Plan 1. Congestive heart failure, systolic, acute on chronic, improving, lasix 2. Right upper chest pain with tenderness, atypical, musculoskeletal 3. Dilated cardiomyopathy likely secondary to drug use with last known EF of 20 %. stable, 4. Chronic obstructive pulmonary disease, on neb, stop steroid 5. Human immunodeficiency virus, CD4 35, on treatment 6. Psychiatric disorder, bipolar disorder. on seroqual, decrease seroqual due to sleepiness 7. Chronic Hep C with Abnormal LFTs 8. DM, hypoglycemia events, decrease insulins 9. DVT prophylaxis: heparin \10. Leukocytosis, no obvious source of infection, follow up with CBC Subjective 24 Hr Interval Summary Free Text/Dictation sleeps most of the time. easily wake up and oriented, asks for regular diet instead of diabetic diet Exam/Review of Systems Vital Signs Vitals Vital Signs Date Time Temp Pulse Resp B/P Pulse Ox O2 Delivery O2 Flow Rate FiO2 03/26/17 08:25 89 03/26/17 07:48 98.0 18 124/88 92 03/25/17 20:03 Nasal Cannula 2.0 Intake and Output 03/25/17 03/25/17 03/26/17 15:00 23:00 07:00 Intake Total 600 ml 1200 ml Output Total 2200 ml 800 ml Balance -1600 ml 400 ml Exam Constitutional: alert, oriented, well developed Head: atraumatic, normocephalic Eyes: EOMI, PERRL, nl conjunctiva, nl lids, nl sclera ENMT: nl external ears & nose, nl lips & teeth, nl nasal mucosa & septum Neck: non-tender, supple Respiratory: clear to auscultation, normal air movement, No congested cough, No crackles/rales, No diminished breath sounds, No intercostal retraction, No labored breathing, No other, No respirations, No tactile fremitus, No wheezing Cardiovascular: nl pulses, regular rate and rhythm, No S3, No S4, No bruits, No diastolic murmur, No edema, No gallop, No irregular rhythm, No jugular venous distention (JVD), No murmurs/extra sounds, No other, No rub, No systolic murmur Gastrointestinal: nl liver, spleen, non-tender, soft, No ascites, No bowel sounds, No distended, No firm, No hepatomegaly, No mass , No other, No rebound or guarding, No splenomegaly, No surgical scars, No tender Musculoskeletal: nl extremities to inspection Extremities: normal pulses, No calf tenderness, No clubbing, No cyanosis, No edema, No other, No palpable cord, No pitting pedal edema, No tenderness 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, nl mental status, nl speech, nl strength Results Result Diagram: 03/25/1735 03/25/1735 Results 24 hrs Laboratory Tests Test 03/25/17 17:11 03/25/17 17:27 03/25/17 17:37 03/25/17 17:52 Bedside Glucose 64 L 78 76 113 Test 03/25/17 18:20 03/25/17 20:49 03/26/17 01:05 03/26/17 08:45 Bedside Glucose 122 149 43 *L Troponin I 0.045 Test 03/26/17 08:47 03/26/17 09:09 03/26/17 11:27 Bedside Glucose 43 *L 151 129 Medications Medications Current Medications Carvedilol (Coreg) 6.25 mg BID PO Last administered on 03/26/17 08:54; Admin Dose 6.25 MG; Start 03/24/17 at 09:00 Gabapentin (Neurontin) 300 mg TID PO Last administered on 03/26/17 08:53; Admin Dose 300 MG; Start 03/24/17 at 09:00 Lisinopril (Zestril) 5 mg DAILY PO Last administered on 03/26/17 08:54; Admin Dose 5 MG; Start 03/24/17 at 09:00 Quetiapine Fumarate (Seroquel) 400 mg HS PO Last administered on 03/25/17 21: 07; Admin Dose 400 MG; Start 03/24/17 at 21:00 Miscellaneous Medication (Isentress) 400 mg BID PO Last administered on 09:03; Admin Dose 400 MG; Start 03/24/17 at 09:00 Tramadol HCl (Ultram) 50 mg Q6H PRN PO PAIN Last administered on 03/25/17 17: 16; Admin Dose 50 MG; Start 03/24/17 at 06:00 Diagnostic Test (Pha) (Accu-Chek) 1 ea 02 XX ; Start 03/25/17 at 02:00 Miscellaneous Information 1 ea NOTE XX ; Start 03/24/17 at 06:30 Glucose (Glutose) 15 gm Q15M PRN PO DECREASED GLUCOSE; Start 03/24/17 at 06:30 Glucose (Glutose) 22.5 gm Q15M PRN PO DECREASED GLUCOSE; Start 03/24/17 at 06: 30 Dextrose (D50w Syringe) 25 ml Q15M PRN IV DECREASED GLUCOSE; Start 03/24/17 at 06:30 Dextrose (D50w Syringe) 50 ml Q15M PRN IV DECREASED GLUCOSE Last administered on 03/26/17 08:49; Admin Dose 50 ML; Start 03/24/17 at 06:30 Glucagon (Glucagen) 1 mg Q15M PRN IM DECREASED GLUCOSE; Start 03/24/17 at 06: 30 Glucose (Glutose) 15 gm Q15M PRN BUCCAL DECREASED GLUCOSE; Start 03/24/17 at 06:30 Heparin Sodium (Porcine) (Heparin (5000 Units/0.5 ml)) 5,000 unit BID SC Last administered on 03/26/17 08:57; Admin Dose 5,000 UNIT; Start 03/24/17 at 12: 00 Potassium Chloride (Klor-Con 10) 10 meq DAILY PO Last administered on 08:53; Admin Dose 10 MEQ; Start 03/24/17 at 13:00 Insulin Glargine (Lantus) 42 unit DAILY@08 SC ; Start 03/26/17 at 08:00 Furosemide (Lasix) 40 mg DAILY PO ; Start 03/27/17 at 09:00 BEVERLY LIGHT MD Mar 26, 2017 12:12
--- NOTE | 2017-03-26 13:46 | RADRPT ---
Vent Rate: 111 bpm RR Interval: 0 msec [place] Interval: 134 msec QRS Duration: 102 msec QT Interval: 360 msec QTC Interval: 489 msec P-R-T [place]: 80 - 80 - 52 degrees Sinus tachycardia Cannot rule out Anterior infarct , age undetermined Abnormal ECG Electronically Signed By: Pradeep Lloyd [id number]
--- NOTE | 2017-03-26 13:46 | RADRPT ---
Vent Rate: 111 bpm RR Interval: 0 msec [place] Interval: 134 msec QRS Duration: 102 msec QT Interval: 360 msec QTC Interval: 489 msec P-R-T [place]: 80 - 80 - 52 degrees Sinus tachycardia Cannot rule out Anterior infarct , age undetermined Abnormal ECG Electronically Signed By: Pradeep Lloyd [id number]
--- NOTE | 2017-03-26 13:46 | RADRPT ---
Vent Rate: 111 bpm RR Interval: 0 msec [place] Interval: 134 msec QRS Duration: 102 msec QT Interval: 360 msec QTC Interval: 489 msec P-R-T [place]: 80 - 80 - 52 degrees Sinus tachycardia Cannot rule out Anterior infarct , age undetermined Abnormal ECG Electronically Signed By: Pradeep Lloyd [id number]
--- NOTE | 2017-03-26 14:31 | CONS ---
Date/Time of Note Date/Time of Note DATE: 03/26/17 TIME: 14:29 Assessment/Plan Assessment/Plan Chief Complaint/Hosp Course Assessment: Acute on chronic systolic heart failure - improved with diuresis Dilated cardiomyopathy - LVEF 20% on echocardiogram 10/10/2016 HIV/AIDS Diabetes mellitus Chronic obstructive pulmonary disease Bipolar disorder Medication noncompliance Recommendations: -Lasix has been changed to 40mg PO daily -continue carvedilol 6.25mg BID and lisinopril 5mg daily, up titrate as tolerated Problems: Consultation Date/Type/Reason Admit Date/Time Mar 23, 2017 at 23:20 Type of Consultation: Cardiology 24 HR Interval Summary Free Text/Dictation No acute events. Shortness of breath improved. Detailed Summary Additional Comments 14 point review of systems without changes. Exam/Review of Systems Vital Signs Vitals Vital Signs Date Time Temp Pulse Resp B/P Pulse Ox O2 Delivery O2 Flow Rate FiO2 03/26/17 12:22 102 03/26/17 11:58 98.1 17 114/85 99 03/25/17 20:03 Nasal Cannula 2.0 Intake and Output 03/25/17 03/25/17 03/26/17 15:00 23:00 07:00 Intake Total 600 ml 1200 ml Output Total 2200 ml 800 ml Balance -1600 ml 400 ml Exam Constitutional: alert, well developed Psych: nl mood/affect, no complaints Head: atraumatic, normocephalic Eyes: nl conjunctiva, nl lids ENMT: nl external ears & nose, nl nasal mucosa & septum Neck: jvd, non-tender, supple Respiratory: crackles/rales, diminished breath sounds Cardiovascular: regular rate and rhythm Gastrointestinal: non-tender, soft Musculoskeletal: nl extremities to inspection Extremities: No clubbing, No cyanosis, No edema Neurological: nl mental status, nl speech Skin: nl turgor Results Result Diagram: 03/25/17 0935 03/25/17 0935 Results 24 hrs Laboratory Tests Test 03/25/17 17:11 03/25/17 17:27 03/25/17 17:37 03/25/17 17:52 Bedside Glucose 64 L 78 76 113 Test 03/25/17 18:20 03/25/17 20:49 03/26/17 01:05 03/26/17 08:45 Bedside Glucose 122 149 43 *L Troponin I 0.045 Test 03/26/17 08:47 03/26/17 09:09 03/26/17 11:27 03/26/17 12:51 Bedside Glucose 43 *L 151 129 123 Medications Medications Current Medications Carvedilol (Coreg) 6.25 mg BID PO Last administered on 03/26/17 08:54; Admin Dose 6.25 MG; Start 03/24/17 at 09:00 Gabapentin (Neurontin) 300 mg TID PO Last administered on 03/26/17 12:50; Admin Dose 300 MG; Start 03/24/17 at 09:00 Lisinopril (Zestril) 5 mg DAILY PO Last administered on 03/26/17 08:54; Admin Dose 5 MG; Start 03/24/17 at 09:00 Miscellaneous Medication (Isentress) 400 mg BID PO Last administered on 09:03; Admin Dose 400 MG; Start 03/24/17 at 09:00 Tramadol HCl (Ultram) 50 mg Q6H PRN PO PAIN Last administered on 03/25/17 17: 16; Admin Dose 50 MG; Start 03/24/17 at 06:00 Diagnostic Test (Pha) (Accu-Chek) 1 ea 02 XX ; Start 03/25/17 at 02:00 Miscellaneous Information 1 ea NOTE XX ; Start 03/24/17 at 06:30 Glucose (Glutose) 15 gm Q15M PRN PO DECREASED GLUCOSE; Start 03/24/17 at 06:30 Glucose (Glutose) 22.5 gm Q15M PRN PO DECREASED GLUCOSE; Start 03/24/17 at 06: 30 Dextrose (D50w Syringe) 25 ml Q15M PRN IV DECREASED GLUCOSE; Start 03/24/17 at 06:30 Dextrose (D50w Syringe) 50 ml Q15M PRN IV DECREASED GLUCOSE Last administered on 03/26/17 08:49; Admin Dose 50 ML; Start 03/24/17 at 06:30 Glucagon (Glucagen) 1 mg Q15M PRN IM DECREASED GLUCOSE; Start 03/24/17 at 06: 30 Glucose (Glutose) 15 gm Q15M PRN BUCCAL DECREASED GLUCOSE; Start 03/24/17 at 06:30 Heparin Sodium (Porcine) (Heparin (5000 Units/0.5 ml)) 5,000 unit BID SC Last administered on 03/26/17 08:57; Admin Dose 5,000 UNIT; Start 03/24/17 at 12: 00 Potassium Chloride (Klor-Con 10) 10 meq DAILY PO Last administered on 08:53; Admin Dose 10 MEQ; Start 03/24/17 at 13:00 Furosemide (Lasix) 40 mg DAILY PO ; Start 03/27/17 at 09:00 Insulin Glargine (Lantus) 36 unit DAILY@08 SC ; Start 03/27/17 at 08:00 Quetiapine Fumarate (Seroquel) 350 mg HS PO ; Start 03/26/17 at 21:00 JORGE ALBERTO GRANGER MD Mar 26, 2017 14:30
[2017-03-26] MEDS: QUETIAPINE 100 MG TAB PO SCH (20:43)
[2017-03-27] VITALS (11 sets, daily range): BP systolic 100–119; BP diastolic 70–89; PULSE 97–122; RESP 18–20
[2017-03-27] MEDS: ALBUTEROL 18 GM INHALER INH SCH ×6 (01:19→20:22)
[2017-03-27] MEDS: ACCU-CHEK XX SCH (01:20)
[2017-03-27] MEDS: traMADol 50 MG TAB PO PRN ×2 (01:37→18:41)
[2017-03-27] MEDS: RALTEGRAVIR 400 MG TAB PO SCH ×2 (08:17→20:20)
[2017-03-27] MEDS: POTASSIUM CHLORIDE (SR) 10 MEQ TAB PO SCH (08:17)
[2017-03-27] MEDS: GABAPENTIN 300 MG CAP PO SCH ×3 (08:17→20:20)
[2017-03-27] MEDS: LISINOPRIL 5 MG TAB PO SCH (08:18)
[2017-03-27] MEDS: FUROSEMIDE 40 MG TAB PO SCH (08:18)
[2017-03-27] MEDS: HEPARIN 5,000 UNIT/0.5 ML VIAL SC SCH ×2 (08:20→20:35)
[2017-03-27] MEDS: INSULIN ASPART [NOVOLOG] 3 ML PEN SC SCH ×7 (08:21→20:30)
[2017-03-27] MEDS: INSULIN GLARGINE [LANtus] 3 ML PEN SC SCH (08:21)
[2017-03-27] MEDS ORDERED: ACETAMINOPHEN 325 MG TAB PO PRN (15:00)
[2017-03-27] MEDS ORDERED: ONDANSETRON 4 MG INJ IV PRN (15:00)
--- NOTE | 2017-03-27 15:45 | PN ---
Date/Time of Note Date/Time of Note DATE: 03/27/17 TIME: 15:43 Assessment/Plan VTE Prophylaxis VTE Prophylaxis Intervention: SCD's Lines/Catheters [facility] Urinary Cath still in place: No Assessment/Plan Problems: (1) Diabetes mellitus type 2 in obese Status: Chronic Comment: Adequate control of sugars on the present medical regimen (2) HIV disease Status: Chronic Comment: Continue with therapeutics. Using HAART (3) COPD (chronic obstructive pulmonary disease) Status: Chronic Comment: Continue with treatment. Please note is tolerating the carvedilol without issue fortunately (4) CHF (congestive heart failure) Status: Acute Comment: He has a dilated cardiomyopathy systolic dysfunction. He is on appropriate treatment. Qualifiers: Congestive heart failure type: unspecified congestive heart failure type Congestive heart failure chronicity: acute Qualified Code: I50.9 - Acute congestive heart failure, unspecified congestive heart failure type (5) Systolic CHF with reduced left ventricular function, NYHA class 3 Status: Chronic Comment: As above. He is on a beta-ema for rate control is also on the afterload reducing agents and the diuretics (6) Noncompliance Status: Chronic Comment: Strongly counseled. Subjective 24 Hr Interval Summary Free Text/Dictation Patient sleeping easily awakened Constitutional: no complaints Respiratory: shortness of breath Cardiovascular: no complaints Exam/Review of Systems Vital Signs Vitals Vital Signs Date Time Temp Pulse Resp B/P Pulse Ox O2 Delivery O2 Flow Rate FiO2 03/27/17 15:32 98.0 70 18 110/88 96 03/27/17 08:20 Nasal Cannula 2.0 Intake and Output 03/26/17 03/26/17 03/27/17 15:00 23:00 07:00 Intake Total 550 ml 1200 ml Output Total 1850 ml 1500 ml Balance -1300 ml -300 ml Exam Constitutional: alert, oriented Neck: non-tender, supple Respiratory: clear to auscultation, normal air movement Cardiovascular: nl pulses, other (PMI is diffuse and laterally displaced), regular rate and rhythm Gastrointestinal: nl liver, spleen, non-tender, soft Results Result Diagram: 03/27/17 0739 03/27/17 0739 Results 24 hrs Laboratory Tests Test 03/26/17 17:51 03/26/17 20:17 03/27/17 07:39 03/27/17 08:10 Bedside Glucose 220 163 207 White Blood Count 7.9 # Red Blood Count 4.94 Hemoglobin 14.3 Hematocrit 43.5 Mean Corpuscular Volume 88.1 Mean Corpuscular Hemoglobin 28.9 L Mean Corpuscular Hemoglobin Concent 32.9 Red Cell Distribution Width 19.3 H Platelet Count 153 Mean Platelet Volume 11.1 H Neutrophils % 57.8 Lymphocytes % 30.0 Monocytes % 11.0 Eosinophils % 0.4 Basophils % 0.4 Nucleated Red Blood Cells % 0.0 Neutrophils # 4.6 Lymphocytes # 2.4 Monocytes # 0.9 Eosinophils # 0.0 Basophils # 0.0 Nucleated Red Blood Cells # 0.0 Sodium Level 134 L Potassium Level 4.7 Chloride Level 98 Carbon Dioxide Level 32 H Anion Gap 9 Blood Urea Nitrogen 26 H Creatinine 0.76 Glucose Level 242 H Calcium Level 8.1 L Test 03/27/17 12:03 Bedside Glucose 173 Medications Medications Current Medications Carvedilol (Coreg) 6.25 mg BID PO Last administered on 03/27/17 08:18; Admin Dose 6.25 MG; Start 03/24/17 at 09:00 Gabapentin (Neurontin) 300 mg TID PO Last administered on 03/27/17 12:04; Admin Dose 300 MG; Start 03/24/17 at 09:00 Lisinopril (Zestril) 5 mg DAILY PO Last administered on 03/27/17 08:18; Admin Dose 5 MG; Start 03/24/17 at 09:00 Miscellaneous Medication (Isentress) 400 mg BID PO Last administered on 08:17; Admin Dose 400 MG; Start 03/24/17 at 09:00 Tramadol HCl (Ultram) 50 mg Q6H PRN PO PAIN Last administered on 03/27/17 01: 37; Admin Dose 50 MG; Start 03/24/17 at 06:00 Diagnostic Test (Pha) (Accu-Chek) 1 ea 02 XX ; Start 03/25/17 at 02:00 Miscellaneous Information 1 ea NOTE XX ; Start 03/24/17 at 06:30 Glucose (Glutose) 15 gm Q15M PRN PO DECREASED GLUCOSE; Start 03/24/17 at 06:30 Glucose (Glutose) 22.5 gm Q15M PRN PO DECREASED GLUCOSE; Start 03/24/17 at 06: 30 Dextrose (D50w Syringe) 25 ml Q15M PRN IV DECREASED GLUCOSE; Start 03/24/17 at 06:30 Dextrose (D50w Syringe) 50 ml Q15M PRN IV DECREASED GLUCOSE Last administered on 03/26/17 08:49; Admin Dose 50 ML; Start 03/24/17 at 06:30 Glucagon (Glucagen) 1 mg Q15M PRN IM DECREASED GLUCOSE; Start 03/24/17 at 06: 30 Glucose (Glutose) 15 gm Q15M PRN BUCCAL DECREASED GLUCOSE; Start 03/24/17 at 06:30 Heparin Sodium (Porcine) (Heparin (5000 Units/0.5 ml)) 5,000 unit BID SC Last administered on 03/27/17 08:20; Admin Dose 5,000 UNIT; Start 03/24/17 at 12: 00 Potassium Chloride (Klor-Con 10) 10 meq DAILY PO Last administered on 08:17; Admin Dose 10 MEQ; Start 03/24/17 at 13:00 Furosemide (Lasix) 40 mg DAILY PO Last administered on 03/27/17 08:18; Admin Dose 40 MG; Start 03/27/17 at 09:00 Insulin Glargine (Lantus) 36 unit DAILY@08 SC Last administered on 03/27/17 08:21; Admin Dose 36 UNIT; Start 03/27/17 at 08:00 Quetiapine Fumarate (Seroquel) 350 mg HS PO Last administered on 03/26/17 20: 43; Admin Dose 350 MG; Start 03/26/17 at 21:00 Ondansetron HCl (Zofran Inj) 4 mg Q6H PRN IV NAUSEA AND/OR VOMITING Last administered on 03/27/17 15:11; Admin Dose 4 MG; Start 03/27/17 at 15:00 Acetaminophen (Tylenol Tab) 325 mg Q4H PRN PO PAIN AND OR ELEVATED TEMP Last administered on 03/27/17 15:12; Admin Dose 325 MG; Start 03/27/17 at 15:00 KRISTI FLORES MD Mar 27, 2017 15:45
--- NOTE | 2017-03-27 17:33 | CONS ---
Date/Time of Note Date/Time of Note DATE: 03/27/17 TIME: 17:32 Assessment/Plan Assessment/Plan Chief Complaint/Hosp Course Assessment: Acute on chronic systolic heart failure - improved with diuresis Dilated cardiomyopathy - LVEF 20% on echocardiogram 10/10/2016 HIV/AIDS Diabetes mellitus Chronic obstructive pulmonary disease Bipolar disorder Medication noncompliance Recommendations: -continue Lasix 40mg PO daily -continue carvedilol 6.25mg BID and lisinopril 5mg daily, up titrate as tolerated Problems: Consultation Date/Type/Reason Admit Date/Time Mar 23, 2017 at 23:20 Type of Consultation: Cardiology 24 HR Interval Summary Free Text/Dictation No acute events. Shortness of breath improved. Detailed Summary Additional Comments 14 point review of systems without changes. Exam/Review of Systems Vital Signs Vitals Vital Signs Date Time Temp Pulse Resp B/P Pulse Ox O2 Delivery O2 Flow Rate FiO2 03/27/17 16:20 105 03/27/17 15:32 98.0 18 110/88 96 03/27/17 08:20 Nasal Cannula 2.0 Intake and Output 03/26/17 03/26/17 03/27/17 15:00 23:00 07:00 Intake Total 550 ml 1200 ml Output Total 1850 ml 1500 ml Balance -1300 ml -300 ml Exam Constitutional: alert, well developed Psych: nl mood/affect, no complaints Head: atraumatic, normocephalic Eyes: nl conjunctiva, nl lids ENMT: nl external ears & nose, nl nasal mucosa & septum Neck: jvd, non-tender, supple Respiratory: crackles/rales, diminished breath sounds Cardiovascular: regular rate and rhythm Gastrointestinal: non-tender, soft Musculoskeletal: nl extremities to inspection Extremities: No clubbing, No cyanosis, No edema Neurological: nl mental status, nl speech Skin: nl turgor Results Result Diagram: 03/27/17 0739 03/27/17 0739 Results 24 hrs Laboratory Tests Test 03/26/17 17:51 03/26/17 20:17 03/27/17 07:39 03/27/17 08:10 Bedside Glucose 220 163 207 White Blood Count 7.9 # Red Blood Count 4.94 Hemoglobin 14.3 Hematocrit 43.5 Mean Corpuscular Volume 88.1 Mean Corpuscular Hemoglobin 28.9 L Mean Corpuscular Hemoglobin Concent 32.9 Red Cell Distribution Width 19.3 H Platelet Count 153 Mean Platelet Volume 11.1 H Neutrophils % 57.8 Lymphocytes % 30.0 Monocytes % 11.0 Eosinophils % 0.4 Basophils % 0.4 Nucleated Red Blood Cells % 0.0 Neutrophils # 4.6 Lymphocytes # 2.4 Monocytes # 0.9 Eosinophils # 0.0 Basophils # 0.0 Nucleated Red Blood Cells # 0.0 Sodium Level 134 L Potassium Level 4.7 Chloride Level 98 Carbon Dioxide Level 32 H Anion Gap 9 Blood Urea Nitrogen 26 H Creatinine 0.76 Glucose Level 242 H Calcium Level 8.1 L Test 03/27/17 12:03 03/27/17 17:01 Bedside Glucose 173 106 Medications Medications Current Medications Carvedilol (Coreg) 6.25 mg BID PO Last administered on 03/27/17 08:18; Admin Dose 6.25 MG; Start 03/24/17 at 09:00 Gabapentin (Neurontin) 300 mg TID PO Last administered on 03/27/17 12:04; Admin Dose 300 MG; Start 03/24/17 at 09:00 Lisinopril (Zestril) 5 mg DAILY PO Last administered on 03/27/17 08:18; Admin Dose 5 MG; Start 03/24/17 at 09:00 Miscellaneous Medication (Isentress) 400 mg BID PO Last administered on 08:17; Admin Dose 400 MG; Start 03/24/17 at 09:00 Tramadol HCl (Ultram) 50 mg Q6H PRN PO PAIN Last administered on 03/27/17 01: 37; Admin Dose 50 MG; Start 03/24/17 at 06:00 Diagnostic Test (Pha) (Accu-Chek) 1 ea 02 XX ; Start 03/25/17 at 02:00 Miscellaneous Information 1 ea NOTE XX ; Start 03/24/17 at 06:30 Glucose (Glutose) 15 gm Q15M PRN PO DECREASED GLUCOSE; Start 03/24/17 at 06:30 Glucose (Glutose) 22.5 gm Q15M PRN PO DECREASED GLUCOSE; Start 03/24/17 at 06: 30 Dextrose (D50w Syringe) 25 ml Q15M PRN IV DECREASED GLUCOSE; Start 03/24/17 at 06:30 Dextrose (D50w Syringe) 50 ml Q15M PRN IV DECREASED GLUCOSE Last administered on 03/26/17 08:49; Admin Dose 50 ML; Start 03/24/17 at 06:30 Glucagon (Glucagen) 1 mg Q15M PRN IM DECREASED GLUCOSE; Start 03/24/17 at 06: 30 Glucose (Glutose) 15 gm Q15M PRN BUCCAL DECREASED GLUCOSE; Start 03/24/17 at 06:30 Heparin Sodium (Porcine) (Heparin (5000 Units/0.5 ml)) 5,000 unit BID SC Last administered on 03/27/17 08:20; Admin Dose 5,000 UNIT; Start 03/24/17 at 12: 00 Potassium Chloride (Klor-Con 10) 10 meq DAILY PO Last administered on 08:17; Admin Dose 10 MEQ; Start 03/24/17 at 13:00 Furosemide (Lasix) 40 mg DAILY PO Last administered on 03/27/17 08:18; Admin Dose 40 MG; Start 03/27/17 at 09:00 Insulin Glargine (Lantus) 36 unit DAILY@08 SC Last administered on 03/27/17 08:21; Admin Dose 36 UNIT; Start 03/27/17 at 08:00 Quetiapine Fumarate (Seroquel) 350 mg HS PO Last administered on 03/26/17 20: 43; Admin Dose 350 MG; Start 03/26/17 at 21:00 Ondansetron HCl (Zofran Inj) 4 mg Q6H PRN IV NAUSEA AND/OR VOMITING Last administered on 03/27/17 15:11; Admin Dose 4 MG; Start 03/27/17 at 15:00 Acetaminophen (Tylenol Tab) 325 mg Q4H PRN PO PAIN AND OR ELEVATED TEMP Last administered on 03/27/17 15:12; Admin Dose 325 MG; Start 03/27/17 at 15:00 JORGE ALBERTO GRANGER MD Mar 27, 2017 17:33
[2017-03-27] MEDS: QUETIAPINE 100 MG TAB PO SCH (20:20)
[2017-03-28] VITALS (9 sets, daily range): BP systolic 94–131; BP diastolic 66–91; PULSE 100–108; RESP 18
[2017-03-28] MEDS: ALBUTEROL 18 GM INHALER INH SCH ×4 (01:05→12:04)
[2017-03-28] MEDS: ACCU-CHEK XX SCH (01:12)
[2017-03-28] MEDS: traMADol 50 MG TAB PO PRN (04:10)
[2017-03-28] MEDS: GABAPENTIN 300 MG CAP PO SCH ×2 (08:21→12:02)
[2017-03-28] MEDS: RALTEGRAVIR 400 MG TAB PO SCH (08:21)
[2017-03-28] MEDS: POTASSIUM CHLORIDE (SR) 10 MEQ TAB PO SCH (08:21)
[2017-03-28] MEDS: FUROSEMIDE 40 MG TAB PO SCH (08:21)
[2017-03-28] MEDS: LISINOPRIL 5 MG TAB PO SCH (08:22)
[2017-03-28] MEDS: INSULIN ASPART [NOVOLOG] 3 ML PEN SC SCH ×4 (08:25→12:04)
[2017-03-28] MEDS: HEPARIN 5,000 UNIT/0.5 ML VIAL SC SCH (08:26)
[2017-03-28] MEDS: INSULIN GLARGINE [LANtus] 3 ML PEN SC SCH (08:26)
--- NOTE | 2017-03-28 09:14 | PN ---
Date/Time of Note Date/Time of Note DATE: 03/28/17 TIME: 09:12 Assessment/Plan VTE Prophylaxis VTE Prophylaxis Intervention: heparin Lines/Catheters IV [facility]from [facility] Saline Lock Urinary Cath still in place: No Assessment/Plan Problems: (1) Systolic CHF with reduced left ventricular function, NYHA class 3 Status: Chronic Comment: He has improved however his beta-blockade needs to be adjusted upward if he can tolerate it. He is still tachycardic with heart failure. As such I would go up on this prior to going up on the CHRISTINA inhibitor. Is not quite at the point where I feel comfortable discharging however he is extremely anxious to be discharged. If with a higher dosage of the beta-ema he is does okay during the day and is ambulating around he can have a late discharge this afternoon. This of course assumes a cardiology is in agreement with that (2) Diabetes mellitus type 2 in obese Status: Chronic Comment: Much better control (3) HIV disease Status: Chronic Comment: Noted and remains on HAART (4) COPD (chronic obstructive pulmonary disease) Status: Chronic Comment: Stable on treatment Qualifiers: COPD type: unspecified COPD Qualified Code: J44.9 - Chronic obstructive pulmonary disease, unspecified COPD type (5) Noncompliance Status: Chronic Comment: Strongly re-counseled Subjective 24 Hr Interval Summary Free Text/Dictation Patient reports that he has been up and is feeling better and wants to go home. He is concerned about the amount of classes for his college that he is missed. Constitutional: no complaints (No fevers chills or sweats) Respiratory: shortness of breath (Reports his shortness of breath is returning to his baseline state) Cardiovascular: no complaints Gastrointestinal: no complaints Genitourinary: no complaints Exam/Review of Systems Vital Signs Vitals Vital Signs Date Time Temp Pulse Resp B/P Pulse Ox O2 Delivery O2 Flow Rate FiO2 03/28/17 08:29 97.9 105 18 131/91 95 03/28/17 03:52 Nasal Cannula 2.0 Intake and Output 03/27/17 03/27/17 03/28/17 15:00 23:00 07:00 Intake Total 1800 ml 500 ml Balance 1800 ml 500 ml Exam Constitutional: alert, oriented Neck: non-tender, supple Respiratory: crackles/rales, normal air movement Cardiovascular: nl pulses (Please see pulse rate), regular rate and rhythm Results Result Diagram: 03/27/17 0739 03/27/17 0739 Results 24 hrs Laboratory Tests Test 03/27/17 12:03 03/27/17 17:01 03/27/17 20:26 03/28/17 03:35 Bedside Glucose 173 106 70 126 Test 03/28/17 08:20 Bedside Glucose 178 Medications Medications Current Medications Gabapentin (Neurontin) 300 mg TID PO Last administered on 03/28/17 08:21; Admin Dose 300 MG; Start 03/24/17 at 09:00 Lisinopril (Zestril) 5 mg DAILY PO Last administered on 03/28/17 08:22; Admin Dose 5 MG; Start 03/24/17 at 09:00 Miscellaneous Medication (Isentress) 400 mg BID PO Last administered on 08:21; Admin Dose 400 MG; Start 03/24/17 at 09:00 Tramadol HCl (Ultram) 50 mg Q6H PRN PO PAIN Last administered on 03/28/17 04: 10; Admin Dose 50 MG; Start 03/24/17 at 06:00 Diagnostic Test (Pha) (Accu-Chek) 1 ea 02 XX ; Start 03/25/17 at 02:00 Miscellaneous Information 1 ea NOTE XX ; Start 03/24/17 at 06:30 Glucose (Glutose) 15 gm Q15M PRN PO DECREASED GLUCOSE; Start 03/24/17 at 06:30 Glucose (Glutose) 22.5 gm Q15M PRN PO DECREASED GLUCOSE; Start 03/24/17 at 06: 30 Dextrose (D50w Syringe) 25 ml Q15M PRN IV DECREASED GLUCOSE; Start 03/24/17 at 06:30 Dextrose (D50w Syringe) 50 ml Q15M PRN IV DECREASED GLUCOSE Last administered on 03/26/17 08:49; Admin Dose 50 ML; Start 03/24/17 at 06:30 Glucagon (Glucagen) 1 mg Q15M PRN IM DECREASED GLUCOSE; Start 03/24/17 at 06: 30 Glucose (Glutose) 15 gm Q15M PRN BUCCAL DECREASED GLUCOSE; Start 03/24/17 at 06:30 Heparin Sodium (Porcine) (Heparin (5000 Units/0.5 ml)) 5,000 unit BID SC Last administered on 03/28/17 08:26; Admin Dose 5,000 UNIT; Start 03/24/17 at 12: 00 Potassium Chloride (Klor-Con 10) 10 meq DAILY PO Last administered on 08:21; Admin Dose 10 MEQ; Start 03/24/17 at 13:00 Furosemide (Lasix) 40 mg DAILY PO Last administered on 03/28/17 08:21; Admin Dose 40 MG; Start 03/27/17 at 09:00 Insulin Glargine (Lantus) 36 unit DAILY@08 SC Last administered on 03/28/17 08:26; Admin Dose 36 UNIT; Start 03/27/17 at 08:00 Quetiapine Fumarate (Seroquel) 350 mg HS PO Last administered on 03/27/17 20: 20; Admin Dose 350 MG; Start 03/26/17 at 21:00 Ondansetron HCl (Zofran Inj) 4 mg Q6H PRN IV NAUSEA AND/OR VOMITING Last administered on 03/27/17 15:11; Admin Dose 4 MG; Start 03/27/17 at 15:00 Acetaminophen (Tylenol Tab) 325 mg Q4H PRN PO PAIN AND OR ELEVATED TEMP Last administered on 03/27/17 15:12; Admin Dose 325 MG; Start 03/27/17 at 15:00 Carvedilol (Coreg) 9.375 mg BID PO ; Start 03/28/17 at 21:00; Status KRISTI JIANG MD Mar 28, 2017 09:14
--- NOTE | 2017-03-28 15:21 | DS ---
Date/Time of Note Date/Time of Note DATE: 03/28/17 TIME: 15:19 Discharge Summary Admission/Discharge Info Admit Date/Time Mar 23, 2017 at 23:20 Discharge Date/Time March 28, 2017 Discharge Diagnosis Congestive heart failure-systolic; HIV disease; diabetes mellitus type 2; COPD; hepatitis C positive Patient Condition: Fair Consults Cardiology Hx of Present Illness The patient is a 51-year-old male with a history of dilated cardiomyopathy with an EF of 20%, COPD, HIV, hepatitis C, diabetes, psychiatric disorder, bipolar, medication noncompliance, as well as aggressive/combative behavior presented to the ER complaining of chest pain shortness of breath. Chest pain is slightly left-sided, nonradiating. He also reported generalized weakness. When he presented to the ER, he was found to have a blood glucose greater than 400. Initial troponin is negative. EKG was no ST elevation or depression. Chest x-ray shows pulmonary vascular congestion. Hospital Course Assessment: Acute on chronic systolic heart failure - improved with diuresis Dilated cardiomyopathy - LVEF 20% on echocardiogram 10/10/2016 HIV/AIDS Diabetes mellitus Chronic obstructive pulmonary disease Bipolar disorder Medication noncompliance Recommendations: -continue Lasix 40mg PO daily -continue carvedilol 6.25mg BID and lisinopril 5mg daily, up titrate as tolerated 51-year-old -[place] gentleman with systolic heart failure admitted With shortness of breath. His primary issue was his advanced heart failure. He was treated with diuretic therapy and adjustment of his heart failure medications with positive outcome. He is now improved to the point where he is stable for discharge. Will be discharged home in improved condition. Home Meds Active Scripts Quetiapine Fumarate* (Seroquel*) 400 Mg Tablet, 400 MG PO HS, #30 TAB Prov:ALF BROWNE MD 01/07/17 Albuterol Sulfate* (Ventolin HFA*) 18 Gm Hfa.aer.ad, 2 PUFF INHALATION Q4H, #1 INHALER Prov:KRISTI ANAYA DO 03/24/16 Reported Medications Raltegravir Potassium* (Isentress*) 400 Mg Tablet, 400 MG PO BID, TAB 10/10/16 Gabapentin* (Gabapentin*) 300 Mg Capsule, 300 MG PO TID, #90 CAP 10/10/16 Furosemide* (Furosemide*) 20 Mg Tablet, 20 MG PO DAILY, #60 TAB 10/10/16 Carvedilol* (Carvedilol*) 6.25 Mg Tablet, 6.25 MG PO BID, #60 TAB 10/10/16 Lisinopril* (Lisinopril*) 5 Mg Tablet, 5 MG PO DAILY, #30 TAB 10/10/16 Insulin Isophan/Regular (Humulin 70/30) 100 Units/Ml Susp, 24 UNIT SC TID, EA SLIDING SCALE 10/10/16 Insulin Glargine* (Lantus*) 100 Unit/Ml Soln, 42 UNIT SC DAILY, #1 VIAL 10/10/16 Tramadol Hcl* (Ultram*) 50 Mg Tablet, 50 MG PO Q6H Y for PAIN, TAB 10/10/16 Discontinued Reported Medications Glyburide* (Glyburide*) 5 Mg Tablet, 5 MG PO DAILY, #30 TAB 10/10/16 Quetiapine Fumarate* (Seroquel*) 200 Mg Tablet, 200 MG PO HS, #30 TAB 08/24/16 Follow-up Plan Follow-up with [facility] in 1 week. Primary Care Provider [facility] Time spent on discharge: > 30 minutes Pending Labs Laboratory Tests Test 03/27/17 17:01 03/27/17 20:26 03/28/17 03:35 03/28/17 08:20 Bedside Glucose 106mg/dL (70-220) 70mg/dL (70-220) 126mg/dL (70-220) 178mg/dL (70-220) Test 03/28/17 12:01 Bedside Glucose 186mg/dL (70-220) KRISTI FLORES MD Mar 28, 2017 15:21
--- NOTE | 2017-03-28 15:22 | PDOCDIS ---
Discharge Instructions DIAGNOSIS Discharge Diagnosis Congestive heart failure-systolic; HIV disease; diabetes mellitus type 2; COPD; hepatitis C positive CONDITION Patient Condition: Fair HOME CARE INSTRUCTIONS: Special Diet: Carb controlled ACTIVITY: Activity Restrictions: Slowly Increase Activity FOLLOW UP/APPOINTMENTS Follow-up Plan Follow-up with [facility] in 1 week. SCHOOL/WORK RELEASE May return to School/Work with: With Restrictions KRISTI FLORES MD Mar 28, 2017 15:22
--- NOTE | 2017-03-28 15:22 | PDOCDIS ---
Discharge Instructions DIAGNOSIS Discharge Diagnosis Congestive heart failure-systolic; HIV disease; diabetes mellitus type 2; COPD; hepatitis C positive CONDITION Patient Condition: Fair HOME CARE INSTRUCTIONS: Special Diet: Carb controlled ACTIVITY: Activity Restrictions: Slowly Increase Activity FOLLOW UP/APPOINTMENTS Follow-up Plan Follow-up with [facility] in 1 week. SCHOOL/WORK RELEASE May return to School/Work with: With Restrictions KRISTI FLORES MD Mar 28, 2017 15:22
[2017-03-28] MEDS ORDERED: FURO40TA4 PO (15:24)
[2017-03-28] MEDS ORDERED: POTA10TA37 PO (15:24)
[2017-03-28] MEDS ORDERED: CARV6.2579 PO (15:24)
== END 2017-03-28 16:18 | disposition home or self-care (01) | DRG 291 ==
LOC: E/R 20:46 → MS4 23:20
PROVIDERS: ADMIT Internal Medicine; ATTEND Internal Medicine
DX: I11.0 Hypertensive heart disease with heart failure (principal); B20 Human immunodeficiency virus [HIV] disease; I42.0 Dilated cardiomyopathy; E87.1 Hypo-osmolality and hyponatremia; I50.23 Acute on chronic systolic (congestive) heart failure; E11.65 Type 2 diabetes mellitus with hyperglycemia; J44.9 Chronic obstructive pulmonary disease, unspecified; F31.9 Bipolar disorder, unspecified; R07.89 Other chest pain; B18.2 Chronic viral hepatitis C; F17.200 Nicotine dependence, unspecified, uncomplicated; Z91.14 Patient's other noncompliance with medication regimen; Z79.4 Long term (current) use of insulin
CPT/HCPCS: 36415; 71010; 80048; 80053; 80307; 81001; 82550; 82553; 82962; 83036; 83735; 84100; 84484; 85025; 90686; 93005; 94664; 96372; 96374; J1940; J1644; J1815; J2405; J2930

== ENCOUNTER 2017-04-16 10:46 | Inpatient (IN) | payer OTHER ==
[~2017-04-16] VITALS: Ht 172.7 cm; Wt 74.0 kg
[~2017-04-16 10:46] MED LIST changes: -FURO20TA3 PO; +FURO40TA4 PO; -GLYB5TAB3 PO; +POTA10TA37 PO; -QUET200T PO
[2017-04-16] MEDS ORDERED: ASPIRIN 81 MG TAB PO STA (11:23)
[2017-04-16] MEDS ORDERED: FUROSEMIDE 40 MG INJ IV STA (11:23)
[2017-04-16] MEDS ORDERED: NITROGLYCERIN 2% 1 GM OINT PKT TD STA (11:23)
[2017-04-16] MEDS ORDERED: NITROGLYCERIN (SL) 0.4 MG TAB SL PRN (11:30)
[2017-04-16] MEDS ORDERED: SODIUM CHLORIDE 0.9% 1L BAG IV* STA (12:17)
--- NOTE | 2017-04-16 12:18 | RADRPT ---
PROCEDURE: Chest 1 views. CLINICAL INDICATION: Chest pain. TECHNIQUE: AP views of the chest was obtained. COMPARISON: DR SILVESTRE 03/23/2017 FINDINGS: The heart is large. Central pulmonary vascular congestion and mild interstitial prominence is seen i n both lungs. Elevated right hemidiaphragm is observed. Scattered atelectasis is noted in the right lung. No consolidations are identified. No pneumothorax is seen. Osseous structures are intact. IMPRESSION: Cardiomegaly . Mild central pulmonary vascular congestion and interstitial prominence in both lungs. Elevated right hemidiaphragm. Scattered atelectasis in the right lung. RPTAT: AA .Ronal Urias MD, MD Date Time Electronically viewed and signed by .Ronal Urias MD, on 04/16/2017 12:18 .P/
[2017-04-16] MEDS ORDERED: AZTREONAM 1 GM/NS (PMX) 50 ML IVPB ONE (12:30)
[2017-04-16] MEDS ORDERED: VANCOMYCIN 1 GM (PMX) 250 ML IVPB ONE (12:30)
[2017-04-16 13:24] LABS: ABNORMAL IP MESSAGE 1; HEMATOCRIT 49.3 % (42.0-52.0); MEAN CORPUSCULAR HEMOGLOBIN 29.2 pg (29.0-33.0); MEAN CORPUSCULAR HGB CONC 34.5 g/dl (32.0-37.0); MEAN CORPUSCULAR VOLUME 84.6 fl (82.0-101.0); NUCLEATED RED BLOOD CELLS% 0.1 /100WBC (0.0-0.0); POSITIVE DIFF @See below; RED BLOOD COUNT 5.83 10^6/ul (4.70-6.10); RED CELL DISTRIBUTION WIDTH 20.2 % (11.5-14.5); WHITE BLOOD COUNT 16.1 10^3/ul (4.8-10.8)
[2017-04-16 13:28] LABS: PLATELET COUNT 105 10^3/UL (140-415)
[2017-04-16 13:44] LABS: CALCIUM 8.3 mg/dl (8.4-10.2); CREATININE 1.5 mg/dl (0.61-1.24)
[2017-04-16] MEDS ORDERED: POTASSIUM CHLORIDE (SR) 20 MEQ TAB PO STA (13:48)
[2017-04-16 13:49] LABS: POTASSIUM 2.6 mmol/L (3.5-5.1)
[2017-04-16 13:55] LABS: TROPONIN-I 0.086 ng/ml (0.00-0.12)
--- NOTE | 2017-04-16 13:56 | RADRPT ---
PROCEDURE: Ultrasound of the right forearm CLINICAL INDICATION: Right forearm and drainage. Rule out abscess. TECHNIQUE: Targeted ultrasound of the right forearm in the region of swelling and drainage is perf ormed. COMPARISON: None FINDINGS: Complex subcutaneous fluid collection measuring at least 8.5 x 4.7 x 2.1 cm is identified in the rig ht forearm suspicious for abscess. IMPRESSION: 8.5 x 4.7 x 2.1 cm complex subcutaneous fluid collection in the right forearm suspicious for abscess . RPTAT: JJ .Ronaldo Jacob MD, MD Date Time Electronically viewed and signed by .Ronaldo Jacob MD, MD on 04/16/2017 13:55 .L/
--- NOTE | 2017-04-16 13:58 | RADRPT ---
PROCEDURE: XR Forearm. CLINICAL INDICATION: pain , swelling TECHNIQUE: AP and lateral views of the right forearm were obtained. COMPARISON: Ultrasound from same day FINDINGS: There is normal mineralization and alignment. No fracture or osseous lesion is identified. There is swelling of the soft tissues in the proximal forearm. RPTAT: AA IMPRESSION: Swelling of the soft tissues in the proximal forearm. Bony structures are unremarkable. No radiopaque foreign body. .Satish Buchanan MD, MD Date Time Electronically viewed and signed by .Satish Buchanan MD, on 04/16/2017 13:58 .S/
--- NOTE | 2017-04-16 14:32 | ERD ---
ER Documentation Chief Complaint Chief Complaint GEN WEAKNESS AND GEN BODY PAIN . NO TRAUMA . MORE WEAK FOR PAST 4 DAYS. HPI Patient is a 51-year-old male with CHF and COPD who presents with sitting that he cannot breathe. Please note the history and physical exam is limited secondary to the patient's mental status at this time. The patient was brought in by ambulance. He says "I cannot breathe". He said it started a few days ago and is gotten worse. He said that he feels like CHF. He has no fevers and no treatment as of yet. Upon review of old medical records this is the patient' s 10th visit to the ER since February 2016. ROS All systems reviewed and are negative except as per history of present illness. Medications Home Meds Active Scripts Potassium Chloride* (K-Dur*) 10 Meq Tab.prt.sr, 10 MEQ PO DAILY for 30 Days, # 30 TAB 1 Refill Prov:KRISTI FLORES MD 03/28/17 Furosemide* (Furosemide*) 40 Mg Tablet, 40 MG PO DAILY for 30 Days, #30 TAB 1 Refill Prov:KRISTI FLORES MD 03/28/17 Carvedilol* (Carvedilol*) 6.25 Mg Tablet, 6.25 MG PO BID for 30 Days, #90 TAB 1 Refill Take 1-1/2 pills twice a day for heart failure Prov:KRISTI FLORES MD 03/28/17 Quetiapine Fumarate* (Seroquel*) 400 Mg Tablet, 400 MG PO HS, #30 TAB Prov:ALF BROWNE MD 01/07/17 Albuterol Sulfate* (Ventolin HFA*) 18 Gm Hfa.aer.ad, 2 PUFF INHALATION Q4H, #1 INHALER Prov:KRISTI ANAYA DO 03/24/16 Reported Medications Raltegravir Potassium* (Isentress*) 400 Mg Tablet, 400 MG PO BID, TAB 10/10/16 Gabapentin* (Gabapentin*) 300 Mg Capsule, 300 MG PO TID, #90 CAP 10/10/16 Lisinopril* (Lisinopril*) 5 Mg Tablet, 5 MG PO DAILY, #30 TAB 10/10/16 Insulin Isophan/Regular (Humulin 70/30) 100 Units/Ml Susp, 24 UNIT SC TID, EA SLIDING SCALE 10/10/16 Insulin Glargine* (Lantus*) 100 Unit/Ml Soln, 42 UNIT SC DAILY, #1 VIAL 10/10/16 Tramadol Hcl* (Ultram*) 50 Mg Tablet, 50 MG PO Q6H Y for PAIN, TAB 10/10/16 Allergies Allergies: Coded Allergies: Penicillins (Unverified Allergy, Unknown, 10/22/16) PMhx/Soc Medical and Surgical Hx: pt denies Medical Hx, pt denies Surgical Hx History of Surgery: No Anesthesia Reaction: No Hx Neurological Disorder: No Hx Respiratory Disorders: Yes (COPD) Hx Cardiac Disorders: Yes (CHF, HTN) Hx Psychiatric Problems: Yes (PSYCHOSIS) Hx Miscellaneous Medical Probl: No Hx Alcohol Use: Yes (NO ETOH USE IN SEVERAL DAYS) Hx Substance Use: Yes (CANNABIS) Hx Tobacco Use: Yes Smoking Status: Current every day smoker FmHx Family History: No diabetes Physical Exam Vitals Vital Signs Date Time Temp Pulse Resp B/P Pulse Ox O2 Delivery O2 Flow Rate FiO2 04/16/17 11:00 Nasal Cannula 2 04/16/17 10:58 98.8 72 20 119/74 98 Physical Exam Const: Moderate distress Head: Atraumatic Eyes: Normal Conjunctiva ENT: Normal External Ears, Nose and Mouth. Neck: Full range of motion..~ No meningismus. Resp: Clear to auscultation bilaterally Cardio: Regular rate and rhythm, no murmurs Abd: Soft, non tender, non distended. Normal bowel sounds Skin: Swelling of the right forearm with redness, warmth to touch, and sloughing of the skin consistent with cellulitis Back: No midline or flank tenderness Ext: No cyanosis, or edema Neur: Awake and alert Psych: Normal Mood and Affect Result Diagram: 04/16/17 1310 04/16/17 1310 Results 24 hrs Laboratory Tests Test 04/16/17 13:10 White Blood Count 16.110^3/ul Red Blood Count 5.8310^6/ul Hemoglobin 17.0g/dl Hematocrit 49.3% Mean Corpuscular Volume 84.6fl Mean Corpuscular Hemoglobin 29.2pg Mean Corpuscular Hemoglobin Concent 34.5g/dl Red Cell Distribution Width 20.2% Platelet Count 89730^3/UL Mean Platelet Volume fl Neutrophils % % Lymphocytes % % Monocytes % % Eosinophils % % Basophils % % Nucleated Red Blood Cells % 0.1/100WBC Neutrophils # 10^3/ul Lymphocytes # 10^3/ul Monocytes # 10^3/ul Eosinophils # 10^3/ul Basophils # 10^3/ul Nucleated Red Blood Cells # 10^3/ul Sodium Level 152mmol/L Potassium Level 2.6mmol/L Chloride Level 100mmol/L Carbon Dioxide Level 36mmol/L Anion Gap 19 Blood Urea Nitrogen 35mg/dl Creatinine 1.50mg/dl Glucose Level 545mg/dl Lactic Acid Level 3.6mmol/L Calcium Level 8.3mg/dl Troponin I 0.086ng/ml Current Medications Medications (Trade) Dose Ordered Sig/Luis Alberto Route PRN Reason Start Time Stop Time Status Last Admin Dose Admin Aspirin (Aspirin) 162 mg ONCE STAT PO 04/16/17 11:23 04/16/17 11:24 DC Nitroglycerin (Nitroglycerin 2% Oint) 1 inch ONCE STAT TD 04/16/17 11:23 04/16/17 12:36 DC Nitroglycerin (Nitroglycerin (Sl Tab) 0.4 Mg) 1 tab Q5M UP TO 3 DOSES PRN SL CHEST PAIN 04/16/17 11:30 04/16/17 12:36 DC Furosemide (Lasix) 40 mg ONCE STAT IV 04/16/17 11:23 04/16/17 11:24 DC Sodium Chloride 2290 ml 2,290 ml BOLUS OVER 2 HOURS STAT IV* 04/16/17 12:17 04/16/17 12:18 DC 04/16/17 14:01 Vancomycin HCl 250 ml @ 125 mls/hr ONCE ONCE IVPB 04/16/17 12:30 04/16/17 14:29 DC Aztreonam (Azactam 1gm/NS (Pmx)) 50 ml @ 100 mls/hr ONCE ONCE IVPB 04/16/17 12:30 04/16/17 12:59 DC 04/16/17 13:40 Potassium Chloride (Klor-Con 20) 40 meq ONCE STAT PO 04/16/17 13:48 04/16/17 13:49 DC 04/16/17 14:00 Procedures/MDM Admit MDM: Patient's infectious symptoms have not stabilized and the patient is at risk of rapid decompensation. The patient will be admitted for careful hydration, antibiotic therapy, and infectious source control. Severe Sepsis criteria: Infectious source: Cellulitis End organ damage indicated by: Lactic acid greater than 2 Sepsis Management: Time of recognition of sepsis: 1:10 PM Within 3 hours of recognition: Blood cultures x 2 before broad-spectrum antibiotics: Yes 30 ml/kg NS bolus Completed Initial lactate 3.0 Repeat lactate pending Time of recognition of septic shock: No septic shock Septic Shock Assessment: Any lactic acid > 4.0 No Persistent hypotension (SBP < 90 or 40 mmHg drop, MAP < 65) despite 30 mL/kg IV fluid bolus No Volume Re-assessment for Septic Shock (post 30 ml/kg bolus): Septic shock at this time Persistent Hypotension Treatment: Comfort care No Central line Not Required Vasopressor started Not required I considered further perfusion assessment with CVP measurement, SCVO2, bedside ultrasound volume assessment, passive leg raise, trial of further fluid bolus. And proceeded with 30 ml/kg fluid bolus of NSS, broad spectrum antibiotics, and admission. Accepting Care Team Current data and ongoing care discussed. Admitting Physician: Dr. Pate from the panel team Actuarial Manager(s): None Outstanding Data: Culture results and repeat lactic acid Critical Care: Critical care time 35 minutes excluding all billable procedures Emergent fluid management while maintaining close respiratory support. Provision of immediate and broad-spectrum antibiotic therapy. Simultaneous assessment for possible sources in order to direct targeted therapy. Consideration for invasive and chemical support to prevent cardiopulmonary collapse. Departure Diagnosis: Primary Impression: Severe sepsis Additional Impressions: Acute weakness Cellulitis Site of cellulitis: extremity Site of cellulitis of extremity: upper extremity Laterality: right Qualified Code: L03.113 - Cellulitis of right upper extremity Condition: ASHLEY Claros MD Apr 16, 2017 14:32
--- NOTE | 2017-04-16 14:32 | HP ---
Date/Time of Note Date/Time of Note DATE: 04/16/17 TIME: 14:32 Assessment/Plan VTE Prophylaxis VTE Prophylaxis Intervention: SCD's Lines/Catheters IV Catheter Type (from Nrsg): Mid Line Assessment/Plan Assessment/Plan 51 yo MtF transwoman (goes by [employer]) with most pertinent pmhx of poorly controlled Dm2, chronic mental illness, HIV here with large R forearm abscess most likely 2/2 poorly controlled DM2 #forearm abscess: gen surg and ortho asked to see patient to eval for I&D with resultant lactic acidosis empiric vanc/aztreonam (pt with PCN allergy) This abscess needs to be drained. Given its size, abx alone will not be sufficient #DM2 with hyperglycemia resume home insulin +SSI CDE eval #LM: judicious IVFs given known heart failure hx hold lasix and acei #HIV: truvada and Isentriss CD4/VL #chronic mental illness: cont home psych meds #chronic HF: cont home cardiac meds though hold acei and lasix given LM FEN DM diet prophx:DVT sw consult as I suspect pt is homeless. HPI/ROS Admit Date/Time Admit Date/Time Hx of Present Illness CC arm pain HPI Unfortunate 51 yo MtF transwoman with pmhx severe chronic mental illness, DM2 with poor control, DCM EF <20%, HIV with ?able HAART compliance, presents with 5 days of R arm pain and swelling. Pt states he fell 5 days ago and scraped the outer aspect of his R forearm. Regarding his Dm2, pt reports adherence with his insulin. states he's been checking sugars regularly and that they've been "normal." Pain impairs AROM of his R elbow Regarding pt's home meds, I called [facility] on file. Pt's HIV regimen is Isentriss and Truvada, though Truvada has not been filled since August PMH/Family/Social Social History possibly homeless? Smoking Status: Current every day smoker Exam/Review of Systems Vital Signs Vitals Vital Signs Date Time Temp Pulse Resp B/P Pulse Ox O2 Delivery O2 Flow Rate FiO2 04/16/17 11:00 Nasal Cannula 2 04/16/17 10:58 98.8 72 20 119/74 98 Exam Exam tired poor dentition no mrg lungs clear abd soft no LE edema R forearm with marked swelling, 10 cm x 6 cm area with denuded skin on external aspect of forearm extending distally from just past pt's elbow. Small aperture with purulence noted over on this wound, wound ends proximally to wrist +hand and wrist swelling as well. +palpable radial pulse. able to wiggle fingers. no impaired capillary refill. AROM R elbow limited 2/2 pain labs noted. BG markedly elevated with resultant dysregulation of Na and K WBCs elevated HIV labs last CD4 844 5.17 Last VL UD 12.16 Imaging notable for 8cm R forearm abscess a1c>10 last month Labs Result Diagram: 04/16/17 1310 04/16/17 1310 VANESA LAURENT MD Apr 16, 2017 14:32
[2017-04-16 15:12] LABS: ERYTHROBLAST% (NRBC) (M) 2 % (0-0); MONOCYTES % (M) 6 % (0-11); PLATELET ESTIMATE DECREASED
[2017-04-16] MEDS ORDERED: traMADol 50 MG TAB PO PRN (17:00)
[2017-04-16] MEDS ORDERED: ALBUTEROL HFA 8 GM INHALER INH PRN (17:00)
[2017-04-16 17:04] LABS: CK-MB 2.01 ng/ml (0.0-2.4); TROPONIN-I 0.084 ng/ml (0.00-0.12)
[2017-04-16] MEDS ORDERED: GLUCOSE GEL 15 GRAM TUBE BUCCAL PRN (17:30)
[2017-04-16] MEDS ORDERED: ONDANSETRON 4 MG INJ IV PRN ×3 (17:30→23:30)
[2017-04-16] MEDS ORDERED: VANCOMYCIN IV PER PHARMACY XX SCH (17:30)
[2017-04-16] MEDS ORDERED: GLUCAGON 1 MG INJ IM PRN (17:30)
[2017-04-16] MEDS ORDERED: morphine 2 MG INJ IV PRN (17:30)
[2017-04-16] MEDS ORDERED: DEXTROSE 50% 50 ML SYRINGE IV PRN ×2 (17:30)
[2017-04-16] MEDS ORDERED: GLUCOSE GEL 15 GRAM TUBE PO PRN ×2 (17:30)
[2017-04-16] MEDS ORDERED: LIDOCAINE 1% (MPF) 5 ML VIAL SC ONE (19:00)
[2017-04-16] MEDS: INSULIN ASPART [NOVOLOG] 3 ML PEN SC SCH ×2 (20:19→22:41)
[2017-04-16] MEDS ORDERED: INSULIN ISOPHANE SC SCH (21:00)
--- NOTE | 2017-04-16 21:29 | CONS ---
Date/Time of Note Date/Time of Note DATE: 04/16/17 TIME: 21:12 Assessment/Plan Assessment/Plan Chief Complaint/Hosp Course 1. Right upper extremity extensive infection and deep abscess. This seems out of round of general surgery and would best be served by strategic partnership specialist. -IV antibiotics -Elevate -Judicious fluid management -Orthopedic consultation and treatment 2. Significant leukocytosis, lactic acidosis, sepsis secondary to above -As above 3. Diabetes, type II -Diet and medication optimization 4. HIV positive -Medical optimization 5. Acute kidney injury secondary to above -Judicious fluid management -Avoid nephrotoxic agents 6. Chronic mental illness -Medical and psychiatric optimization 7. CHF -Judicious fluid management 8. Hypertension -Diet and medication optimization Thank you very much for consulting me in this patient's care, Problems: Consultation Date/Type/Reason Admit Date/Time Date of Consultation: Apr 16, 2017 Type of Consultation: General surgical Reason for Consultation Right upper extremity infection and abscess Diabetes Lactic acidosis Leukocytosis Sepsis, possible Referring Provider: VANESA LAURENT MD Hx of Present Illness Ba Shay (Amelia) is a 51-year-old M>F with multiple significant comorbidities who presents with right upper extremity swelling pain with skin changes after scrape for the past 5 days. He does not adhere to his medical care including insulin and HAART medications. Patient is unable to move his elbow or wrist due to significant pain. The pain has been getting worse and spreading including the swelling. Denies current fevers or chills. Denies nausea vomiting. Denies chest pain or shortness of breath. Denies cough, seizure, visual, or neurologic changes. Patient apparently pulled his left- sided midline out in the ER team is in the process of placing a new one. Surgical consult is obtained further evaluation however orthopedic consultation is in process as well. 12 point review of systems negative unless addressed in HPI. Past Medical History CHF Hypertension COPD Drug abuse Alcohol use ? Homeless Smoker HIV-positive Right upper extremity infection and abscess Diabetes type 2 Noncompliant Psychiatric disorder Family History Significant Family History: cancer (Cervical mom), diabetes (Father) Social History Alcohol Use: occasionally Smoking Status: Current every day smoker Drug Use: marijuana Exam/Review of Systems Vital Signs Vitals Vital Signs Date Time Temp Pulse Resp B/P Pulse Ox O2 Delivery O2 Flow Rate FiO2 04/16/17 17:06 98.2 119 20 134/91 97 Nasal Cannula 2.0 Exam Constitutional: alert, oriented, No distress Psych: anxiety Head: normocephalic, No lacerations Eyes: EOMI, nl conjunctiva, No PERRL, No icteric ENMT: No mucosa pink and moist, No nl external ears & nose Neck: jvd, non-tender, supple Respiratory: normal air movement, No congested cough, No labored breathing Cardiovascular: edema (Right upper extremity), No nl pulses, No regular rate and rhythm Gastrointestinal: non-tender, soft, No rebound or guarding Musculoskeletal: joint tenderness, No nl extremities to inspection Extremities: edema, No calf tenderness, No normal pulses Neurological: nl speech, No nl mental status Skin: nl turgor, rash or lesions, No diaphoresis Lymph: nl lymph nodes Results Result Diagram: 04/16/17 1310 04/16/17 1310 Results 24 hrs Laboratory Tests Test 04/16/17 13:10 04/16/17 16:00 04/16/17 17:58 04/16/17 19:30 White Blood Count 16.1 #H Red Blood Count 5.83 Hemoglobin 17.0 Hematocrit 49.3 Mean Corpuscular Volume 84.6 Mean Corpuscular Hemoglobin 29.2 Mean Corpuscular Hemoglobin Concent 34.5 Red Cell Distribution Width 20.2 H Platelet Count 105 #L Mean Platelet Volume Neutrophils % Segmented Neutrophils % (Manual) 81 H Band Neutrophils % (Manual) 9 H Lymphocytes % Lymphocytes % (Manual) 4 L Monocytes % Monocytes % (Manual) 6 Eosinophils % Basophils % Nucleated Red Blood Cells % 2 H Neutrophils # Neutrophils # (Manual) 13.3 H Band Neutrophils # 1.4 H Absolute Lymphocytes (Manual) 0.6 L Lymphocytes # Monocytes # Absolute Monocytes (Manual) 0.9 Eosinophils # Basophils # Nucleated Red Blood Cells # Platelet Estimate DECREASED Sodium Level 152 H Potassium Level 2.6 *L Chloride Level 100 Carbon Dioxide Level 36 H Anion Gap 19 H Blood Urea Nitrogen 35 H Creatinine 1.50 H Glucose Level 545 *H Lactic Acid Level 3.6 *H 2.4 *H Calcium Level 8.3 L Troponin I 0.086 0.084 Erythrocyte Sedimentation Rate 35 H Hemoglobin A1c 13.1 H Creatine Kinase 387 H Creatine Kinase Index 0.5 Creatinine Kinase MB (Mass) 2.01 C-Reactive Protein 8.0 H Bedside Glucose 391 H Urine Ketones NEGATIVE Test 04/16/17 19:50 04/16/17 20:17 Lactic Acid Level 4.6 *H Bedside Glucose 506 *H Medications Medications Current Medications Carvedilol (Coreg) 6.25 mg BID PO ; Start 04/16/17 at 21:00 Gabapentin (Neurontin) 300 mg TID PO ; Start 04/16/17 at 21:00 Insulin Glargine (Lantus) 42 unit DAILY@08 SC ; Start 04/17/17 at 08:00 Potassium Chloride (Klor-Con 10) 10 meq DAILY PO ; Start 04/17/17 at 09:00 Quetiapine Fumarate (Seroquel) 400 mg HS PO ; Start 04/16/17 at 21:00 Miscellaneous Medication (Isentress) 400 mg BID PO ; Start 04/16/17 at 21:00 Tramadol HCl (Ultram) 50 mg Q6H PRN PO PAIN; Start 04/16/17 at 17:00 Emtricitabine/ Tenofovir (Truvada) 1 tab DAILY PO ; Start 04/17/17 at 09:00 Miscellaneous Information 1 ea NOTE XX ; Start 04/16/17 at 17:30 Glucose (Glutose) 15 gm Q15M PRN PO DECREASED GLUCOSE; Start 04/16/17 at 17:30 Glucose (Glutose) 22.5 gm Q15M PRN PO DECREASED GLUCOSE; Start 04/16/17 at 17: 30 Dextrose (D50w Syringe) 25 ml Q15M PRN IV DECREASED GLUCOSE; Start 04/16/17 at 17:30 Dextrose (D50w Syringe) 50 ml Q15M PRN IV DECREASED GLUCOSE; Start 04/16/17 at 17:30 Glucagon (Glucagen) 1 mg Q15M PRN IM DECREASED GLUCOSE; Start 04/16/17 at 17: 30 Glucose (Glutose) 15 gm Q15M PRN BUCCAL DECREASED GLUCOSE; Start 04/16/17 at 17:30 Diagnostic Test (Pha) 1 ea 1 ea 02 XX ; Start 04/17/17 at 02:00 Aztreonam (Azactam 1gm/NS (Pmx)) 50 ml @ 100 mls/hr Q8H IVPB ; Start 04/16/17 at 17:30 Morphine Sulfate (morphine) 2 mg Q3H PRN IV pain; Start 04/16/17 at 17:30 Ondansetron HCl 4 mg 4 mg Q4H PRN IV nause; Start 04/16/17 at 17:30 Vancomycin HCl/ Dextrose/Water (Vancocin/D5W) 150 ml @ 75 mls/hr Q12H IVPB ; Start 04/17/17 at 05:00 SCOTT LIANG MD Apr 16, 2017 21:23
[2017-04-16 22:42] VITALS: TEMP 98.4
--- NOTE | 2017-04-16 22:57 | EN ---
Date/Time of Note Date/Time of Note DATE: 04/16/17 TIME: 22:55 ER Progress Note Ultrasound-guided peripheral IV insertion note, left forearm. Ultrasound-guided IV was needed on this patient because of her multiple attempts the staff was not able to place a line even with ultrasound guidance. I cleaned the forearm with alcohol and located a good vein because there were none in the upper arm. Under ultrasound guidance and was able to easily inserted and extended 18-gauge angiocatheter. There is good blood flow. Blood was obtained from the same line and it flushed well. Patient taught the procedure well with no complications. Images saved in chart. KRISTI ANAYA DO Apr 16, 2017 22:57
[2017-04-16] MEDS ORDERED: ACETAMINOPHEN 325 MG TAB PO PRN ×2 (23:00→23:30)
[2017-04-16] MEDS: AZTREONAM 1 GM/NS (PMX) 50 ML IVPB SCH (23:01)
[2017-04-16] MEDS: SOD CHLORIDE 0.9% 1,000 ML IV SCH (23:02)
[2017-04-16 23:30] VITALS: Ht 172.7 cm; Wt 74.0 kg
[2017-04-16] MEDS ORDERED: BISACODYL (EC) 5 MG TAB PO PRN (23:30)
[2017-04-16] MEDS ORDERED: DOCUSATE SODIUM 100 MG CAP PO PRN (23:30)
[2017-04-16] MEDS ORDERED: NACL 0.9% 3 ML SYG IV SCH (23:30)
[2017-04-16 23:32] LABS: CALCIUM 7.6 mg/dl (8.4-10.2); CREATININE 1.49 mg/dl (0.61-1.24)
[2017-04-16 23:40] LABS: POTASSIUM 2.8 mmol/L (3.5-5.1)
[2017-04-17] VITALS (11 sets, daily range): BP systolic 98–129; BP diastolic 53–75; PULSE 107–153; RESP 18–21
[2017-04-17 00:14] LABS: TROPONIN-I 0.087 ng/ml (0.00-0.12)
[2017-04-17 00:18] LABS: CK-MB 2.46 ng/ml (0.0-2.4)
[2017-04-17] MEDS ORDERED: ALBUMIN HUMAN 25% 100 ML IV ONE (00:30)
[2017-04-17] MEDS: AZTREONAM 1 GM/NS (PMX) 50 ML IVPB SCH ×3 (01:30→17:28)
[2017-04-17] MEDS ORDERED: ACCU-CHEK XX SCH (02:00)
[2017-04-17] MEDS: ACCU-CHEK XX SCH ×2 (02:00)
[2017-04-17 02:04] LABS: ALBUMIN 2.2 g/dl (3.3-4.9); ALBUMIN/GLOBULIN RATIO 0.47; BILIRUBIN,INDIRECT 0.5 mg/dl (0-1.1); BILIRUBIN,TOTAL 0.5 mg/dl (0.2-1.3); CALCIUM 7.6 mg/dl (8.4-10.2); CREATININE 1.34 mg/dl (0.61-1.24); POTASSIUM 3.4 mmol/L (3.5-5.1); TOTAL PROTEIN 6.8 g/dl (6.1-8.1)
[2017-04-17] MEDS: POTASSIUM CHLORIDE 250 ML IVPB SCH ×3 (02:22→05:49)
[2017-04-17] MEDS: RALTEGRAVIR 400 MG TAB PO SCH ×3 (02:45→21:12)
[2017-04-17] MEDS: GABAPENTIN 300 MG CAP PO SCH ×4 (02:46→21:12)
[2017-04-17] MEDS: QUETIAPINE 100 MG TAB PO SCH ×2 (02:46→21:11)
[2017-04-17] MEDS ORDERED: INSULIN ASPART [NOVOLOG] 3 ML PEN SC ONE (02:54)
[2017-04-17] MEDS: VANCOMYCIN 750 MG in DEXTROSE 5% 150 ML IVPB SCH ×2 (05:59→18:19)
[2017-04-17 06:35] LABS: ABNORMAL IP MESSAGE 1; HEMATOCRIT 38.2 % (42.0-52.0); HEMOGLOBIN 13.3 g/dl (14.0-18.0); MEAN CORPUSCULAR HEMOGLOBIN 29.4 pg (29.0-33.0); MEAN CORPUSCULAR HGB CONC 34.8 g/dl (32.0-37.0); MEAN CORPUSCULAR VOLUME 84.5 fl (82.0-101.0); PLATELET COUNT 58 10^3/UL (140-415); POSITIVE DIFF @See below; RED BLOOD COUNT 4.52 10^6/ul (4.70-6.10); RED CELL DISTRIBUTION WIDTH 19.9 % (11.5-14.5); WHITE BLOOD COUNT 8.9 10^3/ul (4.8-10.8)
[2017-04-17 06:58] LABS: CALCIUM 7.5 mg/dl (8.4-10.2); CREATININE 1.25 mg/dl (0.61-1.24); POTASSIUM 3.7 mmol/L (3.5-5.1)
[2017-04-17 07:28] LABS: THYROID STIMULATING HORMONE 1.72 MIU/L (0.465-4.680)
[2017-04-17] MEDS ORDERED: INSULIN ASPART [NOVOLOG] 3 ML PEN SC SCH (08:00)
[2017-04-17 08:14] LABS: CHOL/HDL RATIO 6.5 RATIO
[2017-04-17] MEDS: POTASSIUM CHLORIDE (SR) 10 MEQ TAB PO SCH (08:21)
[2017-04-17] MEDS: INSULIN GLARGINE [LANtus] 3 ML PEN SC SCH (08:28)
[2017-04-17] MEDS: EMTRICITABINE/TENOFOVIR TAB PO SCH (08:29)
[2017-04-17] MEDS: INSULIN ASPART [NOVOLOG] 3 ML PEN SC SCH ×7 (08:35→21:00)
[2017-04-17 08:50] LABS: ANISOCYTOSIS 3+ (0-0); EOSINOPHILS % (M) 3 % (0-7); MONOCYTES % (M) 5 % (0-11); PLATELET ESTIMATE DECREASED
[2017-04-17] MEDS ORDERED: LISINOPRIL 5 MG TAB PO SCH (09:00)
[2017-04-17] MEDS ORDERED: FUROSEMIDE 40 MG TAB PO SCH (09:00)
[2017-04-17 10:52] LABS: ADD UMIC YES; UR ASCORBIC ACID NEGATIVE (NEGATIVE); UR BACTERIA FEW /HPF (NONE SEEN); UR BILIRUBIN (Dip) NEGATIVE (NEGATIVE); UR BLOOD (Dip) 2+ mg/dL (NEGATIVE); UR CLARITY CLEAR (CLEAR); UR COLOR YELLOW (YELLOW); UR GLUCOSE (Dip) 3+ mg/dL (NEGATIVE); UR KETONES (Dip) NEGATIVE (NEGATIVE); UR LEUKOCYTE ESTERASE (Dip) TRACE Leu/ul (NEGATIVE); UR NITRITE (Dip) NEGATIVE (NEGATIVE); UR RBC 1 /HPF (0-5); UR SPECIFIC GRAVITY (Dip) 1.008 (1.003-1.030); UR TOTAL PROTEIN (Dip) 1+ mg/dl (NEGATIVE); UR UROBILINOGEN (Dip) 2+ mg/dL (NEGATIVE)
--- NOTE | 2017-04-17 11:44 | CONS ---
DATE OF ADMISSION: 04/16/2017 DATE OF CONSULTATION: 04/17/2017 HISTORY OF PRESENT ILLNESS: This is a 51-year-old male with history of uncontrolled diabetes, HIV, chronic mental illness with a right forearm abscess. The patient is unable to give history. Accord ing to the records, he has uncontrolled diabetes with blood sugars in the 600s. PAST MEDICAL HISTORY: HIV, diabetes, acute kidney disease, chronic mental illness, CHF, COPD, drug use. MEDICATIONS 1. Carvedilol. 2. Gabapentin. 3. Seroquel. PAST SURGICAL HISTORY: Patient unable to give previous surgical history. SOCIAL HISTORY: He is a daily tobacco user, alcohol use, as well as illicit drug use including arabella ronald and IV drug use. FAMILY HISTORY: Cancer and diabetes. ALLERGIES: NO KNOWN DRUG ALLERGIES. PHYSICAL EXAMINATION: VITAL SIGNS: Temperature 99.1, 98/53, pulse of 111. GENERAL: The patient is resting comfortably in no acute distress. RIGHT FOREARM: There is cellulitis overlying the right forearm. There is also fluctuance of the fo rearm. There is minimal drainage. Unable to perform neuro exam since patient is unable to follow c ommands. He has palpable radial artery pulse with capillary refill less than 2 seconds. X-RAYS RIGHT FOREARM: No fractures or dislocations are seen. ULTRASOUND RIGHT FOREARM: There is a complex fluid collection measuring 8.5 x 4.7 x 2.1 cm. LABORATORY DATA: White blood cell count is 8.9. ESR is 35, CRP is pending. IMPRESSION: A 51-year-old male with history of human immunodeficiency virus, intravenous drug use, uncontrolled diabetes with right forearm deep abscess. PLAN: I recommend continuation of IV antibiotics. I also recommend a CT-guided aspiration by inter ventional radiology. Given the size of the abscess, as well as the location and complexity on ultra sound, patient requires a hand or upper extremity surgeon for operative treatment as the abscess may involve neurovascular structures. I spoke with Dr. Vanesa Mccallum who agreed with the plan. The pat ient is currently stable with no evidence of sepsis. Dictated By: CATY CLINE MD SS/NTS Conf#: [id number] DID#: [id number] CC: VANESA MCCALLUM MD;*EndCC*
--- NOTE | 2017-04-17 14:47 | PN ---
Date/Time of Note Date/Time of Note DATE: 04/17/17 TIME: 14:44 Assessment/Plan Lines/Catheters IV Catheter Type (from Nrs): Saline Lock Marshall in Place (from Nrs): Yes Assessment/Plan Chief Complaint/Hosp Course 1. Right upper extremity extensive infection and deep abscess. This seems out of realm of general surgery and would best be served by grant specialist. -CT pending per Ortho -IV antibiotics -Elevate -Judicious fluid management -Orthopedic treatment 2. Significant leukocytosis, lactic acidosis, sepsis secondary to above -As above 3. Diabetes, type II -Diet and medication optimization 4. HIV positive -Medical optimization 5. Acute kidney injury secondary to above -Judicious fluid management -Avoid nephrotoxic agents 6. Chronic mental illness -Medical and psychiatric optimization 7. CHF -Judicious fluid management 8. Hypertension -Diet and medication optimization Thank you, Problems: Subjective 24 Hr Interval Summary Patient continues not to be able to move his elbow or wrist due to significant pain. Reports continued pain and swelling. Denies current fevers or chills. Denies nausea vomiting. Denies chest pain or shortness of breath. Denies cough , seizure, visual, or neurologic changes. CT pending per ortho. Exam/Review of Systems Vital Signs Vitals Vital Signs Date Time Temp Pulse Resp B/P Pulse Ox O2 Delivery O2 Flow Rate FiO2 04/17/17 12:56 118 04/17/17 11:54 98.8 18 116/60 97 04/16/17 22:42 Nasal Cannula 04/16/17 17:06 2.0 Intake and Output 04/16/17 04/16/17 04/17/17 15:00 23:00 07:00 Intake Total 50 ml 2130 ml 100 ml Output Total 600 ml Balance 50 ml 2130 ml -500 ml Exam Free Text/Dictation Constitutional: alert, oriented, No distress Psych: anxiety Head: normocephalic, No lacerations Eyes: EOMI, nl conjunctiva, No PERRL, No icteric ENMT: No mucosa pink and moist, No nl external ears & nose Neck: jvd, non-tender, supple Respiratory: normal air movement, No congested cough, No labored breathing Cardiovascular: edema (Right upper extremity), No nl pulses, No regular rate and rhythm Gastrointestinal: non-tender, soft, No rebound or guarding Musculoskeletal: joint tenderness, No nl extremities to inspection Extremities: edema, No calf tenderness, No normal pulses Neurological: nl speech, No nl mental status Skin: nl turgor, rash or lesions, No diaphoresis Lymph: nl lymph nodes Results Result Diagram: 04/17/17 0557 04/17/17 0558 SCOTT LIANG MD Apr 17, 2017 14:47
[2017-04-17] MEDS: SOD CHLORIDE 0.9% 1,000 ML IV SCH ×2 (15:12→21:15)
--- NOTE | 2017-04-17 15:56 | PN ---
Date/Time of Note Date/Time of Note DATE: 04/17/17 TIME: 15:46 Assessment/Plan VTE Prophylaxis VTE Prophylaxis Intervention: SCD's Lines/Catheters IV Catheter Type (from Nrsg): Saline Lock Urinary Cath still in place: Yes Reason Cath still needed: other (indicate) (will dc) Assessment/Plan Assessment/Plan 51 yo MtF transwoman (goes by [facility]) with most pertinent pmhx of poorly controlled Dm2, chronic mental illness, HIV here with large R forearm abscess most likely 2/2 poorly controlled DM2 #forearm abscess: gen surg deferred to ortho, ortho stating pt needs higher level of care empiric vanc/aztreonam (pt with PCN allergy)-->wound culture noted This abscess needs to be drained. Given its size, abx alone will not be sufficient CM aware of need for higher level of care CT ordered to assess for loculations bc if these are present the IR aspiration advised by ortho is unlikely to be helpful #thrush: nystatin #DM2 with hyperglycemia resume home insulin +SSI CDE eval #LM: improving cont to hold lasix and acei #HIV: truvada and Isentriss CD4/VL #chronic mental illness: cont home psych meds #chronic HF: cont home cardiac meds though hold acei and lasix given LM which is improving FEN DM diet prophx:DVT sw consult as I suspect pt is homeless. Subjective 24 Hr Interval Summary Free Text/Dictation still fatigued, BGs better Exam/Review of Systems Vital Signs Vitals Vital Signs Date Time Temp Pulse Resp B/P Pulse Ox O2 Delivery O2 Flow Rate FiO2 04/17/17 12:56 118 04/17/17 11:54 98.8 18 116/60 97 04/16/17 22:42 Nasal Cannula 04/16/17 17:06 2.0 Intake and Output 04/16/17 04/16/17 04/17/17 15:00 23:00 07:00 Intake Total 50 ml 2130 ml 100 ml Output Total 600 ml Balance 50 ml 2130 ml -500 ml Exam laying in bed both forearms wrapped no mrg lungs clear abd soft WBCs better culture results noted Cr better Results Result Diagram: 04/17/17 0557 04/17/17 0558 Results 24 hrs Laboratory Tests Test 04/16/17 16:00 04/16/17 17:58 04/16/17 19:30 04/16/17 19:50 Erythrocyte Sedimentation Rate 35 H Hemoglobin A1c 13.1 H Lactic Acid Level 2.4 *H 4.6 *H Creatine Kinase 387 H Creatine Kinase Index 0.5 Creatinine Kinase MB (Mass) 2.01 Troponin I 0.084 C-Reactive Protein 8.0 H Bedside Glucose 391 H Urine Ketones NEGATIVE Test 04/16/17 20:17 04/16/17 21:40 04/16/17 22:00 04/16/17 22:45 Bedside Glucose 506 *H 489 *H 438 *H Sodium Level 151 H Potassium Level 2.8 *L Chloride Level 103 Carbon Dioxide Level 38 H Anion Gap 13 Blood Urea Nitrogen 37 H Creatinine 1.49 H Glucose Level 502 *H Calcium Level 7.6 L Test 04/16/17 23:00 04/17/17 00:54 04/17/17 03:00 04/17/17 05:56 Creatine Kinase 437 H Creatine Kinase Index 0.6 Creatinine Kinase MB (Mass) 2.46 H Troponin I 0.087 Sodium Level 146 H Potassium Level 3.4 L Chloride Level 104 Carbon Dioxide Level 35 H Anion Gap 10 Blood Urea Nitrogen 39 H Creatinine 1.34 H Glucose Level 432 *H Lactic Acid Level 3.2 *H Calcium Level 7.6 L Magnesium Level 1.6 L Total Bilirubin 0.5 Direct Bilirubin 0.00 Indirect Bilirubin 0.5 Aspartate Amino Transf (AST/SGOT) 84 H Alanine Aminotransferase (ALT/SGPT) 49 Alkaline Phosphatase 241 H Total Protein 6.8 Albumin 2.2 L Globulin 4.60 H Albumin/Globulin Ratio 0.47 Urine Color YELLOW Urine Clarity CLEAR Urine pH 7.0 Urine Specific [place] 1.008 Urine Ketones NEGATIVE Urine Nitrite NEGATIVE Urine Bilirubin NEGATIVE Urine Urobilinogen 2+ H Urine Leukocyte Esterase TRACE A Urine Microscopic RBC 1 Urine Microscopic WBC 14 H Urine Bacteria FEW A Urine Hemoglobin 2+ H Urine Glucose 3+ H Urine Total Protein 1+ H Bedside Glucose 306 H Test 04/17/17 05:57 04/17/17 05:58 04/17/17 08:24 04/17/17 11:56 White Blood Count 8.9 # Red Blood Count 4.52 #L Hemoglobin 13.3 #L Hematocrit 38.2 #L Mean Corpuscular Volume 84.5 Mean Corpuscular Hemoglobin 29.4 Mean Corpuscular Hemoglobin Concent 34.8 Red Cell Distribution Width 19.9 H Platelet Count 58 #L Mean Platelet Volume Neutrophils % Segmented Neutrophils % (Manual) 58 Band Neutrophils % (Manual) 14 H Lymphocytes % Lymphocytes % (Manual) 20 Monocytes % Monocytes % (Manual) 5 Eosinophils % Eosinophils % (Manual) 3 Basophils % Nucleated Red Blood Cells % 0.0 Neutrophils # Neutrophils # (Manual) 5.3 Band Neutrophils # 1.2 H Absolute Lymphocytes (Manual) 1.7 Lymphocytes # Monocytes # Absolute Monocytes (Manual) 0.4 Eosinophils # Basophils # Nucleated Red Blood Cells # Platelet Estimate DECREASED Anisocytosis 3+ Macrocytosis 3+ Hemoglobin A1c 12.7 H Sodium Level 151 H Potassium Level 3.7 Chloride Level 110 Carbon Dioxide Level 36 H Anion Gap 9 Blood Urea Nitrogen 39 H Creatinine 1.25 H Glucose Level 341 H Lactic Acid Level 2.1 H 2.5 *H Calcium Level 7.5 L Triglycerides Level 77 Cholesterol Level 59 L LDL Cholesterol, Calculated 35 HDL Cholesterol 9 L Cholesterol/HDL Ratio 6.5 Thyroid Stimulating Hormone (TSH) 1.720 Bedside Glucose 266 H Test 04/17/17 12:19 Bedside Glucose 176 Medications Medications Current Medications Carvedilol (Coreg) 6.25 mg BID PO Last administered on 04/17/17 02:47; Admin Dose 6.25 MG; Start 04/16/17 at 21:00 Gabapentin (Neurontin) 300 mg TID PO Last administered on 04/17/17 12:32; Admin Dose 300 MG; Start 04/16/17 at 21:00 Insulin Glargine (Lantus) 42 unit DAILY@08 SC Last administered on 04/17/17 08:28; Admin Dose 42 UNIT; Start 04/17/17 at 08:00 Potassium Chloride (Klor-Con 10) 10 meq DAILY PO Last administered on 08:21; Admin Dose 10 MEQ; Start 04/17/17 at 09:00 Quetiapine Fumarate (Seroquel) 400 mg HS PO Last administered on 04/17/17 02: 46; Admin Dose 400 MG; Start 04/16/17 at 21:00 Miscellaneous Medication (Isentress) 400 mg BID PO Last administered on 08:22; Admin Dose 400 MG; Start 04/16/17 at 21:00 Tramadol HCl (Ultram) 50 mg Q6H PRN PO PAIN; Start 04/16/17 at 17:00 Emtricitabine/ Tenofovir (Truvada) 1 tab DAILY PO Last administered on 08:29; Admin Dose 1 TAB; Start 04/17/17 at 09:00 Miscellaneous Information 1 ea NOTE XX ; Start 04/16/17 at 17:30 Glucose (Glutose) 15 gm Q15M PRN PO DECREASED GLUCOSE; Start 04/16/17 at 17:30 Glucose (Glutose) 22.5 gm Q15M PRN PO DECREASED GLUCOSE; Start 04/16/17 at 17: 30 Dextrose (D50w Syringe) 25 ml Q15M PRN IV DECREASED GLUCOSE; Start 04/16/17 at 17:30 Dextrose (D50w Syringe) 50 ml Q15M PRN IV DECREASED GLUCOSE; Start 04/16/17 at 17:30 Glucagon (Glucagen) 1 mg Q15M PRN IM DECREASED GLUCOSE; Start 04/16/17 at 17: 30 Glucose (Glutose) 15 gm Q15M PRN BUCCAL DECREASED GLUCOSE; Start 04/16/17 at 17:30 Diagnostic Test (Pha) 1 ea 1 ea 02 XX Last administered on 04/17/17 02:00; Admin Dose 1 EA; Start 04/17/17 at 02:00 Aztreonam (Azactam 1gm/NS (Pmx)) 50 ml @ 100 mls/hr Q8H IVPB Last administered on 04/17/17 11:23; Admin Dose 100 MLS/HR; Start 04/16/17 at 17: 30 Morphine Sulfate (morphine) 2 mg Q3H PRN IV pain; Start 04/16/17 at 17:30 Ondansetron HCl 4 mg 4 mg Q4H PRN IV nause; Start 04/16/17 at 17:30 Vancomycin HCl 750 mg/Dextrose/ Water 150 ml @ 75 mls/hr Q12H IVPB Last administered on 04/17/17 05:59; Admin Dose 75 MLS/HR; Start 04/17/17 at 05:00 Sodium Chloride (NS) 1,000 ml @ 80 mls/hr Q34T32S IV Last administered on 15:12; Admin Dose 80 MLS/HR; Start 04/16/17 at 23:02 Ondansetron HCl (Zofran Inj) 4 mg Q6H PRN IV NAUSEA AND/OR VOMITING; Start at 23:30 Acetaminophen (Tylenol Tab) 650 mg Q6H PRN PO PAIN LEVEL 1-3 OR FEVER; Start 04/16/17 at 23:30 Docusate Sodium (Colace) 100 mg Q12H PRN PO CONSTIPATION; Start 04/16/17 at 23 :30 Bisacodyl (Dulcolax) 5 mg DAILY PRN PO CONSTIPATION; Start 04/16/17 at 23:30 Diagnostic Test (Pha) (Accu-Chek) 1 ea 02 XX Last administered on 04/17/17t 02 :00; Admin Dose 1 EA; Start 04/17/17 at 02:00 VANESA LAURENT MD Apr 17, 2017 15:56
[2017-04-17] MEDS: NYSTATIN SUSP 5 ML CUP PO SCH ×2 (17:28→21:12)
[2017-04-17] MEDS ORDERED: SOD CHLORIDE 0.9% 100 ML ONE (19:08)
[2017-04-17] MEDS ORDERED: IODIXANOL LOCM 100 ML BTL ONE (19:08)
[2017-04-17] MEDS ORDERED: LORAZEPAM 2 MG INJ IV PRN (21:00)
[2017-04-18] VITALS (13 sets, daily range): BP systolic 88–123; BP diastolic 51–78; PULSE 107–126; RESP 18–24
[2017-04-18] MEDS: AZTREONAM 1 GM/NS (PMX) 50 ML IVPB SCH ×3 (01:47→16:40)
[2017-04-18] MEDS: ACCU-CHEK XX SCH ×2 (02:00)
[2017-04-18 04:38] LABS: ABNORMAL IP MESSAGE 1; HEMATOCRIT 37.1 % (42.0-52.0); HEMOGLOBIN 12.8 g/dl (14.0-18.0); MEAN CORPUSCULAR HEMOGLOBIN 29.4 pg (29.0-33.0); MEAN CORPUSCULAR HGB CONC 34.5 g/dl (32.0-37.0); MEAN CORPUSCULAR VOLUME 85.1 fl (82.0-101.0); MEAN PLATELET VOLUME 11.7 fl (7.4-10.4); NUCLEATED RED BLOOD CELLS% 0.3 /100WBC (0.0-0.0); PLATELET COUNT 60 10^3/UL (140-415); POSITIVE DIFF @See below; RED BLOOD COUNT 4.36 10^6/ul (4.70-6.10); RED CELL DISTRIBUTION WIDTH 19.8 % (11.5-14.5); WHITE BLOOD COUNT 6.6 10^3/ul (4.8-10.8)
[2017-04-18 05:07] LABS: CALCIUM 7.4 mg/dl (8.4-10.2); CREATININE 1.19 mg/dl (0.61-1.24); MAGNESIUM 1.5 mg/dl (1.7-2.5); POTASSIUM 3.3 mmol/L (3.5-5.1)
[2017-04-18] MEDS: VANCOMYCIN 750 MG in DEXTROSE 5% 150 ML IVPB SCH (05:53)
[2017-04-18] MEDS: SOD CHLORIDE 0.9% 1,000 ML IV SCH (06:58)
[2017-04-18] MEDS: INSULIN ASPART [NOVOLOG] 3 ML PEN SC SCH ×7 (07:55→21:00)
[2017-04-18 07:58] LABS: ANISOCYTOSIS 1+ (0-0); MONOCYTES % (M) 11 % (0-11); PLATELET ESTIMATE DECREASED; POIKILOCYTOSIS 1+ (0-0); REACTIVE LYMPHOCYTES% (M) 7 % (0-0); TARGET CELLS 2+ (0-0)
--- NOTE | 2017-04-18 08:08 | RADRPT ---
PROCEDURE: CT scan right forearm with contrast. CLINICAL INDICATION: Right forearm pain and swelling. TECHNIQUE: CT scan of the right forearm with contrast was performed on the high-resolution multide tector CT scanner. The patient was examined following the uncomplicated IV administration of 100 cc of Visipaque 320 IV contrast. Axial images were obtained throughout the right knee with coronal an d sagittal reformatted images. Images were reviewed on a high-resolution PACS workstation. DICOM i mages are available. CTDI = 23.00 mGy, and the DLP = 1224.54 mGy-cm. One or more of the following dose reduction techniques were used: - Automated exposure control. - Adjustment of the mA and/or kV according to patient size. - Use of iterative reconstruction technique. COMPARISON: Right forearm x-ray 04/16/2017; right forearm ultrasound 04/16/2017 FINDINGS: IMPRESSION: 1. Fluid collection along the posterior dorsum of the right forearm possibly representing an absces s. Surgical evaluation is warranted. RPTAT: PP .Zafar Uribe MD, Date Time Electronically viewed and signed by .Zafar Uribe MD, on 04/18/2017 08:08 .B/
[2017-04-18] MEDS: INSULIN GLARGINE [LANtus] 3 ML PEN SC SCH (08:27)
[2017-04-18] MEDS: POTASSIUM CHLORIDE (SR) 10 MEQ TAB PO SCH (09:00)
[2017-04-18] MEDS: RALTEGRAVIR 400 MG TAB PO SCH ×2 (09:00→20:23)
[2017-04-18] MEDS: GABAPENTIN 300 MG CAP PO SCH ×3 (09:00→20:23)
[2017-04-18] MEDS: NYSTATIN SUSP 5 ML CUP PO SCH ×4 (09:00→20:23)
[2017-04-18] MEDS: EMTRICITABINE/TENOFOVIR TAB PO SCH (09:00)
[2017-04-18] MEDS ORDERED: ACETAMINOPHEN 650 MG SUPP PR PRN (10:00)
[2017-04-18] MEDS: SOD CHLORIDE 0.45% 1,000 ML IV SCH ×3 (10:22→12:56)
[2017-04-18 12:19] LABS: INR 1.29; PROTIME 16.2 Sec (12.2-14.2); PT RATIO 1.3
[2017-04-18] MEDS ORDERED: VANCOMYCIN 1 GM in NS 250 ML IVPB SCH (15:00)
[2017-04-18] MEDS ORDERED: DEXTROSE 5%-0.45% NACL 1,000 ML IV SCH (15:00)
[2017-04-18] MEDS ORDERED: POTASSIUM CHLORIDE 250 ML IVPB ONE (18:00)
[2017-04-18] MEDS ORDERED: MAGNESIUM SULFATE 3 GM in DEXTROSE 5% 100 ML IVPB ONE (18:00)
--- NOTE | 2017-04-18 18:27 | PN ---
Date/Time of Note Date/Time of Note DATE: 04/18/17 TIME: 18:25 Assessment/Plan Lines/Catheters IV Catheter Type (from [facility]): Peripheral IV [facility] in Place (from [facility]): No Assessment/Plan Chief Complaint/Hosp Course 1. Right upper extremity infection and abscess. This is best treated by family program specialist. -IV antibiotics -Elevate -Judicious fluid management -Orthopedic treatment 2. Significant leukocytosis, lactic acidosis, sepsis secondary to above. Improving -As above 3. Diabetes, type II -Diet and medication optimization 4. HIV positive -Medical optimization 5. Acute kidney injury secondary to above -Judicious fluid management -Avoid nephrotoxic agents 6. Chronic mental illness -Medical and psychiatric optimization 7. CHF -Judicious fluid management 8. Hypertension -Diet and medication optimization Thank you, Problems: Subjective 24 Hr Interval Summary Patient continues not to be able to move his elbow or wrist easily due to pain & swelling. Denies current fevers or chills but had fever earlier. WBC improved. Denies nausea or vomiting. Denies chest pain or shortness of breath. Denies cough, seizure, visual, or neurologic changes. CT noted. Exam/Review of Systems Vital Signs Vitals Vital Signs Date Time Temp Pulse Resp B/P Pulse Ox O2 Delivery O2 Flow Rate FiO2 04/18/17 18:24 4.0 04/18/17 16:05 107 04/18/17 15:57 97.6 20 111/68 100 04/18/17 01:48 28 04/16/17 22:42 Nasal Cannula Intake and Output 04/17/17 04/17/17 04/18/17 15:00 23:00 07:00 Intake Total 50 ml 2210 ml 100 ml Output Total 600 ml Balance 50 ml 1610 ml 100 ml Exam Free Text/Dictation Constitutional: alert, oriented, No distress Psych: anxiety Head: normocephalic, No lacerations Eyes: EOMI, nl conjunctiva, No PERRL, No icteric ENMT: No mucosa pink and moist, No nl external ears & nose Neck: jvd, non-tender, supple Respiratory: normal air movement, No congested cough, No labored breathing Cardiovascular: edema (Right upper extremity), No nl pulses, No regular rate and rhythm Gastrointestinal: non-tender, soft, No rebound or guarding Musculoskeletal: joint tenderness, No nl extremities to inspection Extremities: edema, No calf tenderness, No normal pulses Neurological: nl speech, No nl mental status Skin: nl turgor, rash or lesions, No diaphoresis Lymph: nl lymph nodes Results Result Diagram: 04/18/17 0427 04/18/17 0427 SCOTT LIANG MD Apr 18, 2017 18:27
--- NOTE | 2017-04-18 18:57 | QN ---
Documentation Comment See discharge summary for overview of hospital course Of note, I have been personally aggressively been attempting to get this patient transferred to a higher level of care since 1pm. I have spoken with the nursing supervisor bridges and buildings, HELEN/LIZETTE at [phone] and [phone], pre access, the orthopedic surgeon production service manager here multiple times. I have also spoke once with the plastic surgery resident production service manager at [facility] who agreed to accept the patient as consultants. I have spoken with the ICU resident/fellow at [facility] and we both agreed ICU care not indicated at this time, I also spoke with a medicine resident at [facility] who stated he wanted to confer with the plastic surgeon prior to accepting this transfer. I am very concerned that without surgical intervention this patient is at risk of going into septic shock and potentially losing his arm. I have discussed this matter at length with the nursing supervisor bridges and buildings/route process administrator production service manager. I am also filing an incident report in this case as I believe the patient was disposition'ed by the ER prematurely. The patient was admitted to the hospital before his imaging results had returned. His abscess mandates surgical intervention of the variety not offered at this facility. I believe I have done my due diligence to facilitate the patient getting the care he needs, though this should have been done by the ER yesterday. VANESA LAURENT MD Apr 18, 2017 18:57
--- NOTE | 2017-04-18 19:10 | DS ---
Date/Time of Note Date/Time of Note DATE: 04/18/17 TIME: 18:58 Discharge Summary Admission/Discharge Info Admit Date/Time Apr 16, 2017 at 22:56 Discharge Date/Time Discharge Diagnosis R forearm abscess, poorly controlled DM2, HIV, cardiomyopathy, chronic mental illness, h/o drug abuse Consults general surgery, orthopedic surgery Procedures 04.17 CT UE IMPRESSION: 1. Fluid collection along the posterior dorsum of the right forearm possibly representing an abscess. Surgical evaluation is warranted. 04.16 US R arm IMPRESSION: 8.5 x 4.7 x 2.1 cm complex subcutaneous fluid collection in the right forearm suspicious for abscess. wound culture 04.16 Microbiology GRAM STAIN Final POLYMORPH. LEUKOCYTE RARE GRAM POS COCCI IN PAIRS 3+ WOUND CULTURE Preliminary Organism 1 ENTEROBACTER CLOACAE COMPLEX QUANTITY SCANT GROWTH Organism 2 STAPHYLOCOCCUS AUREUS QUANTITY 3+ Organism 3 GRAM NEGATIVE TANA QUANTITY RARE Organism 4 STREP AGALACTIAE - (GROUP B) QUANTITY 3+ EC COMPLEX S AUREUS M.I.C. RX M.I.C. RX --------- --- --------- --- CEFAZOLIN S CEFOTAXIME S CIPROFLOXACIN <=0.25 S <=0.5 S CLINDAMYCIN R DOXYCYCLINE S ERYTHROMYCIN >=8 R GENTAMICIN <=1 S LEVOFLOXACIN <=0.12 S 0.25 S OXACILLIN 0.5 S PENICILLIN-G >=0.5 R RIFAMPIN <=0.5 S VANCOMYCIN <=0.5 S TOBRAMYCIN <=1 S TRIMETHOPRIM/SULFAMETHOXAZOLE <=20 S <=10 S 04.16 blood culture: GPCs in pairs and chains a1c 13 Hx of Present Illness CC arm pain HPI Unfortunate 51 yo MtF transwoman with pmhx severe chronic mental illness, DM2 with poor control, DCM EF <20%, HIV with ?able HAART compliance, presents with 5 days of R arm pain and swelling. Pt states he fell 5 days ago and scraped the outer aspect of his R forearm. Regarding his Dm2, pt reports adherence with his insulin. states he's been checking sugars regularly and that they've been "normal." Pain impairs AROM of his R elbow Regarding pt's home meds, I called [facility] on file. Pt's HIV regimen is Isentriss and Truvada, though Truvada has not been filled since August Hospital Course Pt started on broad spectrum abx. General surgery consulted. Given proximity to elbow, general surgery deferring to orthopedics. Orthopedics consulted, given proximity to hand orthopedics stated hand surgeon was needed. case management consulted. Pt on broad spectrum abx with vanc and aztreonam (PCN allergy). He is to be transferred to a facility with hand/plastics services. Pt requiring frequent boluses to maintain BPs HIV VL/CD4 pending. Home Meds Active Scripts Potassium Chloride* (K-Dur*) 10 Meq Tab.prt.sr, 10 MEQ PO DAILY for 30 Days, # 30 TAB 1 Refill Prov:KRISTI FLORES MD 03/28/17 Furosemide* (Furosemide*) 40 Mg Tablet, 40 MG PO DAILY for 30 Days, #30 TAB 1 Refill Prov:KRISTI FLORES MD 03/28/17 Carvedilol* (Carvedilol*) 6.25 Mg Tablet, 6.25 MG PO BID for 30 Days, #90 TAB 1 Refill Take 1-1/2 pills twice a day for heart failure Prov:KRISTI FLORES MD 03/28/17 Quetiapine Fumarate* (Seroquel*) 400 Mg Tablet, 400 MG PO HS, #30 TAB Prov:ALF BROWNE MD 01/07/17 Albuterol Sulfate* (Ventolin HFA*) 18 Gm Hfa.aer.ad, 2 PUFF INHALATION Q4H, #1 INHALER Prov:KIRSTI ANAYA DO 03/24/16 Reported Medications Raltegravir Potassium* (Isentress*) 400 Mg Tablet, 400 MG PO BID, TAB 10/10/16 Gabapentin* (Gabapentin*) 300 Mg Capsule, 300 MG PO TID, #90 CAP 10/10/16 Lisinopril* (Lisinopril*) 5 Mg Tablet, 5 MG PO DAILY, #30 TAB 10/10/16 Insulin Isophan/Regular (Humulin 70/30) 100 Units/Ml Susp, 24 UNIT SC TID, EA SLIDING SCALE 10/10/16 Insulin Glargine* (Lantus*) 100 Unit/Ml Soln, 42 UNIT SC DAILY, #1 VIAL 10/10/16 Tramadol Hcl* (Ultram*) 50 Mg Tablet, 50 MG PO Q6H Y for PAIN, TAB 10/10/16 Follow-up Plan transfer to higher level of care for surgical debridement of his abscess Primary Care Provider [facility] Time spent on discharge: > 30 minutes Pending Labs Laboratory Tests Test 04/17/17 21:10 04/18/17 01:44 04/18/17 04:27 04/18/17 08:22 Bedside Glucose 75mg/dL (70-220) 85mg/dL (70-220) 108mg/dL (70-220) White Blood Count 6.610^3/ul (4.8-10.8) Red Blood Count 4.3610^6/ul (4.70-6.10) Hemoglobin 12.8g/dl (14.0-18.0) Hematocrit 37.1% (42.0-52.0) Mean Corpuscular Volume 85.1fl (82.0-101.0) Mean Corpuscular Hemoglobin 29.4pg (29.0-33.0) Mean Corpuscular Hemoglobin Concent 34.5g/dl (32.0-37.0) Red Cell Distribution Width 19.8% (11.5-14.5) Platelet Count 6010^3/UL (140-415) Mean Platelet Volume 11.7fl (7.4-10.4) Neutrophils % % (39.0-77.0) Segmented Neutrophils % (Manual) 69% (39-77) Band Neutrophils % (Manual) 3% (0-4) Lymphocytes % % (15.0-51.0) Lymphocytes % (Manual) 9% (15-51) Reactive Lymphocytes % (Manual) 7% (0-0) Monocytes % % (0.0-11.0) Monocytes % (Manual) 11% (0-11) Eosinophils % % (0.0-7.0) Basophils % % (0.0-2.0) Nucleated Red Blood Cells % 0.3/100WBC (0.0-0.0) Neutrophils # 10^3/ul (1.6-7.5) Neutrophils # (Manual) 4.610^3/ul (1.7-7.5) Band Neutrophils # 0.110^3/ul (0.0-0.6) Absolute Lymphocytes (Manual) 0.510^3/ul (0.8-2.9) Lymphocytes # 10^3/ul (0.8-2.9) Reactive Lymphocytes # 0.410^3/ul (0.0-0.0) Monocytes # 10^3/ul (0.3-0.9) Absolute Monocytes (Manual) 0.710^3/ul (0.3-0.9) Eosinophils # 10^3/ul (0.0-0.5) Basophils # 10^3/ul (0.0-0.1) Nucleated Red Blood Cells # 10^3/ul (0.0-0.0) Platelet Estimate DECREASED Poikilocytosis 1+ (0-0) Anisocytosis 1+ (0-0) Target Cells 2+ (0-0) Sodium Level 157mmol/L (135-144) Potassium Level 3.3mmol/L (3.5-5.1) Chloride Level 114mmol/L (97-110) Carbon Dioxide Level 34mmol/L (21-31) Anion Gap 12 (8-16) Blood Urea Nitrogen 31mg/dl (7-20) Creatinine 1.19mg/dl (0.61-1.24) Glucose Level 118mg/dl (70-220) Calcium Level 7.4mg/dl (8.4-10.2) Magnesium Level 1.5mg/dl (1.7-2.5) Vancomycin Level Trough 8.0ug/ml (10.0-20.0) Test 04/18/17 10:44 04/18/17 12:14 04/18/17 14:12 04/18/17 14:27 Prothrombin Time 16.2Sec (12.2-14.2) Prothrombin Time Ratio 1.3 INR International Normalized Ratio 1.29 Bedside Glucose 72mg/dL (70-220) 60mg/dL (70-220) 152mg/dL (70-220) Test 04/18/17 14:41 04/18/17 17:21 Bedside Glucose 114mg/dL (70-220) 78mg/dL (70-220) VANESA LAURENT MD Apr 18, 2017 19:10
[2017-04-18] MEDS: QUETIAPINE 100 MG TAB PO SCH (20:23)
[2017-04-19 14:09] LABS: LYMPHOCYTE - % CD4 (HELPER) 43 % (30-61); LYMPHOCYTE - %CD8 (SUPPRESSOR) 37 % (12-42); LYMPHOCYTE - ABSOLUTE CD4 693 cells/uL (490-1740); LYMPHOCYTE - ABSOLUTE CD8 589 cells/uL (180-1170); LYMPHOCYTE - CD4/CD8 RATIO 1.18 (0.86-5.00)
== END 2017-04-18 22:43 | disposition short-term general hospital (02) | DRG 975 ==
LOC: E/R 10:46 → TEL 22:56
PROVIDERS: ADMIT Internal Medicine; ATTEND Internal Medicine
DX: A41.9 Sepsis, unspecified organism (principal); B20 Human immunodeficiency virus [HIV] disease; L02.413 Cutaneous abscess of right upper limb; N17.9 Acute kidney failure, unspecified; E87.2 Acidosis; I42.9 Cardiomyopathy, unspecified; I50.9 Heart failure, unspecified; E11.65 Type 2 diabetes mellitus with hyperglycemia; B95.61 Methicillin susceptible Staphylococcus aureus infection as the cause of diseases classified elsewhere; B95.1 Streptococcus, group B, as the cause of diseases classified elsewhere; I11.0 Hypertensive heart disease with heart failure; F29 Unspecified psychosis not due to a substance or known physiological condition; F17.210 Nicotine dependence, cigarettes, uncomplicated; Z91.19 Patient's noncompliance with other medical treatment and regimen; J44.9 Chronic obstructive pulmonary disease, unspecified; Z59.0 Homelessness; Z79.4 Long term (current) use of insulin
CPT/HCPCS: 36415; 71010; 73200; 76536; 80048; 80053; 80061; 80202; 81001; 81005; 82550; 82553; 82962; 83036; 83605; 83735; 84443; 84484; 85025; 85610; 85651; 86140; 86360; 87040; 87070; 87086; 87536; 93005; 96361; 96365; 96367; 96372; 96375; J1815; J1940; J2060; J3370; J3475; J3480; J7030; J7042; P9047; Q9967

== ENCOUNTER 2017-05-20 05:45 | Emergency (ER) | payer OTHER ==
[~2017-05-20] VITALS: Ht 175.3 cm; Wt 92.0 kg
[2017-05-20 05:45] VITALS: Ht 175.3 cm; Wt 92.0 kg
[2017-05-20 07:08] VITALS: BP 113/68; PULSE 70; RESP 18; TEMP 97.9
--- NOTE | 2017-05-20 09:03 | ERD ---
ER Documentation Chief Complaint Chief Complaint Back pain HPI Patient is a 51-year-old male with HIV, COPD, high blood pressure, and diabetes who presents with back pain. He said that he was cold and had wounds on his bottom. He was brought in by ambulance. A neighbor called 911 because he was walking outside. He said that his buttock pain started on March 31 and he is currently taking antibiotics for osteomyelitis. He says "I just want my wounds cleaned and breakfast". Upon review of old medical records the patient has multiple visits to the ER for various complaints. He does have a primary doctor. ROS All systems reviewed and are negative except as per history of present illness. Medications Home Meds Active Scripts Potassium Chloride* (K-Dur*) 10 Meq Tab.prt.sr, 10 MEQ PO DAILY for 30 Days, # 30 TAB 1 Refill Prov:KRISTI FLORES MD 03/28/17 Furosemide* (Furosemide*) 40 Mg Tablet, 40 MG PO DAILY for 30 Days, #30 TAB 1 Refill Prov:KRISTI FLORES MD 03/28/17 Carvedilol* (Carvedilol*) 6.25 Mg Tablet, 6.25 MG PO BID for 30 Days, #90 TAB 1 Refill Take 1-1/2 pills twice a day for heart failure Prov:KRISTI FLORES MD 03/28/17 Quetiapine Fumarate* (Seroquel*) 400 Mg Tablet, 400 MG PO HS, #30 TAB Prov:ALF BROWNE MD 01/07/17 Albuterol Sulfate* (Ventolin HFA*) 18 Gm Hfa.aer.ad, 2 PUFF INHALATION Q4H, #1 INHALER Prov:KRISTI ANAYA DO 03/24/16 Reported Medications Raltegravir Potassium* (Isentress*) 400 Mg Tablet, 400 MG PO BID, TAB 10/10/16 Gabapentin* (Gabapentin*) 300 Mg Capsule, 300 MG PO TID, #90 CAP 10/10/16 Lisinopril* (Lisinopril*) 5 Mg Tablet, 5 MG PO DAILY, #30 TAB 10/10/16 Insulin Isophan/Regular (Humulin 70/30) 100 Units/Ml Susp, 24 UNIT SC TID, EA SLIDING SCALE 10/10/16 Insulin Glargine* (Lantus*) 100 Unit/Ml Soln, 42 UNIT SC DAILY, #1 VIAL 10/10/16 Tramadol Hcl* (Ultram*) 50 Mg Tablet, 50 MG PO Q6H Y for PAIN, TAB 10/10/16 Allergies Allergies: Coded Allergies: Penicillins (Unverified Allergy, Unknown, 10/22/16) PMhx/Soc Anesthesia Reaction: No Hx Neurological Disorder: Yes (PSYCHOSIS) Hx Respiratory Disorders: No Hx Cardiac Disorders: Yes (CHF HTN) Hx Psychiatric Problems: Yes (PHSYCOSIS) Hx Miscellaneous Medical Probl: Yes Hx Alcohol Use: No Hx Substance Use: Yes (CANNABIS) Hx Tobacco Use: Yes Smoking Status: Current every day smoker FmHx Family History: No diabetes Physical Exam Vitals Vital Signs Date Time Temp Pulse Resp B/P Pulse Ox O2 Delivery O2 Flow Rate FiO2 05/20/17 07:08 97.9 70 18 113/68 100 Room Air 05/20/17 05:45 97.8 88 17 114/73 95 Physical Exam Const: No acute distress Head: Atraumatic Eyes: Normal Conjunctiva ENT: Normal External Ears, Nose and Mouth. Neck: Full range of motion..~ No meningismus. Resp: Clear to auscultation bilaterally Cardio: Regular rate and rhythm, no murmurs Abd: Soft, non tender, non distended. Normal bowel sounds Skin: Sacral decubitus ulcer 3 x 3 cm with clean wound edges without obvious signs of infection or drainage Back: No midline or flank tenderness Ext: No cyanosis, or edema Neur: Awake and alert Psych: Normal Mood and Affect Procedures/MDM Smoking Cessation Therapy: Pt. was lectured for greater than 3 minutes on the health risks of continued smoking and the benefits of cessation. Patient is a 51-year-old male who presents with sacral decubitus ulcer. It appears clean and does not appear infected at this time. He is taking antibiotics. He wants breakfast will be given breakfast prior to discharge. He had wound care and social service coordinator evaluation. The patient will be discharged and can return for any worsening symptoms. His vital signs are normal. I doubt sepsis or other serious infection at this time. The patient can return for any worsening symptoms. I do not believe he requires further workup or admission the hospital at this time. Departure Diagnosis: Primary Impression: Decubital ulcer Pressure ulcer location: unspecified location Pressure ulcer stage: unspecified pressure ulcer stage Qualified Code: L89.90 - Pressure ulcer, unspecified location, unspecified ulcer stage Additional Impression: Back pain Back pain location: low back pain Chronicity: acute Back pain laterality: unspecified Sciatica presence: unspecified whether sciatica present Qualified Code: M54.5 - Acute low back pain, unspecified back pain laterality, with sciatica presence unspecified Condition: Fair Patient Instructions: Back Pain (Acute Or Chronic) Referrals: [facility] Additional Instructions: Call your primary care doctor TOMORROW for an appointment during the next 1-2 days.See the doctor sooner or return here if your condition worsens before your appointment time. ASHLEY STONE MD May 20, 2017 09:03
== END 2017-05-20 06:41 | disposition home or self-care (01) ==
LOC: E/R 05:45
DX: L89.159 Pressure ulcer of sacral region, unspecified stage (principal); I50.9 Heart failure, unspecified; I10 Essential (primary) hypertension; F17.210 Nicotine dependence, cigarettes, uncomplicated; J44.9 Chronic obstructive pulmonary disease, unspecified; Z79.4 Long term (current) use of insulin
CPT/HCPCS: 99282

== ENCOUNTER 2017-07-07 12:22 | Inpatient (IN) | END 2017-07-29 15:15 | disposition home or self-care (01) | DRG 974 ==

== ENCOUNTER → 2017-12-03 | Emergency (ER) | END | disposition home or self-care (01) ==